=== PATIENT | male | born 1960 | race Caucasian/White ===

== ENCOUNTER 2024-12-22 14:25 | Outpatient (CLI) | payer MEDICARE, SELFPAY ==
--- NOTE | 2024-12-22 15:08 | ECG_ITS ---
Test Date: 2024-12-22 15:24:25 Measurements Intervals [place] Rate: 59 P: 86 MI: 175 QRS: -60 QRSD: 150 T: 32 QT: 434 QTc: 431 Interpretive Statements SINUS BRADYCARDIA RIGHT BUNDLE BRANCH BLOCK LEFT ANTERIOR FASCICULAR BLOCK BASELINE ARTIFACT- I, AVR, AVL, AVF, V2 ABNORMAL ECG No previous ECG available for comparison Electronically Signed On 12-22-2024 15:27:25 CDT by James Aguillon D.O.
[2024-12-22 15:18] LABS: Basophils Percent Auto 0.5 % (0.2-1.2); Eosinophils Absolute Auto 0.3 K/mm3 (0-0.3); Eosinophils Percent Auto 5.1 % (0-4.4); Hematocrit 45.5 % (42.0-52.0); Immature Granulocyte Absolute 0.02 K/mm3 (0.00-0.031); Immature Granulocyte Percent A 0.4 % (0-0.5); Lymphocytes Percent Auto 30.9 % (18.3-44.2); Mean Corpuscular Hemoglobin 28.8 pg (26-34); Mean Corpuscular Volume 87.3 fl (80-100); Mean Platelet Volume 10.9 fl (7.4-10.4); Monocytes Absolute Auto 0.5 K/mm3 (0.1-0.6); Monocytes Percent Auto 8.5 % (2.6-8.5); Neutrophils Percent Auto 54.6 % (45.5-73.1); Platelet Count Result 209 k/mm3 (150-375); Red Blood Count 5.21 M/mm3 (4.6-6.20); Red Cell Distribution Width 13.6 % (11.5-14.5); White Blood Count 5.5 K/mm3 (4.5-10.0)
[2024-12-22 15:28] LABS: Add Urine Microscopic? YES; Appearance Urine Clear (Clear); Bacteria Urine None Seen /hpf; Bilirubin Urine Negative (Negative); Blood Urine Negative (Negative); Color Urine Yellow (Yellow); Glucose Urine UA 3+ mg/dL (Negative); Ketones Urine Negative (Negative); Leukocyte Esterase Ur Negative LEU/UL (Negative); Nitrate Urine Negative (Negative); Non Pathogenic Casts 0-2; Protein Urine 2+ mg/dL (Negative); RBC Urine 0-2 /hpf (0-2); Squamous Epithelial Cell Urine None Seen /hpf (Few); Urobilinogen Urine 0.2 mg/dL (<2.0); WBC Urine 0-5 /hpf (0-3)
[2024-12-22 15:37] LABS: Albumin Level 4.3 g/dL (3.5-5.1); Anion Gap 8 mmol/L (4-12); Blood Urea Nitrogen 20 mg/dL (9-20); Calcium 9.6 mg/dL (8.4-10.2); Carbon Dioxide 26 mmol/L (22-30); Chloride 107 mmol/L (98-107); Estimated Glomerular Filt Rate > 60; Glucose 102 mg/dL (65-110); Potassium 3.9 mmol/L (3.4-5.0); Sodium 141 mmol/L (137-145)
--- OUTSIDE RECORDS SUMMARY | 2024-12-22 15:58 | XMS_ITS | Encounter Summary ---
Author Organization [facility] Address [address] [place] [id number] Care Team Providers Care Engine Repairer Production Name Role Phone Cecilia Jenkins MD Primary Care Provider [phone]- [phone] Reason for Visit * Reason Onset Date Comments Surgical Clearance 12/21/2024 Encounter Details Date Type Department Care Team (Late st Contact Info) Description 12/21/2024 Telephone [place] [facility] [address] [place] [address] Danny Pavon MD [facility]. [facility] [address] [place] [address] Surgical Clearance Social History Tobacco Use Types Packs/Day Years Used Date Smoking Tobacco: Never Smokeless Tobacco: Never Alcohol Use Standard Drinks/Week Comments Yes 1.7 (1 standard drink = 0.6 oz p ure alcohol) once every 2 weeks PHQ-2 Answer Date Recorded Patient Health Questionnaire-2 Score 0 11/26/2024 Sex and Gender Information Value Date Recorded Sex Assigned at Not on file Legal Sex Male 9:56 AM CDT Gender Identity Male 10/09/2021 3:39 PM [employer] PAR[employer] Sexual Orientation Straight 10/09/2021 3: 39 PM [employer] PARALEGAL documented as of this encounter Functional Status * RETIRED Are you deaf or do you have serious difficulty hearing Answer Date of Assessment Author Status No 03/20/2022 9:31 PM CDT Activ e * RETIRED Are you blind or do you have serious difficulty seeing, even when wearing glasses? Answer Date of Assessment Author Status No 03/20/2022 10:39 PM CDT Acti ve * Do you have serious difficulty walking or climbing stairs? Answer Date of Assessment Author Status No 03/20/2022 10:39 PM CDT Delilah Holden R N Active * Do you have difficulty dressing or bathing? Answer Date of Assessment Author Status No 03/20/2022 10:39 PM CDT Delilah Holden R N Active * Because of a physical, mental, or emotional condition, do you have difficulty doing errands alone such as visiting a doctor's office or shopping? Answer Date of Assessment Author Status No 03/20/2022 10:39 PM CDT Delilah Holden R N Active documented as of this encounter Mental Status * Because of a physical, mental, or emotional condition, do you have serious difficulty concentrating, remembering, or making decisions? Answer Entry Date Author Status No 03/20/2022 10:39 PM CDT Delilah Holden R N Active documented in this encounter Progress Notes * Candace Baig - 12/21/2024 4:33 PM CDT Received fax on Luiz Kimble stating patient is needing to undergo LEFT TOTAL KNEE ARTHROPLASTY. Needs cardiac clearance. Please advise if patient is cleared for surgery or if any medication changes/directions are needed. Message to Saleem Wayne documented in this encounter Plan of Treatment Upcoming Encounters Date Type Department Care Team (Late st Contact Info) Description 02/16/2025 11:00 AM CDT Office Visit [facility] [facility], [place] [address] [place] [address] Danny Pavon MD [facility]. [facility] [address] [place] [address] documented as of this encounter Goals Goal Patient Goal Type Associated Problems Recent Progress Patient-Stated? Author Patient will return to prior living situation and remain independent in ADLs upon [facility] General No Adenike Griggs RN documented as of this encounter Visit Diagnoses Not on filedocumented in this encounter Care Teams Engine Repairer Production Relationship Specialty Start Date End Date Cecilia Jenkins MD [address] [facility] [address] [place] [address] PCP - General FAMILY PRACTICE 04/23/22 documented as of this encounter
--- OUTSIDE RECORDS SUMMARY | 2024-12-22 15:59 | XMS_ITS | Clinical Summary ---
Author Organization [facility] Address [address] [place] [address] Care Team Providers Care Electroencephalographic Technologist Name Role Phone Cecilia Jenkins MD Primary Care Provider [phone]- [phone] Allergies No known active allergies Medications aspirin EC (ECOTRIN) 81 MG tablet Take 1 tablet (81 mg total) by mouth daily. Active fish oil (OMEGA-3 FATTY ACID) 1000 MG Cap capsule Take 1 capsule (1,000 mg total) by mouth daily. Active Glucosamine 500 MG Cap Take 1 capsule by mouth daily. Active multi vitamin/mineral s (THERA-M ENHANCED) tablet Take 1 tablet by mouth daily. Active losartan-hydroC HLOROthiazide (HYZAAR) 50-12.5 MG tabletIndicatio ns:Albuminuria Take 1 tablet by mouth daily. 30 tablet 3 3 Active vitamin D3, cholecalciferol , 5000 UNITS capsule Take 1 capsule (5,000 Units total) by mouth daily. Active ketoconazole (NIZORAL) 2 % cream 3 Active ketoconazole (NIZORAL) 2 % shampoo Apply topically once a week. 3 Active ELIQUIS 5 MG tablet Take 1 tablet by mouth twice daily 180 tablet 3 Active FARXIGA 10 MG tabletIndicatio ns:Albuminuria, CKD (chronic kidney disease), symptom management only, stage 1 Take 1 tablet by mouth once daily 90 tablet 3 Active amLODIPine (NORVASC) 2.5 MG tablet Take 1 tablet (2.5 mg total) by mouth daily. 3 Active losartan (COZAAR) 50 MG tabletIndicatio ns:Albuminuria Take 1 tablet by mouth once daily 90 tablet 4 Active B Complex Cap capsule Take 1 capsule by mouth daily. Active metoprolol tartrate (LOPRESSOR) 50 MG tablet Take 1 tablet by mouth twice daily 180 tablet 4 Active finasteride (PROSCAR) 5 MG tablet Take 1 tablet (5 mg total) by mouth daily. 5 Active atorvastatin (LIPITOR) 80 MG tablet Take 1 tablet (80 mg total) by mouth daily. 4 Active Active Problems Problem Noted Date Diagnosed Date Elevated PSA 08/31/2022 Atrial fibrillation, unspecified type (CMS/HCC H HS/HCC) 04/04/2022 Assessment & Plan (12/03/2022 2:53 PM CDT): He has paroxysmal atrial fibrillation and is status post cardioversion 05/2022. He thinks he was back in afib a few weeks after DCCV. EKG done at OSH in 09/2022 documented as fib. EKG today in the office shows atrial fibrillation. Ventricular rate is controlled. Continue BB. Discussed treatment options. I think he would benefit from rhythm control strategy. We discussed referral to EP for catheter ablation versus addition of anti arrhythmics. He would like to see them to discuss. Since he is symptomatic we discussed repeat DCCV. He would like to wait. He is on Eliquis for thromboprophylaxis. He has not missed any doses in the last 30 days. Assessment & Plan (06/11/2022 11:40 AM CDT): He has paroxysmal atrial fibrillation and is status post cardioversion. He is currently in normal sinus rhythm on his EKG today. Continue metoprolol and anticoagulation with apixaban. Assessment & Plan (04/06/2022 10:36 AM CDT): New on admission Secondary to multiple bilateral pulmonary emboli EKG today reveals atrial fibrillation We will schedule DCCV as outpatient Continue Eliquis 5 mg twice daily Continue metoprolol 50 mg twice daily Monitor rates on telemetry and adjust accordingly Would benefit from sleep study but would like to hold off at this time Pulmonary embolism (CMS/HCC HHS/HCC) 03/20/2022 Assessment & Plan (11/29/2022 1:30 PM FLAME PLANER): Continue anticoagulation. He will be on anticoagulation for atrial fibrillation regardless. Assessment & Plan (06/11/2022 11:41 AM CDT): Continue anticoagulation. He will be on anticoagulation for atrial fibrillation regardless. Assessment & Plan (04/06/2022 10:35 AM CDT): Bilateral venous Dopplers also positive for DVT He is generally sedentary. Although, this is not changed in the last couple years. 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 Would encourage hypercoagulability work-up to rule out if they deemed necessary Albuminuria 07/10/2021 CKD (chronic kidney disease) stage 2, GFR 60-89 ml/min 07/10/2021 Primary hypertension 07/10/2021 Assessment & Plan (11/29/2022 1:29 PM FLAME PLANER): His blood pressure is elevated in the office today. He is working on lifestyle modifications to help with weight loss. Continue losartan, hydrochlorothiazide, and metoprolol. Assessment & Plan (06/11/2022 11:40 AM CDT): His blood pressure is elevated in the office today. He is working on lifestyle modifications to help with weight loss. Continue losartan, hydrochlorothiazide, and metoprolol. Assessment & Plan (04/04/2022 9:06 AM CDT): Blood pressure is well controlled with no changes in regimen at this time Encouraged to continue to monitor at home and log and call office with any concerns in future. Resolved Problems Problem Noted Date Diagnosed Date Resolved Date BPH with obstruction/lower u rinary tract symptoms 08/31/2022 12/20/2022 Encounters Date Type Department Care Team Description 12/21/2024 [facility] [address] [address] Danny Pavon MD Surgical Clearance 11/26/2024 11:40 AM FLAME PLANER Office Visit [facility] - [facility], [place] [address] [place] [id number] Camilo Hall MD CKD Follow-up 11/26/2024 Travel from Last 3 Months Family History Medical History Relation Comments Osteoarthritis Brother Cancer Father Cancer Mother Thyroid Disease Mother Parkinson's Disease Paternal Grandfather Cancer Paternal Grandmother Relation Status Comments Brother Father Mother Paternal Grandfather Paternal Grandmother Social History Tobacco Use Types Packs/Day Years Used Date Smoking Tobacco: Never Smokeless Tobacco: Never Tobacco Cessation:Counseling Given: No Alcohol Use Standard Drinks/Week Comments Yes 1.7 (1 standard drink = 0.6 oz p ure alcohol) once every 2 weeks PHQ-2 Answer Date Recorded Patient Health Questionnaire-2 Score 0 11/26/2024 Sex and Gender Information Value Date Recorded Sex Assigned at Not on file Legal Sex Male 9:56 AM CDT Gender Identity Male 10/09/2021 3:39 PM FLAME PLANER Sexual Orientation Straight 10/09/2021 3: 39 PM FLAME PLANER Last Filed Vital Signs Vital Sign Reading Time Taken Comments Blood Pressure 129/74 11/26/2024 11:36 AM FLAME PLANER Pulse 65 11/26/2024 11:36 AM FLAME PLANER Temperature 35.7 C (96.3 F) 11/26/2024 11:36 AM FLAME PLANER Respiratory Rate 24 04/20/2024 12:30 PM CDT Oxygen Saturation 97% 11/26/2024 11:36 AM FLAME PLANER Inhaled Oxygen Concentration - - Weight 134.3 kg (296 lb) 11/26/2024 11:36 AM FLAME PLANER Height 180.3 cm (5' 11 ) 11/26/2024 11:36 AM FLAME PLANER Body Mass Index 41.28 11/26/2024 11:36 AM FLAME PLANER Plan of Treatment Upcoming Encounters Date Type Department Care Team (Late st Contact Info) Description 02/16/2025 11:00 AM CDT Office Visit [facility] [facility], [place] [address] [place] [address] Danny Pavon MD [facility]. [place] [address] [place] [address] Health Maintenance Due Date Last Done Comments Colorectal Cancer Screening Colonoscopy (10 Years) 1958 Hepatitis C 1976 RSV Immunization or 60+ Years (1 - Risk 60-74 years 1-dose series) 2018 Annual Medicare Wellness Visit 2023 COVID-19 Vaccine (4 - 2023-2 5 season) 2024 07/17/2023, 12/21/2020, 11/20/2020 Zoster Vaccines (2 of 2) 10/28/2024 09/02/2024 DTaP, Tdap and Td Vaccines ( 2 - Td or Tdap) 09/01/2034 09/01/2024 Pneumococcal Vaccine: 65+ Years Completed 10/23/2023 PHQ-2 (Physician [place]) Completed 11/26/2024 Meningococcal B Vaccine Aged Out No l onger eligible based on patient's age to complete this topic Meningococcal Vaccine Aged Out No hillary nikole eligible based on patient's age to complete this topic RSV Immunizations Under 20 Months Aged Out No longer eligible b ased on patient's age to complete this topic Goals Goal Patient Goal Type Associated Problems Recent Progress Patient-Stated? Author Patient will return to prior living situation and remain independent in ADLs upon discharge from hospital General No Adenike Griggs, RN Insurance [employer] Advance Directives * Full Code (Latest Code Status on File) Date Activated Date Inactivated Comments 05/06/2023 2:15 PM 05/06/2023 6:04 PM * Full Code Date Activated Date Inactivated Comments 01/28/2023 11:17 AM 01/28/2023 6:09 PM * Full Code Date Activated Date Inactivated Comments 05/08/2022 12:57 PM 05/08/2022 4:22 PM * Full Code Date Activated Date Inactivated Comments 03/20/2022 3:45 PM 03/22/2022 4:28 PM Care Teams Electroencephalographic Technologist Relationship Specialty Start Date End Date Cecilia Jenkins MD [address] [facility] [address] [place] [address] PCP - General FAMILY PRACTICE 04/23/22
--- OUTSIDE RECORDS SUMMARY | 2024-12-22 15:59 | XMS_ITS | Data Portability ---
Author Organization [facility] Katie BULLOCK Address [address] [facility][note 3][place] [address] Care Team Providers Care Project Consultant Name Role Phone JOY HUANG Primary Care Provider Unazeeshan ilminerva Assessment No assessment recorded. Plan of Treatment Reminders Order Date Submit Date Provider Last Modified By Organization Details Last Modified Time Details Appointments None record ed. Lab HbA1c (hemog lobin A1c), blood 2023 [facility], [address] [place] [address], [address], [place], [address], 4 12:14:15 lipid panel, serum 2023 024 [facility], [address] [place] [address], [address], [place], [address], 4 12:14:12 BMP, serum or plasma 2023 024 [facility], [address] [place] [address], [address], [place], [address], 4 12:14:13 albumi n/crea tinine , mass ratio, urine 2023 [facility], [address] [place] [address], [address], [place], [address], 4 12:14:11 Referral orthop benita fregoso n referr al 2023 024 SAÚL Lynn MD, [address] [facility] [address], [place], [address], 5 15:17:59 Procedures None record ed. Surgeries None record ed. Imaging None record ed. Medication Orders losart an 100 mg-hyd rochlo rothia zide 12.5 mg tablet 2024 025 [facility], [address] [place] [address], [address], 5 11:54:43 Farxig a 10 mg tablet 2023 024 [facility], [address] [place] [address], [address], 4 09:52:15 Eliqui s 5 mg tablet 2023 024 [facility], [address] [place] [address], [address], 4 09:52:15 metopr olol tartra te 50 mg tablet 2023 024 [facility], [address] [place] [address], [address], 4 09:52:15 losart an 100 mg-hyd rochlo rothia zide 12.5 mg tablet 2023 024 [facility], [address] [place] [address], [address], 4 09:52:14 amlodi pine 5 mg tablet 2023 024 [facility], [address] [place] [address], [address], 4 09:52:15 Trulic ity 1.5 mg/0.5 mL subcut aneous pen inject or 2022 023 [email or web address] [facility], [address] [facility], [place], [address], 11:18:27 Patient TargetsNo targets recorded. Patient Instructions Encounter Date Encounter Id Patient Instructions Last Modified By Organization Details Last Modified Time 08/27/2023 [id number] I was present and available in the Family Medicine clinic to discuss this patient's care during the appointment. I agree with the resident's assessment and plan as documented. KGR [email or web address] Not available 08/28/2023 09:12:25 10/23/2023 [id number] I was present and available in the Family Medicine clinic to discuss the patient's care during the time of the appointment. I agree with the resident's assessment and plan as documented. Tommy Calzada Not available 10/24/2023 13:13:44 03/09/2024 [id number] I was present and available in the family medicine clinic to discuss the patient's care during the appointment and the case was discussed with me. I agree with the resident's assessment and plan as documented. HL [email or web address] Not available 03/09/2024 11:13:53 09/01/2024 [id number] I was present and available in the Family Medicine clinic to discuss this patient's care for the duration of the appointment. I agree with the resident's assessment and plan as documented with the following addendum: None. Dr. Adelfo Rosas MD, FMOB Attending Physician, [facility]. [email or web address] Not available 09/02/2024 19:10:38 11/27/2024 [id number] A healthy lifestyle: care instructions [email or web address] Not available 11/29/2024 14:39:54 I was present and available in the Family Medicine clinic to discuss the patient's care during the time of the appointment. All labs/imaging/con sults/prescripti ons to be followed by the resident rendering services on day of encounter. I agree with the resident's assessment and plan as documented with the following addendum: [None] Tommy Calzada Not available 11/30/2024 16:25:01 Reason for Referral Orthopedic Surgeon Referral for Bilateral arthritis of knees Referring Physician: Joy Bal, Check Embosser, Encounter Date: 09/01/2024 Results Created Date Observation Date Name Description Value Unit Range Abnormal Flag Note LastModifiedBy Organization Detail LastModifiedTime 08/27/20 23 08/27/2023 BASIC METAB OLIC PANEL glucose 90 mg/dL 70-99 Not Available [facility] (Lab[facility] [place], [address], 08/27/2023 12:37:16 08/27/20 23 08/27/2023 BASIC METAB OLIC PANEL BUN 19 mg/dL 7-18 high Not Available [facility] (Lab) [place], [address], 08/27/2023 12:37:16 08/27/20 23 08/27/2023 BASIC METAB OLIC PANEL creatinine 1.06 mg/dL 0.7-1. 3 Not Available [facility] (Lab) [place], [address], 08/27/2023 12:37:16 08/27/20 23 08/27/2023 BASIC METAB OLIC PANEL sodium 141 mmol/ L 136-14 5 Not Available [facility] (Lab) [place], [address], 08/27/2023 12:37:16 08/27/20 23 08/27/2023 BASIC METAB OLIC PANEL potassium 4.0 mmol/ L 3.5-5. 1 Not Available [facility] (Lab) [place], [address], 08/27/2023 12:37:16 08/27/20 23 08/27/2023 BASIC METAB OLIC PANEL chloride 109 mmol/ L 100-10 8 high Not Available [facility] (Lab) [place], [address], 08/27/2023 12:37:16 08/27/20 23 08/27/2023 BASIC METAB OLIC PANEL total CO2 27.5 mmol/ L 21-32 Not Available [facility] (Lab) [address] [place], [address], 08/27/2023 12:37:16 08/27/20 23 08/27/2023 BASIC METAB OLIC PANEL calcium 9.0 mg/dL 8.5-10 .1 Not Available [facility] (Lab) [place], [address], 08/27/2023 12:37:16 08/27/20 23 08/27/2023 BASIC METAB OLIC PANEL anion gap 4.5 mmol/ L 5-15 low Not Available [facility] (Lab) [address], [place], [address], 08/27/2023 12:37:16 08/27/20 23 08/27/2023 BASIC METAB OLIC PANEL BUN creatinine ratio 17.9 6-26 Not Available [facility] (Lab) [place], [address], 08/27/2023 12:37:16 08/27/20 23 08/27/2023 BASIC METAB OLIC PANEL est GFR 78 mL/mi n/1.7 3_M2 >90 low NOTE: eGFR is not calcu lated for patie nts <18 years of age. This is an estim ated GFR calcu latio n using the new CKD EPI creat inine equat ion witho ut race and so does not requi re a corre ction facto r for race. This estim ated GFR shoul d not be used for calcu latin g drug doses . Not Available [facility] (Lab) [place], [address], 08/27/2023 12:37:16 08/27/20 23 08/27/2023 VITAM IN D, 25-OH TOTAL vitamin D, 25-oh total 35 NG/mL 30-100 INTER PRETA TION DEFIC IENT <20 INSUF FICIE NT 20-29 SUFFI CIENT 30-10 0 Not Available [facility] (Lab) [place], [address], 08/27/2023 12:38:23 08/27/20 23 08/27/2023 MICRO ALB/C REAT RATIO creatinine, urine 93.1 mg/dL 39-259 Not Available [facility] (Lab) [place], [address], 08/27/2023 13:12:27 08/27/20 23 08/27/2023 MICRO ALB/C REAT RATIO microalbumin , urine 55.7 mg/dL <2.0 high Not Available [facility] (Lab) [place], [address], 08/27/2023 13:12:27 08/27/20 23 08/27/2023 MICRO ALB/C REAT RATIO malb/creat ratio 598.3 mg/g <30 high Not Available [facility] (Lab) [place], [address], 08/27/2023 13:12:27 08/27/20 23 08/27/2023 TOTAL PROTE IN, URINE total protein, urine 67.0 mg/dL <10 high Not Available [facility] (Lab) [place], [address], 08/27/2023 13:12:28 04/20/20 24 04/20/2024 BASIC METAB OLIC PANEL glucose 93 mg/dL 70-99 Not Available [facility] (Lab) [address] [place], [address], 04/20/2024 10:22:16 04/20/20 24 04/20/2024 BASIC METAB OLIC PANEL BUN 18 mg/dL 7-18 Not Available [facility] (Lab) [address] [facility], [place], [address], 04/20/2024 10:22:16 04/20/20 24 04/20/2024 BASIC METAB OLIC PANEL creatinine 1.14 mg/dL 0.7-1. 3 Not Available [facility] (Lab) [address] [facility], [place], [address], 04/20/2024 10:22:16 04/20/20 24 04/20/2024 BASIC METAB OLIC PANEL sodium 142 mmol/ L 136-14 5 Not Available [facility] (Lab) [address] [facility], [place], [address], 04/20/2024 10:22:16 04/20/20 24 04/20/2024 BASIC METAB OLIC PANEL potassium 3.9 mmol/ L 3.5-5. 1 Not Available [facility] (Lab) [address] [place], [address], 04/20/2024 10:22:16 04/20/20 24 04/20/2024 BASIC METAB OLIC PANEL chloride 111 mmol/ L 100-10 8 high Not Available [facility] (Lab) [address] [place], [address], 04/20/2024 10:22:16 04/20/20 24 04/20/2024 BASIC METAB OLIC PANEL total CO2 26.7 mmol/ L 21-32 Not Available [facility] (Lab) [place], [address], 04/20/2024 10:22:16 04/20/20 24 04/20/2024 BASIC METAB OLIC PANEL calcium 8.8 mg/dL 8.5-10 .1 Not Available [facility] (Lab) [place], [address], 04/20/2024 10:22:16 04/20/20 24 04/20/2024 BASIC METAB OLIC PANEL anion gap 4.3 mmol/ L 5-15 low Not Available [facility] (Lab) [place], [address], 04/20/2024 10:22:16 04/20/20 24 04/20/2024 BASIC METAB OLIC PANEL BUN creatinine ratio 15.8 6-26 Not Available [facility] (Lab) [place], [address], 04/20/2024 10:22:16 04/20/20 24 04/20/2024 BASIC METAB OLIC PANEL est GFR 71 mL/mi n/1.7 3_M2 >90 low NOTE: eGFR is not calcu lated for patie nts <18 years of age. This is an estim ated GFR calcu latio n using the new CKD EPI creat inine equat ion witho ut race and so does not requi re a corre ction facto r for race. This estim ated GFR shoul d not be used for calcu latin g drug doses . Not Available [facility] (Lab) [place], [address], 04/20/2024 10:22:16 04/20/20 24 04/20/2024 CBC WITH DIFF WBC 5.98 x10'3 /uL 4.5-11 .0 Not Available [facility], [address], 04/20/2024 10:31:14 04/20/20 24 04/20/2024 CBC WITH DIFF RBC 5.36 x10'6 /uL 4.70-6 .10 Not Available [facility] (Lab) [address] [facility], [place], [address], 04/20/2024 10:31:14 04/20/20 24 04/20/2024 CBC WITH DIFF hemoglobin 15.3 g/dL 14.0-1 8.0 Not Available [facility] (Lab) [address] [facility], [place], [address], 04/20/2024 10:31:14 04/20/20 24 04/20/2024 CBC WITH DIFF hematocrit 47.4 % 43.0-5 4.0 Not Available [facility] (Lab) [address] [facility], [place], [address], 04/20/2024 10:31:14 04/20/20 24 04/20/2024 CBC WITH DIFF MCV 88.4 fL 80.0-9 4.0 Not Available [facility] (Lab) [address] [facility], [place], [address], 04/20/2024 10:31:14 04/20/20 24 04/20/2024 CBC WITH DIFF MCH 28.5 pg 27.0-3 1.0 Not Available [facility] (Lab) [address] [place], [address], 04/20/2024 10:31:14 04/20/20 24 04/20/2024 CBC WITH DIFF MCHC 32.3 g/dL 32.0-3 6.0 Not Available [facility] (Lab) [address] [facility], [place], [address], 04/20/2024 10:31:14 04/20/20 24 04/20/2024 CBC WITH DIFF RDW 13.3 % 11.5-1 4.5 Not Available [facility] (Lab) [address], [place], [address], 04/20/2024 10:31:14 04/20/20 24 04/20/2024 CBC WITH DIFF platelet count 235 x10'3 /uL 130-40 0 Not Available [facility] (Lab) [address], [place], [address], 04/20/2024 10:31:14 04/20/20 24 04/20/2024 CBC WITH DIFF MPV 10.0 fL 9.3-12 .2 Not Available [facility] (Lab) [address], [place], [address], 04/20/2024 10:31:14 04/20/20 24 04/20/2024 CBC WITH DIFF diff type AUTOMA BERNY DIFFER ENTIAL Not Available [facility] (Lab) [address], [place], [address], 04/20/2024 10:31:14 04/20/20 24 04/20/2024 CBC WITH DIFF neutrophils 51.1 % Not Available [facility] (Lab) [address], [place], [address], 04/20/2024 10:31:14 04/20/20 24 04/20/2024 CBC WITH DIFF lymphocytes 37.1 % Not Available [facility] (Lab) [place], [address], 04/20/2024 10:31:14 04/20/20 24 04/20/2024 CBC WITH DIFF monocytes 7.0 % Not Available [facility] (Lab) [address] [place], [address], 04/20/2024 10:31:14 04/20/20 24 04/20/2024 CBC WITH DIFF eosinophils 4.0 % Not Available [facility] (Lab) [address] [place], [address], 04/20/2024 10:31:14 04/20/20 24 04/20/2024 CBC WITH DIFF basophils 0.5 % Not Available [facility] (Lab) [address] [place], [address], 04/20/2024 10:31:14 04/20/20 24 04/20/2024 CBC WITH DIFF immature granulocytes 0.3 % Not Available [facility] (Lab) [address] [facility], [place], [address], 04/20/2024 10:31:14 04/20/20 24 04/20/2024 CBC WITH DIFF abs. neutrophils 3.05 x10'3 /uL 1.80-7 .70 Not Available [facility] (Lab) [address] [place], [address], 04/20/2024 10:31:14 04/20/20 24 04/20/2024 CBC WITH DIFF abs. lymphocytes 2.22 x10'3 /uL 1.00-4 .80 Not Available [facility] (Lab) [address] [place], [address], 04/20/2024 10:31:14 04/20/20 24 04/20/2024 CBC WITH DIFF abs. monocytes 0.42 x10'3 /uL 0.30-0 .82 Not Available [facility] (Lab) [address] [place], [address], 04/20/2024 10:31:14 04/20/20 24 04/20/2024 CBC WITH DIFF abs. eosinophils 0.24 x10'3 /uL 0.04-0 .54 Not Available [facility] (Lab) [address] [facility], [place], [address], 04/20/2024 10:31:14 04/20/20 24 04/20/2024 CBC WITH DIFF abs. basophils 0.03 x10'3 /uL 0.01-0 .08 Not Available [facility] (Lab) [address], [place], [address], 04/20/2024 10:31:14 04/20/20 24 04/20/2024 CBC WITH DIFF abs. immature grans 0.02 x10'3 /uL 0.00-0 .49 Not Available [facility] (Lab) [address], [place], [address], 04/20/2024 10:31:14 04/20/20 24 04/20/2024 PROTI ME protime 11.7 sec 10.2-1 2.9 Not Available [facility] (Lab) [address], [place], [address], 04/20/2024 10:35:07 04/20/20 24 04/20/2024 PROTI ME INR 1.0 Recom lida d INR Thera peuti c Goals : 2.0-3 .0 Routi ne Thera py 2.5-3 .5 Mecha nical Prost hetic Valve s (High Risk) Not Available [facility] (Lab) [address], [place], [address], 04/20/2024 10:35:07 09/01/20 24 09/02/2024 ALBUM IN/CR EATIN INE RATIO ,URIN E creatinine, urine 154.9 mg/dL notest ab. Not Available [facility] ([facility]) [address] [facility], [place], [address], 09/02/2024 12:14:10 09/01/20 24 09/02/2024 ALBUM IN/CR EATIN INE RATIO ,URIN E albumin, urine 933.0 ug/mL notest ab. Resul ts confi rmed on dilut ion. Not Available [facility] ([facility]) [address] [facility], [place], [address], 09/02/2024 12:14:10 09/01/20 24 09/02/2024 ALBUM IN/CR EATIN INE RATIO ,URIN E alb/creat ratio 602 mg/g_ creat 0-29 above high normal Michelle l: 0 - 29 Moder ately incre ased: 30 - 300 Sever bryant incre ased: >300 Not Available [facility] ([facility]) [address] [facility], [place], [address], 09/02/2024 12:14:10 09/01/20 24 09/02/2024 LIPID PANEL cholesterol, total 238 mg/dL 100-19 9 above high normal Not Available [facility] ([facility]) [address] [facility], [place], [address], 09/02/2024 12:14:12 09/01/20 24 09/02/2024 LIPID PANEL triglyceride s 188 mg/dL 0-149 above high normal Not Available [facility] ([facility]) [address] [place], [address], 09/02/2024 12:14:12 09/01/20 24 09/02/2024 LIPID PANEL HDL cholesterol 41 mg/dL >39 Not Available [facility]) [address] [facility], [place], [address], 09/02/2024 12:14:12 09/01/20 24 09/02/2024 LIPID PANEL VLDL cholesterol herb 35 mg/dL 5-40 Not Available [facility] ([facility]) [address] [place], [address], 09/02/2024 12:14:12 09/01/20 24 09/02/2024 LIPID PANEL LDL chol calc ([facility]) 162 mg/dL 0-99 above high normal Not Available [facility] ([facility]) [address] [place], [address], 09/02/2024 12:14:12 09/01/20 24 09/02/2024 BASIC METAB OLIC PANEL (8) glucose 88 mg/dL 70-99 Not Available [facility] ([facility]) [address] [place], [address], 09/02/2024 12:14:13 09/01/20 24 09/02/2024 BASIC METAB OLIC PANEL (8) BUN 16 mg/dL 8-27 Not Available [facility] ([facility]) [address] [place], [address], 09/02/2024 12:14:13 09/01/2009/02/2024 BASIC METAB OLIC PANEL (8) creatinine 1.08 mg/dL 0.76-1 .27 Not Available [facility] ([facility]) [address] [place], [address], 09/02/2024 12:14:13 09/01/2009/02/2024 BASIC METAB OLIC PANEL (8) eGFR 76 mL/mi n/1.7 3 >59 Not Available [facility] ([facility]) [address] [place], [address], 09/02/2024 12:14:13 09/01/20 24 09/02/2024 BASIC METAB OLIC PANEL (8) BUN/creatini ne ratio 15 10-24 Not Available [facility] ([facility]) [address] [place], [address], 09/02/2024 12:14:13 09/01/20 24 09/02/2024 BASIC METAB OLIC PANEL (8) sodium 143 mmol/ L 134-14 4 Not Available [facility] ([facility]) [address] [facility], [place], [address], 09/02/2024 12:14:13 09/01/20 24 09/02/2024 BASIC METAB OLIC PANEL (8) potassium 4.5 mmol/ L 3.5-5. 2 Not Available [facility] ([facility]) [address] [place], [address], 09/02/2024 12:14:13 09/01/20 24 09/02/2024 BASIC METAB OLIC PANEL (8) chloride 104 mmol/ L 96-106 Not Available [facility] ([facility]) [address] [place], [address], 09/02/2024 12:14:13 09/01/20 24 09/02/2024 BASIC METAB OLIC PANEL (8) carbon dioxide, total 26 mmol/ L 20-29 Not Available [facility] ([facility]) [address] [place], [address], 09/02/2024 12:14:13 09/01/20 24 09/02/2024 BASIC METAB OLIC PANEL (8) calcium 9.5 mg/dL 8.6-10 .2 Not Available [facility] ([facility]) [address] [place], [address], 09/02/2024 12:14:13 09/01/20 24 09/02/2024 HEMOG LOBIN A1C hemoglobin A1C 5.9 % 4.8-5. 6 above high normal Predi abete s: 5.7 - 6.4 Diabe grace: >6.4 Glyce yariel contr ol for adult s with diabe grace: <7.0 Not Available [facility] ([facility]) [address] [facility] [place], [address], 09/02/2024 12:14:15 04/20/20 24 ECG 12-le ad [facility] [address] [facility] [address] [place] [address] [facility] [place], [place] Test Date: 04-20 Pat Name: NADINE Street Depart ment: 40 Patien t ID: [id number] Room: [facility] Gender : Male Techni jennifer: Tlf : [birth year] Reques berny By: GÉNESIS Enamorado Order Number : [id number] MD: Génesis enamorado Measur ements Interv als Wirt Rate: 77 P: DC: 0 QRS: -62 QRSD: 149 T: -12 QT: 397 QTc: 450 Interp retive Statem ents ATRIAL FIBRIL LATION RIGHT BUNDLE BRANCH BLOCK [120+ ms QRS DURATI ON, UPRIGH T V1, 40+ ms S IN I/aVL/ V4/V5/ V6] LEFT ANTERI OR FASCIC ULAR BLOCK [QRS AXIS <= -45, QR IN I, RS IN II] Compar ed to ECG 2023 10:35: 33 No signif icant change s Electr onical ly signed by Génesis enamorado at 04-20-2 024 13:52: 01 CDT [facility] [address] [facility], [place], [address], 04/20/2024 19:48:10 04/20/20 24 ECG 12-le ad [facility] [place] [address] [facility] [address] [place] [address] [facility] [address] [place], [place] Test Date: 04-20 Pat Name: NADINE Street Depart ment: 40 Patien t ID: [id number] Room: [facility] Gender : Male Techni jennifer: : 1959-0 9-09 Reques berny By: GÉNESIS Enamorado Order Number : [id number] [address] MD: Génesis enamorado Measur ements Interv als Wirt Rate: 61 P: 80 DC: 190 QRS: -51 QRSD: 157 T: -7 QT: 446 QTc: 450 Interp retive Statem ents SINUS RHYTHM WITH OCCASI ONAL SUPRAV ENTRIC ULAR PREMAT URE COMPLE XES RIGHT BUNDLE BRANCH BLOCK [120+ ms QRS DURATI ON, UPRIGH T V1, 40+ ms S IN I/aVL/ V4/V5/ V6] LEFT ANTERI OR FASCIC ULAR BLOCK [QRS AXIS <= -45, QR IN I, RS IN II] Compar ed to ECG 2023 09:26: 14 Atrial fibril lation no longer presen t Electr onical ly signed by Génesis enamorado at 024 13:54: 49 CDT [facility] [address] [facility], [place], [address], 04/20/2024 19:48:10 04/21/20 24 xa cardi overs ion dcc [facility] [place] [id number] [place] [address] HOSPIT AL [facility]EP LAB [phone] x [phone] Cardio versio n Patien t Name: Nadine ConcepcionRicardo Date of : 1959 Medica l Record : #[id number] Accoun t: #[id number] Physic dora: Génesis enamorado MD Date: 2023 Proced ure: #[id number] DIAGNO SIS: Atrial Fibril lation OPERAT MONICA NOTE: Under genera l anesth esia, in the presen ce of Dr. Bhavani enamorado, the patien t underw ent synchr onized cardio versio n at 200 joules , biphas ic, with succes sful cardio versio n to normal sinus rhythm . Patien t tolera berny the proced ure well. Estima berny Blood Loss: None Specim ens Remove d: None Compli cation s: None CONCLU VIC: Succes sful cardio versio n with 200 joules into normal sinus rhythm . MD SHAHNAZ Mckeon/vs Interp reted: Transc ribed: [email or web address] [facility] [address] [facility], [place], [address], 04/23/2024 22:59:50 Result Notes None recorded. Problems Name Problem SNOMED Code Status Onset Date Resolution Date Notes Provider Name and Address Organization Details Recorded Time Essential hypertensi on 34158908 Active 2020 Estela Rae esme, [facility] 14:55:12 Basal cell carcinoma of skin 001925679 Active 2023 on left cheek & right forehead. stage 1. s/p complex repair/ Mohs surgery. surgeon Dermatolog ist Dr. Sarmad Guadarrama. Fu in 3 months (06/2024) Joy Bal MD Attn: [address] [facility], [place], [address], [facility] 4 13:02:33 Actinic keratosis 036625641 Active 2023 flluoroura cil 5% topical cream 40 gram. Joy Bal MD Attn: [address] [facility], [place], [address], [facility] 4 13:06:43 Seborrheic dermatitis 85621358 Active 2023 ketoconazo le shampoo Joy Bal MD Attn: [address] [place], [address], [facility] 4 13:07:06 Problem Notes None recorded. Procedures Surgical History Date Name Laterality Status Provider Name and Address Organization Details Recorded Time 5 repair of shoulder completed Estela Rae [place] - [place] 11/28/2020 14:54:57 Imaging Results Imaging Date Name Status LastModified by Organization Details LastModified Time 04/20/2024 ECG 12-lead completed [address], [place], [address], 04/20/2024 19:48:10 04/20/2024 ECG 12-lead completed [address], [place], [address], 04/20/2024 19:48:10 04/21/2024 xa cardioversion dcc completed [address], [place], [address], 04/23/2024 22:59:50 Procedure Notes None recorded. Medical Equipment None Reported. Allergies No known drug allergies Medications Name Sig Start Date Stop Date Status Note LastModified by Organization Details LastModified Time losartan 50 mg tablet TAKE 1 TABLET BY MOUTH ONCE DAILY 09/01 completed Not Available Not Available Not Available amoxicillin 500 mg capsule TAKE FOUR CAPSULES BY MOUTH ONE HOUR BEFORE APPOINTME NT 11/28 completed Not Available Not Available Not Available atorvastati n 80 mg tablet TAKE 1 TABLET BY MOUTH ONCE DAILY active Not Available Not Available No t Available ketoconazol e 2 % shampoo USE ON SCALP ONCE TO TWICE A WEEK. LEAVE ON FOR 5 MINUTES THEN RINSE. active Not Available Not Available No t Available fluorouraci l 5 % topical cream APPLY TO SCALP AND CHEEKS AND SIDES OF NECK, EXPECT A RASH TO OCCUR WITH USE. active Not Available Not Available No t Available amlodipine 2.5 mg tablet TAKE 1 TABLET BY MOUTH ONCE DAILY 09/01 completed Not Available Not Available Not Available amlodipine 5 mg tablet TAKE 1 TABLET BY MOUTH ONCE DAILY active Not Available Not Available No t Available amoxicillin 500 mg tablet TAKE 4 TABLETS ONE HOUR BEFORE DENTAL APPOINTME NT 03/09 completed Not Available Not Available Not Available pantoprazol e 40 mg tablet,justice yed release TAKE 1 TABLET BY MOUTH ONCE DAILY 03/08 completed Not Available Not Available Not Available losartan 25 mg tablet TAKE 1 TABLET BY MOUTH ONCE DAILY 03/08 completed Not Available Not Available Not Available metoprolol tartrate 50 mg tablet TAKE 2 TABLETS BY MOUTH TWICE DAILY DIRECTED active Not Available Not Available No t Available losartan 50 mg-hydrochl orothiazide 12.5 mg tablet TAKE 1 TABLET BY MOUTH ONCE DAILY 09/01 completed Not Available Not Available Not Available ketoconazol e 2 % topical cream APPLY TO AFFECTED AREAS ON THE FACE DAILY FOR 2 WEEKS AVOIDING EYES. THEN USE 2-3 TIMES PER WEEK 10/23 completed Not Available Not Available Not Available finasteride 5 mg tablet TAKE 1 TABLET BY MOUTH ONCE DAILY active Not Available Not Available No t Available losartan 100 mg-hydrochl orothiazide 12.5 mg tablet TAKE 1 TABLET BY MOUTH ONCE DAILY active Not Available Not Available No t Available hydrochloro thiazide 12.5 mg tablet TAKE 1 TABLET BY MOUTH ONCE DAILY 11/28 completed Not Available Not Available Not Available Eliquis 5 mg tablet TAKE 1 TABLET BY MOUTH TWICE DAILY active Not Available Not Available No t Available Farxiga 10 mg tablet TAKE 1 TABLET BY MOUTH ONCE DAILY DIRECTED active Not Available Not Available No t Available Trulicity 1.5 mg/0.5 mL subcutaneou s pen injector INJECT 1/2 (ONE-HALF ) ML SUBCUTANE OUSLY ONCE A WEEK DIRECTED FOR 28 DAYS 10/23 completed Not Available Not Available Not Available Trulicity 0.75 mg/0.5 mL subcutaneou s pen injector INJECT 1/2 (ONE-HALF ) ML SUBCUTANE OUSLY ONCE A WEEK DIRECTED FOR 28 DAYS 10/23 completed Not Available Not Available Not Available ID NOW COVID-19 Test Kit TEST DIRECTED 08/31 completed Not Available Not Available Not Available COVID-19 test specimen collection DIRECTED 08/31 completed Not Available Not Available Not Available Vitals Date Recorded Body height Body mass index (BMI) Body weight Heart rate Oxygen saturation Oxygen saturation in Arterial blood by Pulse oximetry Body temperature Systolic blood pressure Diastolic blood pressure Provider Name and Address Organization Details Last Updated DateTime 3 180.34 cm 41.3 kg/m2 628307. 04 g 64 /min 97 % 97 % 97.3 [degF] 145 mm[Hg] 84 mm[Hg] Clarita Khan MA [facility] 3 10:53:29 Date Recorded Systolic blood pressure Diastolic blood pressure Provider Name and Address Organization Details Last Updated DateTime 08/27/2023 125 mm[Hg] 85 mm[Hg] Alexander Gaytan MD Attn: Accounting[address] [place], [address], [facility] 08/27/2023 11:14:47 Date Recorded Body height Body mass index (BMI) Body weight Oxygen saturation Oxygen saturation in Arterial blood by Pulse oximetry Heart rate Body temperature Systolic blood pressure Diastolic blood pressure Provider Name and Address Organization Details Last Updated DateTime 4 180.34 cm 40.8 kg/m2 297269. 37 g 98 % 98 % 60 /min 98.5 [degF] 138 mm[Hg] 85 mm[Hg] Carolina Garcia MA [facility] 4 11:04:08 Date Recorded Body height Body mass index (BMI) Body weight Oxygen saturation Oxygen saturation in Arterial blood by Pulse oximetry Heart rate Systolic blood pressure Diastolic blood pressure Provider Name and Address Organization Details Last Updated DateTime 4 180.34 cm 42 kg/m2 782283. 4 g 97 % 97 % 84 /min 144 mm[Hg] 85 mm[Hg] Tanesha Ariza MA [facility] 4 10:46:15 Date Recorded Systolic blood pressure Diastolic blood pressure Provider Name and Address Organization Details Last Updated DateTime 03/09/2024 106 mm[Hg] 77 mm[Hg] Alexander Gaytan MD Attn: Accounting[address] [place], [address], [facility] 03/09/2024 11:03:06 Date Recorded Body height Body mass index (BMI) Body weight Oxygen saturation Oxygen saturation in Arterial blood by Pulse oximetry Heart rate Body temperature Systolic blood pressure Diastolic blood pressure Provider Name and Address Organization Details Last Updated DateTime 4 180.34 cm 42.9 kg/m2 325569. 01 g 95 % 95 % 78 /min 97 [degF] 159 mm[Hg] 89 mm[Hg] Nuvia Aviles MA [facility] 4 09:01:44 Date Recorded Systolic blood pressure Diastolic blood pressure Provider Name and Address Organization Details Last Updated DateTime 09/01/2024 142 mm[Hg] 85 mm[Hg] Joy Bal MD Attn: Accounting[address] [facility], [place], [address], [place] [facility] 09/01/2024 09:24:53 Date Recorded Body height Body mass index (BMI) Body weight Oxygen saturation Oxygen saturation in Arterial blood by Pulse oximetry Heart rate Body temperature Systolic blood pressure Diastolic blood pressure Provider Name and Address Organization Details Last Updated DateTime 5 180.34 cm 40.8 kg/m2 110785. 72 g 98 % 98 % 63 /min 97.8 [degF] 136 mm[Hg] 86 mm[Hg] OCTAVIANO Brantley [facility] 5 09:02:09 Social History Question Answer Notes LastModified by Organizat ion Details LastModified Time Tobacco Smoking Status Never Smoker MINNIE Forte [facility] 11/28/2020 14:39:01 What Is Your Level Of Alcohol Consumption? None [email or web address] Information not available 03/09/2024 What Was The Date Of Your Most Recent Tobacco Screening? 11/27/2024 [email or web address] Information not available 11/27/2024 Do You Use Any Illicit Or Recreational Drugs? No Information not available 11/28/2020 Has Tobacco Cessation Counseling Been Provided? Yes Information not available 07/16/2023 On What Date Was Tobacco Cessation Counseling Provided? 08/27/2023 Information not available 08/27/2023 Do You Or Have You Ever Used Any Other Forms Of Tobacco Or Nicotine? No Information not available 11/28/2020 Sex: Unknown Functional Status None recorded. Mental Status None recorded. Family History Nothing Reported. Medical History No medical history recorded. Immunizations Vaccine Type Date Status Note Provider Nam e and Address Organization Details Recorded Time COVID-19, mRNA, LNP-S, PF, 50 mcg/0.5 mL 3 completed OCTAVIANO Brantley [facility] 07/17/2023 16:10:39 zoster recombinant 4 completed Carolina Garcia MA null, [place] - [facility] 09/02/2024 15:00:21 Influenza, high-dose, quadrivalent, PF 3 completed Mike Cunningham MD Attn: Accounting,[address], [place], [address], [place] [facility] 07/16/2023 11:21:40 Pneumococcal conjugate PCV20, polysaccharide [id number] conjugate, adjuvant, PF 4 completed Tommy Calzada MD Attn: Accounting,[address] [facility], [place], [address], [place] [facility] 10/24/2023 13:13:40 Tdap 4 completed Tanesha Ariza MA null, [place] - [facility] 09/01/2024 10:26:32 Past Encounters Encounter ID Performer Location Encounter Start Date Encounter Closed Date Diagnosis/Indication Diagnosis SNOMED-CT Code Diagnosis ICD10 Code Diagnosis Note [id number] MD Roldan Mak [address] [address] 11/28/2020 14:22:41 11/29/2020 10:28:05 Adult health examination 130792440 Z00.00 - No acute concerns Obesity 705885435 E66.9 Chronic, improving- Pt has lost 100+ lbs over the last 2 years. On vegan diet, regularly exercising , reading weekly about how to improve his diet. Very knowledgab le and aware on how to reduce his weight. Diastasis recti 33476454 M62.08 Chronic, controlled - Asymptomat ic, if botherwsom e RTC Essential hypertension 32453154 I10 Chronic, uncontroll ed- Elevated BP in office, recommende d repeat measuremen t but pt left office prior to having it done.- At home measuremen ts 130-140/80 s- Continue losartan 50 mg-HCTZ 12.5 mg 1 1/2 tab QD- RTC if BP persistent ly elevated, pt documents at home. [id number] MD Roldan ANDREA 47 3 [facility] [address] [place] [address] 05/30/2021 09:50:26 05/31/2021 09:06:34 Essential hypertension 20271846 I10 BP Goal: {{Less than 140/90* Le ss than 150/90}}BP Controlled : {{yes* no} }- Controlled on home logs Healthy Weight: {{4'10= 91-118 lbs 4'11= 94-123 lbs 5'= 97-127 lbs 5'1= 100-131 lbs 5'2= 104-135 5' 3= 107-140 lbs 5'4= 110-144 lbs 5'5= 115-149 lbs 5'6= 118-154 lbs 5'7= 121-158 lbs 5'8= 125-163 lbs 5'9= 128-168 lbs 5'10= 132-173 lbs 5'11= 136-178 lbs* 6'= 140-183 lbs 6'1= 144-188 lbs 6'2= 148-193 lbs 6'3= 152-199 lbs 6'4= 156-204 lbs}}Discu ssed: Low sodium balanced diet, moderate exercise at least 3-4 times per week for an average of 40 minutes, limiting alcohol to 1 drink per day (F) or 2 drinks per day (M), and smoking cessation if currently smoking.- Refill losartan 50/HCTZ 12.5- Due for labs Next Visit: {{1 2 3 4 5 6* 7 8 9 10 11 12} }{{week(s) month(s)* }} Pain of ri ght shoulder joint [id number] M25.511 Chronic, uncontroll ed- Per pt, hx of severe osteoarthr itis- Request records from previous ortho, send for repeat x rays- Refer to orthopedic - Tylenol PRN [id number] Madhuri tucker MD [place] [address] [address] 01/15/2022 11:25:31 01/16/2022 15:54:17 Essential hypertension 28935065 I10 BP Goal: {{Less than 140/90* Le ss than 150/90}}BP Controlled : {{yes no*} }Healthy Weight: {{4'10= 91-118 lbs 4'11= 94-123 lbs 5'= 97-127 lbs 5'1= 100-131 lbs 5'2= 104-135 5' 3= 107-140 lbs 5'4= 110-144 lbs 5'5= 115-149 lbs 5'6= 118-154 lbs 5'7= 121-158 lbs 5'8= 125-163 lbs 5'9= 128-168 lbs 5'10= 132-173 lbs 5'11= 136-178 lbs* 6'= 140-183 lbs 6'1= 144-188 lbs 6'2= 148-193 lbs 6'3= 152-199 lbs 6'4= 156-204 lbs}}Discu ssed: Low sodium balanced diet, moderate exercise at least 3-4 times per week for an average of 40 minutes, limiting alcohol to 1 drink per day (F) or 2 drinks per day (M), and smoking cessation if currently smoking.- Continue 1.5 tablets of losartan 50 mg/HCTZ 12.5 mg QD- Continue losartan 25 mg QD- Will start amlodipine 5 mg QD- Continue home BP monitoring and nephro appointmen t next weekNext Visit: {{1* 2 3 4 5 6 7 8 9 10 11 12} }{{week(s) month(s)* }} Kidney disease 87216479 N08 alb/cr ratio of 2400, follows w/ neprhoBone scan WNLPending DEZ, ds-DNA, total protein, and total CrNephro appointmen t next week [id number] Tommy Calzada MD [place] [address] [address] 04/05/2022 15:16:36 04/06/2022 14:45:25 Essential hypertension 20788138 I10 BP Goal: {{Less than 140/90* Le ss than 150/90}}BP Controlled : {{yes no*} }Healthy Weight: {{4'10= 91-118 lbs 4'11= 94-123 lbs 5'= 97-127 lbs 5'1= 100-131 lbs 5'2= 104-135 5' 3= 107-140 lbs 5'4= 110-144 lbs 5'5= 115-149 lbs 5'6= 118-154 lbs 5'7= 121-158 lbs 5'8= 125-163 lbs 5'9= 128-168 lbs 5'10= 132-173 lbs 5'11= 136-178 lbs* 6'= 140-183 lbs 6'1= 144-188 lbs 6'2= 148-193 lbs 6'3= 152-199 lbs 6'4= 156-204 lbs}}Discu ssed: Low sodium balanced diet, moderate exercise at least 3-4 times per week for an average of 40 minutes, limiting alcohol to 1 drink per day (F) or 2 drinks per day (M), and smoking cessation if currently smoking. Next Visit: {{1* 2 3 4 5 6 7 8 9 10 11 12} }{{week(s) month(s)* }}-Will decrease his losartan- hydrochlor othiazide totally 1 tablet daily blood pressure was on the lower end of today's visit and is within the goal range less than 140/9- Continue losartan 25 mg QD- amlodipine 5 mg QD- Continue home BP monitoring Kidney disease 72422253 N08 alb/cr ratio of 2400, follows w/ jeancarloso he believes his appointmen t is the near future but does not know exactly when- will continue to follow with nephrology recommenda tiyusra as chart review does not have nephrology consult. History of pulmonary embolus 803427397 Z86.711 Was recently hospitaliz ed for multiple pulmonary emboli, and venous thromboemb olism which was concerning for some type of hypercoagu lable state. Still unsure of this is provoked are unprovoked clotting.- is being seen by cardiology and oncology- oncology is initiating a hypercoagu lable workup and will follow- will continue on Eliquis 5 mg BID for at least 6 months but maybe after 12 months pending cardiology and oncology recommenda tions Atrial fibrillation 9489 6008 I48.91 [facility] . Had appt on 04/05 Obesity 038166538 E66.9 patient is following a vegan diet is losing weight on chart review ( down 10 pounds) he is also saying that he is exercising .- counseled patient on continuing as diet and other forms of health promotion- counseled patient on exercise that would be easy on his joints he has chronic osteoarthr itis- patient can consider swimming, biking, monitor or walking Screening for malignant neoplasm of colon 740497271 Z12.11 currently has no symptoms concerning for GI malignancy . no hematochez ia, no weight loss, no fever, no chills, no night sweats. Does not know family history. 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 Already sees ortho, will follow up with them to see about getting right shoulder replaced. Xray 05/2021 showed: severe glenohumer al osteoarthr itis and Early AC joint arthritis- will follow up with ortho he is already establishe d with Essential hypertension 40658301 I10 BP Goal: {{Less than 140/90* Le ss than 150/90}}BP Controlled : {{yes* no} }Healthy Weight: {{4'10= 91-118 lbs 4'11= 94-123 lbs 5'= 97-127 lbs 5'1= 100-131 lbs 5'2= 104-135 5' 3= 107-140 lbs 5'4= 110-144 lbs 5'5= 115-149 lbs 5'6= 118-154 lbs 5'7= 121-158 lbs 5'8= 125-163 lbs 5'9= 128-168 lbs 5'10= 132-173 lbs 5'11= 136-178 lbs* 6'= 140-183 lbs 6'1= 144-188 lbs 6'2= 148-193 lbs 6'3= 152-199 lbs 6'4= 156-204 lbs}}Discu ssed: Low sodium balanced diet, moderate exercise at least 3-4 times per week for an average of 40 minutes, limiting alcohol to 1 drink per day (F) or 2 drinks per day (M), and smoking cessation if currently smoking.Ne xt Visit: {{1 2 3 4 5 6* 7 8 9 10 11 12} }{{week(s) month(s)* }} Paresthesi a of lower extremity 146632769 R20.2 Numbness and tingling of lower extremity limited to feet. Neuropathy vs electrolyt e imbalance. Does not have a1c that i could find on chart review. No trauma to the area. No signs of infection. -will check t0z-OZE, MG-check folate and B12 [id number] [facility] 47 3 [facility] [address] [place] [address] 03/08/2023 11:26:57 03/23/2023 12:53:53 Screening for malignant neoplasm of colon 808033327 Z12.11 currently has no symptoms concerning for GI malignancy . no hematochez ia, no weight loss, no fever, no chills, no night sweats. Does not know family history. on chart review he had a colonoscop y in 2019 that was negative for any findings and was told to follow up in 10 years- next colon cancer screening due and 2028 Obesity 681094154 E66.9 patient is following a vegan diet is losing weight on chart review ( down 10 pounds) he is also saying that he is exercising .- counseled patient on continuing as diet and other forms of health promotion- counseled patient on exercise that would be easy on his joints he has chronic osteoarthr itis- patient can consider swimming, biking, monitor or walking Essential hypertension 83432536 I10 BP Goal: {{Less than 140/90* Le ss than 150/90}}BP Controlled : {{yes no*} }Healthy Weight: {{4'10= 91-118 lbs 4'11= 94-123 lbs 5'= 97-127 lbs 5'1= 100-131 lbs 5'2= 104-135 5' 3= 107-140 lbs 5'4= 110-144 lbs 5'5= 115-149 lbs 5'6= 118-154 lbs 5'7= 121-158 lbs 5'8= 125-163 lbs 5'9= 128-168 lbs 5'10= 132-173 lbs 5'11= 136-178 lbs* 6'= 140-183 lbs 6'1= 144-188 lbs 6'2= 148-193 lbs 6'3= 152-199 lbs 6'4= 156-204 lbs}}Discu ssed: Low sodium balanced diet, moderate exercise at least 3-4 times per week for an average of 40 minutes, limiting alcohol to 1 drink per day (F) or 2 drinks per day (M), and smoking cessation if currently smoking.Ne xt Visit: {{1 2 3 4 5 6* 7 8 9 10 11 12} }{{week(s) month(s)* }}BP was elevated at todays visit. Patient is to see nephrology in two weeks. Already is on losartan 50mg as well as losartan 50mg-HCTZ 12.5mg. Patient says at home his BP usually runs 120/80s Depression screening 171 841737 Z13.31 PHQ2 negative. [id number] Mike Cunningham MD [place] [address] [address] [address] 07/16/2023 10:19:04 07/17/2023 10:06:18 Administration of influenza vaccine 01320324 Z23 Obesity 340168909 E66.9 patient is following a vegan diet is losing weight on chart review ( down 10 pounds at one point but has gained back some weight) he is also saying that he is exercising . HAs tried phentermin e in the past and did not like side effects. Does not want side effects of diarrhea from orlistat given his BM pattern. cannot give topiramate given CKD - counseled patient on continuing as diet and other forms of health promotion- counseled patient on exercise that would be easy on his joints he has chronic osteoarthr itis- patient can consider swimming, biking, monitor or walking Essential hypertension 49826797 I10 BP Goal: {{Less than 140/90* Le ss than 150/90}}BP Controlled : {{yes no*} }Healthy Weight: {{4'10= 91-118 lbs 4'11= 94-123 lbs 5'= 97-127 lbs 5'1= 100-131 lbs 5'2= 104-135 5' 3= 107-140 lbs 5'4= 110-144 lbs 5'5= 115-149 lbs 5'6= 118-154 lbs 5'7= 121-158 lbs 5'8= 125-163 lbs 5'9= 128-168 lbs 5'10= 132-173 lbs 5'11= 136-178 lbs* 6'= 140-183 lbs 6'1= 144-188 lbs 6'2= 148-193 lbs 6'3= 152-199 lbs 6'4= 156-204 lbs}}Discu ssed: Low sodium balanced diet, moderate exercise at least 3-4 times per week for an average of 40 minutes, limiting alcohol to 1 drink per day (F) or 2 drinks per day (M), and smoking cessation if currently smoking.Ne xt Visit: {{1* 2 3 4 5 6 7 8 9 10 11 12} }{{week(s) month(s)* }}-will work on losing weight-eduardo e blood pressures have been 130s-140s systolic-w ill start low with amlodipine 2.5mg given that he was on it in past and Blood pressure was too well controlled -UTD on labs, except for lipid panel, need at next visit Atrial fibrillation 4943 6004 I48.91 Chronic. Sees cards, On BB. plans to go back for another ablation in the next few months Chronic ki dney disease 803641166 N18.9 Chronic, Improving. Sees nephro. Will optimize blood pressure today . [id number] Mike Cunningham MD [place] [address] [address] 08/27/2023 10:47:20 08/28/2023 16:05:27 Obesity 911668276 E66.9 patient is following a vegan diet is losing weight on chart review ( down 13lbs since last office visit) he is also saying that he is exercising . HAs tried phentermin e in the past and did not like side effects. Does not want side effects of diarrhea from orlistat given his BM pattern. cannot give topiramate given CKD - counseled patient on continuing as diet and other forms of health promotion- counseled patient on exercise that would be easy on his joints he has chronic osteoarthr itis- patient can consider swimming, biking, monitor or walking-ti aaronte GLP Essential hypertension 22212285 I10 BP Goal: {{Less than 140/90* Le ss than 150/90}}BP Controlled : {{yes* no} }, on recheckHea lthy Weight: {{4'10= 91-118 lbs 4'11= 94-123 lbs 5'= 97-127 lbs 5'1= 100-131 lbs 5'2= 104-135 5' 3= 107-140 lbs 5'4= 110-144 lbs 5'5= 115-149 lbs 5'6= 118-154 lbs 5'7= 121-158 lbs 5'8= 125-163 lbs 5'9= 128-168 lbs 5'10= 132-173 lbs 5'11= 136-178 lbs* 6'= 140-183 lbs 6'1= 144-188 lbs 6'2= 148-193 lbs 6'3= 152-199 lbs 6'4= 156-204 lbs}}Discu ssed: Low sodium balanced diet, moderate exercise at least 3-4 times per week for an average of 40 minutes, limiting alcohol to 1 drink per day (F) or 2 drinks per day (M), and smoking cessation if currently smoking.Ne xt Visit: {{1* 2 3 4 5 6 7 8 9 10 11 12} }{{week(s) month(s)* }}-will work on losing weight-eduardo e blood pressures have been 120's [id number] Tommy Calzada MD [facility] [address] [address] 10/23/2023 10:49:28 10/25/2023 12:30:08 Active or passive immunization 621876079 Z23 Obesity 280566331 E66.9 patient is following a vegan diet is losing weight. he is also saying that he is exercising . HAs tried phentermin e in the past and did not like side effects. Does not want side effects of diarrhea from orlistat given his BM pattern. cannot give topiramate given CKD - counseled patient on continuing as diet and other forms of health promotion- counseled patient on exercise that would be easy on his joints he has chronic osteoarthr itis- patient can consider swimming, biking, monitor or walking-st opped GLP due to side effects, not interested in different agent [id number] Madhuri tucker MD [place] [address] [address] [facility] [address] [place] [address] 03/09/2024 10:20:08 03/12/2024 13:09:04 Essential hypertension 22827263 I10 BP Goal: {{Less than 140/90* Le ss than 150/90}}BP Controlled : {{yes* no} },due to CKDHealthy Weight: {{4'10= 91-118 lbs 4'11= 94-123 lbs 5'= 97-127 lbs 5'1= 100-131 lbs 5'2= 104-135 5' 3= 107-140 lbs 5'4= 110-144 lbs 5'5= 115-149 lbs 5'6= 118-154 lbs 5'7= 121-158 lbs 5'8= 125-163 lbs 5'9= 128-168 lbs 5'10= 132-173 lbs 5'11= 136-178 lbs* 6'= 140-183 lbs 6'1= 144-188 lbs 6'2= 148-193 lbs 6'3= 152-199 lbs 6'4= 156-204 lbs}}Discu ssed: Low sodium balanced diet, moderate exercise at least 3-4 times per week for an average of 40 minutes, limiting alcohol to 1 drink per day (F) or 2 drinks per day (M), and smoking cessation if currently smoking.Ne xt Visit: {{1* 2 3 4 5 6 7 8 9 10 11 12} }{{week(s) month(s)* }}-will work on losing weight-con tinue ARB-thiazd e, and CCB-due for labs in august Obesity 811956987 E66.9 patient is following a vegan diet but has gained 10lbs since last visit he is also saying that he is exercising . HAs tried phentermin e in the past and did not like side effects. Does not want side effects of diarrhea from orlistat given his BM pattern. cannot give topiramate given CKD - counseled patient on continuing as diet and other forms of health promotion- counseled patient on exercise that would be easy on his joints he has chronic osteoarthr itis- patient can consider swimming, biking, monitor or walking-st opped GLP due to side effects, not interested in different agent Screening for malignant neoplasm of colon 087230420 Z12.11 currently has no symptoms concerning for GI malignancy . no hematochez ia, no weight loss, no fever, no chills, no night sweats. Does not know family history. on chart review he had a colonoscop y in 2018 that was negative for any findings and was told to follow up in 10 years- next colon cancer screening due and 2028 Atrial fibrillation 4943 6004 I48.91 Chronic. Sees cards, On BB. plans to go back for another ablation in the next few months [id number] ADELFO ROSAS MD [facility] [address] [place] [facility] [address] [place] [address] 09/01/2024 08:49:18 09/04/2024 15:21:49 Essential hypertension [id number] I10 Establishe dBP today 159/89, repeat 142/85BP Goal: Less than 140/90usua lly at home is 120-125/79 -80Current ly on amlodipine 2.5 mg, losartan 50 mg & Losartan 50-HCTZ 12.5Discus sed: Low sodium balanced diet, moderate exercise at least 3-4 times per week for an average of 40 minutes, limiting alcohol to 2 drinks per day, and smoking cessation- will repeat BMP, albumin/Cr - next visit will bring his own bp cuff and logs- will increase amlodipine to 5 mg- will order losartan 100- HCTZ 12.5 Obesity 415650646 E66.9 BMI 42.9 today. pt gained 6 Ibs since last visit in of using phentermin josé miguel lipid panel result, last A1C in 2021 was 5.5- will check A1C & Lipid panel Atrial fibrillation 4943 6004 I48.91 s/p direct cardiovers ion by Dr. Pavon on 04/20/2024 hx of cardiovers ion [id number] y on Eliquis and BB (metoprolo l Tartrate 50 mg BID)- has scheduled appt with Dr. Hushion Adult heal th examination [id number] Z00.00 colonoscop y: due dap: will get it todayCovid : 2022Flu: neumo coccal: 2023 Actinic keratosis 007 L57.0 s/p derm visit on 07/06. will be followed up for melanoma in 3 months. Chronic ki dney disease 710522789 N18.9 PMHx of Hypertensi on since , josefina escalante nephrology visit [place] [address] Hall in [facility] rrently on Farxiga and ARBs- next appt is in November- will check kidney function today Benign pro static hyperplasia [id number] N40.1 currently seeing urologist. hx of biopsy 6 years ago Bilateral arthritis of knees [id number] M13.861 pt saw ortho years ago. knee replacemen t was discussed but at that time due to pt's age wasn't recommende d. Pt is interested in getting replacemen t done vs getting injections .- will put in the ortho referral Active or passive immunization [id number] Z23 pt got his Tdap today [id number] Tommy Calzada MD [facility] [address] [facility] [address] [place] [address] 11/27/2024 08:49:45 12/02/2024 10:14:31 Essential hypertension [id number] I10 Establishe d, in goal range. BP in office today 136/86, on his home BP cuff it was 131/84. Normally takes at night BP at night, always below 120/80 . Currently on vegan diet, low-fat - has been for past 6.5 years.BP Goal: Less than 140/90usua lly at home is 120-125/79 -80s/p increasing amlodipine and losartan last visit in rrently on amlodipine 5 mg, Losartan 100-HCTZ 12.5 - no longer taking losartan 50 mg.Discuss ed: Low sodium balanced diet, moderate exercise at least 3-4 times per week for an average of 40 minutes, limiting alcohol to 2 drinks per day (not currently drinking), and smoking cessation- He brought his own bp cuff - observed that it is being used correctly and does not keep a BP log. Chronic ki dney disease 262216262 N18.9 PMHx of Hypertensi on since , albuminuri aAl/cr on 08/2023 was 598Al/cr on 08/2024 was 602last nephrology visit 11/27/[address] aHll - recommends no changes to medication , has been signed off as of 11/26/24Curr ently on Farxiga and ARBs - continue at this timeNo labs indicated at this time, will check at next appt in 6 months Adult heal th examination [id number] Z00.00 colonoscop y: due dap: received 09/01/24 - due ovid: 2022Flu: neumo coccal: 2023 Atrial fibrillation 4943 6004 I48.91 s/p direct cardiovers ion by Dr. Pavon on 04/20/2024 hx of cardiovers ion [id number] y on Eliquis and BB (metoprolo l Tartrate 50 mg BID) Morbid obesity [id number] E66.01 was discussed with pt Health Concerns Section Related Observation LastModified by Organization Detai ls LastModified Time None Recorded Concern Status LastModified by Organization Details LastModified Time None Recorded Advance Directives Directive None Recorded Payers Encounter Date Sequence Insurance Name Policy Number Policy Dowd Covered Member ID Dowd Member ID Guarantor Name 08/27/2023 1 [employer] (MEDICARE REPLACEMENT PPO) [id number] 1 Nadine Kimble [id number] Nadine Kimble 10/23/2023 1 [employer] (MEDICARE REPLACEMENT PPO) [id number] 1 Nadine Kimble [id number] Nadine Kimble 03/09/2024 1 [employer] (MEDICARE REPLACEMENT PPO) [id number] 1 Nadine Kimble [id number] Nadine Kimble 09/01/2024 1 [employer] (MEDICARE REPLACEMENT PPO) [id number] 1 Nadine Kimble [id number] Nadine Kimble 11/27/2024 1 [employer] (MEDICARE REPLACEMENT PPO) [id number] 1 Nadine Kimble [id number] Nadine Kimble Notes Date Note Type Note Provider Name and Address Organization Details Recorded Time 08/27/20 23 text/htm l ObesityReported bypatient.Diagnosis Summary:diagnosis: obesity Context:no inhaled steroids; no oral steroids Associated Symptoms:no depression;chronic illness(CKD and HTN) Co-morbidities:overweight/obe se;obstructive sleep symptoms;metabolic syndrome Lifestyle changes:motivated to continue lifestyle changes; losing weight (13lbs); exercising more Nutrition:eats mostly healthy diet (vegan) Medication Education:understands potential side effects; understands administration; understands role of diet as primary therapy 62 yo w/hx PE, afib CKD, HTN, melanoma here weight loss follow after starting trulicity. Doing well no side effectes but did run out two weeks ago and didnt get to take it. Mike Cunningham MD Attn: Accounting,[address] [facility], [place], [address], [facility] 08/28/2023 09:12:30 10/23/19 24 text/htm l ObesityReported bypatient.Diagnosis Summary:diagnosis: obesity Context:no inhaled steroids; no oral steroids Associated Symptoms:no depression;chronic illness(CKD and HTN) Co-morbidities:overweight/obe se;obstructive sleep symptoms;metabolic syndrome Lifestyle changes:motivated to continue lifestyle changes; exercising more Nutrition:eats mostly healthy diet (vegan) 62 yo w/hx PE, afib CKD, HTN, melanoma here for f/u weight loss follow after starting trulicity. Stopped taking due to diarrhea and hasnt taken since. Still losing weight. exercises. No n/V, abdominal pain or GERD since stopping. No CP or SOB would like PNA shot sna shingle vaccine Tommy Calzada MD Attn: Accounting,[address] [facility], [place], [address], [facility] 10/24/2023 13:13:50 03/09/20 24 text/htm l Hypertension F/UReported bypatient.Associated Symptoms:no dizziness; no lightheadedness; no chest pain; no shortness of breath; no palpitations; no edema Lifestyle:regular exercise; limiting/avoiding salt Medications:taking medications as directed; no side effects from medicationObesityReported bypatient.Diagnosis Summary:diagnosis: obesity Context:no inhaled steroids; no oral steroids Associated Symptoms:no depression;chronic illness(CKD and HTN) Co-morbidities:overweight/obe se;obstructive sleep symptoms;metabolic syndrome Lifestyle changes:motivated to continue lifestyle changes; losing weight (13lbs); exercising more Nutrition:eats mostly healthy diet (vegan) Medication Education:understands potential side effects; understands administration; understands role of diet as primary therapy 62 yo w/hx PE, afib CKD, HTN, melanoma here for check up Madhuri Schumacher MD Attn: Accounting,[address] [facility], [place], [address], [facility] 03/09/2024 11:13:57 09/01/20 24 text/htm l 64 y/o M with hx of a-fib, HTN, obesity presented to meet new pcp. ADELFO ROSAS MD Attn: Accounting,[address] [facility], [place], [address], [facility] 09/02/2024 19:11:07 11/28/19 25 text/htm l 64 y/o M with hx of a-fib, HTN, obesity presented for HTN & CKD f/u visit. He was seen by see Dr. Hall (Nephrology) yesterday - no changes to current medications per nephrology, has been signed off and no longer needs to be seen. Patient has been taking Farxiga and would like to stay on it. BP today of 136/86 today in office, on his home cuff 131/84. Did take his blood pressure medication this morning - currently needs refills for losartan/HCTZ. Has been evaluated for knee replacement - needs to complete weight loss of 8 pounds before can have Sx. PHQ9 score of 1 today. ROS: negative fever, chills, unexplained weight loss, chest pain, palpitations, SOB, cough, leg swelling, diarrhea/constipation Tommy Calzada MD Attn: Accounting,[address] [facility], [place], [address], [facility] 11/30/2024 16:25:05
--- OUTSIDE RECORDS SUMMARY | 2024-12-22 15:59 | XMS_ITS | Encounter Summary ---
Author Organization [facility] Address [address] [place] [address] Care Team Providers Care Tunnel Man Name Role Phone Cecilia Jenkins MD Primary Care Provider [phone] Encounter Details Date Type Department Care Team (Late st Contact Info) Description 05/07/2022 Hospital Orders Only [facility] Certified Respiratory Therapist [address] [facility] [place] [address] Pranay Garrido MD [facility]. 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 No / Unsure 05/08/2022 9:34 AM CDT documented as of this encounter Functional Status [...] R N Active documented in this encounter Plan of Treatment Upcoming Encounters Date Type Department Care Team (Late st Contact Info) Description 02/16/2025 11:00 AM CDT Office Visit [facility], [address] [place] [address] Danny Pavon MD [facility]. [address] [place], [place] [address] documented as of this encounter Goals Goal Patient Goal Type Associated Problems Recent Progress Patient-Stated? Author Patient will return to prior living situation and remain independent in ADLs upon discharge from hospital General No Adenike Griggs RN documented as of this encounter Visit Diagnoses Not on filedocumented in this encounter Care Teams Tunnel Man Relationship Specialty Start Date End Date Cecilia Jenkins MD [address] [place] [address] [address] [place] [address] PCP - General FAMILY PRACTICE 04/23/22 documented as of this encounter
--- OUTSIDE RECORDS SUMMARY | 2024-12-22 15:59 | XMS_ITS | Referral Summary ---
Author Organization [facility] Address [address] [place] [address] Care Team Providers Care Public Health Representative Name Role Phone Alexander Gaytan MD Primary Care Provider Encounters Date Type Department Care Team Description 10/26/2024 10:05 AM CREW PERSON - 10/26/2024 11:59 PM CREW PERSON Hospital Encounter [facility] [id number] [place] [address] S/P joint replacement Discharge Disposition: Discharge to home or self care 10/26/2024 10:00 AM CREW PERSON Office Visit [facility] [id number] [place] [address] [address] [place] [phone] Tommy Cody MD S/P joint replacement (Primary Dx) from Last 3 Months Allergies No known active allergies Medications apixaban (ELIQUIS) 5 mg tablet Take 5 mg by mouth 2 (two) times a day 04/05/2022 Active dapagliflozin (FARXIGA) 10 mg tablet Take 10 mg by mouth every morning 04/23/2022 Active losartan (COZAAR) 25 mg tablet Take 50 mg by mouth every morning 07/10/2021 Active losartan-hydroC HLOROthiazide (HYZAAR) 50-12.5 mg per tablet Take 1 tablet by mouth daily 06/19/2021 Active metoprolol tartrate (LOPRESSOR) 50 mg immediate release tablet Take 50 mg by mouth 2 (two) times a day 03/22/2022 Active cholecalciferol (VITAMIN D-3) 5,000 unit capsule Take 5,000 Units by mouth every morning Active acetaminophen (TYLENOL) 325 mg tabletIndicatio ns:Pain Take 2 tablets (650 mg total) by mouth every 6 (six) hours as needed for pain 11/07/2022 Active celecoxib (CeleBREX) 200 mg capsuleIndicati ons:Pain Take 1 capsule (200 mg total) by mouth 2 (two) times a day 28 capsule 11/07/2022 Active Active Problems Problem Noted Date Diagnosed Date Glenohumeral arthritis, right 09/10/2022 Overview (09/10/2022): Added automatically from request for surgery [id number] Pain in shoulder 03/02/2014 Pain of upper extremity 03/02/2014 Social History Tobacco Use Types Packs/Day Years Used Date Smoking Tobacco: Never Smokeless Tobacco: Never Tobacco Cessation:Counseling Given: Not Answered AUDIT-C Answer Date Recorded Q1: How often do you have a drink containing alc ohol? Monthly or less 11/06/2022 Q2: How many drinks containi ng alcohol do you have on a typical day when you are drinking? 1 or 2 11/06/2022 Q3: How often do you have si x or more drinks on one occasion? Never 11/06/2022 Personal Safety Answer Date Recorded Getting School Help Needed Denies 09/23 Sex and Gender Information Value Date Recorded Sex Assigned at Not on file Legal Sex Male 9:15 PM CREW PERSON Gender Identity Male 09/19/2022 4:07 AM CREW PERSON Sexual Orientation Straight 09/19/2022 4: 07 AM CREW PERSON Last Filed Vital Signs Vital Sign Reading Time Taken Comments Blood Pressure 158/88 11/07/2022 8:44 AM CREW PERSON Pulse 97 11/07/2022 8:44 AM CREW PERSON Temperature 36.7 C (98.1 F) 11/07/2022 8:44 AM CREW PERSON Respiratory Rate 18 11/07/2022 8:44 AM CREW PERSON Oxygen Saturation 95% 11/07/2022 8:44 AM CREW PERSON Inhaled Oxygen Concentration - - Weight 137.4 kg (303 lb) 11/06/2022 6:44 PM CREW PERSON Height 180.3 cm (5' 11 ) 11/06/2022 6:44 PM CREW PERSON Body Mass Index 42.26 11/06/2022 6:44 PM CREW PERSON Plan of Treatment Not on file Medical Devices Implanted Type Area Telemarketing Agent Device Identifier Shelf Expiration Date Model / Serial / Lot [employer] Simplex P Radiopaque Full Dose Cement Bone Sterile 6191-1-010 - Sn/A - [id number] Implanted:Qty: 1 on 11/06/2022 by Tommy Cody MD at [facility] Bone Cement Right: Shoulder [employer] 03/22/2025 6191-1-010 / N/A / [id number] [employer] Thayer 3 Peg Monoblock Shoulder 5 Component Glenoid Sterile [id number] - Sn/A - [id number] Implanted:Qty: 1 on 11/06/2022 by Tommy Cody MD at [facility] Right: Shoulder [employer] [id number] 11/21/2027 [id number] / N/A / [id number] [employer] Humeral [place] Shoulder Sidus [id number] 0 [id number] - Sn/A - [id number] Implanted:Qty: 1 on 11/06/2022 by Tommy Cody MD at [facility] Right: Shoulder [employer] [id number] 02/08/2032 [id number] / N/A / [id number] [employer] Sidus Od52 Mm H19 Mm Stem Free Shoulder Head Humeral Sterile Latex Free [id number] - [id number] Implanted:Qty: 1 on 11/06/2022 by Tommy Cody MD at [facility] Right: Shoulder [employer] [id number] 11/21/2027 [id number] / / [id number] Procedures Procedure Name Priority Date/Time Associated Diagnosis Comments XR SHOULDER RIGHT 2 OR MORE VIEWS Schedule Routine, Read Routine (OP Routine) 10/26/2024 10:11 AM CREW PERSON S/P joint replacement from Last 3 Months Results * XR Shoulder Right 2+ View (10/26/2024 10:11 AM CREW PERSON) Anatomical Region Laterality Modality Upper Extremities, Shoulder Right Comp uted Radiography 10/26/2024 10:5 0 AM CREW PERSON Impressions 10/26/2024 10:50 AM CREW PERSON Unchanged right anatomic total shoulder arthroplasty in near-anatomic position. Electronically signed by: Magan Galindo M.D. Narrative 10/26/2024 10:50 AM CREW PERSON EXAMINATION: XR SHOULDER RIGHT 2 OR MORE VIEWS HISTORY: Right shoulder arthroplasty follow-up COMPARISON: 10/30/2019 FINDINGS: Again seen is a right anatomic total shoulder arthroplasty in unchanged, near anatomic position. No periprosthetic fracture or component migration. Mild right acromioclavicular osteoarthritis. Procedure Note Magan Galindo MD - 10/26/2024 EXAMINATION: XR SHOULDER RIGHT 2 OR MORE VIEWS HISTORY: Right shoulder arthroplasty follow-up COMPARISON: 10/30/2019 FINDINGS: Again seen is a right anatomic total shoulder arthroplasty in unchanged, near anatomic position. No periprosthetic fracture or component migration. Mild right acromioclavicular osteoarthritis. IMPRESSION: Unchanged right anatomic total shoulder arthroplasty in near-anatomic position. Electronically signed by: Magan Galindo M.D. Tommy Cody MD IMG XR PROCEDURES Final Result from Last 3 Months Insurance AETNA MEDICARE [facility] MEDICARE [facility] Advance Directives For more information, please contact: [phone] * Full Code (Latest Code Status on File) Date Activated Date Inactivated Comments 11/06/2022 6:52 PM 11/07/2022 6:18 PM Care Teams Public Health Representative Relationship Specialty Start Date End Date Alexander Gaytan MD PCP - General 05/09/22
--- OUTSIDE RECORDS SUMMARY | 2024-12-22 15:59 | XMS_ITS | Encounter Summary ---
Author Organization [facility] Address [address] [facility] [place] [address] Care Team Providers Care Motocross Racer Name Role Phone Unavailable Primary Care Provider Unavailabl e Encounter Details Date Type Department Care Team (Late st Contact Info) Description 10/02/2023 Lab Requisition [facility] [address] [place] [phone] Sarmad Guadarrama MD [facility] [address] [place] [phone] Neoplasm of uncertain behavior of skin Social History Tobacco Use Types Packs/Day Years Used Date Smoking Tobacco: Never Assessed Sex and Gender Information Value Date Recorded Sex Assigned at Not on file Gender Identity Not on file Sexual Orientation Not on file documented as of this encounter Plan of Treatment Not on file documented as of this encounter Procedures Procedure Name Priority Date/Time Associated Diagnosis Comments DERMATOPATHOLOGY Routine 10/02/2023 3:33 AM HORIZONTAL BORING MILL SET UP OPERATOR Neoplasm of uncertain behavior of skin documented in this encounter Results * DERMATOPATHOLOGY (10/02/2023 3:33 AM HORIZONTAL BORING MILL SET UP OPERATOR) Case Report Dermatopathology Report Case: [id number] Authorizing Provider: Sarmad Guadarrama MD Collected: 10/02/2023 03:33 AM Ordering Location: [facility] Received: 10/03/2023 12:46 PM Pathologist: Tiesha Soler MD Specimen: Skin, right forearm 12:58 PM HORIZONTAL BORING MILL SET UP OPERATOR DERMATOPATHOLOGY LABORATORY Final Diagnosis Specimen A. SKIN, right forearm: BASAL CELL CARCINOMA, INFILTRATIVE PATTERN (C44.612) 12:58 PM HORIZONTAL BORING MILL SET UP OPERATOR DERMATOPATHOLOGY LABORATORY Clinical History Basal Cell Carcinoma 4 12:58 PM [facility] DERMATOPATHOLOGY LABORATORY Gross Description Specimen A: Received is one formalin filled container labeled with the patient's name and designated right forearm. The specimen consists of a shave biopsy measuring 8x6x1 mm. Jar 0. 4 12:58 PM [facility] DERMATOPATHOLOGY LABORATORY Microscopic Description Specimen A. SKIN, right forearm: Within the dermis there are nodular aggregates of basaloid cells associated with fibromyxoid stroma and epithelial-stromal clefts. At the advancing margin of the neoplasm, there are smaller angulated nests that infiltrate the dermis. 12:58 PM [facility] DERMATOPATHOLOGY LABORATORY Disclaimer An external and internal positive and negative controls are appropriate for the histochemical, immunohistochemical and immunofluorescence stain(s) in this case (if any), except where stated explicitly. The performance characteristics of the stain(s) cited in this report were developed and its performance characteristic determined by the Dermatopathology Laboratory at [facility], directed by Dr. Mariam Lopez. These tests need not be, and therefore are not, approved by the [place] Food and Drug Administration. The tests are used for clinical purposes. Billing Codes Specimen Charges Stain Charges 79830 1 4 12:58 PM [facility] DERMATOPATHOLOGY LABORATORY Embedded Images 12:58 PM [facility] DERMATOPATHOLOGY LABORATORY Pathology/Cytolo gy TISSUE SPECIMEN FROM SKIN / Unknown 10/02/2023 3:33 AM HORIZONTAL BORING MILL SET UP OPERATOR 10/03/2023 12:46 PM HORIZONTAL BORING MILL SET UP OPERATOR Sarmad Guadarrama MD LAB - PATHOLOGY/CYTO LOGY ORDERABLES DERMATOPATHOLOGY LABORATORY [facility] - Department of Dermatology [address], [address] [phone] documented in this encounter Visit Diagnoses Diagnosis Neoplasm of uncertain behavior of skin documented in this encounter
--- OUTSIDE RECORDS SUMMARY | 2024-12-22 15:59 | XMS_ITS | Clinical Summary ---
Author Organization [facility] Address [address], [facility] [address] [place] [address] Phone Care Team Providers Care Certified Addiction Counselor Name Role Phone Provider, Unknown Primary Care Provider Unavaila Zach Wilson MD Unavailable [phone] Allergies No known active allergies Medications losartan-hydroc hlorothiazide (HYZAAR) 50-12.5 MG Tablet Take 1.5 Tablets by mouth. 06/19/2021 Active aspirin EC 81 MG Tablet Delayed Response Take 81 mg by mouth daily. Active Multiple Vitamin (MULTI-VITAMIN PO) Take by mouth. Active Cholecalciferol (VITAMIN D-3 PO) Take by mouth. Active B Complex Vitamins (VITAMIN B COMPLEX PO) Take by mouth. Active Glucosamine 500 MG Capsule Take by mouth. Active Psyllium (METAMUCIL PO) Take by mouth. Active Eliquis 5 MG Tablet Take 5 mg by mouth 2 times daily. 07/02/2022 Active Farxiga 10 MG Tablet 07/12/2022 Active ketoconazole (NIZORAL) 2 % Shampoo as needed. 07/25/2022 Active metoprolol tartrate (LOPRESSOR) 50 MG Tablet TAKE 2 TABLETS BY MOUTH TWICE DAILY 05/06/2022 Active amLODIPine (NORVASC) 5 MG Tablet Take 5 mg by mouth daily. Active finasteride (PROSCAR) 5 MG Tablet Take 5 mg by mouth daily. 10/05/2024 Active fluorouracil (EFUDEX) 5 % Cream Apply as needed for Other. 08/01/2024 Active atorvastatin (LIPITOR) 80 MG Tablet Take 80 mg by mouth daily. 09/03/2024 Active Active Problems Problem Noted Date Diagnosed Date Pulmonary embolism 07/26/2022 MGUS (monoclonal gammopathy of unknown significa nce) 01/04/2022 Encounters Date Type Department Care Team Description 11/05/2024 9:30 AM OIL PIPELINE OPERATOR [facility] Visit [facility] [address] [address] Jen Rodrigez, WAREHOUSE DRIVER, TOBACCO WEIGHER MGUS (monoclonal gammopathy of unknown significance) (Primary Dx); Encounter for current long-term use of anticoagulants; History of DVT (deep vein thrombosis); History of pulmonary embolism; Elevated PSA 11/05/2024 Travel from Last 3 Months Immunizations Immunization Administration Dates Next Due Influenza Vaccine, MDCK,quadrivalent, pres free 07/25/2021 Family History Medical History Relation Name Comments Prostate Cancer Father Dementia Mother Relation Name Status Comments Father Mother Social History Tobacco Use Types Packs/Day Years Used Date Smoking Tobacco: Never Smokeless Tobacco: Never Tobacco Cessation:Counseling Given: Not Answered PHQ-2 Answer Date Recorded Total Score - Questions 1-9 0 05/0 01/2022 Sex and Gender Information Value Date Recorded Sex Assigned at Male 08/18/2024 2:51 PM OIL PIPELINE OPERATOR Legal Sex Male 9:06 AM OIL PIPELINE OPERATOR Gender Identity Male 08/18/2024 2:51 PM OIL PIPELINE OPERATOR Sexual Orientation Straight 08/18/2024 2: 51 PM OIL PIPELINE OPERATOR Last Filed Vital Signs Vital Sign Reading Time Taken Comments Blood Pressure 150/96 11/05/2024 9:30 AM OIL PIPELINE OPERATOR Pulse 59 11/05/2024 9:30 AM OIL PIPELINE OPERATOR Temperature 36.7 C (98 F) 11/05/2024 9:30 AM OIL PIPELINE OPERATOR Respiratory Rate 18 11/05/2024 9:30 AM OIL PIPELINE OPERATOR Oxygen Saturation 99% 11/05/2024 9:30 AM OIL PIPELINE OPERATOR Inhaled Oxygen Concentration - - Weight 138.1 kg (304 lb 8 oz) 11/05/2024 9:30 AM OIL PIPELINE OPERATOR Height 180.3 cm (5' 11 ) 11/05/2024 9:30 AM OIL PIPELINE OPERATOR Body Mass Index 42.47 11/05/2024 9:30 AM OIL PIPELINE OPERATOR Plan of Treatment Upcoming Encounters Date Type Department Care Team (Late st Contact Info) Description 11/04/2025 9:30 AM OIL PIPELINE OPERATOR Office [facility] [place] [address] [place] [address] Zach Edward MD [address] [place], [place] [address] Health Maintenance Due Date Last Done Comments Hepatitis C Virus (HCV) Screening 1958 Colonoscopy 2003 Colorectal Cancer Screening 2003 Cologuard 2008 Immunochemical Fecal Occult Blood 2008 Respiratory Syncytial Virus (RSV) Immunization (Adult) (1 - Risk 60-74 years 1-dose series) 2018 SARS-COV-2 Immunization (2023- season) 2024 06/07/2024, 07/17/2023, 07/13/2022, Additional history exists PSA Discussion Completed 07/26/2022 Pneumococcal Immunization (50+ years) Completed 10/23/2023 Pneumococcal Immunization Combined Discontinued 10/23/2023 Influenza Immunization Completed 4, 07/16/2023, 07/13/2022, Additional history exists DTaP/Tdap/Td Immunization Discontinued 09/01/2024 TdaP Immunization Completed 09/01/2024 Zoster Immunization Completed 09/02/2024, Hepatitis B Immunization Aged Out No longer eligible based on patient's age to complete this topic Meningococcal Immunization (ACWY) Aged Out No longer eligible based on patient's age to complete this topic Rotavirus Immunization Aged Out No lo nger eligible based on patient's age to complete this topic Procedures Procedure Name Priority Date/Time Associated Diagnosis Comments PSA DIAGNOSTIC,TOTAL Routine 07/26/2022 8:48 AM CDT MGUS (monoclonal gammopathy of unknown significance) Pulmonary embolism, unspecified chronicity, unspecified pulmonary embolism type, unspecified whether acute cor pulmonale present (HCC) from Last 3 Months or Most Recently Relevant to Health Maintenance Results * (ABNORMAL) PSA DIAGNOSTIC,TOTAL (07/26/2022 8:48 AM CDT) PSA 4.22(H) 0.00 - 4.00 ng/mL CANCER RENTAL COORDINATOR OF [facility] Comment: Johny Paramagnetic Particle Chemiluminescent Immunoassay Method Blood 07/26/2022 8:48 AM CDT Narrative CANCER RENTAL COORDINATOR [facility] - 07/26/2022 2:05 PM CDT Release to patient->Immediate Kris Gerber PAC CHEMISTRY ORDERABLES Final Result CANCER RENTAL COORDINATOR [facility] [employer] [facility] [place] [address], from Last 3 Months or Most Recently Relevant to Health Maintenance Insurance MEDICARE C [employer] Care Teams Certified Addiction Counselor Relationship Specialty Start Date End Date Provider, Unknown UNKNOWN PCP - General 11/27/21 Zach Edward MD [address] [place] [address] Consulting Physician Oncology 11/27/21
--- OUTSIDE RECORDS SUMMARY | 2024-12-22 15:59 | XMS_ITS | Encounter Summary ---
Author Organization [facility] Address [address] [place] [address] Care Team Providers Care Pole Peeler Name Role Phone Unavailable Primary Care Provider Unavailabl e Encounter Details Date Type Department Care Team (Late st Contact Info) Description 04/01/2023 Lab Requisition [facility] Lab [address] [place] [id number] Ashley Pierre PA-C [address] [place] [address] Neoplasm of uncertain behavior of skin [...] Priority Date/Time Associated Diagnosis Comments DERMATOPATHOLOGY Routine 04/01/2023 12:0 0 AM CDT Neoplasm of uncertain behavior of skin [ICD-10-CM] documented in this encounter Results * DERMATOPATHOLOGY (04/01/2023 12:00 AM CDT) Case Report Dermatopathology Report Case: [id number] Authorizing Provider: Ashley Pierre PA-C Collected: 04/01/2023 12:00 AM Ordering Location: [facility] DermPath Lab Received: 04/02/2023 12:31 PM Pathologist: Yasmin Mccord MD Specimen: Skin, right inferior temporal scalp 3 10:15 AM CDT DERMATOPATHOLOGY LABORATORY Final Diagnosis Specimen A. SKIN, right inferior temporal scalp: BENIGN VERRUCOUS KERATOSIS (L82.1) 3 10:15 AM CDT DERMATOPATHOLOGY LABORATORY Clinical History Squamous Cell Carcinoma vs. Verruca Vulgaris 3 10:15 AM CDT DERMATOPATHOLOGY LABORATORY Gross Description Specimen A: Received is one formalin filled container labeled with the patient's name and designated right inferior temporal scalp. The specimen consists of two (2) pieces of a shave biopsy measuring 6x6x2, 3x1x1 mm. Jar 0. 3 10:15 AM CDT DERMATOPATHOLOGY LABORATORY Microscopic Description Specimen A. SKIN, right inferior temporal scalp: Sections show hyperkeratosis, papillomatosis, hypergranulosis, and acanthosis. These histological findings can be seen in a verruca vulgaris or a seborrheic keratosis. 3 10:15 AM CDT DERMATOPATHOLOGY LABORATORY Disclaimer An external and internal positive and negative controls are appropriate for the histochemical, immunohistochemical and immunofluorescence stain(s) in this case (if any), except where stated explicitly. The performance characteristics of the stain(s) cited in this report were developed and its performance characteristic determined by the Dermatopathology Laboratory at [facility], directed by Dr. Mariam Lopez. These tests need not be, and therefore are not, approved by the [place] Food and Drug Administration. The tests are used for clinical purposes. Billing Codes Specimen Charges Stain Charges 53872 1 3 10:15 AM CDT DERMATOPATHOLOGY LABORATORY Embedded Images 3 10:15 AM CDT DERMATOPATHOLOGY LABORATORY Pathology/Cytolog y TISSUE SPECIMEN FROM SKIN / Unknown 04/01/2023 04/02/2023 12:31 PM CDT Ashley Pierre PA-C LAB - PATHOLOGY/CYTO LOGY ORDERABLES DERMATOPATHOLOGY LABORATORY [facility] - Department of Dermatology [address] [place] [address], [facility] [phone] documented in this encounter Visit Diagnoses Diagnosis Neoplasm of uncertain behavior of skin documented in this encounter
--- OUTSIDE RECORDS SUMMARY | 2024-12-22 15:59 | XMS_ITS | Clinical Summary ---
Author Organization [facility] Address [address] [place] [address] Care Team Providers Care Psychiatric Rn Name Role Phone Unavailable Primary Care Provider Unavailabl e Source Comments [facility],non-owned Affiliates and Associated Physician Practices is amultiple site organization consisting of ambulatory clinics and hospital sitesin [place], [place], [place] and [place]. This disclosure is being madepursuant to the Care Everywhere program and may not contain all information available regarding this patient. Last updated 18.[facility] Social History Tobacco Use Types Packs/Day Years Used Date Smoking Tobacco: Never Assessed Sex and Gender Information Value Date Recorded Sex Assigned at Not on file Gender Identity Not on file Sexual Orientation Not on file Plan of Treatment Health Maintenance Due Date Last Done Comments COLOGUARD (AGES 45-75) - COL ON CA SCREENING 1958 COLON MONITORING 1958 COLONOSCOPY - COLON CA SCREENING 1958 CT COLONOGRAPHY - COLON CA SCREENING 1958 Colorectal Cancer Screening 1958 FIT - COLON CA SCREENING 1958 FLEX SIG - COLON CA SCREENING 1958 LIPID TESTING 1958 HEPATITIS C SCREENING 05/27/1976 DTAP/TDAP/TD VACCINES (1 - Tdap) 1977 PNEUMOCOCCAL VACCINE 50+ (1 of 1 - PCV) 2008 ZOSTER VACCINE (1 of 2) 2008 COVID-19 VACCINE ( - 2023-2 5 season) 2024 INFLUENZA VACCINE (#1) 2024 DEPRESSION SCREENING 09/23/2024 Respiratory Syncytial Virus (RSV) Vaccine Pt: or over 60 yrs (1 - 1-dose 75+ series) 2033 HEPATITIS B VACCINE Aged Out No longe r eligible based on patient's age to complete this topic HIB VACCINE Aged Out No longer eligi ble based on patient's age to complete this topic HPV VACCINE Aged Out No longer eligi ble based on patient's age to complete this topic MENINGOCOCCAL (Group B) VACC INE SHARED DECISION-MAKING Aged Out No longer eligibl e based on patient's age to complete this topic MENINGOCOCCAL GROUPS A/C/Y/W VACCINE Aged Out No longer eligible b ased on patient's age to complete this topic
--- OUTSIDE RECORDS SUMMARY | 2024-12-22 15:59 | XMS_ITS | Clinical Summary ---
Author Organization [facility] Address [address] [place] [address] Care Team Providers Care Transplant Immunologist Name Role Phone Alexander Gaytan MD Primary Care Provider Allergies No known active allergies Medications apixaban [...] (09/10/2022): Added automatically from request for surgery Pain in shoulder 03/02/2014 Pain of upper extremity 03/02/2014 Encounters Date Type Department Care Team Description 10/26/2024 10:05 AM SENIOR TAX ANALYST - 10/26/2024 11:59 PM SENIOR TAX ANALYST Hospital Encounter [facility] [address] [place] [address] S/P joint replacement Discharge Disposition: Discharge to home or self care 10/26/2024 10:00 AM SENIOR TAX ANALYST Office Visit [facility] Orthopaedic Surgery [address] [place] [address] Tommy Cody MD S/P joint replacement (Primary Dx) from Last 3 Months Surgical History Surgery Date Site/Laterality Comments ABLATION TOTAL SHOULDER REPLACEMENT 09/23/2014 - 09/22/2015 Medical History Medical History Date Comments Pulmonary emboli (HCC) Atrial fibrillation (HCC) HTN (hypertension) HLD (hyperlipidemia) Obesity CKD (chronic kidney disease) stage 2, GFR 60-89 ml/min Family History Medical History Relation Name Comments Arthritis Brother Family history of arthritis - (Added by TW Conv) Cancer Father Family history of malignant neoplasm - (Added by TW Conv) Hypertension Father Family history of hypertension - (Added by TW Conv) Arthritis Mother Family history of arthritis - (Added by TW Conv) Cancer Mother Family history of malignant neoplasm - (Added by TW Conv) Hypertension Mother Family history of hypertension - (Added by TW Conv) Anesthesia problems Neg Hx Relation Name Status Comments Brother Father Mother Social History Tobacco Use Types [...] on file Legal Sex Male 9:15 PM SENIOR TAX ANALYST Gender Identity Male 09/19/2022 4:07 AM SENIOR TAX ANALYST Sexual Orientation Straight 09/19/2022 4: 07 AM SENIOR TAX ANALYST Obstetrics History Last Filed Vital Signs Vital Sign Reading Time Taken Comments Blood Pressure 158/88 11/07/2022 8:44 AM SENIOR TAX ANALYST Pulse 97 11/07/2022 8:44 AM SENIOR TAX ANALYST Temperature 36.7 C (98.1 F) 11/07/2022 8:44 AM SENIOR TAX ANALYST Respiratory Rate 18 11/07/2022 8:44 AM SENIOR TAX ANALYST Oxygen Saturation 95% 11/07/2022 8:44 AM SENIOR TAX ANALYST Inhaled Oxygen Concentration - - Weight 137.4 kg (303 lb) 11/06/2022 6:44 PM SENIOR TAX ANALYST Height 180.3 cm (5' 11 ) 11/06/2022 6:44 PM SENIOR TAX ANALYST Body Mass Index 42.26 11/06/2022 6:44 PM SENIOR TAX ANALYST Plan of Treatment Health Maintenance Due Date Last Done Comments Colon Cancer Screening-Colonoscopy 1958 Depression Screening 1958 Hepatitis C Screening 1958 Prostate Cancer Screening-PSA 1958 Hepatitis B Screening 1976 Pneumococcal vaccine 65+ (1 of 1 - PCV) 2008 Well Visit 65+ 2023 Fall Risk Assessment 11/07/2023 11/07/2022 Covid-19 Vaccine ( season) 2024 07/25/2021, 12/21/2020, 11/20/2020 Influenza Vaccine (#1) 2024 07/25/2021, 2013 Zoster Vaccine (2 of 2) 10/28/2024 09/02/2024 DTaP/Tdap/Td Vaccine (2 - Td or Tdap) 09/01/203406/2024 Medical Devices Implanted Type Area Fashion Consultant Selling Device Identifier Shelf Expiration Date Model / Serial / Lot [employer] Simplex P Radiopaque Full Dose Cement Bone Sterile 6191-1-010 - Sn/A - [id number] Implanted:Qty: 1 on 11/06/2022 by Tommy Cody MD at [facility] Bone Cement Right: Shoulder [employer] 03/22/2025 6191-1-010 / N/A / [id number] [employer] Davidson 3 Peg Monoblock Shoulder 5 Component Glenoid Sterile [id number] - Sn/A - [id number] Implanted:Qty: 1 on 11/06/2022 by Tommy Cody MD at [facility] Right: Shoulder [employer] [id number] 11/21/2027 [id number] / N/A / [id number] [employer] Humeral [place] Shoulder Sidus [id number] 0 [id number] - Sn/A - [id number] Implanted:Qty: 1 on 11/06/2022 by Tommy Cody MD at [facility] Right: Shoulder [employer] [id number] 02/08/2032 [id number] / N/A / [id number] [employer] Sidus Od52 Mm H19 Mm Stem Free Shoulder Head Humeral Sterile Latex Free [id number] - [id number] Implanted:Qty: 1 on 11/06/2022 by Tommy Cody MD at [facility] Right: Shoulder [employer] [id number] 11/21/2027 [id number] / / [id number] Procedures Procedure Name Priority Date/Time Associated Diagnosis Comments XR SHOULDER RIGHT 2 OR MORE VIEWS Schedule Routine, Read Routine (OP Routine) 10/26/2024 10:11 AM SENIOR TAX ANALYST S/P joint replacement from Last 3 Months Results * XR Shoulder Right 2+ View (10/26/2024 10:11 AM SENIOR TAX ANALYST) Anatomical Region Laterality Modality Upper Extremities, Shoulder Right Comp uted Radiography 10/26/2024 10:5 0 AM SENIOR TAX ANALYST Impressions 10/26/2024 10:50 AM SENIOR TAX ANALYST Unchanged right anatomic total shoulder arthroplasty in near-anatomic position. Electronically signed by: Magan Galindo M.D. Narrative 10/26/2024 10:50 AM SENIOR TAX ANALYST EXAMINATION: XR SHOULDER RIGHT 2 OR MORE [...] from Last 3 Months Insurance [employer] MEDICARE T MEDICARE [facility] Advance Directives For more information, please contact: [phone] * Full Code (Latest Code Status on File) Date Activated Date Inactivated Comments 11/06/2022 6:52 PM 11/07/2022 6:18 PM Care Teams Transplant Immunologist Relationship Specialty Start Date End Date Alexander Gaytan MD PCP - General 05/09/22
--- OUTSIDE RECORDS SUMMARY | 2024-12-22 15:59 | XMS_ITS | Encounter Summary ---
Author Organization [facility] Address [address] [place] [address] Care Team Providers Care Ironworker Machine Operator Name Role Phone Unavailable Primary Care Provider Unavailabl e Encounter Details Date Type Department Care Team (Late st Contact Info) Description 01/01/2024 Lab Requisition [facility] - Derm[facility] Lab [address] [place] [address] Corinna Rutledge MD [address] [place] [address] [place] [phone] Basal cell carcinoma of skin of right upper limb, including shoulder; Neoplasm of uncertain behavior of skin Social [...] Priority Date/Time Associated Diagnosis Comments DERMATOPATHOLOGY Routine 01/01/2024 3:33 AM CDT Basal cell carcinoma of skin of right upper limb, including shoulder Neoplasm of uncertain behavior of skin documented in this encounter Results * DERMATOPATHOLOGY (01/01/2024 3:33 AM CDT) Case Report Dermatopathology Report Case: [id number] Authorizing Provider: Corinna Rutledge MD Collected: 01/01/2024 03:33 AM Ordering Location: [facility] - Received: 01/02/2024 02:27 PM DermPath Lab Pathologist: Tiesha Soler MD Specimens: A) - Skin, right forearm B) - Skin, right forehead C) - Skin, left cheek D) - Skin, left mid-upper back 12:16 PM [facility] DERMATOPATHOLOGY LABORATORY Final Diagnosis Specimen A. SKIN, right forearm: BASAL CELL CARCINOMA, INFILTRATIVE PATTERN (C44.612) NOT PRESENT AT MARGIN DERMAL SCAR (L90.5) (see microscopic description) Specimen B. SKIN, right forehead: BASAL CELL CARCINOMA, INFILTRATIVE PATTERN (C44.319) Specimen C. SKIN, left cheek: BASAL CELL CARCINOMA, NODULAR TYPE (C44.319) Specimen D. SKIN, left mid-upper back: LENTIGINOUS MELANOCYTIC NEVUS, COMPOUND TYPE, IRRITATED AND INFLAMED (D22.5) CHRONIC PERIFOLLICULITIS (L73.8) (see microscopic description) 12:16 PM [facility] DERMATOPATHOLOGY LABORATORY Clinical History A: Basal Cell Carcinoma. Check Margins B: Basal Cell Carcinoma C: Basal Cell Carcinoma D: Atypical Nevus vs Melanoma 12:16 PM [facility] DERMATOPATHOLOGY LABORATORY Gross Description Specimen A: Received is one formalin filled container labeled with the patient's name and designated right forearm. The specimen consists of a non-oriented ellipse of skin measuring 93d67z7 mm. The margin is inked green. The 12 o'clock and 6 o'clock tips are submitted in cassette 1. The remainder of the ellipse is serially sectioned and submitted in cassette 2 - 4. Jar 0. Specimen B: Received is one formalin filled container labeled with the patient's name and designated right forehead. The specimen consists of a shave biopsy measuring 8x7x1 mm. Jar 0. Specimen C: Received is one formalin filled container labeled with the patient's name and designated left cheek. The specimen consists of a shave biopsy measuring 7x5x1 mm. Jar 0. Specimen D: Received is one formalin filled container labeled with the patient's name and designated left mid-upper back. The specimen consists of a shave biopsy measuring 8x5x1 mm. Jar 0. 12:16 PM [facility] DERMATOPATHOLOGY LABORATORY Microscopic Description Specimen A. SKIN, right forearm: Within the dermis there are nodular aggregates of basaloid cells associated with fibromyxoid stroma and epithelial-stromal clefts. At the advancing margin of the neoplasm, there are smaller angulated nests that infiltrate the dermis. This lesion is not present at the margin of the specimen. There is a focus suspicious for perineural invasion on routine sections; however, is not definitive on S100/pancytokeratin dual immunostain. There are fibroblasts and collagen bundles oriented parallel to the skin surface with elongated blood vessels, some of which are oriented perpendicular to the skin surface. Specimen B. SKIN, right forehead: Within the dermis there are nodular aggregates of basaloid cells associated with fibromyxoid stroma and epithelial-stromal clefts. At the advancing margin of the neoplasm, there are smaller angulated nests that infiltrate the dermis. Specimen C. SKIN, left cheek: Within the dermis there are aggregates of basaloid cells with a high nuclear to cytoplasmic ratio and peripheral palisading. Specimen D. SKIN, left mid-upper back: This is a compound nevus. There is melanin pigment in the stratum corneum. There is a lentiginous proliferation of melanocytes between nevus nests of cells along the dermal epidermal junction. There is underlying fibroplasia of the papillary dermis. The intradermal component is bland in appearance and matures with depth. (Compound Vance's Nevus) There is a lymphohistiocytic infiltrate within the dermis. Sections show a perifollicular lymphohistiocytic infiltrate. 12:16 PM CDT DERMATOPATHOLOGY LABORATORY Disclaimer An external and internal positive and negative controls are appropriate for the histochemical, immunohistochemical and immunofluorescence stain(s) in this case (if any), except where stated explicitly. The performance characteristics of the stain(s) cited in this report were developed and its performance characteristic determined by the Dermatopathology Laboratory at [facility], directed by Dr. Mariam Lopez. These tests need not be, and therefore are not, approved by the [place] Food and Drug Administration. The tests are used for clinical purposes. Billing Codes Specimen Charges Stain Charges 49937 01354 89344 83095 1 1 1 1 99178 1 4 12:16 PM CDT DERMATOPATHOLOGY LABORATORY Embedded Images 4 12:16 PM CDT DERMATOPATHOLOGY LABORATORY Pathology/Cytology TISSUE SPECIMEN FROM SKIN / Unknown 01/01/2024 3:33 AM CDT 01/02/2024 2:27 PM CDT Miscellaneous samples (specimen) TISSUE SPECIMEN FROM SKIN / Unknown 01/01/2024 3:33 AM CDT 01/02/2024 2:27 PM CDT Miscellaneous samples (specimen) TISSUE SPECIMEN FROM SKIN / Unknown 01/01/2024 3:33 AM CDT 01/02/2024 2:27 PM CDT Miscellaneous samples (specimen) TISSUE SPECIMEN FROM SKIN / Unknown 01/01/2024 3:33 AM CDT 01/02/2024 2:27 PM CDT Corinna Rutledge MD LAB - PATHOLOGY/CYTO LOGY ORDERABLES DERMATOPATHOLOGY LABORATORY [facility] - Department of Dermatology [facility] [address] [place] [address], [address] [phone] documented in this encounter Visit Diagnoses Diagnosis Basal cell carcinoma of skin of right upper limb, including shoulder Basal cell carcinoma of skin of upper limb, including shoulder Neoplasm of uncertain behavior of skin documented in this encounter
== END 2024-12-22 14:26 | disposition home or self-care (01) ==
LOC: ANHLAB 14:28
PROVIDERS: Visit Provider Nurse Practitioner Family
DX: E63.9 Nutritional deficiency, unspecified (principal); R53.83 Other fatigue; I26.99 Other pulmonary embolism without acute cor pulmonale; M17.11 Unilateral primary osteoarthritis, right knee; I45.10 Unspecified right bundle-branch block; I44.4 Left anterior fascicular block
CPT/HCPCS: 36415; 80048; 81001; 82040; 85025; 93005

== ENCOUNTER 2025-01-07 14:37 | Outpatient (CLI) | payer MEDICARE, SELFPAY ==
--- NOTE | ~2025-01-07 | US_ITS ---
EXAMINATION:US venous doppler LE BI INDICATION:History of DVT TECHNIQUE: Multiple grayscale, color flow and Doppler images of the right and left lower extremity de ep venous systems were obtained and reviewed. COMPARISON:No prior studies for comparison. FINDINGS: The common femoral, superficial femoral and popliteal veins demonstrate normal respiratory variation, augmentation and compressibility. Color flow is also seen within the posterior tibial, pe roneal, greater saphenous and profunda veins. IMPRESSION: 1: No lower extremity deep venous thrombosis. Reviewed, dictated and finalized at location B.
--- OUTSIDE RECORDS SUMMARY | 2025-01-07 14:45 | XMS_ITS | Referral Summary ---
Author Organization [facility] Address [address] [place] [address] Care Team Providers Care Job Foreman Name Role Phone Alexander Gaytan MD Primary Care Provider Encounters Date Type Department Care Team Description 10/26/2024 10:05 AM HOG SAWYER - 10/26/2024 11:59 PM HOG SAWYER Hospital Encounter [facility] [address] [place] [id number] S/P joint replacement Discharge Disposition: Discharge to home or self care 10/26/2024 10:00 AM HOG SAWYER Office Visit [facility] Orthopaedic Surgery [address] [place] [address] 2nd [address] [place] [id number] Tommy Cody MD S/P joint replacement (Primary [...] (09/10/2022): Added automatically from request for surgery [id number] Pain in shoulder 03/02/2014 Pain of upper [...] on file Legal Sex Male 9:15 PM HOG SAWYER Gender Identity Male 09/19/2022 4:07 AM HOG SAWYER Sexual Orientation Straight 09/19/2022 4: 07 AM HOG SAWYER Last Filed Vital Signs Vital Sign Reading Time Taken Comments Blood Pressure 158/88 11/07/2022 8:44 AM HOG SAWYER Pulse 97 11/07/2022 8:44 AM HOG SAWYER Temperature 36.7 C (98.1 F) 11/07/2022 8:44 AM HOG SAWYER Respiratory Rate 18 11/07/2022 8:44 AM HOG SAWYER Oxygen Saturation 95% 11/07/2022 8:44 AM HOG SAWYER Inhaled Oxygen Concentration - - Weight 137.4 kg (303 lb) 11/06/2022 6:44 PM HOG SAWYER Height 180.3 cm (5' 11 ) 11/06/2022 6:44 PM HOG SAWYER Body Mass Index 42.26 11/06/2022 6:44 PM HOG SAWYER Plan of Treatment Not on file Medical Devices Implanted Type Area Fish Roe Technician Device Identifier Shelf Expiration Date Model / Serial / Lot [employer] Simplex P Radiopaque Full Dose Cement Bone Sterile 6191-1-010 - Sn/A - [id number] Implanted:Qty: 1 on 11/06/2022 by Tommy Cody MD at [facility] Bone Cement Right: Shoulder [employer] 03/22/2025 6191-1-010 / N/A / [id number] [employer] Butler 3 Peg Monoblock Shoulder 5 Component Glenoid Sterile [id number] - Sn/A - [id number] Implanted:Qty: 1 on 11/06/2022 by Tommy Cody MD at [facility] Right: Shoulder [employer] [id number] 11/21/2027 [id number] / N/A / [id number] [employer] Humeral [place] Shoulder Sidus [id number] 0 [id number] - Sn/A - [id number] Implanted:Qty: 1 on 11/06/2022 by Tommy Cody MD at [facility] Right: Shoulder [employer] [id number] 02/08/2032 [id number] / N/A / [id number] [employer] Sidus Od52 Mm H19 Mm Stem Free Shoulder Head Humeral Sterile Latex Free [id number] - [id number] Implanted:Qty: 1 on 11/06/2022 by Tommy Cody MD at [facility] Right: Shoulder [employer] [id number] 11/21/2027 [id number] / / [id number] Procedures Procedure Name Priority Date/Time Associated Diagnosis Comments XR SHOULDER RIGHT 2 OR MORE VIEWS Schedule Routine, Read Routine (OP Routine) 10/26/2024 10:11 AM HOG SAWYER S/P joint replacement from Last 3 Months Results * XR Shoulder Right 2+ View (10/26/2024 10:11 AM HOG SAWYER) Anatomical Region Laterality Modality Upper Extremities, Shoulder Right Comp uted Radiography 10/26/2024 10:5 0 AM HOG SAWYER Impressions 10/26/2024 10:50 AM HOG SAWYER Unchanged right anatomic total shoulder arthroplasty in near-anatomic position. Electronically signed by: Magan Galindo M.D. Narrative 10/26/2024 10:50 AM HOG SAWYER EXAMINATION: XR SHOULDER RIGHT 2 OR MORE [...] from Last 3 Months Insurance AET[employer] MEDICARE [facility] MEDICARE [facility] Advance Directives For more information, please contact: [phone] * Full Code (Latest Code Status on File) Date Activated Date Inactivated Comments 11/06/2022 6:52 PM 11/07/2022 6:18 PM Care Teams Job Foreman Relationship Specialty Start Date End Date Alexander Gaytan MD PCP - General 05/09/22
--- OUTSIDE RECORDS SUMMARY | 2025-01-07 14:45 | XMS_ITS | Clinical Summary ---
Author Organization [facility] Address [address] [place] [address] Care Team Providers Care Hair Boiler Name Role Phone Cecilia Jenkins MD Primary Care Provider [phone]- [phone] Allergies No known active allergies Medications aspirin [...] 03/20/2022 Assessment & Plan (11/29/2022 1:30 PM CAMPUS SECURITY OFFICER): Continue anticoagulation. He will be on anticoagulation [...] 07/10/2021 Assessment & Plan (11/29/2022 1:29 PM CAMPUS SECURITY OFFICER): His blood pressure is elevated in the [...] Department Care Team Description 12/21/2024 [facility] [address] [address] Danny Pavon MD Surgical Clearance 11/26/2024 11:40 AM CAMPUS SECURITY OFFICER Office Visit [facility] - [facility] [address] [facility], [address] [place] [phone] Camilo Hall MD CKD Follow-up 11/26/2024 Travel [...] CDT Gender Identity Male 10/09/2021 3:39 PM CAMPUS SECURITY OFFICER Sexual Orientation Straight 10/09/2021 3: 39 PM CAMPUS SECURITY OFFICER Last Filed Vital Signs Vital Sign Reading Time Taken Comments Blood Pressure 129/74 11/26/2024 11:36 AM CAMPUS SECURITY OFFICER Pulse 65 11/26/2024 11:36 AM CAMPUS SECURITY OFFICER Temperature 35.7 C (96.3 F) 11/26/2024 11:36 AM CAMPUS SECURITY OFFICER Respiratory Rate 24 04/20/2024 12:30 PM CDT Oxygen Saturation 97% 11/26/2024 11:36 AM CAMPUS SECURITY OFFICER Inhaled Oxygen Concentration - - Weight 134.3 kg (296 lb) 11/26/2024 11:36 AM CAMPUS SECURITY OFFICER Height 180.3 cm (5' 11 ) 11/26/2024 11:36 AM CAMPUS SECURITY OFFICER Body Mass Index 41.28 11/26/2024 11:36 AM CAMPUS SECURITY OFFICER Plan of Treatment Upcoming Encounters Date Type Department Care Team (Late st Contact Info) Description 02/16/2025 11:00 AM CDT Office Visit [facility], [address] [place] [address] Danny Pavon MD [facility]. [address] [place] [address] Health Maintenance Due Date Last Done Comments [...] Td or Tdap) 09/01/2034 09/01/2024 Pneumococcal Vaccine: 50+ Years Completed 10/23/2023 PHQ-2 (Physician [place]) Completed 11/26/2024 Meningococcal B Vaccine Aged Out [...] 3:45 PM 03/22/2022 4:28 PM Care Teams Hair Boiler Relationship Specialty Start Date End Date Cecilia Jenkins MD [address] [facility] [address] [place] [address] PCP - General FAMILY PRACTICE 04/23/22
--- OUTSIDE RECORDS SUMMARY | 2025-01-07 14:45 | XMS_ITS | Clinical Summary ---
Author Organization [facility] Address [address] [place] [address] Care Team Providers Care Plastic Products Sales Representative Name Role Phone Unavailable Primary Care Provider Unavailabl e Source Comments [facility] [employer],non-owned Affiliates and Associated Physician Practices is amultiple site organization consisting of ambulatory clinics and hospital sitesin [place], [place], [place] and [place]. This disclosure is being madepursuant to the Care Everywhere program and may not contain all information available regarding this patient. Last updated 18.[facility] [employer] Social History Tobacco Use Types Packs/Day Years Used Date Smoking Tobacco: Never Assessed Sex and Gender Information Value Date Recorded Sex Assigned at Not on file Legal Sex Male 4:47 PM CDT Gender Identity Not on file Sexual Orientation [...] VACCINE ( - 2023-2 5 season) 2024 DEPRESSION SCREENING 09/23/2024 INFLUENZA VACCINE (Season Ended) 2025 Respiratory Syncytial Virus (RSV) Vaccine Pt: or [...] on patient's age to complete this topic Insurance AETNA [facility] Address: [id number] [place] [address] AETNA AETNA AETNA AETNA AETNA AETNA AETNA AETNA AETNA AETNA AETNA AETNA
--- OUTSIDE RECORDS SUMMARY | 2025-01-07 14:45 | XMS_ITS | Data Portability ---
Author Organization [facility] Katie BULLOCK Address [address] [facility] [address] Care Team Providers Care Materials Engineering Technician Name Role Phone JOY HUANG Primary Care Provider Unazeeshan ilminerva Assessment No assessment recorded. Plan of Treatment Reminders Order Date Submit Date Provider Last Modified By Organization Details Last Modified Time Details Appointments None record ed. Lab HbA1c (hemog lobin A1c), blood 2023 [facility], [address] [place] [address], [address], [place], [address], 4 12:14:15 lipid panel, serum 2023 024 [facility], [address] [place] [address], [address], [place], [address], 4 12:14:12 BMP, serum or plasma 2023 [facility], [address] [place] [address], [address], [place], [address], 4 12:14:13 albumi n/crea tinine , mass ratio, urine 2023 [facility], [address] [place] [address], [address], [place], [address], 4 12:14:11 Referral orthop benita fregoso n referr al 2023 024 SAÚL Lynn MD, [address] [facility] [address], [place], [address], 5 15:17:59 Procedures None record ed. Surgeries None record ed. Imaging None record ed. Medication Orders losart an 100 mg-hyd rochlo rothia zide 12.5 mg tablet 2024 025 [facility], [address] [place] [address], [address], 5 11:54:43 Farxig a 10 mg tablet 2023 024 [facility], [address] [place] [address], [address], 4 09:52:15 Eliqui s 5 mg tablet 2023 024 [facility], [address] [place] [address], [address], 4 09:52:15 metopr olol tartra te 50 mg tablet 2023 024 [facility], [address] [place] [address], [address], 4 09:52:15 losart an 100 mg-hyd rochlo rothia zide 12.5 mg tablet 2023 024 [facility], [address] [place] [address], [address], 4 09:52:14 amlodi pine 5 mg tablet 2023 024 [facility], [address] [place] [address], [address], 4 09:52:15 Trulic ity 1.5 mg/0.5 mL subcut aneous pen inject or 2022 023 [email or web address] [facility], [address] [facility], [place], [address], 11:18:27 Patient TargetsNo targets recorded. Patient Instructions Encounter Date Encounter Id Patient Instructions Last Modified By Organization Details Last Modified Time 08/27/2023 [id number] I was present and available in the Family Medicine clinic to discuss this patient's care during the appointment. I agree with the resident's assessment and plan as documented. [email or web address] [email or web address] Not available 08/28/2023 09:12:25 10/23/2023 [id number] I was present and available in the Family Medicine clinic to discuss the patient's care during the time of the appointment. I agree with the resident's assessment and plan as documented. Tommy Calzada Not available 10/24/2023 13:13:44 03/09/2024 [id number] I was present and available in the family medicine clinic to discuss the patient's care during the appointment and the case was discussed with me. I agree with the resident's assessment and plan as documented. HL [email or web address] Not available 03/09/2024 11:13:53 09/01/2024 [id number] I was present and available in the Family Medicine clinic to discuss this patient's care for the duration of the appointment. I agree with the resident's assessment and plan as documented with the following addendum: None. Dr. Adelfo Rosas MD, FMOB Attending Physician, [facility]. [email or web address] Not available 09/02/2024 19:10:38 11/27/2024 [id number] A healthy lifestyle: care instructions [email or web address] Not [...] arthritis of knees Referring Physician: Joy Bal, Ax Survey Worker, Encounter Date: 09/01/2024 Results Created Date Observation Date Name Description Value Unit Range Abnormal Flag Note LastModifiedBy Organization Detail LastModifiedTime 08/27/20 23 08/27/2023 BASIC METAB OLIC PANEL glucose 90 mg/dL 70-99 Not Available [facility] (Lab) [place], [address], 08/27/2023 12:37:16 08/27/20 23 08/27/2023 BASIC METAB OLIC PANEL BUN 19 mg/dL 7-18 high Not Available [facility] (Lab) [place], [address], 08/27/2023 12:37:16 08/27/20 23 08/27/2023 BASIC METAB OLIC PANEL creatinine 1.06 mg/dL 0.7-1. 3 Not Available [facility] (Lab) [place], [address], 08/27/2023 12:37:16 08/27/20 23 08/27/2023 BASIC METAB OLIC PANEL sodium 141 mmol/ L 136-14 5 Not Available [facility] (Lab) [place], [address], 08/27/2023 12:37:16 08/27/20 23 08/27/2023 BASIC METAB OLIC PANEL potassium 4.0 mmol/ L 3.5-5. 1 Not Available [facility] (Lab) [place], [address], 08/27/2023 12:37:16 08/27/20 23 08/27/2023 BASIC METAB OLIC PANEL chloride 109 mmol/ L 100-10 8 high Not Available [facility] (Lab) [place], [address], 08/27/2023 12:37:16 08/27/20 23 08/27/2023 BASIC METAB OLIC PANEL total CO2 27.5 mmol/ L 21-32 Not Available [facility] (Lab) [address] [place], [address], 08/27/2023 12:37:16 08/27/20 23 08/27/2023 BASIC METAB OLIC PANEL calcium 9.0 mg/dL 8.5-10 .1 Not Available [facility] (Lab) [place], [address], 08/27/2023 12:37:16 08/27/20 23 08/27/2023 BASIC METAB OLIC PANEL anion gap 4.5 mmol/ L 5-15 low Not Available [facility] (Lab) [address] [place], [address], 08/27/2023 12:37:16 08/27/20 23 08/27/2023 BASIC METAB OLIC PANEL BUN creatinine ratio 17.9 6-26 Not Available [facility] (Lab) [place], [address], 08/27/2023 12:37:16 08/27/20 23 08/27/2023 BASIC METAB [...] latin g drug doses . Not Available [facility] (Lab) [place], [address], 08/27/2023 12:37:16 08/27/20 23 08/27/2023 VITAM IN D, 25-OH TOTAL vitamin D, 25-oh total 35 NG/mL 30-100 INTER PRETA TION DEFIC IENT <20 INSUF FICIE NT 20-29 SUFFI CIENT 30-10 0 Not Available [facility] (Lab) [place], [address], 08/27/2023 12:38:23 08/27/20 23 08/27/2023 MICRO ALB/C REAT RATIO creatinine, urine 93.1 mg/dL 39-259 Not Available [facility] (Lab) [place], [address], 08/27/2023 13:12:27 08/27/20 23 08/27/2023 MICRO ALB/C REAT RATIO microalbumin , urine 55.7 mg/dL <2.0 high Not Available [facility] (Lab) [place], [address], 08/27/2023 13:12:27 08/27/20 23 08/27/2023 MICRO ALB/C REAT RATIO malb/creat ratio 598.3 mg/g <30 high Not Available [facility] (Lab) [place], [address], 08/27/2023 13:12:27 08/27/20 23 08/27/2023 TOTAL PROTE IN, URINE total protein, urine 67.0 mg/dL <10 high Not Available [facility] (Lab) [place], [address], 08/27/2023 13:12:28 04/20/20 24 04/20/2024 BASIC METAB OLIC PANEL glucose 93 mg/dL 70-99 Not Available [facility] (Lab) [address] [place], [address], 04/20/2024 10:22:16 04/20/20 24 04/20/2024 BASIC METAB OLIC PANEL BUN 18 mg/dL 7-18 Not Available [facility] (Lab) [address] [facility], [place], [address], 04/20/2024 10:22:16 04/20/20 24 04/20/2024 BASIC METAB OLIC PANEL creatinine 1.14 mg/dL 0.7-1. 3 Not Available [facility] (Lab) [address] [facility], [place], [address], 04/20/2024 10:22:16 04/20/20 24 04/20/2024 BASIC METAB OLIC PANEL sodium 142 mmol/ L 136-14 5 Not Available [facility] (Lab) [address] [facility], [place], [address], 04/20/2024 10:22:16 04/20/20 24 04/20/2024 BASIC METAB OLIC PANEL potassium 3.9 mmol/ L 3.5-5. 1 Not Available [facility] (Lab) [address] [place], [address], 04/20/2024 10:22:16 04/20/20 24 04/20/2024 BASIC METAB OLIC PANEL chloride 111 mmol/ L 100-10 8 high Not Available [facility] (Lab) [address] [place], [address], 04/20/2024 10:22:16 04/20/20 24 04/20/2024 BASIC METAB OLIC PANEL total CO2 26.7 mmol/ L 21-32 Not Available [facility] (Lab) [place], [address], 04/20/2024 10:22:16 04/20/20 24 04/20/2024 BASIC METAB OLIC PANEL calcium 8.8 mg/dL 8.5-10 .1 Not Available [facility] (Lab) [place], [address], 04/20/2024 10:22:16 04/20/20 24 04/20/2024 BASIC METAB OLIC PANEL anion gap 4.3 mmol/ L 5-15 low Not Available [facility] (Lab) [place], [address], 04/20/2024 10:22:16 04/20/20 24 04/20/2024 BASIC METAB OLIC PANEL BUN creatinine ratio 15.8 6-26 Not Available [facility] (Lab) [place], [address], 04/20/2024 10:22:16 04/20/20 24 04/20/2024 BASIC METAB [...] latin g drug doses . Not Available [facility] (Lab) [place], [address], 04/20/2024 10:22:16 04/20/20 24 04/20/2024 CBC WITH DIFF WBC 5.98 x10'3 /uL 4.5-11 .0 Not Available [facility] [place], [address], 04/20/2024 10:31:14 04/20/20 24 04/20/2024 CBC WITH DIFF RBC 5.36 x10'6 /uL 4.70-6 .10 Not Available [facility] (Lab) [address] [facility], [place], [address], 04/20/2024 10:31:14 04/20/20 24 04/20/2024 CBC WITH DIFF hemoglobin 15.3 g/dL 14.0-1 8.0 Not Available [facility] (Lab) [address] [facility], [place], [address], 04/20/2024 10:31:14 04/20/20 24 04/20/2024 CBC WITH DIFF hematocrit 47.4 % 43.0-5 4.0 Not Available [facility] (Lab) [address] [facility], [place], [address], 04/20/2024 10:31:14 04/20/20 24 04/20/2024 CBC WITH DIFF MCV 88.4 fL 80.0-9 4.0 Not Available [facility] (Lab) [address] [facility], [place], [address], 04/20/2024 10:31:14 04/20/20 24 04/20/2024 CBC WITH DIFF MCH 28.5 pg 27.0-3 1.0 Not Available [facility] (Lab) [address], [place], [address], 04/20/2024 10:31:14 04/20/20 24 04/20/2024 CBC WITH DIFF MCHC 32.3 g/dL 32.0-3 6.0 Not Available [facility] (Lab) [address] [facility], [place], [address], 04/20/2024 10:31:14 04/20/20 24 04/20/2024 CBC WITH DIFF RDW 13.3 % 11.5-1 4.5 Not Available [facility] (Lab) [address], [place], [address], 04/20/2024 10:31:14 04/20/20 24 04/20/2024 CBC WITH DIFF platelet count 235 x10'3 /uL 130-40 0 Not Available [facility] (Lab) [address], [place], [address], 04/20/2024 10:31:14 04/20/20 24 04/20/2024 CBC WITH DIFF MPV 10.0 fL 9.3-12 .2 Not Available [facility] (Lab) [address], [place], [address], 04/20/2024 10:31:14 04/20/20 24 04/20/2024 CBC WITH DIFF diff type AUTOMA BERNY DIFFER ENTIAL Not Available [facility] (Lab) [address], [place], [address], 04/20/2024 10:31:14 04/20/20 24 04/20/2024 CBC WITH DIFF neutrophils 51.1 % Not Available [facility] (Lab) [address], [place], [address], 04/20/2024 10:31:14 04/20/20 24 04/20/2024 CBC WITH DIFF lymphocytes 37.1 % Not Available [facility] (Lab) [place], [address], 04/20/2024 10:31:14 04/20/20 24 04/20/2024 CBC WITH DIFF monocytes 7.0 % Not Available [facility] (Lab) [address] [place], [address], 04/20/2024 10:31:14 04/20/20 24 04/20/2024 CBC WITH DIFF eosinophils 4.0 % Not Available [facility] (Lab) [address] [place], [address], 04/20/2024 10:31:14 04/20/20 24 04/20/2024 CBC WITH DIFF basophils 0.5 % Not Available [facility] (Lab) [address] [place], [address], 04/20/2024 10:31:14 04/20/20 24 04/20/2024 CBC WITH DIFF immature granulocytes 0.3 % Not Available [facility] (Lab) [address] [facility], [place], [address], 04/20/2024 10:31:14 04/20/20 24 04/20/2024 CBC WITH DIFF abs. neutrophils 3.05 x10'3 /uL 1.80-7 .70 Not Available [facility] (Lab) [address] [place], [address], 04/20/2024 10:31:14 04/20/20 24 04/20/2024 CBC WITH DIFF abs. lymphocytes 2.22 x10'3 /uL 1.00-4 .80 Not Available [facility] (Lab) [address] [place], [address], 04/20/2024 10:31:14 04/20/20 24 04/20/2024 CBC WITH DIFF abs. monocytes 0.42 x10'3 /uL 0.30-0 .82 Not Available [facility] (Lab) [address] [place], [address], 04/20/2024 10:31:14 04/20/20 24 04/20/2024 CBC WITH DIFF abs. eosinophils 0.24 x10'3 /uL 0.04-0 .54 Not Available [facility] (Lab) [address] [facility], [place], [address], 04/20/2024 10:31:14 04/20/20 24 04/20/2024 CBC WITH DIFF abs. basophils 0.03 x10'3 /uL 0.01-0 .08 Not Available [facility] (Lab) [address], [place], [address], 04/20/2024 10:31:14 04/20/20 24 04/20/2024 CBC WITH DIFF abs. immature grans 0.02 x10'3 /uL 0.00-0 .49 Not Available [facility] (Lab) [address], [place], [address], 04/20/2024 10:31:14 04/20/20 24 04/20/2024 PROTI ME protime 11.7 sec 10.2-1 2.9 Not Available [facility] (Lab) [address], [place], [address], 04/20/2024 10:35:07 04/20/20 24 04/20/2024 PROTI ME INR 1.0 Recom lida d INR Thera peuti c Goals : 2.0-3 .0 Routi ne Thera py 2.5-3 .5 Mecha nical Prost hetic Valve s (High Risk) Not Available [facility] (Lab) [address], [place], [address], 04/20/2024 10:35:07 09/01/20 24 09/02/2024 ALBUM IN/CR EATIN INE RATIO ,URIN E creatinine, urine 154.9 mg/dL notest ab. Not Available [facility] ([facility]) [address] [facility], [place], [address], 09/02/2024 12:14:10 09/01/20 24 09/02/2024 ALBUM IN/CR EATIN INE RATIO ,URIN E albumin, urine 933.0 ug/mL notest ab. Resul ts confi rmed on dilut ion. Not Available [facility] ([facility]) [address] [facility], [place], [address], 09/02/2024 12:14:10 09/01/20 24 09/02/2024 ALBUM IN/CR EATIN INE RATIO ,URIN E alb/creat ratio 602 mg/g_ creat 0-29 above high normal Michelle l: 0 - 29 Moder ately incre ased: 30 - 300 Sever braynt incre ased: >300 Not Available [facility] ([facility]) [address] [facility], [place], [address], 09/02/2024 12:14:10 09/01/20 24 09/02/2024 LIPID PANEL cholesterol, total 238 mg/dL 100-19 9 above high normal Not Available [facility] ([facility]) [address] [facility], [place], [address], 09/02/2024 12:14:12 09/01/20 24 09/02/2024 LIPID PANEL triglyceride s 188 mg/dL 0-149 above high normal Not Available [facility] ([facility]) [address] [place], [address], 09/02/2024 12:14:12 09/01/20 24 09/02/2024 LIPID PANEL HDL cholesterol 41 mg/dL >39 Not Available [facility]) [address] [facility], [place], [address], 09/02/2024 12:14:12 09/01/20 24 09/02/2024 LIPID PANEL VLDL cholesterol herb 35 mg/dL 5-40 Not Available [facility]) [address] [place], [address], 09/02/2024 12:14:12 09/01/20 24 09/02/2024 LIPID PANEL LDL chol calc ([facility]) 162 mg/dL 0-99 above high normal Not Available [facility] ([facility]) [address] [place], [address], 09/02/2024 12:14:12 09/01/20 24 09/02/2024 BASIC METAB OLIC PANEL (8) glucose 88 mg/dL 70-99 Not Available [facility] ([facility]) [address] [place], [address], 09/02/2024 12:14:13 09/01/20 24 09/02/2024 BASIC METAB OLIC PANEL (8) BUN 16 mg/dL 8-27 Not Available [facility] ([facility]) [address] [place], [address], 09/02/2024 12:14:13 09/01/2009/02/2024 BASIC METAB OLIC PANEL (8) creatinine 1.08 mg/dL 0.76-1 .27 Not Available [facility] ([facility]) [address] [place], [address], 09/02/2024 12:14:13 09/01/2009/02/2024 BASIC METAB OLIC PANEL (8) eGFR 76 mL/mi n/1.7 3 >59 Not Available [facility] ([facility]) [address] [place], [address], 09/02/2024 12:14:13 09/01/20 24 09/02/2024 BASIC METAB OLIC PANEL (8) BUN/creatini ne ratio 15 10-24 Not Available [facility] ([facility]) [address] [place], [address], 09/02/2024 12:14:13 09/01/20 24 09/02/2024 BASIC METAB OLIC PANEL (8) sodium 143 mmol/ L 134-14 4 Not Available [facility] ([facility]) [address] [facility], [place], [address], 09/02/2024 12:14:13 09/01/20 24 09/02/2024 BASIC METAB OLIC PANEL (8) potassium 4.5 mmol/ L 3.5-5. 2 Not Available [facility] ([facility]) [address] [place], [address], 09/02/2024 12:14:13 09/01/20 24 09/02/2024 BASIC METAB OLIC PANEL (8) chloride 104 mmol/ L 96-106 Not Available [facility] ([facility]) [address] [place], [address], 09/02/2024 12:14:13 09/01/20 24 09/02/2024 BASIC METAB OLIC PANEL (8) carbon dioxide, total 26 mmol/ L 20-29 Not Available [facility] ([facility]) [address] [place], [address], 09/02/2024 12:14:13 09/01/20 24 09/02/2024 BASIC METAB OLIC PANEL (8) calcium 9.5 mg/dL 8.6-10 .2 Not Available [facility] ([facility]) [address] [place], [address], 09/02/2024 12:14:13 09/01/20 24 09/02/2024 HEMOG LOBIN A1C hemoglobin A1C 5.9 % 4.8-5. 6 above high normal Predi abete s: 5.7 - 6.4 Diabe grace: >6.4 Glyce yariel contr ol for adult s with diabe grace: <7.0 Not Available [facility] ([facility]) [address] [place], [address], 09/02/2024 12:14:15 04/20/20 24 ECG 12-le ad [facility] [place] [address] [facility] [place] [address] [facility] [address] [place], [place] Test Date: 04-20 Pat Name: NADINE Street Depart ment: 40 Patien t ID: [id number] Room: [facility] Gender : Male Techni jennifer: Tlf : [birth year]01 Reques berny By: GÉNESIS Enamorado Order Number : [id number] MD: Génesis enamorado Measur ements Interv als [place] Rate: 77 P: [place]: 0 QRS: -62 QRSD: 149 T: -12 [...] enamorado at 04-20-2 024 13:52: 01 CDT [facility] [address] [facility], [place], [address], 04/20/2024 19:48:10 04/20/20 24 ECG 12-le ad [facility] [place] [address] [facility] [place] [address] [facility] [address] [place], [place] Test Date: 04-20 Pat Name: NADINE Street Depart ment: 40 Patien t ID: [id number] Room: [facility] Gender : Male Techni jennifer: : 1959-0 9-09 Reques berny By: GÉNESIS Enamorado Order Number : [id number] MD: Génesis enamorado Measur ements Interv als [place] Rate: 61 P: 80 [place]: 190 QRS: -51 QRSD: 157 T: -7 [...] Génesis enamorado at 024 13:54: 49 CDT [facility] [address] [facility], [place], [address], 04/20/2024 19:48:10 04/21/20 24 xa cardi overs ion dcc [facility] [place] [id number] [place] [address] HOSPIT AL [facility]ON/EP LAB [phone] x [phone] Cardio versio n Patien t Name: Nadine ConcepcionRicardo Date of : 1959 Medica l Record : #[id number] Accoun t: [id number] Physic dora: Génesis enamorado MD Date: [...] SHAHNAZ Mckeon/vs Interp reted: Transc ribed: [email or web address] [facility] [address] [facility], [place], [address], 04/23/2024 22:59:50 Result Notes None recorded. Problems Name Problem SNOMED Code Status Onset Date Resolution Date Notes Provider Name and Address Organization Details Recorded Time Essential hypertensi on 80239254 Active 2020 Estela Rae esme, [facility] 14:55:12 Basal cell carcinoma of skin 599633878 Active 2023 on left cheek & right forehead. stage 1. s/p complex repair/ Mohs surgery. surgeon Dermatolog ist Dr. Sarmad Guadarrama. Fu in 3 months (06/2024) Joy Bal MD Attn: [address] [facility], [place], [address], [facility] 4 13:02:33 Actinic keratosis 054451741 Active 2023 flluoroura cil 5% topical cream 40 gram. Joy Bal MD Attn: [address] [facility], [place], [address], [facility] 4 13:06:43 Seborrheic dermatitis 03427694 Active 2023 ketoconazo le shampoo Joy Bal MD Attn: [address] [place], [address], [facility] 4 13:07:06 Problem Notes None recorded. Procedures Surgical History Date Name Laterality Status Provider Name and Address Organization Details Recorded Time 5 repair of shoulder completed Estela Rae [place] - SI 11/28/2020 14:54:57 Imaging Results Imaging Date Name Status LastModified by Organization Details LastModified Time 04/20/2024 ECG 12-lead completed [address], [place], [address], 04/20/2024 19:48:10 04/20/2024 ECG 12-lead completed [address], [place], [address], 04/20/2024 19:48:10 04/21/2024 xa cardioversion dcc completed [address], [place], [address], 04/23/2024 22:59:50 Procedure Notes None recorded. Medical [...] Updated DateTime 3 180.34 cm 41.3 kg/m2 408949. 04 g 64 /min 97 % 97 % 97.3 [degF] 145 mm[Hg] 84 mm[Hg] Clarita Khan MA [facility] 3 10:53:29 Date Recorded Systolic blood pressure Diastolic blood pressure Provider Name and Address Organization Details Last Updated DateTime 08/27/2023 125 mm[Hg] 85 mm[Hg] Alexander Gaytan MD Attn: Accounting,[address] [place], [address], [facility] 08/27/2023 11:14:47 Date Recorded Body height Body mass index (BMI) Body weight Oxygen saturation Oxygen saturation in Arterial blood by Pulse oximetry Heart rate Body temperature Systolic blood pressure Diastolic blood pressure Provider Name and Address Organization Details Last Updated DateTime 4 180.34 cm 40.8 kg/m2 481616. 37 g 98 % 98 % 60 /min 98.5 [degF] 138 mm[Hg] 85 mm[Hg] Carolina Garcia MA [facility] 4 11:04:08 Date Recorded Body height Body mass index (BMI) Body weight Oxygen saturation Oxygen saturation in Arterial blood by Pulse oximetry Heart rate Systolic blood pressure Diastolic blood pressure Provider Name and Address Organization Details Last Updated DateTime 4 180.34 cm 42 kg/m2 786380. 4 g 97 % 97 % 84 /min 144 mm[Hg] 85 mm[Hg] Tanesha Ariza MA [facility] 4 10:46:15 Date Recorded Systolic blood pressure Diastolic blood pressure Provider Name and Address Organization Details Last Updated DateTime 03/09/2024 106 mm[Hg] 77 mm[Hg] Alexander Gaytan MD Attn: Accounting,[address] [place], [address], [facility] 03/09/2024 11:03:06 Date Recorded Body height Body mass index (BMI) Body weight Oxygen saturation Oxygen saturation in Arterial blood by Pulse oximetry Heart rate Body temperature Systolic blood pressure Diastolic blood pressure Provider Name and Address Organization Details Last Updated DateTime 4 180.34 cm 42.9 kg/m2 883093. 01 g 95 % 95 % 78 /min 97 [degF] 159 mm[Hg] 89 mm[Hg] Nuvia Aviles MA [facility] 4 09:01:44 Date Recorded Systolic blood pressure Diastolic blood pressure Provider Name and Address Organization Details Last Updated DateTime 09/01/2024 142 mm[Hg] 85 mm[Hg] Joy Bal MD Attn: Accounting,[address] [facility], [place], [address], [place] 09/01/2024 09:24:53 Date Recorded Body height Body mass index (BMI) Body weight Oxygen saturation Oxygen saturation in Arterial blood by Pulse oximetry Heart rate Body temperature Systolic blood pressure Diastolic blood pressure Provider Name and Address Organization Details Last Updated DateTime 5 180.34 cm 40.8 kg/m2 646810. 72 g 98 % 98 % 63 /min 97.8 [degF] 136 mm[Hg] 86 mm[Hg] OCTAVIANO Brantley [facility] 5 09:02:09 Social History Question Answer Notes LastModified by Organizat ion Details LastModified Time Tobacco Smoking Status Never Smoker MINNIE Forte [facility] 11/28/2020 14:39:01 What Is Your Level Of [...] 50 mcg/0.5 mL 3 completed OCTAVIANO Brantley [facility] 07/17/2023 16:10:39 zoster recombinant 4 completed Carolina Garcia [place], [place] [facility] 09/02/2024 15:00:21 Influenza, high-dose, quadrivalent, PF 3 completed Mike Cunningham MD Attn: Accounting,[address], [place], [address], [place] [facility] 07/16/2023 11:21:40 Pneumococcal conjugate PCV20, polysaccharide [id number] conjugate, adjuvant, PF 4 completed Tommy Calzada MD Attn: Accounting,[address] [facility], [place], [address], [place] [facility] 10/24/2023 13:13:40 Tdap 4 completed Tanesha Ariza [place], [place] [facility] 09/01/2024 10:26:32 Past Encounters Encounter ID Performer Location Encounter Start Date Encounter Closed Date Diagnosis/Indication Diagnosis SNOMED-CT Code Diagnosis ICD10 Code Diagnosis Note [id number] MD Roldan Mak [address] [address] 11/28/2020 14:22:41 11/29/2020 10:28:05 Adult health examination 520096701 Z00.00 - No acute concerns Obesity 374817137 E66.9 Chronic, improving- Pt has lost 100+ lbs over the last 2 years. On vegan diet, regularly exercising , reading weekly about how to improve his diet. Very knowledgab le and aware on how to reduce his weight. Diastasis recti 93798213 M62.08 Chronic, controlled - Asymptomat ic, if botherwsom e RTC Essential hypertension 43168382 I10 Chronic, uncontroll ed- Elevated BP in office, recommende d repeat measuremen t but pt left office prior to having it done.- At home measuremen ts 130-140/80 s- Continue losartan 50 mg-HCTZ 12.5 mg 1 1/2 tab QD- RTC if BP persistent ly elevated, pt documents at home. [id number] MD Roldan ADNREA 47 3 [facility] [address] [place] [address] 05/30/2021 09:50:26 05/31/2021 09:06:34 Essential hypertension 64493549 I10 BP Goal: {{Less than 140/90* Le [...] }} Pain of ri ght shoulder joint 3813900314 3369569 M25.511 Chronic, uncontroll ed- Per pt, hx of severe osteoarthr itis- Request records from previous ortho, send for repeat x rays- Refer to orthopedic - Tylenol PRN [id number] Madhuri tucker MD [place] [address] [address] 01/15/2022 11:25:31 01/16/2022 15:54:17 Essential hypertension 99701300 I10 BP Goal: {{Less than 140/90* Le [...] 11 12} }{{week(s) month(s)* }} Kidney disease 72529022 N08 alb/cr ratio of 2400, follows w/ neprhoBone scan WNLPending DEZ, ds-DNA, total protein, and total CrNephro appointmen t next week [id number] Tommy Calzada MD [place] [address] [address] 04/05/2022 15:16:36 04/06/2022 14:45:25 Essential hypertension 03524310 I10 BP Goal: {{Less than 140/90* Le [...] QD- Continue home BP monitoring Kidney disease 12142609 N08 alb/cr ratio of 2400, follows w/ jeancarloso he believes his appointmen t is the near future but does not know exactly when- will continue to follow with nephrology recommenda tiyusra as chart review does not have nephrology consult. History of pulmonary embolus 101328666 Z86.711 Was recently hospitaliz ed for multiple [...] cardiology and oncology recommenda tions Atrial fibrillation 4411 6005 I48.91 [facility] Had [facility]t on 04/05 Obesity 113016938 E66.9 patient is following a vegan diet [...] walking Screening for malignant neoplasm of colon 628634145 Z12.11 currently has no symptoms concerning for GI malignancy . no hematochez ia, no weight loss, no fever, no chills, no night sweats. Does not know family history. 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 Already sees ortho, will follow up with them to see about getting right shoulder replaced. Xray 05/2021 showed: severe glenohumer al osteoarthr itis and Early AC joint arthritis- will follow up with ortho he is already establishe d with Essential hypertension 19117555 I10 BP Goal: {{Less than 140/90* Le [...] month(s)* }} Paresthesi a of lower extremity 239108386 R20.2 Numbness and tingling of lower extremity limited to feet. Neuropathy vs electrolyt e imbalance. Does not have a1c that i could find on chart review. No trauma to the area. No signs of infection. -will check y7i-LNF, MG-check folate and B12 [id number] [facility] 47 3 [facility] [address] [place] [address] 03/08/2023 11:26:57 03/23/2023 12:53:53 Screening for malignant neoplasm of colon 857359211 Z12.11 currently has no symptoms concerning for GI malignancy . no hematochez ia, no weight loss, no fever, no chills, no night sweats. Does not know family history. on chart review he had a colonoscop y in 2019 that was negative for any findings and was told to follow up in 10 years- next colon cancer screening due and 2028 Obesity 140170105 E66.9 patient is following a vegan diet [...] swimming, biking, monitor or walking Essential hypertension 61615115 I10 BP Goal: {{Less than 140/90* Le [...] BP usually runs 120/80s Depression screening 171 654520 Z13.31 PHQ2 negative. [id number] Mike Cunningham MD [place] [address] [address] [address] 07/16/2023 10:19:04 07/17/2023 10:06:18 Administration of influenza vaccine 61657961 Z23 Obesity 795225336 E66.9 patient is following a vegan diet [...] swimming, biking, monitor or walking Essential hypertension 06844730 I10 BP Goal: {{Less than 140/90* Le [...] next few months Chronic ki dney disease 918520394 N18.9 Chronic, Improving. Sees nephro. Will optimize blood pressure today . [id number] Mike Cunningham MD [place] [address] [address] [address] 08/27/2023 10:47:20 08/28/2023 16:05:27 Obesity 428208277 E66.9 patient is following a vegan diet [...] monitor or walking-ti aaronte GLP Essential hypertension 09581512 I10 BP Goal: {{Less than 140/90* Le [...] weight-eduardo e blood pressures have been 120's [id number] Tommy Calzada MD [facility] [address] [address] 10/23/2023 10:49:28 10/25/2023 12:30:08 Active or passive immunization 121964050 Z23 Obesity 231481111 E66.9 patient is following a vegan diet [...] side effects, not interested in different agent [id number] Madhuri tucker MD [place] [address] 3 [facility] [address] [place] [address] 03/09/2024 10:20:08 03/12/2024 13:09:04 Essential hypertension 61380097 I10 BP Goal: {{Less than 140/90* Le [...] and CCB-due for labs in august Obesity 979402600 E66.9 patient is following a vegan diet [...] agent Screening for malignant neoplasm of colon 397695892 Z12.11 currently has no symptoms concerning for [...] another ablation in the next few months [id number] ADELFO ROSAS MD [facility] 47 3 [facility] [address] [place] [address] 09/01/2024 08:49:18 09/04/2024 15:21:49 Essential hypertension 41050903 I10 Establishe dBP today 159/89, repeat 142/85BP [...] will order losartan 100- HCTZ 12.5 Obesity 418119960 E66.9 BMI 42.9 today. pt gained 6 Ibs since last visit in of using phentermin josé miguel lipid panel result, last A1C in 2021 was 5.5- will check A1C & Lipid panel Atrial fibrillation 4943 6004 I48.91 s/p direct cardiovers ion by Dr. Pavon on 04/20/2024 hx of cardiovers ion [id number] y on Eliquis and BB (metoprolo l Tartrate 50 mg BID)- has scheduled appt with Dr. Hushion Adult heal th examination 393083310 Z00.00 colonoscop y: due dap: will get it todayCovid : 2022Flu: neumo coccal: 2023 Actinic keratosis 007 L57.0 s/p derm visit on 07/06. will be followed up for melanoma in 3 months. Chronic ki dney disease 975842775 N18.9 PMHx of Hypertensi on since , josefina escalante nephrology visit [place] [address] Hall in [facility] rrently on Farxiga and ARBs- next appt is in November- will check kidney function today Benign pro static hyperplasia 186897482 N40.1 currently seeing urologist. hx of biopsy 6 years ago Bilateral arthritis of knees 7402257678 722361 M13.861 pt saw ortho years ago. knee replacemen t was discussed but at that time due to pt's age wasn't recommende d. Pt is interested in getting replacemen t done vs getting injections .- will put in the ortho referral Active or passive immunization 943050418 Z23 pt got his Tdap today [id number] Tommy Calzada MD [facility] 47 3 [facility] [address] [place] [address] 11/27/2024 08:49:45 12/02/2024 10:14:31 Essential hypertension 30446448 I10 Establishe d, in goal range. BP [...] a BP log. Chronic ki dney disease 610304273 N18.9 PMHx of Hypertensi on since , albuminuri aAl/cr on 08/2023 was 598Al/cr on 08/2024 was 602last nephrology visit 11/27/[address] Hall - recommends no changes to medication , has been signed off as of 11/26/24Curr ently on Farxiga and ARBs - continue at this timeNo labs indicated at this time, will check at next appt in 6 months Adult heal th examination 779633689 Z00.00 colonoscop y: due dap: received 09/01/24 - due ovid: 2022Flu: neumo coccal: 2023 Atrial fibrillation 4943 6004 I48.91 s/p direct cardiovers ion by Dr. Pavon on 04/20/2024 hx of cardiovers ion a6Uptwisqw y on Eliquis and BB (metoprolo l Tartrate 50 mg BID) Morbid obesity 392918298 E66.01 was discussed with pt Health Concerns Section Related Observation LastModified by Organization Detai ls LastModified Time None Recorded Concern Status LastModified by Organization Details LastModified Time None Recorded Advance Directives Directive None Recorded Payers Encounter Date Sequence Insurance Name Policy Number Policy Dowd Covered Member ID Dowd Member ID Guarantor Name 08/27/2023 1 [employer] (MEDICARE REPLACEMENT PPO) [id number] 1 Nadine Kimble [id number] Nadine Kimble 10/23/2023 1 [employer] (MEDICARE REPLACEMENT PPO) [id number] 1 Nadine Kimble [id number] Nadine Kimble 03/09/2024 1 [employer] (MEDICARE REPLACEMENT PPO) [id number] 1 Nadine Kimble [id number] Nadine Kimble 09/01/2024 1 [employer] (MEDICARE REPLACEMENT PPO) [id number] 1 Nadine Kimble [id number] Nadine Kimble 11/27/2024 1 [employer] (MEDICARE REPLACEMENT PPO) [id number] 1 Nadine Kimble [id number] Nadine Kimble Notes Date Note Type Note [...] it. Mike Cunningham MD Attn: Accounting,[address] [facility], [place], [address], [facility] 08/28/2023 09:12:30 10/23/19 24 text/htm l ObesityReported [...] vaccine Tommy Calzada MD Attn: Accounting,[address] [facility], [place], [address], [facility] 10/24/2023 13:13:50 03/09/20 24 text/htm l Hypertension [...] up Madhuri Schumacher MD Attn: Accounting,[address] [facility], [place], [address], [facility] 03/09/2024 11:13:57 09/01/20 24 text/htm l 64 y/o M with hx of a-fib, HTN, obesity presented to meet new pcp. ADELFO ROSAS MD Attn: Accounting,[address] [facility], [place], [address], [facility] 09/02/2024 19:11:07 11/28/19 25 [...] diarrhea/constipation Tommy Calzada MD Attn: Accounting,[address] [facility], [place], [address], [facility] 11/30/2024 16:25:05
--- OUTSIDE RECORDS SUMMARY | 2025-01-07 14:45 | XMS_ITS | Encounter Summary ---
Author Organization [facility] Address [address] [place] [address] Care Team Providers Care Certified Optician Name Role Phone Unavailable Primary Care Provider Unavailabl e Encounter Details Date Type Department Care Team (Late st Contact Info) Description 10/02/2023 Lab Requisition [facility] - DermPath Lab [address] [place] [address] Sarmad Guadarrama MD [facility] DERMATOLOGY [address] [place] [address] Neoplasm of uncertain behavior of skin [...] Diagnosis Comments DERMATOPATHOLOGY Routine 10/02/2023 3:33 AM ADVERTISING EDITOR Neoplasm of uncertain behavior of skin documented in this encounter Results * DERMATOPATHOLOGY (10/02/2023 3:33 AM ADVERTISING EDITOR) Case Report Dermatopathology Report Case: [id number] Authorizing Provider: Sarmad Guadarrama MD Collected: 10/02/2023 03:33 AM Ordering Location: [facility] DermPath Lab Received: 10/03/2023 12:46 PM Pathologist: Tiesha Soler MD Specimen: Skin, right forearm 12:58 PM ADVERTISING EDITOR DERMATOPATHOLOGY LABORATORY Final Diagnosis Specimen A. SKIN, right forearm: BASAL CELL CARCINOMA, INFILTRATIVE PATTERN (C44.612) 12:58 PM [facility] DERMATOPATHOLOGY LABORATORY Clinical History Basal Cell Carcinoma 12:58 PM [facility] DERMATOPATHOLOGY LABORATORY Gross Description Specimen A: Received is one formalin filled container labeled with the patient's name and designated right forearm. The specimen consists of a shave biopsy measuring 8x6x1 mm. Jar 0. 12:58 PM [facility] DERMATOPATHOLOGY LABORATORY Microscopic Description Specimen A. SKIN, right forearm: Within the dermis there are nodular aggregates of basaloid cells associated with fibromyxoid stroma and epithelial-stromal clefts. At the advancing margin of the neoplasm, there are smaller angulated nests that infiltrate the dermis. 12:58 PM [facility] DERMATOPATHOLOGY LABORATORY Disclaimer An external and internal positive and negative controls are appropriate for the histochemical, immunohistochemical and immunofluorescence stain(s) in this case (if any), except where stated explicitly. The performance characteristics of the stain(s) cited in this report were developed and its performance characteristic determined by the Dermatopathology Laboratory at [facility], directed by Dr. Mariam Lopez. These tests need not be, and therefore are not, approved by the [place] Food and Drug Administration. The tests are used for clinical purposes. Billing Codes Specimen Charges Stain Charges 74993 1 12:58 PM [facility] DERMATOPATHOLOGY LABORATORY Embedded Images 12:58 PM [facility] DERMATOPATHOLOGY LABORATORY Pathology/Cytolo gy TISSUE SPECIMEN FROM SKIN / Unknown 10/02/2023 3:33 AM ADVERTISING EDITOR 10/03/2023 12:46 PM ADVERTISING EDITOR us Sarmad Guadarrama MD LAB - PATHOLOGY/CYTOLOGY WESLY SCHWARTZ Final Result DERMATOPATHOLOGY LABORATORY [facility] - Department of Dermatology [address], [address] [phone] documented in this encounter Visit Diagnoses Diagnosis Neoplasm of uncertain behavior of skin documented in this encounter
--- OUTSIDE RECORDS SUMMARY | 2025-01-07 14:45 | XMS_ITS | Encounter Summary ---
Author Organization [facility] Address [address] [place] [address] Care Team Providers Care Runner Man Name Role Phone Cecilia Jenkins MD Primary Care Provider [phone] Encounter Details Date Type Department Care Team (Late st Contact Info) Description 05/07/2022 Hospital Orders Only [facility] Director Investment Banking [address] [place] [address] Pranay Garrido MD [address] [facility]. [address] [place], [place] [phone] Social History Tobacco Use Types Packs/Day Years Used Date Smoking Tobacco: Never Smokeless Tobacco: Never Alcohol Use Standard Drinks/Week Comments Yes 1.7 (1 standard drink = 0.6 oz p ure alcohol) once every 2 weeks Sex and Gender Information Value Date Recorded Sex Assigned at Not on file Legal Sex Male 9:56 AM CDT Gender Identity Male 10/09/2021 3:39 PM PIANO ACCOMPANIST Sexual Orientation Straight 10/09/2021 3: 39 PM PIANO ACCOMPANIST COVID-19 Exposure Response Date Recorded In the [...] CDT Delilah Holden R N Active * Calculated C-SSRS Risk Score (Lifetime/Recent) Answer Date of Assessment Author Status No Risk Indicated 05/08/2022 10:56 AM LIBORIOT eBa Clinton RN Active * [place] Suicide Severity Rating Scale (Screener/Recent Self-Report) Question Answer Date of Assessment Author Status 1. Wish to be (Past 1 Month) No 05/08/2022 10:56 AM LIBORIOT Bea Clinton RN Activ e 2. Non-Specific Active Suicidal Thoughts (Past 1 Month) No 05/08/2022 10:56 AM CDT Bea Clinton RN Activ e 6. Suicidal Behavior (Lifetime) No 05/08/2022 10:56 AM LIBORIOT Bea Clinton RN Activ e documented as of this encounter Mental Status [...] 02/16/2025 11:00 AM CDT Office Visit Rachelle Evans-O'Fallo n [facility], [facility] [address] [place] [address] Danny Pavon MD [facility]. [facility] [address] [place] [address] documented as of this encounter Goals Goal Patient Goal Type Associated Problems Recent Progress Patient-Stated? Author Patient will return to prior living situation and remain independent in ADLs upon discharge from hospital [facility] Adenike Saleem RN documented as of this encounter Visit Diagnoses Not on filedocumented in this encounter Care Teams Runner Man Relationship Specialty Start Date End Date Cecilia Jenkins MD [address] [facility] [address] [place] [address] PCP - General FAMILY PRACTICE 04/23/22 documented as of this encounter
--- OUTSIDE RECORDS SUMMARY | 2025-01-07 14:45 | XMS_ITS | Encounter Summary ---
Author Organization [facility] Address [address] [facility] [place] [address] Care Team Providers Care Swing Driver Name Role Phone Unavailable Primary Care Provider Unavailabl e Encounter Details Date Type Department Care Team (Late st Contact Info) Description 01/01/2024 Lab Requisition [facility] - DermPath Lab [address] [place] [address] Corinna Rutledge MD [address] [place] [address] [place] [address] Basal cell carcinoma of skin of right [...] AM CDT) Case Report Dermatopathology Report Case: [id number] Authorizing Provider: Corinna Rutledge MD Collected: 01/01/2024 03:33 AM Ordering Location: [facility] - Received: 01/02/2024 02:27 PM DermPath Lab Pathologist: Tiesha Soler MD Specimens: A) - Skin, right forearm B) - Skin, right forehead C) - Skin, left cheek D) - Skin, left mid-upper back 12:16 PM T DERMATOPATHOLOGY LABORATORY Final Diagnosis Specimen A. SKIN, [...] PERIFOLLICULITIS (L73.8) (see microscopic description) 12:16 PM [facility] DERMATOPATHOLOGY LABORATORY Clinical History A: Basal Cell Carcinoma. Check Margins B: Basal Cell Carcinoma C: Basal Cell Carcinoma D: Atypical Nevus vs Melanoma 12:16 PM [facility] DERMATOPATHOLOGY LABORATORY Gross Description Specimen A: Received is one formalin filled container labeled with the patient's name and designated right forearm. The specimen consists of a non-oriented ellipse of skin measuring 41k06y9 mm. The margin is inked green. The [...] measuring 8x5x1 mm. Jar 0. 12:16 PM [facility] DERMATOPATHOLOGY LABORATORY Microscopic Description Specimen [...] dermis. Sections show a perifollicular lymphohistiocytic infiltrate. 4 12:16 PM CDT DERMATOPATHOLOGY LABORATORY Disclaimer An external and internal positive and negative controls are appropriate for the histochemical, immunohistochemical and immunofluorescence stain(s) in this case (if any), except where stated explicitly. The performance characteristics of the stain(s) cited in this report were developed and its performance characteristic determined by the Dermatopathology Laboratory at [facility], directed by Dr. Mariam Lopez. These tests need not be, and therefore are not, approved by the [place] Food and Drug Administration. The tests are used for clinical purposes. Billing Codes Specimen Charges Stain Charges 23316 22661 16229 58069 1 1 1 1 24049 1 4 12:16 PM CDT DERMATOPATHOLOGY LABORATORY [...] 3:33 AM CDT 01/02/2024 2:27 PM CDT us Corinna Rutledge MD LAB - PATHOLOGY/CYTOLOGY ORDERAB LES Final Result DERMATOPATHOLOGY LABORATORY [facility] - Department of Dermatology [facility] Medicine [address] [place] [address] [phone] documented in this encounter Visit Diagnoses Diagnosis Basal cell carcinoma of skin of right upper limb, including shoulder Basal cell carcinoma of skin of upper limb, including shoulder Neoplasm of uncertain behavior of skin documented in this encounter
--- OUTSIDE RECORDS SUMMARY | 2025-01-07 14:45 | XMS_ITS | Clinical Summary ---
Author Organization [facility] Address [address] [place] [address] Care Team Providers Care Inspector Toys Name Role Phone Alexander Gaytan MD Primary [...] Department Care Team Description 10/26/2024 10:05 AM TROUBLE LINEMAN - 10/26/2024 11:59 PM TROUBLE LINEMAN Hospital Encounter [facility] [address] [place] [address] S/P joint replacement Discharge Disposition: Discharge to home or self care 10/26/2024 10:00 AM TROUBLE LINEMAN Office Visit [facility] Orthopaedic Surgery [address] [facility] 2nd Floor [address] [place] [address] Tommy Cody MD S/P joint replacement (Primary [...] on file Legal Sex Male 9:15 PM TROUBLE LINEMAN Gender Identity Male 09/19/2022 4:07 AM TROUBLE LINEMAN Sexual Orientation Straight 09/19/2022 4: 07 AM TROUBLE LINEMAN Obstetrics History Last Filed Vital Signs Vital Sign Reading Time Taken Comments Blood Pressure 158/88 11/07/2022 8:44 AM TROUBLE LINEMAN Pulse 97 11/07/2022 8:44 AM TROUBLE LINEMAN Temperature 36.7 C (98.1 F) 11/07/2022 8:44 AM TROUBLE LINEMAN Respiratory Rate 18 11/07/2022 8:44 AM TROUBLE LINEMAN Oxygen Saturation 95% 11/07/2022 8:44 AM TROUBLE LINEMAN Inhaled Oxygen Concentration - - Weight 137.4 kg (303 lb) 11/06/2022 6:44 PM TROUBLE LINEMAN Height 180.3 cm (5' 11 ) 11/06/2022 6:44 PM TROUBLE LINEMAN Body Mass Index 42.26 11/06/2022 6:44 PM TROUBLE LINEMAN Plan of Treatment Health Maintenance Due Date [...] Tdap) 09/01/203406/2024 Medical Devices Implanted Type Area Aircraft Tool Maker Device Identifier Shelf Expiration Date Model / Serial / Lot [employer] Simplex P Radiopaque Full Dose Cement Bone Sterile 6191-1-010 - Sn/A - [id number] Implanted:Qty: 1 on 11/06/2022 by Tommy Cody MD at [facility] Bone Cement Right: Shoulder [employer] 03/22/2025 6191-1-010 / N/A / [id number] [employer] [place] 3 Peg Monoblock Shoulder 5 Component Glenoid Sterile [id number] - Sn/A - [id number] Implanted:Qty: 1 on 11/06/2022 by Tommy Cody MD at [facility] Right: Shoulder [employer] [id number] 11/21/2027 [id number] / N/A / [id number] [employer] Humeral Mathias Shoulder Sidus [id number] - Sn/A - [id number] Implanted:Qty: 1 on 11/06/2022 by Tommy Cody MD at [facility] Right: Shoulder [employer] [id number] 02/08/2032 [id number] / N/A / [id number] [employer] Sidus Od52 Mm H19 Mm Stem Free Shoulder Head Humeral Sterile Latex Free [id number] - [id number] Implanted:Qty: 1 on 11/06/2022 by Tommy Cody MD at [facility] Right: Shoulder [employer] [id number] 11/21/2027 [id number] / / [id number] Procedures Procedure Name Priority Date/Time Associated Diagnosis Comments XR SHOULDER RIGHT 2 OR MORE VIEWS Schedule Routine, Read Routine (OP Routine) 10/26/2024 10:11 AM TROUBLE LINEMAN S/P joint replacement from Last 3 Months Results * XR Shoulder Right 2+ View (10/26/2024 10:11 AM TROUBLE LINEMAN) Anatomical Region Laterality Modality Upper Extremities, Shoulder Right Comp uted Radiography 10/26/2024 10:5 0 AM TROUBLE LINEMAN Impressions 10/26/2024 10:50 AM TROUBLE LINEMAN Unchanged right anatomic total shoulder arthroplasty in near-anatomic position. Electronically signed by: Magan Galindo M.D. Narrative 10/26/2024 10:50 AM TROUBLE LINEMAN EXAMINATION: XR SHOULDER RIGHT 2 OR MORE [...] 3 Months Insurance AETNA MEDICARE T MEDICARE [facility] Advance Directives For more information, please contact: [phone] * Full Code (Latest Code Status on File) Date Activated Date Inactivated Comments 11/06/2022 6:52 PM 11/07/2022 6:18 PM Care Teams Inspector Toys Relationship Specialty Start Date End Date Alexander Gaytan MD PCP - General 05/09/22
--- OUTSIDE RECORDS SUMMARY | 2025-01-07 14:45 | XMS_ITS | Encounter Summary ---
Author Organization [facility] Address [address] [place] [place] [address] Care Team Providers Care Cord Cutter Name Role Phone Unavailable Primary Care Provider Unavailabl e Encounter Details Date Type Department Care Team (Late st Contact Info) Description 04/01/2023 Lab Requisition [facility] Derm[facility] Lab [address] [place] [id number] Ashley Pierre PA-C [address] [place] [address] Neoplasm of uncertain behavior of [...] AM CDT) Case Report Dermatopathology Report Case: [id number] Authorizing Provider: Ashley Pierre PA-C Collected: 04/01/2023 12:00 AM Ordering Location: [facility] D[facility] Lab Received: 04/02/2023 12:31 PM Pathologist: Yasmin Mccord MD Specimen: Skin, right inferior temporal scalp 10:15 AM CDT DERMATOPATHOLOGY LABORATORY Final Diagnosis Specimen A. SKIN, right inferior temporal scalp: BENIGN VERRUCOUS KERATOSIS (L82.1) 3 10:15 AM CDT DERMATOPATHOLOGY LABORATORY Clinical History Squamous Cell Carcinoma vs. Verruca Vulgaris 10:15 AM CDT DERMATOPATHOLOGY LABORATORY Gross Description Specimen A: Received is one formalin filled container labeled with the patient's name and designated right inferior temporal scalp. The specimen consists of two (2) pieces of a shave biopsy measuring 6x6x2, 3x1x1 mm. Jar 0. 10:15 AM CDT DERMATOPATHOLOGY LABORATORY Microscopic Description Specimen A. SKIN, right inferior temporal scalp: Sections show hyperkeratosis, papillomatosis, hypergranulosis, and acanthosis. These histological findings can be seen in a verruca vulgaris or a seborrheic keratosis. 10:15 AM CDT DERMATOPATHOLOGY LABORATORY Disclaimer An external and internal positive and negative controls are appropriate for the histochemical, immunohistochemical and immunofluorescence stain(s) in this case (if any), except where stated explicitly. The performance characteristics of the stain(s) cited in this report were developed and its performance characteristic determined by the Dermatopathology Laboratory at [facility], directed by Dr. Mariam Lopez. These tests need not be, and therefore are not, approved by the [place] Food and Drug Administration. The tests are used for clinical purposes. Billing Codes Specimen Charges Stain Charges 74855 1 3 10:15 AM CDT DERMATOPATHOLOGY LABORATORY Embedded Images 3 10:15 AM CDT DERMATOPATHOLOGY LABORATORY Pathology/Cytolog y TISSUE SPECIMEN FROM SKIN / Unknown 04/01/2023 04/02/2023 12:31 PM CDT Ashley Pierre PA-C LAB - PATHOLOGY/CYTOLOGY WESLY SCHWARTZ Final Result DERMATOPATHOLOGY LABORATORY [facility] - Department of Dermatology [address], [address] [phone] documented in this encounter Visit Diagnoses Diagnosis Neoplasm of uncertain behavior of skin documented in this encounter
--- OUTSIDE RECORDS SUMMARY | 2025-01-07 14:46 | XMS_ITS | Clinical Summary ---
Author Organization [facility] Address [address], [facility] [address] [place] [address] Phone Care Team Providers Care Splicing Technician Name Role Phone Provider, Unknown Primary Care Provider Unavaila Zach Wilson MD Unavailable Allergies No known active allergies Medications losartan-hydroc [...] Department Care Team Description 11/05/2024 9:30 AM CONCRETE BLOCK MAKER Office Visit [facility] [address] [address] Jen Rodrigez, EXECUTIVE COMMUNITY PLANNING, BUSINESS SUPPORT ADMINISTRATOR MGUS (monoclonal gammopathy of unknown significance) (Primary [...] Sex Assigned at Male 08/18/2024 2:51 PM CONCRETE BLOCK MAKER Legal Sex Male 9:06 AM CONCRETE BLOCK MAKER Gender Identity Male 08/18/2024 2:51 PM CONCRETE BLOCK MAKER Sexual Orientation Straight 08/18/2024 2: 51 PM CONCRETE BLOCK MAKER Last Filed Vital Signs Vital Sign Reading Time Taken Comments Blood Pressure 150/96 11/05/2024 9:30 AM CONCRETE BLOCK MAKER Pulse 59 11/05/2024 9:30 AM CONCRETE BLOCK MAKER Temperature 36.7 C (98 F) 11/05/2024 9:30 AM CONCRETE BLOCK MAKER Respiratory Rate 18 11/05/2024 9:30 AM CONCRETE BLOCK MAKER Oxygen Saturation 99% 11/05/2024 9:30 AM CONCRETE BLOCK MAKER Inhaled Oxygen Concentration - - Weight 138.1 kg (304 lb 8 oz) 11/05/2024 9:30 AM CONCRETE BLOCK MAKER Height 180.3 cm (5' 11 ) 11/05/2024 9:30 AM CONCRETE BLOCK MAKER Body Mass Index 42.47 11/05/2024 9:30 AM CONCRETE BLOCK MAKER Plan of Treatment Upcoming Encounters Date Type Department Care Team (Late st Contact Info) Description 11/04/2025 9:30 AM CONCRETE BLOCK MAKER Office Visit [facility] [address] [place] [address] Zach Edward MD [address] [place], [place] [address] Health Maintenance Due Date Last Done Comments [...] PSA 4.22(H) 0.00 - 4.00 ng/mL CANCER CIRCUIT BOARD ASSEMBLER [facility] Comment: Johny Paramagnetic Particle Chemiluminescent Immunoassay Method Blood 07/26/2022 8:48 AM CDT Narrative [facility] - 07/26/2022 2:05 PM CDT Release to patient->Immediate Kris Gerber PAC CHEMISTRY ORDERABLES Final Result [facility] [employer] [place] [address], from Last 3 Months or Most Recently Relevant to Health Maintenance Insurance MEDICARE C AETNA Care Teams Splicing Technician Relationship Specialty Start Date End Date Provider, Unknown UNKNOWN PCP - General 11/27/21 Zach Edward MD [address] [place] [address] Consulting Physician Oncology 11/27/21
== END 2025-01-07 14:38 | disposition home or self-care (01) ==
PROVIDERS: PCP Family Medicine; Visit Provider Nurse Practitioner Family
DX: I26.99 Other pulmonary embolism without acute cor pulmonale (principal)
CPT/HCPCS: 93970

== ENCOUNTER 2025-03-01 08:01 | Outpatient (CLI) | payer MEDICARE, SELFPAY ==
--- OUTSIDE RECORDS SUMMARY | 2025-03-01 08:07 | XMS_ITS | Clinical Summary ---
Author Organization [facility] Address [address] [place] [address] Care Team Providers Care Latent Print Examiner Name Role Phone Alexander Gaytan MD Primary [...] shoulder 03/02/2014 Pain of upper extremity 03/02/2014 Surgical History Surgery Date Site/Laterality Comments ABLATION [...] on file Legal Sex Male 9:15 PM CLOTH GRADER Gender Identity Male 09/19/2022 4:07 AM CLOTH GRADER Sexual Orientation Straight 09/19/2022 4: 07 AM CLOTH GRADER Obstetrics History Last Filed Vital Signs Vital Sign Reading Time Taken Comments Blood Pressure 158/88 11/07/2022 8:44 AM CLOTH GRADER Pulse 97 11/07/2022 8:44 AM CLOTH GRADER Temperature 36.7 C (98.1 F) 11/07/2022 8:44 AM CLOTH GRADER Respiratory Rate 18 11/07/2022 8:44 AM CLOTH GRADER Oxygen Saturation 95% 11/07/2022 8:44 AM CLOTH GRADER Inhaled Oxygen Concentration - - Weight 137.4 kg (303 lb) 11/06/2022 6:44 PM CLOTH GRADER Height 180.3 cm (5' 11) 11/06/2022 6:44 PM CLOTH GRADER Body Mass Index 42.26 11/06/2022 6:44 PM CLOTH GRADER Plan of Treatment Health Maintenance Due Date Last Done Comments Colon Cancer Screening-Colonoscopy 1960 Depression Screening 1958 Hepatitis C Screening 1958 Prostate Cancer Screening-PSA 1958 Hepatitis B Screening 1976 Pneumococcal vaccine 65+ (1 of 1 - PCV) 2008 Well Visit 65+ 2023 Fall Risk Assessment 11/07/2023 11/07/2022 Covid-19 Vaccine ( season) 2024 07/25/2021, 12/21/2020, 11/20/2020 Zoster Vaccine (2 of 2) 10/28/2024 09/02/2024 Influenza Vaccine (Season Ended) 2025 07/25/20, 09/15/2014 DTaP/Tdap/Td Vaccine (2 - Td or Tdap) 09/01/203406/2024 Medical Devices Implanted Type Area Filler In Device Identifier Shelf Expiration Date Model / Serial / Lot [employer] Simplex P Radiopaque Full Dose Cement Bone Sterile 6191-1-010 - Sn/A - [id number] Implanted:Qty: 1 on 11/06/2022 by Tommy Cody MD at [facility] Bone Cement Right: Shoulder [employer] 03/22/2025 6191-1-010 / N/A / [id number] [employer] [place] 3 Peg Monoblock Shoulder 5 Component Glenoid Sterile [id number] - Sn/A - [id number] Implanted:Qty: 1 on 11/06/2022 by Tommy Cody MD at [facility] Right: Shoulder [employer] [id number] 11/21/2027 [id number] / N/A / [id number] [employer] Humeral [place] Shoulder Sidus [id number] - Sn/A - [id number] Implanted:Qty: 1 on 11/06/2022 by Tommy Cody MD at [facility] Right: Shoulder [employer] [id number] 02/08/2032 [id number] / N/A / [id number] [employer] Sidus Od52 Mm H19 Mm Stem Free Shoulder Head Humeral Sterile Latex Free [id number] - [id number] Implanted:Qty: 1 on 11/06/2022 by Tommy Cody MD at [facility] Right: Shoulder [employer] [id number] 11/21/2027 [id number] / / [id number] Insurance T MEDICARE [facility] Advance Directives For more information, please contact: [phone] * Full Code (Latest Code Status on File) Date Activated Date Inactivated Comments 11/06/2022 6:52 PM 11/07/2022 6:18 PM Care Teams Latent Print Examiner Relationship Specialty Start Date End Date Alexander Gaytan MD PCP - General 05/09/22
--- OUTSIDE RECORDS SUMMARY | 2025-03-01 08:07 | XMS_ITS | Referral Summary ---
Author Organization [facility] Address [address] [place] [address] Care Team Providers Care Music Director Name Role Phone Alexander Gaytan MD Primary [...] on file Legal Sex Male 9:15 PM ROLLWAY MAN Gender Identity Male 09/19/2022 4:07 AM ROLLWAY MAN Sexual Orientation Straight 09/19/2022 4: 07 AM ROLLWAY MAN Last Filed Vital Signs Vital Sign Reading Time Taken Comments Blood Pressure 158/88 11/07/2022 8:44 AM ROLLWAY MAN Pulse 97 11/07/2022 8:44 AM ROLLWAY MAN Temperature 36.7 C (98.1 F) 11/07/2022 8:44 AM ROLLWAY MAN Respiratory Rate 18 11/07/2022 8:44 AM ROLLWAY MAN Oxygen Saturation 95% 11/07/2022 8:44 AM ROLLWAY MAN Inhaled Oxygen Concentration - - Weight 137.4 kg (303 lb) 11/06/2022 6:44 PM ROLLWAY MAN Height 180.3 cm (5' 11) 11/06/2022 6:44 PM ROLLWAY MAN Body Mass Index 42.26 11/06/2022 6:44 PM ROLLWAY MAN Plan of Treatment Not on file Medical Devices Implanted Type Area Denture Processor Device Identifier Shelf Expiration Date Model / Serial / Lot [employer] [employer] Simplex P Radiopaque Full Dose Cement Bone Sterile 6191-1-010 - Sn/A - [id number] Implanted:Qty: 1 on 11/06/2022 by Tommy Cody MD at [facility] Bone Cement Right: Shoulder [employer] 03/22/2025 6191-1-010 / N/A / [id number] [employer] [place] 3 Peg Monoblock Shoulder 5 Component Glenoid Sterile [id number] - Sn/A - [id number] Implanted:Qty: 1 on 11/06/2022 by Tommy Cody MD at [facility] Right: Shoulder [employer] [id number] 11/21/2027 [id number] / N/A / [id number] [employer] Humeral [place] Shoulder Sidus [id number] - Sn/A - [id number] Implanted:Qty: 1 on 11/06/2022 by Tommy Cody MD at [facility] Right: Shoulder [employer] [id number] 02/08/2032 [id number] / N/A / [id number] [employer] Sidus Od52 Mm H19 Mm Stem Free Shoulder Head Humeral Sterile Latex Free [id number] - [id number] Implanted:Qty: 1 on 11/06/2022 by Tommy Cody MD at [facility] Right: Shoulder [employer] [id number] 11/21/2027 [id number] / / [id number] Insurance T MEDICARE T MEDICARE [facility] Advance Directives For more information, please contact: [phone] * Full Code (Latest Code Status on File) Date Activated Date Inactivated Comments 11/06/2022 6:52 PM 11/07/2022 6:18 PM Care Teams Music Director Relationship Specialty Start Date End Date Alexander Gaytan MD PCP - General 05/09/22
--- OUTSIDE RECORDS SUMMARY | 2025-03-01 08:07 | XMS_ITS | Encounter Summary ---
Author Organization [facility] Address [address] [facility] [place] [address] Care Team Providers Care Music Worker Name Role Phone Unavailable Primary Care Provider Unavailabl e Encounter Details Date Type Department Care Team (Late st Contact Info) Description 10/02/2023 Lab Requisition [facility] D[facility] Lab [address] [place] [phone] Sarmad Guadarrama MD [facility] DERMATOLOGY [address] [place] [phone] Neoplasm of uncertain behavior of skin [...] Diagnosis Comments DERMATOPATHOLOGY Routine 10/02/2023 3:33 AM LEATHER REPAIRER Neoplasm of uncertain behavior of skin documented in this encounter Results * DERMATOPATHOLOGY (10/02/2023 3:33 AM LEATHER REPAIRER) Case Report Dermatopathology Report Case: [id number] Authorizing Provider: Sarmad Guadarrama MD Collected: 10/02/2023 03:33 AM Ordering Location: [facility] Derm[facility] Lab Received: 10/03/2023 12:46 PM Pathologist: Tiesha Soler MD Specimen: Skin, right forearm 12:58 PM LEATHER REPAIRER DERMATOPATHOLOGY LABORATORY Final Diagnosis Specimen A. SKIN, right forearm: BASAL CELL CARCINOMA, INFILTRATIVE PATTERN (C44.612) 12:58 PM [facility] DERMATOPATHOLOGY LABORATORY at [address] LEATHER REPAIRER Clinical History Basal Cell Carcinoma 12:58 PM [facility] DERMATOPATHOLOGY LABORATORY Gross Description Specimen A: Received is one formalin filled container labeled with the patient's name and designated right forearm. The specimen consists of a shave biopsy measuring 8x6x1 mm. Jar 0. 12:58 PM [facility] DERMATOPATHOLOGY LABORATORY Microscopic Description Specimen A. SKIN, right forearm: Within the dermis there are nodular aggregates of basaloid cells associated with fibromyxoid stroma and epithelial-stromal clefts. At the advancing margin of the neoplasm, there are smaller angulated nests that infiltrate the dermis. 12:58 PM [facility] DERMATOPATHOLOGY LABORATORY Disclaimer An external and internal positive and negative controls are appropriate for the histochemical, immunohistochemical and immunofluorescence stain(s) in this case (if any), except where stated explicitly. The performance characteristics of the stain(s) cited in this report were developed and its performance characteristic determined by the Dermatopathology Laboratory at [facility], directed by Dr. Mariam Lopez. These tests need not be, and therefore are not, approved by the [place] Food and Drug Administration. The tests are used for clinical purposes. Billing Codes Specimen Charges Stain Charges 93385 1 12:58 PM [facility] DERMATOPATHOLOGY LABORATORY Embedded Images 12:58 PM [facility] DERMATOPATHOLOGY LABORATORY Pathology/Cytolo gy TISSUE SPECIMEN FROM SKIN / Unknown 10/02/2023 3:33 AM LEATHER REPAIRER 10/03/2023 12:46 PM LEATHER REPAIRER us Sarmad Guadarrama MD LAB - PATHOLOGY/CYTOLOGY W[facility] SCHWARTZ Final Result DERMATOPATHOLOGY LABORATORY [facility] - Department of Dermatology [address], [address] [phone] documented in this encounter Visit Diagnoses Diagnosis Neoplasm of uncertain behavior of skin documented in this encounter
--- OUTSIDE RECORDS SUMMARY | 2025-03-01 08:07 | XMS_ITS | Clinical Summary ---
Author Organization [facility] Address [address] [place] [address] Care Team Providers Care Cleaning And Washing Equipment Operator Name Role Phone Unavailable Primary Care Provider Unavailabl e Source Comments [facility],non-owned Affiliates and Associated Physician Practices is amultiple site organization consisting of ambulatory clinics and hospital sitesin [place], [place], [place]. This disclosure is being madepursuant to the Care Everywhere program and may not contain all information available regarding this patient. Last updated 18.[facility] Social History Tobacco Use Types Packs/Day Years [...] to complete this topic Insurance AETNA AET AETNA AETNA AETNA AETNA AETNA AETNA AETNA AETNA AETNA AETNA AETNA AETNA
--- OUTSIDE RECORDS SUMMARY | 2025-03-01 08:07 | XMS_ITS | Encounter Summary ---
Author Organization [facility] Address [address] [place] [address] Care Team Providers Care Associate Professor Of Art Name Role Phone Unavailable Primary Care Provider Unavailabl e Encounter Details Date Type Department Care Team (Late st Contact Info) Description 04/01/2023 Lab Requisition [facility] - DermPath Lab [address] [place] [id number] Ashley Pierre PA-C [address] [place] [address] Neoplasm of uncertain behavior of [...] AM CDT) Case Report Dermatopathology Report Case: [id number] Authorizing Provider: Ashley Pierre PA-C Collected: 04/01/2023 12:00 AM Ordering Location: [facility] Derm[facility] Lab Received: 04/02/2023 12:31 PM Pathologist: Yasmin Mccord MD Specimen: Skin, right inferior temporal scalp 10:15 AM CDT DERMATOPATHOLOGY LABORATORY Final Diagnosis Specimen A. SKIN, right inferior temporal scalp: BENIGN VERRUCOUS KERATOSIS (L82.1) 3 10:15 AM CDT DERMATOPATHOLOGY LABORATORY at 1015 CDT Clinical History Squamous Cell Carcinoma vs. Verruca [...] characteristic determined by the Dermatopathology Laboratory at [facility], directed by Dr. Mariam Lopez. These tests need not be, and therefore are not, approved by the [place] Food and Drug Administration. The tests are used for clinical purposes. Billing Codes Specimen Charges Stain Charges 60604 1 3 10:15 AM CDT DERMATOPATHOLOGY LABORATORY Embedded Images 3 10:15 AM CDT DERMATOPATHOLOGY LABORATORY Pathology/Cytolog y TISSUE SPECIMEN FROM SKIN / Unknown 04/01/2023 04/02/2023 12:31 PM CDT Ashley Pierre PA-C LAB - PATHOLOGY/CYTOLOGY [facility]ART[facility] Final Result DERMATOPATHOLOGY LABORATORY [facility] - Department of Dermatology [address], [address] [phone] documented in this encounter Visit Diagnoses Diagnosis Neoplasm of uncertain behavior of skin documented in this encounter
--- OUTSIDE RECORDS SUMMARY | 2025-03-01 08:07 | XMS_ITS | Encounter Summary ---
Author Organization [facility] Address [address] [place] [address] Care Team Providers Care Staff Radiographer Name Role Phone Unavailable Primary Care Provider Unavailabl e Encounter Details Date Type Department Care Team (Late st Contact Info) Description 01/01/2024 Lab Requisition [facility] - DermPath Lab [address] [place] [phone] Corinna Rutledge MD [address] [place] [address] [place] [phone] Basal cell carcinoma of skin of right [...] AM CDT) Case Report Dermatopathology Report Case: [id number] Authorizing Provider: Corinna Rutledge MD Collected: 01/01/2024 03:33 AM Ordering Location: [facility] - Received: 01/02/2024 02:27 PM DermPath Lab Pathologist: Tiesha Soler MD Specimens: A) - Skin, right forearm B) - Skin, right forehead C) - Skin, left cheek D) - Skin, left mid-upper back 12:16 PM CDT DERMATOPATHOLOGY LABORATORY Final Diagnosis Specimen A. [...] PERIFOLLICULITIS (L73.8) (see microscopic description) 12:16 PM T DERMATOPATHOLOGY LABORATORY at 1216 CDT Clinical History A: Basal Cell Carcinoma. Check Margins B: Basal Cell Carcinoma C: Basal Cell Carcinoma D: Atypical Nevus vs Melanoma 12:16 PM CDT DERMATOPATHOLOGY LABORATORY Gross Description Specimen A: Received is one formalin filled container labeled with the patient's name and designated right forearm. The specimen consists of a non-oriented ellipse of skin measuring [id number] mm. The margin is inked green. The [...] measuring 8x5x1 mm. Jar 0. 12:16 PM CDT DERMATOPATHOLOGY LABORATORY Microscopic Description Specimen A. [...] characteristic determined by the Dermatopathology Laboratory at [facility], directed by Dr. Mariam Lopez. These tests need not be, and therefore are not, approved by the [place] Food and Drug Administration. The tests are used for clinical purposes. Billing Codes Specimen Charges Stain Charges 89389 23963 08785 61797 1 1 1 1 99119 1 4 12:16 PM CDT DERMATOPATHOLOGY LABORATORY [...] PATHOLOGY/CYTOLOGY ORDERAB LES Final Result DERMATOPATHOLOGY LABORATORY [facility] - Department of Dermatology [facility] [address] [place] [address] [phone] documented in this encounter Visit Diagnoses Diagnosis Basal cell carcinoma of skin of right upper limb, including shoulder Basal cell carcinoma of skin of upper limb, including shoulder Neoplasm of uncertain behavior of skin documented in this encounter
--- OUTSIDE RECORDS SUMMARY | 2025-03-01 08:07 | XMS_ITS | Data Portability ---
Author Organization DUSTIN Katie BULLOCK Address [address] [place] [address] Care Team Providers Care Book Cutter Name Role Phone JOY HUANG Primary Care Provider Unazeeshan ilminerva Assessment No assessment recorded. Plan of Treatment Reminders Order Date Submit Date Provider Last Modified By Organization Details Last Modified Time Details Appointments None record ed. Lab HbA1c (hemog lobin A1c), blood 2023 [facility], [address] [place] [address], [address], [place], [address], 4 12:14:15 lipid panel, serum 2023 024 [facility], [address] [place] [address], [address], [place], [address], 4 12:14:12 BMP, serum or plasma 2023 024 [facility], [address] [place] [address], [address], [place], [address], 4 12:14:13 albumi n/crea tinine , mass ratio, urine 2023 [facility], [address] [place] [address], [address], [place], [address], 4 12:14:11 Referral orthop benita fregoso n referr al 2023 024 SAÚL Lynn MD, [address] [facility] [address], [place], [address], 5 15:17:59 Procedures None record ed. Surgeries None record ed. Imaging None record ed. Medication Orders losart an 100 mg-hyd rochlo rothia zide 12.5 mg tablet 2024 025 [facility], [address] [place] [address], [address], 5 11:54:43 Farxig a 10 mg tablet 2023 024 [facility], [address] [place] [address], [address], 4 09:52:15 Eliqui s 5 mg tablet 2023 024 [facility], [address] [place] [address], [address], 4 09:52:15 metopr olol tartra te 50 mg tablet 2023 024 [facility], [address] [place] [address], [address], 4 09:52:15 losart an 100 mg-hyd rochlo rothia zide 12.5 mg tablet 2023 024 [facility], [address] [place] [address], [address], 4 09:52:14 amlodi pine 5 mg tablet 2023 024 [facility], [address] [place] [address], [address], 4 09:52:15 Trulic ity 1.5 mg/0.5 mL subcut aneous pen inject or 2022 023 [email or web address] [facility]88, [address] [facility], [place], [address], 11:18:27 Patient TargetsNo targets recorded. Patient Instructions Encounter Date Encounter Id Patient Instructions Last Modified By Organization Details Last Modified Time 08/27/2023 [id number] I was present and available in the Family Medicine clinic to discuss this patient's care during the appointment. I agree with the resident's assessment and plan as documented. KGR [email or web address] Not available 08/28/2023 09:12:25 10/23/2023 [id number] I was present and available in the Family Medicine clinic to discuss the patient's care during the time of the appointment. I agree with the resident's assessment and plan as documented. Tommy Calzada Not available 10/24/2023 13:13:44 03/09/2024 [id number] I was present and available in the family medicine clinic to discuss the patient's care during the appointment and the case was discussed with me. I agree with the resident's assessment and plan as documented. HL [email or web address] Not available 03/09/2024 11:13:53 09/01/2024 [id number] I was present and available in the Family Medicine clinic to discuss this patient's care for the duration of the appointment. I agree with the resident's assessment and plan as documented with the following addendum: None. Dr. Adelfo Rosas MD, FMOB Attending Physician, [facility]. [email or web address] Not available 09/02/2024 19:10:38 11/27/2024 [id number] A healthy lifestyle: care instructions [email or web address] Not [...] arthritis of knees Referring Physician: Joy Bal, Basket Braider, Encounter Date: 09/01/2024 Results Created Date Observation Date Name Description Value Unit Range Abnormal Flag Note LastModifiedBy Organization Detail LastModifiedTime 08/27/20 23 08/27/2023 BASIC METAB OLIC PANEL glucose 90 mg/dL 70-99 Not Available [facility] (Lab) [place], [address], 08/27/2023 12:37:16 08/27/20 23 08/27/2023 BASIC METAB OLIC PANEL BUN 19 mg/dL 7-18 high Not Available [facility] (Lab) [place], [address], 08/27/2023 12:37:16 08/27/20 23 08/27/2023 BASIC METAB OLIC PANEL creatinine 1.06 mg/dL 0.7-1. 3 Not Available [facility] (Lab) [place], [address], 08/27/2023 12:37:16 08/27/20 23 08/27/2023 BASIC METAB OLIC PANEL sodium 141 mmol/ L 136-14 5 Not Available [facility] (Lab) [place], [address], 08/27/2023 12:37:16 08/27/20 23 08/27/2023 BASIC METAB OLIC PANEL potassium 4.0 mmol/ L 3.5-5. 1 Not Available [facility] (Lab) [place], [address], 08/27/2023 12:37:16 08/27/20 23 08/27/2023 BASIC METAB OLIC PANEL chloride 109 mmol/ L 100-10 8 high Not Available [facility] (Lab) [place], [address], 08/27/2023 12:37:16 08/27/20 23 08/27/2023 BASIC METAB OLIC PANEL total CO2 27.5 mmol/ L 21-32 Not Available [facility] (Lab) [place], [address], 08/27/2023 12:37:16 08/27/20 23 08/27/2023 BASIC METAB OLIC PANEL calcium 9.0 mg/dL 8.5-10 .1 Not Available [facility] (Lab) [place], [address], 08/27/2023 12:37:16 08/27/20 23 08/27/2023 BASIC METAB OLIC PANEL anion gap 4.5 mmol/ L 5-15 low Not Available [facility] (Lab) [address], [place], [address], 08/27/2023 12:37:16 08/27/20 23 08/27/2023 BASIC METAB OLIC PANEL BUN creatinine ratio 17.9 6-26 Not Available [facility] (Lab) [place], [address], 08/27/2023 12:37:16 08/27/20 23 08/27/2023 BASIC METAB [...] latin g drug doses . Not Available [facility] (Lab) [place], [address], 08/27/2023 12:37:16 08/27/20 23 08/27/2023 VITAM IN D, 25-OH TOTAL vitamin D, 25-oh total 35 NG/mL 30-100 INTER PRETA TION DEFIC IENT <20 INSUF FICIE NT 20-29 SUFFI CIENT 30-10 0 Not Available [facility] (Lab) [place], [address], 08/27/2023 12:38:23 08/27/20 23 08/27/2023 MICRO ALB/C REAT RATIO creatinine, urine 93.1 mg/dL 39-259 Not Available [facility] (Lab) [place], [address], 08/27/2023 13:12:27 08/27/20 23 08/27/2023 MICRO ALB/C REAT RATIO microalbumin , urine 55.7 mg/dL <2.0 high Not Available [facility] (Lab) [place], [address], 08/27/2023 13:12:27 08/27/20 23 08/27/2023 MICRO ALB/C REAT RATIO malb/creat ratio 598.3 mg/g <30 high Not Available [facility] (Lab) [place], [address], 08/27/2023 13:12:27 08/27/20 23 08/27/2023 TOTAL PROTE IN, URINE total protein, urine 67.0 mg/dL <10 high Not Available [facility] (Lab) [place], [address], 08/27/2023 13:12:28 04/20/20 24 04/20/2024 BASIC METAB OLIC PANEL glucose 93 mg/dL 70-99 Not Available [facility] (Lab) [address] [place], [address], 04/20/2024 10:22:16 04/20/20 24 04/20/2024 BASIC METAB OLIC PANEL BUN 18 mg/dL 7-18 Not Available [facility] (Lab) [address] [facility], [place], [address], 04/20/2024 10:22:16 04/20/20 24 04/20/2024 BASIC METAB OLIC PANEL creatinine 1.14 mg/dL 0.7-1. 3 Not Available [facility] (Lab) [address] [facility], [place], [address], 04/20/2024 10:22:16 04/20/20 24 04/20/2024 BASIC METAB OLIC PANEL sodium 142 mmol/ L 136-14 5 Not Available [facility] (Lab) [address] [facility], [place], [address], 04/20/2024 10:22:16 04/20/20 24 04/20/2024 BASIC METAB OLIC PANEL potassium 3.9 mmol/ L 3.5-5. 1 Not Available [facility] (Lab) [place], [address], 04/20/2024 10:22:16 04/20/20 24 04/20/2024 BASIC METAB OLIC PANEL chloride 111 mmol/ L 100-10 8 high Not Available [facility] (Lab) [place], [address], 04/20/2024 10:22:16 04/20/20 24 04/20/2024 BASIC METAB OLIC PANEL total CO2 26.7 mmol/ L 21-32 Not Available [facility] (Lab) [place], [address], 04/20/2024 10:22:16 04/20/20 24 04/20/2024 BASIC METAB OLIC PANEL calcium 8.8 mg/dL 8.5-10 .1 Not Available [facility] (Lab) [place], [address], 04/20/2024 10:22:16 04/20/20 24 04/20/2024 BASIC METAB OLIC PANEL anion gap 4.3 mmol/ L 5-15 low Not Available [facility] (Lab) [place], [address], 04/20/2024 10:22:16 04/20/20 24 04/20/2024 BASIC METAB OLIC PANEL BUN creatinine ratio 15.8 6-26 Not Available [facility] (Lab) [place], [address], 04/20/2024 10:22:16 04/20/20 24 04/20/2024 BASIC METAB [...] latin g drug doses . Not Available [facility] (Lab) [place], [address], 04/20/2024 10:22:16 04/20/20 24 04/20/2024 CBC WITH DIFF WBC 5.98 x10'3 /uL 4.5-11 .0 Not Available [facility] [place], [address], 04/20/2024 10:31:14 04/20/20 24 04/20/2024 CBC WITH DIFF RBC 5.36 x10'6 /uL 4.70-6 .10 Not Available [facility] (Lab) [address] [facility], [place], [address], 04/20/2024 10:31:14 04/20/20 24 04/20/2024 CBC WITH DIFF hemoglobin 15.3 g/dL 14.0-1 8.0 Not Available [facility] (Lab) [address] [facility], [place], [address], 04/20/2024 10:31:14 04/20/20 24 04/20/2024 CBC WITH DIFF hematocrit 47.4 % 43.0-5 4.0 Not Available [facility] (Lab) [address] [facility], [place], [address], 04/20/2024 10:31:14 04/20/20 24 04/20/2024 CBC WITH DIFF MCV 88.4 fL 80.0-9 4.0 Not Available [facility] (Lab) [address] [facility], [place], [address], 04/20/2024 10:31:14 04/20/20 24 04/20/2024 CBC WITH DIFF MCH 28.5 pg 27.0-3 1.0 Not Available [facility] (Lab) [address], [place], [address], 04/20/2024 10:31:14 04/20/20 24 04/20/2024 CBC WITH DIFF MCHC 32.3 g/dL 32.0-3 6.0 Not Available [facility] (Lab) [address] [facility], [place], [address], 04/20/2024 10:31:14 04/20/20 24 04/20/2024 CBC WITH DIFF RDW 13.3 % 11.5-1 4.5 Not Available [facility] (Lab) [address], [place], [address], 04/20/2024 10:31:14 04/20/20 24 04/20/2024 CBC WITH DIFF platelet count 235 x10'3 /uL 130-40 0 Not Available [facility] (Lab) [address], [place], [address], 04/20/2024 10:31:14 04/20/20 24 04/20/2024 CBC WITH DIFF MPV 10.0 fL 9.3-12 .2 Not Available [facility] (Lab) [address], [place], [address], 04/20/2024 10:31:14 04/20/20 24 04/20/2024 CBC WITH DIFF diff type AUTOMA BERNY DIFFER ENTIAL Not Available [facility] (Lab) [address], [place], [address], 04/20/2024 10:31:14 04/20/20 24 04/20/2024 CBC WITH DIFF neutrophils 51.1 % Not Available [facility] (Lab) [address], [place], [address], 04/20/2024 10:31:14 04/20/20 24 04/20/2024 CBC WITH DIFF lymphocytes 37.1 % Not Available [facility] (Lab) [place], [address], 04/20/2024 10:31:14 04/20/20 24 04/20/2024 CBC WITH DIFF monocytes 7.0 % Not Available [facility] (Lab) [place], [address], 04/20/2024 10:31:14 04/20/20 24 04/20/2024 CBC WITH DIFF eosinophils 4.0 % Not Available [facility] (Lab) [place], [address], 04/20/2024 10:31:14 04/20/20 24 04/20/2024 CBC WITH DIFF basophils 0.5 % Not Available [facility] (Lab) [place], [address], 04/20/2024 10:31:14 04/20/20 24 04/20/2024 CBC WITH DIFF immature granulocytes 0.3 % Not Available [facility] (Lab) [address] [facility], [place], [address], 04/20/2024 10:31:14 04/20/20 24 04/20/2024 CBC WITH DIFF abs. neutrophils 3.05 x10'3 /uL 1.80-7 .70 Not Available [facility] (Lab) [place], [address], 04/20/2024 10:31:14 04/20/20 24 04/20/2024 CBC WITH DIFF abs. lymphocytes 2.22 x10'3 /uL 1.00-4 .80 Not Available [facility] (Lab) [place], [address], 04/20/2024 10:31:14 04/20/20 24 04/20/2024 CBC WITH DIFF abs. monocytes 0.42 x10'3 /uL 0.30-0 .82 Not Available [facility] (Lab) [place], [address], 04/20/2024 10:31:14 04/20/20 24 04/20/2024 CBC WITH DIFF abs. eosinophils 0.24 x10'3 /uL 0.04-0 .54 Not Available [facility] (Lab) [address] [facility], [place], [address], 04/20/2024 10:31:14 04/20/20 24 04/20/2024 CBC WITH DIFF abs. basophils 0.03 x10'3 /uL 0.01-0 .08 Not Available [facility] (Lab) [address], [place], [address], 04/20/2024 10:31:14 04/20/20 24 04/20/2024 CBC WITH DIFF abs. immature grans 0.02 x10'3 /uL 0.00-0 .49 Not Available [facility] (Lab) [address], [place], [address], 04/20/2024 10:31:14 04/20/20 24 04/20/2024 PROTI ME protime 11.7 sec 10.2-1 2.9 Not Available [facility] (Lab) [address], [place], [address], 04/20/2024 10:35:07 04/20/20 24 04/20/2024 PROTI ME INR 1.0 Recom lida d INR Thera peuti c Goals : 2.0-3 .0 Routi ne Thera py 2.5-3 .5 Mecha nical Prost hetic Valve s (High Risk) Not Available [facility] (Lab) [address], [place], [address], 04/20/2024 10:35:07 09/01/20 24 09/02/2024 ALBUM IN/CR EATIN INE RATIO ,URIN E creatinine, urine 154.9 mg/dL notest ab. Not Available [facility] ([facility]) [address] [facility], [place], [address], 09/02/2024 12:14:10 09/01/20 24 09/02/2024 ALBUM IN/CR EATIN INE RATIO ,URIN E albumin, urine 933.0 ug/mL notest ab. Resul ts confi rmed on dilut ion. Not Available [facility] ([facility]) [address] [facility], [place], [address], 09/02/2024 12:14:10 09/01/20 24 09/02/2024 ALBUM IN/CR EATIN INE RATIO ,URIN E alb/creat ratio 602 mg/g_ creat 0-29 above high normal Michelle l: 0 - 29 Moder ately incre ased: 30 - 300 Sever bryant incre ased: >300 Not Available [facility] ([facility]) [address] [facility], [place], [address], 09/02/2024 12:14:10 09/01/20 24 09/02/2024 LIPID PANEL cholesterol, total 238 mg/dL 100-19 9 above high normal Not Available [facility] ([facility]) [address] [facility], [place], [address], 09/02/2024 12:14:12 09/01/20 24 09/02/2024 LIPID PANEL triglyceride s 188 mg/dL 0-149 above high normal Not Available [facility] ([facility]) [address] [place], [address], 09/02/2024 12:14:12 09/01/20 24 09/02/2024 LIPID PANEL HDL cholesterol 41 mg/dL >39 Not Available [facility]) [address] [facility], [place], [address], 09/02/2024 12:14:12 09/01/20 24 09/02/2024 LIPID PANEL VLDL cholesterol herb 35 mg/dL 5-40 Not Available [facility] ([facility]) [address] [place], [address], 09/02/2024 12:14:12 09/01/20 24 09/02/2024 LIPID PANEL LDL chol calc ([facility]) 162 mg/dL 0-99 above high normal Not Available [facility] ([facility]) [address] [place], [address], 09/02/2024 12:14:12 09/01/20 24 09/02/2024 BASIC METAB OLIC PANEL (8) glucose 88 mg/dL 70-99 Not Available [facility] ([facility]) [address] [place], [address], 09/02/2024 12:14:13 09/01/20 24 09/02/2024 BASIC METAB OLIC PANEL (8) BUN 16 mg/dL 8-27 Not Available [facility] ([facility]) [address] [place], [address], 09/02/2024 12:14:13 09/01/2009/02/2024 BASIC METAB OLIC PANEL (8) creatinine 1.08 mg/dL 0.76-1 .27 Not Available [facility] ([facility]) [address] [place], [address], 09/02/2024 12:14:13 09/01/2009/02/2024 BASIC METAB OLIC PANEL (8) eGFR 76 mL/mi n/1.7 3 >59 Not Available [facility] ([facility]) [address] [place], [address], 09/02/2024 12:14:13 09/01/20 24 09/02/2024 BASIC METAB OLIC PANEL (8) BUN/creatini ne ratio 15 10-24 Not Available [facility] ([facility]) [address] [place], [address], 09/02/2024 12:14:13 09/01/20 24 09/02/2024 BASIC METAB OLIC PANEL (8) sodium 143 mmol/ L 134-14 4 Not Available [facility] ([facility]) [address] [facility], [place], [address], 09/02/2024 12:14:13 09/01/20 24 09/02/2024 BASIC METAB OLIC PANEL (8) potassium 4.5 mmol/ L 3.5-5. 2 Not Available [facility] ([facility]) [address] [place], [address], 09/02/2024 12:14:13 09/01/20 24 09/02/2024 BASIC METAB OLIC PANEL (8) chloride 104 mmol/ L 96-106 Not Available [facility] ([facility]) [address] [place], [address], 09/02/2024 12:14:13 09/01/20 24 09/02/2024 BASIC METAB OLIC PANEL (8) carbon dioxide, total 26 mmol/ L 20-29 Not Available [facility] ([facility]) [address] [place], [address], 09/02/2024 12:14:13 09/01/20 24 09/02/2024 BASIC METAB OLIC PANEL (8) calcium 9.5 mg/dL 8.6-10 .2 Not Available [facility] ([facility]) [address] [place], [address], 09/02/2024 12:14:13 09/01/20 24 09/02/2024 HEMOG LOBIN A1C hemoglobin A1C 5.9 % 4.8-5. 6 above high normal Predi abete s: 5.7 - 6.4 Diabe grace: >6.4 Glyce yariel contr ol for adult s with diabe grace: <7.0 Not Available [facility] ([facility]) [address] [facility] [place], [address], 09/02/2024 12:14:15 04/20/20 24 ECG 12-le ad [facility] [address] [facility] [place] [address] [facility] [address] [place], [place] Test Date: 04-20 Pat Name: NADINE Street Depart ment: 40 Patien t ID: [id number] Room: [facility] Gender : Male Techni jennifer: Tlf : [birth year] Reques berny By: GÉNESIS Enamorado Order Number : [id number] [address] MD: Génesis enamorado Measur ements Interv als [place] Rate: 77 P: [place]: 0 QRS: -62 QRSD: 149 T: -12 [...] 13:52: 01 CDT [facility] [address] [facility], [place], [address], 04/20/2024 19:48:10 04/20/20 24 ECG 12-le ad [facility] [place] [address] [facility] [place] [address] [facility] [address] [place], [place] Test Date: 04-20 Pat Name: NADINE Street Depart ment: 40 Patien t ID: [id number] Room: [facility] Gender : Male Techni jennifer: : 1959-0 9-09 Reques berny By: GÉNESIS Enamorado Order Number : [id number] [address] MD: Génesis enamorado Measur ements Interv als [place] Rate: 61 P: 80 WI: 190 QRS: -51 QRSD: 157 T: -7 [...] Génesis enamorado at 024 13:54: 49 CDT [facility] [address] [facility], [place], [address], 04/20/2024 19:48:10 04/21/20 24 xa cardi overs ion dcc [facility] [place] [address] [place] [address] HOSPIT AL [facility]/EP LAB [phone] x [phone] Cardio versio n Patien t Name: Nadine ConcepcionRicardo Date of : 1959 Medica l Record : #[id number] Accoun t: [id number] Physic dora: Génesis enamorado MD Date: [...] into normal sinus rhythm . MD SHAHNAZ Mckeon/sandhya Interp reted: Transc ribed: [facility] [address], [place], [address], 04/23/2024 22:59:50 01/08/20 25 01/07/2025 US, doppl er, venou s No observ ation record ed. [facility] [address], [place], [address], 01/13/2025 02:46:09 Result Notes None recorded. Problems Name Problem SNOMED Code Status Onset Date Resolution Date Notes Provider Name and Address Organization Details Recorded Time Essential hypertensi on 35196750 Active 2020 [facility], [facility] 1 14:55:12 Basal cell carcinoma of skin 900309453 Active 2023 on left cheek & right forehead. stage 1. s/p complex repair/ Mohs surgery. surgeon Dermatolog ist Dr. Sarmad Guadarrama. Fu in 3 months (06/2024) Joy Bal MD Attn: [address] [place], [address], [facility] 4 13:02:33 Actinic keratosis Active 2023 flluoroura cil 5% topical cream 40 gram. Joy Bal MD Attn: [address] [place], [address], [facility] 4 13:06:43 Seborrheic dermatitis 49385426 Active 2023 ketoconazo le shampoo Joy Bal MD Attn: [address] [facility], [place], [address], [facility] 4 13:07:06 Problem Notes None recorded. Procedures Surgical History Date Name Laterality Status Provider Name and Address Organization Details Recorded Time 5 repair of shoulder completed Estela Rae [facility] 11/28/2020 14:54:57 Imaging Results None recorded. Procedure Notes None recorded. Medical Equipment None [...] Updated DateTime 4 180.34 cm 40.8 kg/m2 347596. 37 g 98 % 98 % 60 /min 98.5 [degF] 138 mm[Hg] 85 mm[Hg] Carolina Garcia [place] [facility] 4 11:04:08 Date Recorded Body height Body mass index (BMI) Body weight Oxygen saturation Oxygen saturation in Arterial blood by Pulse oximetry Heart rate Body temperature Systolic blood pressure Diastolic blood pressure Provider Name and Address Organization Details Last Updated DateTime 5 180.34 cm 40.8 kg/m2 604861. 72 g 98 % 98 % 63 /min 97.8 [degF] 136 mm[Hg] 86 mm[Hg] Carolina Garcia [place] [facility] 5 09:02:09 Date Recorded Systolic blood pressure Diastolic blood pressure Provider Name and Address Organization Details Last Updated DateTime 03/09/2024 106 mm[Hg] 77 mm[Hg] Alexander Gaytan MD Attn: Accounting[address] [place], [address], [facility] 03/09/2024 11:03:06 Date Recorded Body height Body mass index (BMI) Body weight Oxygen saturation Oxygen saturation in Arterial blood by Pulse oximetry Heart rate Systolic blood pressure Diastolic blood pressure Provider Name and Address Organization Details Last Updated DateTime 4 180.34 cm 42 kg/m2 538522. 4 g 97 % 97 % 84 /min 144 mm[Hg] 85 mm[Hg] Tanesha Ariza MA [facility] 4 10:46:15 Date Recorded Systolic blood pressure Diastolic blood pressure Provider Name and Address Organization Details Last Updated DateTime 08/27/2023 125 mm[Hg] 85 mm[Hg] Alexander Gaytan MD Attn: [address]ing[address] [place], [address], [facility] 08/27/2023 11:14:47 Date Recorded Body height Body mass index (BMI) Body weight Heart rate Oxygen saturation Oxygen saturation in Arterial blood by Pulse oximetry Body temperature Systolic blood pressure Diastolic blood pressure Provider Name and Address Organization Details Last Updated DateTime 3 180.34 cm 41.3 kg/m2 623200. 04 g 64 /min 97 % 97 % 97.3 [degF] 145 mm[Hg] 84 mm[Hg] Clarita Khan MA [facility] 3 10:53:29 Date Recorded Systolic blood pressure Diastolic blood pressure Provider Name and Address Organization Details Last Updated DateTime 09/01/2024 142 mm[Hg] 85 mm[Hg] Joy Bal MD Attn: Accounting[address] [place], [address], [facility] 09/01/2024 09:24:53 Date Recorded Body height Body mass index (BMI) Body weight Oxygen saturation Oxygen saturation in Arterial blood by Pulse oximetry Heart rate Body temperature Systolic blood pressure Diastolic blood pressure Provider Name and Address Organization Details Last Updated DateTime 4 180.34 cm 42.9 kg/m2 546246. 01 g 95 % 95 % 78 /min 97 [degF] 159 mm[Hg] 89 mm[Hg] Nuvia Aviles [place] [facility] 4 09:01:44 Social History Question Answer Notes LastModified by Organizat ion Details LastModified Time Tobacco Smoking Status Never Smoker Carlos Adam CMA null, [place] - [facility] 11/28/2020 14:39:01 What Was The Date Of Your Most Recent Tobacco Screening? 11/27/2024 [email or web address] Information not available 11/27/2024 Has Tobacco Cessation Counseling Been Provided? Yes Information not available 07/16/2023 On What Date Was Tobacco Cessation Counseling Provided? 08/27/2023 Information not available 08/27/2023 Sex: Unknown Functional Status Question Answer Note LastModified by Organizat ion Details LastModified Time Do you use any illicit or recreational drugs? No Information not available 11/28/2020 Do you or have you ever used any other forms of tobacco or nicotine? No Information not available 11/28/2020 What is your level of alcohol consumption? None [email or web address] Information not available 03/09/2024 Mental Status None recorded. Family History Nothing Reported. Medical History No medical history recorded. Immunizations Vaccine Type Date Status Note Provider Nam e and Address Organization Details Recorded Time COVID-19, mRNA, LNP-S, PF, 50 mcg/0.5 mL 3 completed Carolina Garcia [place], [place] [facility] 07/17/2023 16:10:39 zoster recombinant 4 completed Carolina Garcia [place] [facility] 09/02/2024 15:00:21 Influenza, high-dose, quadrivalent, PF 3 completed Mike Cunningham MD Attn: Accounting,[address] [place], [address], [place] [facility] 07/16/2023 11:21:40 Pneumococcal conjugate PCV20, polysaccharide QAM135 conjugate, adjuvant, PF 4 completed Tommy Calzada MD Attn: Accounting,[address] [facility] [place], [address], [place] - [facility] 10/24/2023 13:13:40 Tdap 4 completed OCTAVIANO Garcia, [place] - [facility] 09/01/2024 10:26:32 Past Encounters Encounter ID Performer Location Encounter Start Date Encounter Closed Date Diagnosis/Indication Diagnosis SNOMED-CT Code Diagnosis ICD10 Code Diagnosis Note [id number] Cecilia Jenkins MD [place] [address] [address] 11/28/2020 14:22:41 11/29/2020 10:28:05 Adult health examination 382311639 Z00.00 - No acute concerns Obesity 994877884 E66.9 Chronic, improving- Pt has lost 100+ lbs over the last 2 years. On vegan diet, regularly exercising , reading weekly about how to improve his diet. Very knowledgab le and aware on how to reduce his weight. Diastasis recti 04372636 M62.08 Chronic, controlled - Asymptomat ic, if botherwsom e RTC Essential hypertension 65285249 I10 Chronic, uncontroll ed- Elevated BP in office, recommende d repeat measuremen t but pt left office prior to having it done.- At home measuremen ts 130-140/80 s- Continue losartan 50 mg-HCTZ 12.5 mg 1 1/2 tab QD- RTC if BP persistent ly elevated, pt documents at home. [id number] Carolina Moore MD [place] [address] [address] 05/30/2021 09:50:26 05/31/2021 09:06:34 Essential hypertension 46413985 I10 BP Goal: Less than 140/90BP Controlled : yes- Controlled on home logs Healthy Weight: 5'11= 136-178 lbsDiscuss ed: Low sodium balanced diet, moderate exercise at least 3-4 times per week for an average of 40 minutes, limiting alcohol to 1 drink per day (F) or 2 drinks per day (M), and smoking cessation if currently smoking.- Refill losartan 50/HCTZ 12.5- Due for labs Next Visit: 6month(s) Pain of ri ght shoulder joint [id number] 3519262 M25.511 Chronic, uncontroll ed- Per pt, hx of severe osteoarthr itis- Request records from previous ortho, send for repeat x rays- Refer to orthopedic - Michelle HAYES [id number] [facility] [address] [facility] [address] [place] [address] 01/15/2022 11:25:31 01/16/2022 15:54:17 Essential hypertension 01529439 I10 BP Goal: Less than 140/90BP Controlled : noHealthy Weight: 5'11= 136-178 lbsDiscuss ed: Low sodium balanced diet, moderate exercise [...] and nephro appointmen t next weekNext Visit: 1month(s) Kidney disease 48395343 N08 alb/cr ratio of 2400, follows w/ neprhoBone scan WNLPending DEZ, ds-DNA, total protein, and total CrNephro appointmen t next week [id number] Tommy [facility]ada [facility] [address] [facility] [address] [place] [address] 04/05/2022 15:16:36 04/06/2022 14:45:25 Essential hypertension 88886827 I10 BP Goal: Less than 140/90BP Controlled : noHealthy Weight: 5'11= 136-178 lbsDiscuss ed: Low sodium balanced diet, moderate exercise at least 3-4 times per week for an average of 40 minutes, limiting alcohol to 1 drink per day (F) or 2 drinks per day (M), and smoking cessation if currently smoking. Next Visit: 1month(s)- Will decrease his losartan- hydrochlor othiazide totally 1 tablet daily blood pressure was on the lower end of today's visit and is within the goal range less than 140/9- Continue losartan 25 mg QD- amlodipine 5 mg QD- Continue home BP monitoring Kidney disease 83694333 N08 alb/cr ratio of 2400, follows w/ alex he believes his appointmen t is the near future but does not know exactly when- will continue to follow with nephrology recommenda tions as chart review does not have nephrology consult. History of pulmonary embolus 127999855 Z86.711 Was recently hospitaliz ed for multiple [...] cardiology and oncology recommenda tions Atrial fibrillation 4943 6004 I48.91 [facility] on [facility]05 Obesity 880475313 E66.9 patient is following a vegan diet [...] walking Screening for malignant neoplasm of colon 057070245 Z12.11 currently has no symptoms concerning for GI malignancy . no hematochez ia, no weight loss, no fever, no chills, no night sweats. Does not know family history. on chart review he had a colonoscop y in 2019 that was negative for any findings and was told to follow up in 10 years- next colon cancer screening and 2028 [id number] Mike Cunningham MD 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 Already sees ortho, will follow up with them to see about getting right shoulder replaced. Xray 05/2021 showed: severe glenohumer al osteoarthr itis and Early AC joint arthritis- will follow up with ortho he is already establishe d with Essential hypertension 28806381 I10 BP Goal: Less than 140/90BP Controlled : yesHealthy Weight: 5'11= 136-178 lbsDiscuss ed: Low sodium balanced diet, moderate exercise at least 3-4 times per week for an average of 40 minutes, limiting alcohol to 1 drink per day (F) or 2 drinks per day (M), and smoking cessation if currently smoking.Ne xt Visit: 6month(s) Paresthesi a of lower extremity 538186357 R20.2 Numbness and tingling of lower extremity limited to feet. Neuropathy vs electrolyt e imbalance. Does not have a1c that i could find on chart review. No trauma to the area. No signs of infection. -will check f5k-JEJ, MG-check folate and B12 [id number] Madhuri tucker MD [facility] [address] [address] 03/08/2023 11:26:57 03/23/2023 12:53:53 Screening for malignant neoplasm of colon 326776208 Z12.11 currently has no symptoms concerning for GI malignancy . no hematochez ia, no weight loss, no fever, no chills, no night sweats. Does not know family history. on chart review he had a colonoscop y in 2019 that was negative for any findings and was told to follow up in 10 years- next colon cancer screening due and 2028 Obesity 150376970 E66.9 patient is following a vegan diet [...] swimming, biking, monitor or walking Essential hypertension 63126433 I10 BP Goal: Less than 140/90BP Controlled : noHealthy Weight: 5'11= 136-178 lbsDiscuss ed: Low sodium balanced diet, moderate exercise at least 3-4 times per week for an average of 40 minutes, limiting alcohol to 1 drink per day (F) or 2 drinks per day (M), and smoking cessation if currently smoking.Ne xt Visit: 6month(s)B P was elevated at todays visit. Patient is to see nephrology in two weeks. Already is on losartan 50mg as well as losartan 50mg-HCTZ 12.5mg. Patient says at home his BP usually runs 120/80s Depression screening 171 884634 Z13.31 PHQ2 negative. [id number] MD Roldan Dowling [address] [address] 07/16/2023 10:19:04 07/17/2023 10:06:18 Administration of influenza vaccine 55465146 Z23 Obesity 409045348 E66.9 patient is following a vegan diet [...] swimming, biking, monitor or walking Essential hypertension 12108622 I10 BP Goal: Less than 140/90BP Controlled : noHealthy Weight: 5'11= 136-178 lbsDiscuss ed: Low sodium balanced diet, moderate exercise at least 3-4 times per week for an average of 40 minutes, limiting alcohol to 1 drink per day (F) or 2 drinks per day (M), and smoking cessation if currently smoking.Ne xt Visit: 1month(s)- will work on losing weight-eduardo e blood pressures [...] next few months Chronic ki dney disease 323921284 N18.9 Chronic, Improving. Sees nephro. Will optimize blood pressure today . [id number] MD Roldan Dowling [address] [place] [address] 08/27/2023 10:47:20 08/28/2023 16:05:27 Obesity 001164831 E66.9 patient is following a vegan diet [...] can consider swimming, biking, monitor or walking-ti trate GLP Essential hypertension 17930519 I10 BP Goal: Less than 140/90BP Controlled : yes, on recheckHea lthy Weight: 5'11= 136-178 lbsDiscuss ed: Low sodium balanced diet, moderate exercise at least 3-4 times per week for an average of 40 minutes, limiting alcohol to 1 drink per day (F) or 2 drinks per day (M), and smoking cessation if currently smoking.Ne xt Visit: 1month(s)- will work on losing weight-eduardo e blood pressures have been 120's [id number] MD [facility] [address] [address] 10/23/2023 10:49:28 10/25/2023 12:30:08 Active or passive immunization 207306733 Z23 Obesity 939019852 E66.9 patient is following a vegan diet [...] side effects, not interested in different agent [id number] MD Roldan Schaffer [address] [address] 03/09/2024 10:20:08 03/12/2024 13:09:04 Essential hypertension 56437528 I10 BP Goal: Less than 140/90BP Controlled : yes,due to CKDHealthy Weight: 5'11= 136-178 lbsDiscuss ed: Low sodium balanced diet, moderate exercise at least 3-4 times per week for an average of 40 minutes, limiting alcohol to 1 drink per day (F) or 2 drinks per day (M), and smoking cessation if currently smoking.Ne xt Visit: 1month(s)- will work on losing weight-con tinue ARB-thiazd e, and CCB-due for labs in august Obesity 048845096 E66.9 patient is following a vegan diet [...] consider swimming, biking, monitor or walking-st opped [facility] due to side effects, not interested in different agent Screening for malignant neoplasm of colon 353525877 Z12.11 currently has no symptoms concerning for [...] another ablation in the next few months [id number] ADELFO ROSAS MD [facility] [address] [address] 09/01/2024 08:49:18 09/04/2024 15:21:49 Essential hypertension 77413083 I10 Establishe dBP today 159/89, repeat 142/85BP [...] will order losartan 100- HCTZ 12.5 Obesity 379055511 E66.9 BMI 42.9 today. pt gained 6 Ibs since last visit in of using phentermin josé miguel lipid panel result, last A1C in 2021 was 5.5- will check A1C & Lipid panel Atrial fibrillation 4943 6004 I48.91 s/p direct cardiovers ion by Dr. Pavon on 04/20/2024 hx of cardiovers ion c6Rroapmdy y on Eliquis and BB (metoprolo l Tartrate 50 mg BID)- has scheduled appt with Dr. Pavon Adult heal th examination 223103442 Z00.00 colonoscop y: due 2028Tdap: will get it todayCovid : 2022Flu: 4Pneumo coccal: 2023 Actinic keratosis 389309 007 L57.0 s/p derm visit on 07/06. will be followed up for melanoma in 3 months. Chronic ki dney disease 807515021 N18.9 PMHx of Hypertensi on since , albuminuri alast nephrology [place] [address] Hall in hospitalCu rrently on Farxiga and ARBs- next appt is in November- will check kidney function today Benign pro static hyperplasia 011019362 N40.1 currently seeing urologist. hx of biopsy 6 years ago Bilateral arthritis of knees 8901600612 839735 M13.861 pt saw ortho years ago. knee replacemen t was discussed but at that time due to pt's age wasn't recommende d. Pt is interested in getting replacemen t done vs getting injections .- will put in the ortho referral Active or passive immunization 468374433 Z23 pt got his Tdap today [id number] Tommy Calzada MD [facility] [address] [facility] [address] [place] [address] 11/27/2024 08:49:45 12/02/2024 10:14:31 Essential hypertension 45162573 I10 Establishe d, in goal range. BP in office today 136/86, on his home BP cuff it was 131/84. Normally takes at night BP at night, always below 120/80. Currently on vegan diet, low-fat - has [...] a BP log. Chronic ki dney disease 314046366 N18.9 PMHx of Hypertensi on since , [...] in 6 months Adult heal th examination 046263279 Z00.00 colonoscop y: due 2028Tdap: received 09/01/24 - due ovid: 2022Flu: neumo coccal: 2023 Atrial fibrillation 4943 6004 I48.91 s/p direct cardiovers ion by Dr. Pavon on 04/20/2024 hx of cardiovers ion i4Otshnmds y on Eliquis and BB (metoprolo l Tartrate 50 mg BID) Morbid obesity 393121945 E66.01 was discussed with pt Health Concerns Section Related Observation LastModified by Organization Detai ls LastModified Time None Recorded Concern Status LastModified by Organization Details LastModified Time None Recorded Advance Directives Directive None Recorded Payers Encounter Date Sequence Insurance Name Policy Number Policy Dowd Covered Member ID Dowd Member ID Guarantor Name 08/27/2023 1 [employer] (MEDICARE REPLACEMENT/ ADVANTAGE - PPO) [id number] Nadine Cramer Shyanne [id number] Nadine Graysung 10/23/2023 1 [employer] (MEDICARE REPLACEMENT/ ADVANTAGE - PPO) [id number] Nadine Cramer Shyanne [id number] Nadine Graysung 03/09/2024 1 [employer] (MEDICARE REPLACEMENT/ ADVANTAGE - PPO) [id number] Nadine Cramer Shyanne [id number] Nadine Graysung 09/01/2024 1 [employer] (MEDICARE REPLACEMENT/ ADVANTAGE - PPO) [id number] Nadine Cramer Shyanne [id number] Nadine Shyanne 11/27/2024 1 [employer] (MEDICARE REPLACEMENT/ ADVANTAGE - PPO) [id number] Nadine Cramer Shyanne [id number] Nadine Shyanne Notes Date Note Type Note Provider Name [...] it. Mike Cunningham MD Attn: Accounting,[address] [place], [address], [place] [facility] 08/28/2023 09:12:30 10/23/19 24 text/htm l ObesityReported [...] vaccine Tommy Calzada MD Attn: Accounting,[address] [facility], [place], [address], [facility] 10/24/2023 13:13:50 03/09/20 24 text/htm l Hypertension [...] up Madhuri Schumacher MD Attn: Accounting,[address] [facility], [place], [address], [facility] SI 03/09/2024 11:13:57 09/01/20 24 text/htm l 64 y/o M with hx of a-fib, HTN, obesity presented to meet new pcp. ADELFO ROSAS MD Attn: Accounting,[address] [facility], [place], [address], [facility] SI 09/02/2024 19:11:07 11/28/19 25 text/htm l 64 [...] diarrhea/constipation Tommy Calzada MD Attn: Accounting,[address] [place], [address], [facility] - [facility] 11/30/2024 16:25:05
--- OUTSIDE RECORDS SUMMARY | 2025-03-01 08:08 | XMS_ITS | Clinical Summary ---
Author Organization [facility] Address [address], [facility] [address] [place] [address] Phone Care Team Providers Care Command And Control Officer Name Role Phone Provider, Unknown Primary Care [...] Encounters Date Type Department Care Team Description 01/19/2025 Telephone [facility] [address] [address] Zach Edward MD canopy call/ clearance letter from Last 3 Months Immunizations Immunization Administration [...] Sex Assigned at Male 08/18/2024 2:51 PM REPORTING CONSULTANT Legal Sex Male 9:06 AM REPORTING CONSULTANT Gender Identity Male 08/18/2024 2:51 PM REPORTING CONSULTANT Sexual Orientation Straight 08/18/2024 2: 51 PM REPORTING CONSULTANT Last Filed Vital Signs Vital Sign Reading Time Taken Comments Blood Pressure 150/96 11/05/2024 9:30 AM REPORTING CONSULTANT Pulse 59 11/05/2024 9:30 AM REPORTING CONSULTANT Temperature 36.7 C (98 F) 11/05/2024 9:30 AM REPORTING CONSULTANT Respiratory Rate 18 11/05/2024 9:30 AM REPORTING CONSULTANT Oxygen Saturation 99% 11/05/2024 9:30 AM REPORTING CONSULTANT Inhaled Oxygen Concentration - - Weight 138.1 kg (304 lb 8 oz) 11/05/2024 9:30 AM REPORTING CONSULTANT Height 180.3 cm (5' 11) 11/05/2024 9:30 AM REPORTING CONSULTANT Body Mass Index 42.47 11/05/2024 9:30 AM REPORTING CONSULTANT Plan of Treatment Upcoming Encounters Date Type Department Care Team (Late st Contact Info) Description 11/04/2025 9:30 AM REPORTING CONSULTANT Office Visit [facility] [address] [address] Zach Edward MD [facility] [address] [place] [address] Health Maintenance Due Date Last Done Comments Hepatitis C Virus (HCV) Screening 1960 Colonoscopy 2003 Colorectal Cancer Screening 2003 Cologuard 2008 Immunochemical Fecal Occult Blood 2008 Respiratory Syncytial Virus (RSV) Immunization (Adult) (1 - Risk 60-74 years 1-dose series) 2018 SARS-COV-2 Immunization ( season) 2024 06/07/2024, 07/17/2023, 07/13/2022, Additional history exists PSA Discussion Completed 07/26/2022 Pneumococcal Immunization (50+ years) Completed 10/23/2023 Pneumococcal Immunization Combined Discontinued 10/23/2023 Influenza Immunization Completed 4, 07/16/2023, 07/13/2022, Additional history exists DTaP/Tdap/Td Immunization Discontinued 09/01/2024 TdaP Immunization Completed 09/01/2024 Zoster Immunization Completed 09/02/2024, Hepatitis B Immunization Aged Out No longer eligible based on patient's age to complete this topic Human Papillomavirus (HPV) Immunization Aged Out No longer eligible based [...] PSA 4.22(H) 0.00 - 4.00 ng/mL [facility] Comment: Johny Paramagnetic Particle Chemiluminescent Immunoassay Method Blood 07/26/2022 8:48 AM CDT Narrative [facility] - 07/26/2022 2:05 PM CDT Release to patient->Immediate us Kris Gerber PAC CHEMISTRY ORDERABLES Final Result [facility] [place] [address], from Last 3 Months or Most Recently Relevant to Health Maintenance Insurance MEDICARE C [employer] Care Teams Command And Control Officer Relationship Specialty Start Date End Date Provider, Unknown UNKNOWN PCP - General 11/27/21 Zach Edward MD [address] [place] [phone] Consulting Physician Oncology 11/27/21
[2025-03-01 09:07] LABS: Basophils Percent Auto 0.5 % (0.2-1.2); Eosinophils Absolute Auto 0.3 K/mm3 (0-0.3); Eosinophils Percent Auto 5.5 % (0-4.4); Hematocrit 46.5 % (42.0-52.0); Hemoglobin 14.8 g/dL (14.0-18.0); Immature Granulocyte Absolute 0.02 K/mm3 (0.00-0.031); Immature Granulocyte Percent A 0.4 % (0-0.5); Lymphocytes Absolute Auto 1.69 K/mm3 (0.9-3.2); Lymphocytes Percent Auto 29.9 % (18.3-44.2); Mean Corpuscular HGB Conc 31.8 g/dl (32-36); Mean Corpuscular Hemoglobin 28.4 pg (26-34); Mean Corpuscular Volume 89.1 fl (80-100); Monocytes Absolute Auto 0.5 K/mm3 (0.1-0.6); Neutrophils Absolute Auto 3.2 K/mm3 (1.3-6.7); Neutrophils Percent Auto 55.7 % (45.5-73.1); Platelet Count Result 208 k/mm3 (150-375); Red Blood Count 5.22 M/mm3 (4.6-6.20); Red Cell Distribution Width 13.4 % (11.5-14.5); White Blood Count 5.7 K/mm3 (4.5-10.0)
[2025-03-01 09:13] LABS: Add Urine Microscopic? YES; Appearance Urine Clear (Clear); Bacteria Urine None Seen /hpf; Bilirubin Urine Negative (Negative); Blood Urine Negative (Negative); Color Urine Yellow (Yellow); Glucose Urine UA 3+ mg/dL (Negative); Ketones Urine Negative (Negative); Leukocyte Esterase Ur Negative LEU/UL (Negative); Nitrate Urine Negative (Negative); Non Pathogenic Casts 0-2; Protein Urine 2+ mg/dL (Negative); RBC Urine 0-2 /hpf (0-2); Specific Grav Ur 1.027 (1.001-1.035); Squamous Epithelial Cell Urine None Seen /hpf (Few); WBC Urine 0-5 /hpf (0-3); pH Urine 6.5 (5.0-9.0)
[2025-03-01 09:21] LABS: Hemoglobin A1C 5.4 % (<5.7)
[2025-03-01 09:22] LABS: INR 1.1; Prothrombin Time 14.3 Seconds (11.1-14.7)
[2025-03-01 09:23] LABS: Partial Thromboplastin Time 31.1 Seconds (22.3-36.8)
[2025-03-01 09:37] LABS: Albumin Level 4.2 g/dL (3.5-5.1); Anion Gap 6 mmol/L (4-12); Blood Urea Nitrogen 16 mg/dL (9-20); Calcium 9.6 mg/dL (8.4-10.2); Carbon Dioxide 30 mmol/L (22-30); Chloride 105 mmol/L (98-107); Estimated Glomerular Filt Rate > 60; Glucose 89 mg/dL (65-110); Potassium 3.9 mmol/L (3.4-5.0); Sodium 141 mmol/L (137-145)
[2025-03-01 09:38] LABS: Urine Cotinine NEGATIVE
[2025-03-01 10:15] LABS: MRSA (PCR) NOT DETECTED (NOT DETECTE)
== END 2025-03-01 08:02 | disposition home or self-care (01) ==
PROVIDERS: PCP Family Medicine; Visit Provider Orthopaedic Surgery
DX: Z01.818 Encounter for other preprocedural examination (principal); M17.12 Unilateral primary osteoarthritis, left knee
CPT/HCPCS: 80048; 80307; 81001; 82040; 83036; 85025; 85610; 85730; 86850; 86900; 86901; 87641

== ENCOUNTER 2025-03-03 01:05 | Day surgery (SDC) | payer MEDICARE, SELFPAY ==
[2025-02-24 08:06] VITALS: BMI 41.4
[2025-02-24 08:33] VITALS: BP 151/78; PULSE 64; RESP 16; TEMP 36.6; O2SAT 97
--- NOTE | 2025-02-24 08:51 | PC.NURSE ---
Report to the Outpatient Waiting Room, entrance under the green pavilion located off [facility], at time ___8:30AM____ on date ___03/03/25____. Planned Procedure Time: ___10:30AM .? Time changes happen often and if your time is changed the preop area will call you the afternoon before. - You and your visitor will be asked to self-screen and do not enter if you have any COVID symptoms. Please call surgeon if you need to reschedule. - A mask is optional within the hospital at this time. Patients may have clear liquids (water, carbonated beverages, clear teas, apple juice) until 3 hours prior to surgery (7:30AM) with a maximum of 20 ounces. - No food from midnight until time of surgery and no smoking, or chewing tobacco (or any form of nicotine). No chewing gum, candy or mints. Take only the following medications with a SIP of water on the morning of surgery: __AMLODIPINE & METOPROLOL DO NOT STOP ANY OF YOUR OTHER PRESCRIPTION MEDICATIONS PRIOR TO SURGERY EXCEPT THE FOLLOWING Hold all vitamins and supplements for 3 days per anesthesiologist-LAST DOSE 02/27/25. Medications to discontinue per physician ___HOLD ELIQUIS & ASPIRIN PER DR ROD Date to take last dose Please no make-up, nail armenian, hairspray, perfume, deodorant, or body powder the day of surgery.? No jewelry (including any body piercings) or valuables the day of surgery, leave them at home.? Please take a shower or bath the night before, or the morning of, surgery with an antibacterial soap.? Wear comfortable, loose fitting clothing.? Children are encouraged to wear pajamas. - Jewelry must be removed prior to entering the operating room.? Rings and piercings that are not removed may be cut off. - The hospital will not accept responsibility for valuables.? - Please leave all valuables, including medications, at home the day of surgery. If you are going home after surgery, a licensed armored truck driver must drive you home.? - NO public transportation without another adult if you receive anesthesia. - We recommend that an adult stay with you for 24 hours following discharge. - We also recommend that you do not drive, make important decision, drink alcoholic beverages, or take any drugs that were not prescribed by your health care provider for at least 24 hours after your discharge time. Follow any additional instructions given to you from your surgeon. HIBICLENS SHOWER PER DR ROD. Telephone instructions given to ___PATIENT and asked if any additional questions and then verbalized understanding. Patient advised to call surgeon office or pre surgery nurse liaison [phone] if any additional questions.
[2025-03-01 07:55] VITALS: BMI 40.0
--- NOTE | 2025-03-01 08:06 | PC.NURSE ---
PATIENT RETURNED FOR WEIGHT CHECK. WEIGHT DOWN TO 127.4KG. NEW BMI= 40.0.(DOWN FROM BMI OF 41.4 AT PAT INTERVIEW). PT WILL HAVE LABS DRAWN TODAY AND PLAN SURGERY FOR 03/03/25.
[2025-03-03] VITALS (14 sets, daily range): BP systolic 124–149; BP diastolic 60–89; PULSE 51–87; RESP 10–20; TEMP 36.1–36.8; O2SAT 94–100
--- NOTE | ~2025-03-03 | XR_ITS ---
EXAMINATION: [id number] DATE: 03/03/2025 13:49 CDT INDICATION: Left knee arthroplasty TECHNIQUE: 2 views left knee FINDINGS: There is a left total knee arthroplasty in expected position. Subcutaneous gas with fluid and air in the joint and overlying skin fariba are consistent with recent surgery. No evidence of pe riprosthetic fracture. IMPRESSION: 1. Recent left total knee arthroplasty. Reviewed, dictated and finalized at location B.
--- OUTSIDE RECORDS SUMMARY | 2025-03-03 01:09 | XMS_ITS | Encounter Summary ---
Author Organization [facility] Address [address] [facility] [place] [address] Care Team Providers Care Civil Engineering Assistant Name Role Phone Unavailable Primary Care Provider Unavailabl e Encounter Details Date Type Department Care Team (Late st Contact Info) Description 04/01/2023 Lab Requisition [facility] DermPath Lab [address] [place] [address] Ashley Pierre PA-C [address] [place] [address] Neoplasm of uncertain behavior of [...] AM CDT) Case Report Dermatopathology Report Case: [id number] Authorizing Provider: Ashley Pierre PA-C Collected: 04/01/2023 12:00 AM Ordering Location: [facility] Derm[facility] Lab Received: 04/02/2023 12:31 PM [...] characteristic determined by the Dermatopathology Laboratory at [facility], directed by Dr. Mariam Lopez. These tests need not be, and therefore are not, approved by the [place] Food and Drug Administration. The tests are used for clinical purposes. Billing Codes Specimen Charges Stain Charges 30899 1 3 10:15 AM CDT DERMATOPATHOLOGY LABORATORY Embedded Images 3 10:15 AM CDT DERMATOPATHOLOGY LABORATORY Pathology/Cytolog y TISSUE SPECIMEN FROM SKIN / Unknown 04/01/2023 04/02/2023 12:31 PM CDT Ashley Pierre PA-C LAB - PATHOLOGY/CYTOLOGY WESLY SCHWARTZ Final Result DERMATOPATHOLOGY LABORATORY [facility] - Department of Dermatology [address], [address] [phone] documented in this encounter Visit Diagnoses Diagnosis Neoplasm of uncertain behavior of skin documented in this encounter
--- OUTSIDE RECORDS SUMMARY | 2025-03-03 01:09 | XMS_ITS | Data Portability ---
Author Organization [facility] SRINIVASKatie Tobin Address [address] [place] [address] Care Team Providers Care Supervisor Bonding Name Role Phone JOY HUANG Primary Care Provider Unazeeshan ilminerva Assessment No assessment recorded. Plan of Treatment Reminders Order Date Submit Date Provider Last Modified By Organization Details Last Modified Time Details Appointments None record ed. Lab HbA1c (hemog lobin A1c), blood 2023 [facility], [address] [place] [address], [address], [place], [address], 4 12:14:15 lipid panel, serum 2023 024 [facility], [address] [place] [address], [address], [place], [address], 4 12:14:12 BMP, serum or plasma 2023 024 [facility], [address] [place] [address], [address], [place], [address], 4 12:14:13 albumi n/crea tinine , mass ratio, urine 2023 [facility], [address] [place] [address], [address], [place], [address], 4 12:14:11 Referral orthop benita fregoso n referr al 2023 024 SAÚL Lynn MD, [address] [facility] [address], [place], [address], 5 15:17:59 Procedures None record ed. Surgeries None record ed. Imaging None record ed. Medication Orders losart an 100 mg-hyd rochlo rothia zide 12.5 mg tablet 2024 025 [facility], [address] [place] [address], [address], 5 11:54:43 Farxig a 10 mg tablet 2023 024 [facility], [address] [place] [address], [address], 4 09:52:15 Eliqui s 5 mg tablet 2023 024 [facility] [address], [address] [place] [address], [address], 4 09:52:15 metopr olol tartra te 50 mg tablet 2023 024 [facility] [address], [address] [place] [address], [address], 4 09:52:15 losart an 100 mg-hyd rochlo rothia zide 12.5 mg tablet 2023 024 [facility], [address] [place] [address], [address], 4 09:52:14 amlodi pine 5 mg tablet 2023 024 [facility] [address], [address] [place] [address], [address], 4 09:52:15 Trulic ity 1.5 mg/0.5 mL subcut aneous pen inject or 2022 023 [facility], [address] [facility], [place], [address], 11:18:27 Patient TargetsNo targets recorded. Patient Instructions Encounter Date Encounter Id Patient Instructions Last Modified By Organization Details Last Modified Time 08/27/2023 [id number] I was present and available in the Family Medicine clinic to discuss this patient's care during the appointment. I agree with the resident's assessment and plan as documented. KGR [email or web address] Not available 08/28/2023 09:12:25 10/23/2023 [id number] I was present and available in the Family Medicine clinic to discuss the patient's care during the time of the appointment. I agree with the resident's assessment and plan as documented. Tommy Calzada Not available 10/24/2023 13:13:44 03/09/2024 [id number] I was present and available in the family medicine clinic to discuss the patient's care during the appointment and the case was discussed with me. I agree with the resident's assessment and plan as documented. HL [email or web address] Not available 03/09/2024 11:13:53 09/01/2024 [id number] I was present and available in the Family Medicine clinic to discuss this patient's care for the duration of the appointment. I agree with the resident's assessment and plan as documented with the following addendum: None. Dr. Adelfo Rosas MD, FMOB Attending Physician, [facility]. [email or web address] Not available 09/02/2024 19:10:38 11/27/2024 [id number] A healthy lifestyle: care instructions [email or web address] Not [...] arthritis of knees Referring Physician: Joy Bal, Stack Supervisor, Encounter Date: 09/01/2024 Results Created Date Observation Date Name Description Value Unit Range Abnormal Flag Note LastModifiedBy Organization Detail LastModifiedTime 08/27/20 23 08/27/2023 BASIC METAB OLIC PANEL glucose 90 mg/dL 70-99 Not Available [facility] (Lab) [address] [place], [address], 08/27/2023 12:37:16 08/27/20 23 08/27/2023 BASIC METAB OLIC PANEL BUN 19 mg/dL 7-18 high Not Available [facility] (Lab) [place], [address], 08/27/2023 12:37:16 08/27/20 23 08/27/2023 BASIC METAB OLIC PANEL creatinine 1.06 mg/dL 0.7-1. 3 Not Available [facility] (Lab) [place], [address], 08/27/2023 12:37:16 08/27/20 23 08/27/2023 BASIC METAB OLIC PANEL sodium 141 mmol/ L 136-14 5 Not Available [facility] (Lab) [address] [place], [address], 08/27/2023 12:37:16 08/27/20 23 08/27/2023 BASIC METAB OLIC PANEL potassium 4.0 mmol/ L 3.5-5. 1 Not Available [facility] (Lab) [place], [address], 08/27/2023 12:37:16 08/27/20 23 08/27/2023 BASIC METAB OLIC PANEL chloride 109 mmol/ L 100-10 8 high Not Available [facility] (Lab) [address] [place], [address], 08/27/2023 12:37:16 08/27/20 23 08/27/2023 BASIC METAB OLIC PANEL total CO2 27.5 mmol/ L 21-32 Not Available [facility] (Lab) [address] [place], [address], 08/27/2023 12:37:16 08/27/20 23 08/27/2023 BASIC METAB OLIC PANEL calcium 9.0 mg/dL 8.5-10 .1 Not Available [facility] (Lab) [place], [address], 08/27/2023 12:37:16 08/27/20 23 08/27/2023 BASIC METAB OLIC PANEL anion gap 4.5 mmol/ L 5-15 low Not Available [facility] (Lab) [address] [place], [address], 08/27/2023 12:37:16 08/27/20 23 08/27/2023 BASIC METAB OLIC PANEL BUN creatinine ratio 17.9 6-26 Not Available [facility] (Lab) [place], [address], 08/27/2023 12:37:16 08/27/20 23 08/27/2023 BASIC METAB [...] latin g drug doses . Not Available [facility] (Lab) [place], [address], 08/27/2023 12:37:16 08/27/20 23 08/27/2023 VITAM IN D, 25-OH TOTAL vitamin D, 25-oh total 35 NG/mL 30-100 INTER PRETA TION DEFIC IENT <20 INSUF FICIE NT 20-29 SUFFI CIENT 30-10 0 Not Available [facility] (Lab) [place], [address], 08/27/2023 12:38:23 08/27/20 23 08/27/2023 MICRO ALB/C REAT RATIO creatinine, urine 93.1 mg/dL 39-259 Not Available [facility] (Lab) [place], [address], 08/27/2023 13:12:27 08/27/20 23 08/27/2023 MICRO ALB/C REAT RATIO microalbumin , urine 55.7 mg/dL <2.0 high Not Available [facility] (Lab) [place], [address], 08/27/2023 13:12:27 08/27/20 23 08/27/2023 MICRO ALB/C REAT RATIO malb/creat ratio 598.3 mg/g <30 high Not Available [facility] (Lab) [place], [address], 08/27/2023 13:12:27 08/27/20 23 08/27/2023 TOTAL PROTE IN, URINE total protein, urine 67.0 mg/dL <10 high Not Available [facility] (Lab) [place], [address], 08/27/2023 13:12:28 04/20/20 24 04/20/2024 BASIC METAB OLIC PANEL glucose 93 mg/dL 70-99 Not Available [facility] (Lab) [address] [place], [address], 04/20/2024 10:22:16 04/20/20 24 04/20/2024 BASIC METAB OLIC PANEL BUN 18 mg/dL 7-18 Not Available [facility] (Lab) [address] [facility], [place], [address], 04/20/2024 10:22:16 04/20/20 24 04/20/2024 BASIC METAB OLIC PANEL creatinine 1.14 mg/dL 0.7-1. 3 Not Available [facility] (Lab) [address] [facility], [place], [address], 04/20/2024 10:22:16 04/20/20 24 04/20/2024 BASIC METAB OLIC PANEL sodium 142 mmol/ L 136-14 5 Not Available [facility] (Lab) [address] [facility], [place], [address], 04/20/2024 10:22:16 04/20/20 24 04/20/2024 BASIC METAB OLIC PANEL potassium 3.9 mmol/ L 3.5-5. 1 Not Available [facility] (Lab) [address] [place], [address], 04/20/2024 10:22:16 04/20/20 24 04/20/2024 BASIC METAB OLIC PANEL chloride 111 mmol/ L 100-10 8 high Not Available [facility] (Lab) [address] [place], [address], 04/20/2024 10:22:16 04/20/20 24 04/20/2024 BASIC METAB OLIC PANEL total CO2 26.7 mmol/ L 21-32 Not Available [facility] (Lab) [place], [address], 04/20/2024 10:22:16 04/20/20 24 04/20/2024 BASIC METAB OLIC PANEL calcium 8.8 mg/dL 8.5-10 .1 Not Available [facility] (Lab) [place], [address], 04/20/2024 10:22:16 04/20/20 24 04/20/2024 BASIC METAB OLIC PANEL anion gap 4.3 mmol/ L 5-15 low Not Available [facility] (Lab) [address] [place], [address], 04/20/2024 10:22:16 04/20/20 24 04/20/2024 BASIC METAB OLIC PANEL BUN creatinine ratio 15.8 6-26 Not Available [facility] (Lab) [address] [place], [address], 04/20/2024 10:22:16 04/20/20 24 04/20/2024 BASIC METAB [...] latin g drug doses . Not Available [facility] (Lab) [place], [address], 04/20/2024 10:22:16 04/20/20 24 04/20/2024 CBC WITH DIFF WBC 5.98 x10'3 /uL 4.5-11 .0 Not Available [facility] [place], [address], 04/20/2024 10:31:14 04/20/20 24 04/20/2024 CBC WITH DIFF RBC 5.36 x10'6 /uL 4.70-6 .10 Not Available [facility] (Lab) [address] [facility], [place], [address], 04/20/2024 10:31:14 04/20/20 24 04/20/2024 CBC WITH DIFF hemoglobin 15.3 g/dL 14.0-1 8.0 Not Available [facility] (Lab) [address] [facility], [place], [address], 04/20/2024 10:31:14 04/20/20 24 04/20/2024 CBC WITH DIFF hematocrit 47.4 % 43.0-5 4.0 Not Available [facility] (Lab) [address] [facility], [place], [address], 04/20/2024 10:31:14 04/20/20 24 04/20/2024 CBC WITH DIFF MCV 88.4 fL 80.0-9 4.0 Not Available [facility] (Lab) [address] [facility], [place], [address], 04/20/2024 10:31:14 04/20/20 24 04/20/2024 CBC WITH DIFF MCH 28.5 pg 27.0-3 1.0 Not Available [facility] (Lab) [address] [place], [address], 04/20/2024 10:31:14 04/20/20 24 04/20/2024 CBC WITH DIFF MCHC 32.3 g/dL 32.0-3 6.0 Not Available [facility] (Lab) [address] [facility], [place], [address], 04/20/2024 10:31:14 04/20/20 24 04/20/2024 CBC WITH DIFF RDW 13.3 % 11.5-1 4.5 Not Available [facility] (Lab) [address] [place], [address], 04/20/2024 10:31:14 04/20/20 24 04/20/2024 CBC WITH DIFF platelet count 235 x10'3 /uL 130-40 0 Not Available [facility] (Lab) [address] [place], [address], 04/20/2024 10:31:14 04/20/20 24 04/20/2024 CBC WITH DIFF MPV 10.0 fL 9.3-12 .2 Not Available [facility] (Lab) [address], [place], [address], 04/20/2024 10:31:14 04/20/20 24 04/20/2024 CBC WITH DIFF diff type AUTOMA BERNY DIFFER ENTIAL Not Available [facility] (Lab) [address], [place], [address], 04/20/2024 10:31:14 04/20/20 24 04/20/2024 CBC WITH DIFF neutrophils 51.1 % Not Available [facility] (Lab) [address], [place], [address], 04/20/2024 10:31:14 04/20/20 24 04/20/2024 CBC WITH DIFF lymphocytes 37.1 % Not Available [facility] (Lab) [place], [address], 04/20/2024 10:31:14 04/20/20 24 04/20/2024 CBC WITH DIFF monocytes 7.0 % Not Available [facility] (Lab) [address] [place], [address], 04/20/2024 10:31:14 04/20/20 24 04/20/2024 CBC WITH DIFF eosinophils 4.0 % Not Available [facility] (Lab) [address] [place], [address], 04/20/2024 10:31:14 04/20/20 24 04/20/2024 CBC WITH DIFF basophils 0.5 % Not Available [facility] (Lab) [address] [place], [address], 04/20/2024 10:31:14 04/20/20 24 04/20/2024 CBC WITH DIFF immature granulocytes 0.3 % Not Available [facility] (Lab) [address] [facility], [place], [address], 04/20/2024 10:31:14 04/20/20 24 04/20/2024 CBC WITH DIFF abs. neutrophils 3.05 x10'3 /uL 1.80-7 .70 Not Available [facility] (Lab) [address] [place], [address], 04/20/2024 10:31:14 04/20/20 24 04/20/2024 CBC WITH DIFF abs. lymphocytes 2.22 x10'3 /uL 1.00-4 .80 Not Available [facility] (Lab) [address] [place], [address], 04/20/2024 10:31:14 04/20/20 24 04/20/2024 CBC WITH DIFF abs. monocytes 0.42 x10'3 /uL 0.30-0 .82 Not Available [facility] (Lab) [address] [place], [address], 04/20/2024 10:31:14 04/20/20 24 04/20/2024 CBC WITH DIFF abs. eosinophils 0.24 x10'3 /uL 0.04-0 .54 Not Available [facility] (Lab) [address] [facility], [place], [address], 04/20/2024 10:31:14 04/20/20 24 04/20/2024 CBC WITH DIFF abs. basophils 0.03 x10'3 /uL 0.01-0 .08 Not Available [facility] (Lab) [address], [place], [address], 04/20/2024 10:31:14 04/20/20 24 04/20/2024 CBC WITH DIFF abs. immature grans 0.02 x10'3 /uL 0.00-0 .49 Not Available [facility] (Lab) [address], [place], [address], 04/20/2024 10:31:14 04/20/20 24 04/20/2024 PROTI ME protime 11.7 sec 10.2-1 2.9 Not Available [facility] (Lab) [address], [place], [address], 04/20/2024 10:35:07 04/20/20 24 04/20/2024 PROTI ME INR 1.0 Recom lida d INR Thera peuti c Goals : 2.0-3 .0 Routi ne Thera py 2.5-3 .5 Mecha nical Prost hetic Valve s (High Risk) Not Available [facility] (Lab) [address] [place], [address], 04/20/2024 10:35:07 09/01/20 24 09/02/2024 ALBUM IN/CR EATIN INE RATIO ,URIN E creatinine, urine 154.9 mg/dL notest ab. Not Available [facility] ([facility]) [address] [facility], [place], [address], 09/02/2024 12:14:10 09/01/20 24 09/02/2024 ALBUM IN/CR EATIN INE RATIO ,URIN E albumin, urine 933.0 ug/mL notest ab. Resul ts confi rmed on dilut ion. Not Available [facility] ([facility]) [address] [facility], [place], [address], 09/02/2024 12:14:10 09/01/20 24 09/02/2024 ALBUM IN/CR EATIN INE RATIO ,URIN E alb/creat ratio 602 mg/g_ creat 0-29 above high normal Michelle l: 0 - 29 Moder ately incre ased: 30 - 300 Sever bryant incre ased: >300 Not Available [facility] ([facility]) [address] [facility], [place], [address], 09/02/2024 12:14:10 09/01/20 24 09/02/2024 LIPID PANEL cholesterol, total 238 mg/dL 100-19 9 above high normal Not Available [facility] ([facility]) [address] [facility], [place], [address], 09/02/2024 12:14:12 09/01/20 24 09/02/2024 LIPID PANEL triglyceride s 188 mg/dL 0-149 above high normal Not Available [facility] ([facility]) [address] [place], [address], 09/02/2024 12:14:12 09/01/20 24 09/02/2024 LIPID PANEL HDL cholesterol 41 mg/dL >39 Not Available [facility]) [address] [facility], [place], [address], 09/02/2024 12:14:12 09/01/20 24 09/02/2024 LIPID PANEL VLDL cholesterol herb 35 mg/dL 5-40 Not Available [facility]) [address] [place], [address], 09/02/2024 12:14:12 09/01/20 24 09/02/2024 LIPID PANEL LDL chol calc ([facility]) 162 mg/dL 0-99 above high normal Not Available [facility] ([facility]) [address] [place], [address], 09/02/2024 12:14:12 09/01/20 24 09/02/2024 BASIC METAB OLIC PANEL (8) glucose 88 mg/dL 70-99 Not Available [facility] ([facility]) [address] [place], [address], 09/02/2024 12:14:13 09/01/20 24 09/02/2024 BASIC METAB OLIC PANEL (8) BUN 16 mg/dL 8-27 Not Available [facility] ([facility]) [address] [place], [address], 09/02/2024 12:14:13 09/01/2009/02/2024 BASIC METAB OLIC PANEL (8) creatinine 1.08 mg/dL 0.76-1 .27 Not Available [facility] ([facility]) [address] [place], [address], 09/02/2024 12:14:13 09/01/2009/02/2024 BASIC METAB OLIC PANEL (8) eGFR 76 mL/mi n/1.7 3 >59 Not Available [facility] ([facility]) [address] [place], [address], 09/02/2024 12:14:13 09/01/20 24 09/02/2024 BASIC METAB OLIC PANEL (8) BUN/creatini ne ratio 15 10-24 Not Available [facility] ([facility]) [address] [place], [address], 09/02/2024 12:14:13 09/01/20 24 09/02/2024 BASIC METAB OLIC PANEL (8) sodium 143 mmol/ L 134-14 4 Not Available [facility] ([facility]) [address] [facility], [place], [address], 09/02/2024 12:14:13 09/01/20 24 09/02/2024 BASIC METAB OLIC PANEL (8) potassium 4.5 mmol/ L 3.5-5. 2 Not Available [facility] ([facility]) [address] [place], [address], 09/02/2024 12:14:13 09/01/20 24 09/02/2024 BASIC METAB OLIC PANEL (8) chloride 104 mmol/ L 96-106 Not Available [facility] ([facility]) [address] [place], [address], 09/02/2024 12:14:13 09/01/20 24 09/02/2024 BASIC METAB OLIC PANEL (8) carbon dioxide, total 26 mmol/ L 20-29 Not Available [facility] ([facility]) [address] [place], [address], 09/02/2024 12:14:13 09/01/20 24 09/02/2024 BASIC METAB OLIC PANEL (8) calcium 9.5 mg/dL 8.6-10 .2 Not Available [facility] ([facility]) [address] [place], [address], 09/02/2024 12:14:13 09/01/20 24 09/02/2024 HEMOG LOBIN A1C hemoglobin A1C 5.9 % 4.8-5. 6 above high normal Predi abete s: 5.7 - 6.4 Diabe grace: >6.4 Glyce yariel contr ol for adult s with diabe grace: <7.0 Not Available [facility] ([facility]) [address] [place], [address], 09/02/2024 12:14:15 04/20/20 24 ECG 12-le ad [facility] [address] [facility] [place] [address] [facility] [address] [place], [place] Test Date: 04-20 Pat Name: NADINE Street Depart ment: 40 Patien t ID: [id number] Room: [facility] Gender : Male Techni ejnnifer: Tlf : [birth year] Reques berny By: GÉNESIS Enamorado Order Number : [id number] MD: Génesis enamorado Measur ements Interv als [place] Rate: 77 P: ND: 0 QRS: -62 QRSD: 149 T: -12 [...] 01 CDT [facility] [address] [facility], [place], [address], 04/20/2024 19:48:10 04/20/20 24 ECG 12-le ad [facility] [place] [address] [facility] [place] [address] [facility] [address] [place], [place] Test Date: 04-20 Pat Name: NADINE Street Depart ment: 40 Patien t ID: [id number] Room: [facility] Gender : Male Techni jennifer: : 1959-0 9-09 Reques berny By: GÉNESIS Enamorado Order Number : [id number] MD: Génesis enamorado Measur ements Interv als [place] Rate: 61 P: 80 ND: 190 QRS: -51 QRSD: 157 T: -7 [...] Génesis enamorado at 024 13:54: 49 CDT [facility] [address] [facility], [place], [address], 04/20/2024 19:48:10 04/21/20 24 xa cardi overs ion dcc [facility] [place], [place] [address] [place] [address] [facility]EP LAB 238-56 x [phone] Cardio versio n Patien t Name: Nadine ConcepcionRicardo Date of : 1959 Medica l Record : #[id number] Accoun t: [id number] Physic dora: Génesis enamorado MD Date: [...] MD SHAHNAZ Mckeon/sandhya Interp reted: Transc ribed: [facility] [address] [facility] [address], [place], [address], 04/23/2024 22:59:50 01/08/20 25 01/07/2025 US, doppl er, venou s No observ ation record ed. [facility] [address], [place], [address], 01/13/2025 02:46:09 Result Notes None recorded. Problems Name Problem SNOMED Code Status Onset Date Resolution Date Notes Provider Name and Address Organization Details Recorded Time Essential hypertensi on 15965755 Active 2020 Qasimmartin Butch [facility], [facility] 1 14:55:12 Basal cell carcinoma of skin 630720078 Active 2023 on left cheek & right forehead. stage 1. s/p complex repair/ Mohs surgery. surgeon Dermatolog ist Dr. Sarmad Guadarrama. Fu in 3 months (06/2024) Joy Bal MD Attn: [address] [place], [address], [facility] 4 13:02:33 Actinic keratosis Active 2023 flluoroura cil 5% topical cream 40 gram. Joy Bal MD Attn: [address] [place], [address], [facility] 4 13:06:43 Seborrheic dermatitis 98235334 Active 2023 ketoconazo le shampoo Joy Bal MD Attn: [address] [facility], [place], [address], [facility] 4 13:07:06 Problem Notes None recorded. Procedures Surgical History Date Name Laterality Status Provider Name and Address Organization Details Recorded Time 5 repair of shoulder completed Estela Rae [facility] 11/28/2020 14:54:57 Imaging Results None recorded. Procedure [...] Updated DateTime 4 180.34 cm 40.8 kg/m2 868776. 37 g 98 % 98 % 60 /min 98.5 [degF] 138 mm[Hg] 85 mm[Hg] Carolina Garcia [place] [facility] 4 11:04:08 Date Recorded Body height Body mass index (BMI) Body weight Oxygen saturation Oxygen saturation in Arterial blood by Pulse oximetry Heart rate Body temperature Systolic blood pressure Diastolic blood pressure Provider Name and Address Organization Details Last Updated DateTime 5 180.34 cm 40.8 kg/m2 809771. 72 g 98 % 98 % 63 /min 97.8 [degF] 136 mm[Hg] 86 mm[Hg] Carolina Garcia [place] [facility] 5 09:02:09 Date Recorded Systolic blood pressure Diastolic blood pressure Provider Name and Address Organization Details Last Updated DateTime 03/09/2024 106 mm[Hg] 77 mm[Hg] Alexander Gaytan MD Attn: Accounting,[address] [place], [address], [facility] 03/09/2024 11:03:06 Date Recorded Body height Body mass index (BMI) Body weight Oxygen saturation Oxygen saturation in Arterial blood by Pulse oximetry Heart rate Systolic blood pressure Diastolic blood pressure Provider Name and Address Organization Details Last Updated DateTime 4 180.34 cm 42 kg/m2 925469. 4 g 97 % 97 % 84 /min 144 mm[Hg] 85 mm[Hg] Tanesha Ariza MA [facility] 4 10:46:15 Date Recorded Systolic blood pressure Diastolic blood pressure Provider Name and Address Organization Details Last Updated DateTime 08/27/2023 125 mm[Hg] 85 mm[Hg] Alexander Gaytan MD Attn: Accounting[address] [place], [address], [facility] 08/27/2023 11:14:47 Date Recorded Body height Body mass index (BMI) Body weight Heart rate Oxygen saturation Oxygen saturation in Arterial blood by Pulse oximetry Body temperature Systolic blood pressure Diastolic blood pressure Provider Name and Address Organization Details Last Updated DateTime 3 180.34 cm 41.3 kg/m2 865553. 04 g 64 /min 97 % 97 % 97.3 [degF] 145 mm[Hg] 84 mm[Hg] Clarita Khan MA [facility] 3 10:53:29 Date Recorded Systolic blood pressure Diastolic blood pressure Provider Name and Address Organization Details Last Updated DateTime 09/01/2024 142 mm[Hg] 85 mm[Hg] Joy Bal MD Attn: Accounting[address] [place], [address], [facility] 09/01/2024 09:24:53 Date Recorded Body height Body mass index (BMI) Body weight Oxygen saturation Oxygen saturation in Arterial blood by Pulse oximetry Heart rate Body temperature Systolic blood pressure Diastolic blood pressure Provider Name and Address Organization Details Last Updated DateTime 4 180.34 cm 42.9 kg/m2 876058. 01 g 95 % 95 % 78 [...] completed Mike Cunningham MD Attn: Accounting,[address] [place], [address], [place] [facility] 07/16/2023 11:21:40 Pneumococcal conjugate PCV20, polysaccharide KDE751 conjugate, adjuvant, PF 4 completed Tommy Calzada MD Attn: Accounting,[address] [facility] [place], [address], [place] - [facility] 10/24/2023 13:13:40 Tdap 4 completed OCTAVIANO Garcia, [place] - [facility] 09/01/2024 10:26:32 Past Encounters Encounter ID Performer Location Encounter Start Date Encounter Closed Date Diagnosis/Indication Diagnosis SNOMED-CT Code Diagnosis ICD10 Code Diagnosis Note [id number] Cecilia Jenkins MD [place] [address] [address] 11/28/2020 14:22:41 11/29/2020 10:28:05 Adult health examination 513726477 Z00.00 - No acute concerns Obesity 080046914 E66.9 Chronic, improving- Pt has lost 100+ lbs over the last 2 years. On vegan diet, regularly exercising , reading weekly about how to improve his diet. Very knowledgab le and aware on how to reduce his weight. Diastasis recti 60821719 M62.08 Chronic, controlled - Asymptomat ic, if botherwsom e RTC Essential hypertension 57690114 I10 Chronic, uncontroll ed- Elevated BP in office, recommende d repeat measuremen t but pt left office prior to having it done.- At home measuremen ts 130-140/80 s- Continue losartan 50 mg-HCTZ 12.5 mg 1 1/2 tab QD- RTC if BP persistent ly elevated, pt documents at home. [id number] Carolina Moore MD [place] [address] [address] 05/30/2021 09:50:26 05/31/2021 09:06:34 Essential hypertension 57874214 I10 BP Goal: Less than 140/90BP Controlled [...] 6month(s) Pain of ri ght shoulder joint 9490146569 7500028 M25.511 Chronic, uncontroll ed- Per pt, hx of severe osteoarthr itis- Request records from previous ortho, send for repeat x rays- Refer to orthopedic - Michelle HAYES [id number] MD OF [facility] [address] [facility] [address] [place] [address] 01/15/2022 11:25:31 01/16/2022 15:54:17 Essential hypertension 31453335 I10 BP Goal: Less than 140/90BP Controlled [...] t next weekNext Visit: 1month(s) Kidney disease 16955867 N08 alb/cr ratio of 2400, follows w/ neprhoBone scan WNLPending DEZ, ds-DNA, total protein, and total CrNephro appointmen t next week [id number] [facility] [address] [facility] [address] [place] [address] 04/05/2022 15:16:36 04/06/2022 14:45:25 Essential hypertension 39546372 I10 BP Goal: Less than 140/90BP Controlled [...] QD- Continue home BP monitoring Kidney disease 23424315 N08 alb/cr ratio of 2400, follows w/ alex he believes his appointmen t is the near future but does not know exactly when- will continue to follow with nephrology recommenda tions as chart review does not have nephrology consult. History of pulmonary embolus 697599601 Z86.711 Was recently hospitaliz ed for multiple [...] tions Atrial fibrillation 4943 6004 I48.91 [facility] . Had appt on 04/05 Obesity 973118318 E66.9 patient is following a vegan diet [...] walking Screening for malignant neoplasm of colon 126951158 Z12.11 currently has no symptoms concerning for GI malignancy . no hematochez ia, no weight loss, no fever, no chills, no night sweats. Does not know family history. 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 Already sees ortho, will follow up with them to see about getting right shoulder replaced. Xray 05/2021 showed: severe glenohumer al osteoarthr itis and Early AC joint arthritis- will follow up with ortho he is already establishe d with Essential hypertension 01364926 I10 BP Goal: Less than 140/90BP Controlled : yesHealthy Weight: 5'11= 136-178 lbsDiscuss ed: Low sodium balanced diet, moderate exercise at least 3-4 times per week for an average of 40 minutes, limiting alcohol to 1 drink per day (F) or 2 drinks per day (M), and smoking cessation if currently smoking.Ne xt Visit: 6month(s) Paresthesi a of lower extremity 364161427 R20.2 Numbness and tingling of lower extremity limited to feet. Neuropathy vs electrolyt e imbalance. Does not have a1c that i could find on chart review. No trauma to the area. No signs of infection. -will check i1u-XAU, MG-check folate and B12 [id number] Madhuri tucker MD [facility] [address] [address] 03/08/2023 11:26:57 03/23/2023 12:53:53 Screening for malignant neoplasm of colon 612122557 Z12.11 currently has no symptoms concerning for GI malignancy . no hematochez ia, no weight loss, no fever, no chills, no night sweats. Does not know family history. on chart review he had a colonoscop y in 2019 that was negative for any findings and was told to follow up in 10 years- next colon cancer screening due and 2028 Obesity 085761013 E66.9 patient is following a vegan diet [...] swimming, biking, monitor or walking Essential hypertension 29972313 I10 BP Goal: Less than 140/90BP Controlled [...] BP usually runs 120/80s Depression screening 171 332130 Z13.31 PHQ2 negative. [id number] MD Roldan Dowling [address] [address] 07/16/2023 10:19:04 07/17/2023 10:06:18 Administration of influenza vaccine 91343998 Z23 Obesity 539647540 E66.9 patient is following a vegan diet [...] swimming, biking, monitor or walking Essential hypertension 39659591 I10 BP Goal: Less than 140/90BP Controlled [...] next few months Chronic ki dney disease 342709387 N18.9 Chronic, Improving. Sees nephro. Will optimize blood pressure today . [id number] MD Roldan Dowling [address] [place] [address] 08/27/2023 10:47:20 08/28/2023 16:05:27 Obesity 650716753 E66.9 patient is following a vegan diet [...] monitor or walking-ti trate GLP Essential hypertension 95886315 I10 BP Goal: Less than 140/90BP Controlled [...] weight-eduardo e blood pressures have been 120's [id number] MD OF [facility] [address] [address] 10/23/2023 10:49:28 10/25/2023 12:30:08 Active or passive immunization 482290469 Z23 Obesity 219145441 E66.9 patient is following a vegan diet [...] side effects, not interested in different agent [id number] MD Roldan Schaffer [address] [address] 03/09/2024 10:20:08 03/12/2024 13:09:04 Essential hypertension 98395478 I10 BP Goal: Less than 140/90BP Controlled [...] and CCB-due for labs in august Obesity 547172127 E66.9 patient is following a vegan diet [...] consider swimming, biking, monitor or walking-st opped [facility] due to side effects, not interested in different agent Screening for malignant neoplasm of colon 048115223 Z12.11 currently has no symptoms concerning for [...] another ablation in the next few months [id number] ADELFO ROSAS MD [facility] [address] [address] 09/01/2024 08:49:18 09/04/2024 15:21:49 Essential hypertension 61287900 I10 Establishe dBP today 159/89, repeat 142/85BP [...] will order losartan 100- HCTZ 12.5 Obesity 027005439 E66.9 BMI 42.9 today. pt gained 6 Ibs since last visit in of using phentermin josé miguel lipid panel result, last A1C in 2021 was 5.5- will check A1C & Lipid panel Atrial fibrillation 4943 6004 I48.91 s/p direct cardiovers ion by Dr. Pavon on 04/20/2024 hx of cardiovers ion g0Snzhlluh y on Eliquis and BB (metoprolo l Tartrate 50 mg BID)- has scheduled appt with Dr. Pavon Adult heal th examination 587930056 Z00.00 colonoscop y: due 2028Tdap: will get it todayCovid : 2022Flu: 4Pneumo coccal: 2023 Actinic keratosis 164928 007 L57.0 s/p derm visit on 07/06. will be followed up for melanoma in 3 months. Chronic ki dney disease 949624301 N18.9 PMHx of Hypertensi on since , albuminuri alast nephrology [place] [address] Hall in hospitalCu rrently on Farxiga and ARBs- next appt is in November- will check kidney function today Benign pro static hyperplasia 819511818 N40.1 currently seeing urologist. hx of biopsy 6 years ago Bilateral arthritis of knees 9690261085 096929 M13.861 pt saw ortho years ago. knee replacemen t was discussed but at that time due to pt's age wasn't recommende d. Pt is interested in getting replacemen t done vs getting injections .- will put in the ortho referral Active or passive immunization 262812882 Z23 pt got his Tdap today [id number] Tommy Calzada MD [facility] 47 [address] [facility] [address] [place] [address] 11/27/2024 08:49:45 12/02/2024 10:14:31 Essential hypertension 34938640 I10 Establishe d, in goal range. BP [...] a BP log. Chronic ki dney disease 590250355 N18.9 PMHx of Hypertensi on since , [...] in 6 months Adult heal th examination 001120325 Z00.00 colonoscop y: due 2028Tdap: received 09/01/24 - due ovid: 2022Flu: neumo coccal: 2023 Atrial fibrillation 4943 6004 I48.91 s/p direct cardiovers ion by Dr. Pavon on 04/20/2024 hx of cardiovers ion z9Ozaznupg y on Eliquis and BB (metoprolo l Tartrate 50 mg BID) Morbid obesity 589770555 E66.01 was discussed with pt Health Concerns Section Related Observation LastModified by Organization Detai ls LastModified Time None Recorded Concern Status LastModified by Organization Details LastModified Time None Recorded Advance Directives Directive None Recorded Payers Encounter Date Sequence Insurance Name Policy Number Policy Dowd Covered Member ID Dowd Member ID Guarantor Name 08/27/2023 1 [employer] (MEDICARE REPLACEMENT/ ADVANTAGE - PPO) [id number] Nadine Cramer Shyanne [id number] Nadine Graysung 10/23/2023 1 [employer] (MEDICARE REPLACEMENT/ ADVANTAGE - PPO) [id number] Nadine Cramer Shyanne [id number] Nadine Graysung 03/09/2024 1 [employer] (MEDICARE REPLACEMENT/ ADVANTAGE - PPO) [id number] Nadine Cramer Shyanne [id number] Nadine Graysung 09/01/2024 1 [employer] (MEDICARE REPLACEMENT/ ADVANTAGE - PPO) [id number] Nadine Cramer Shyanne [id number] Nadine Shyanne 11/27/2024 1 [employer] (MEDICARE REPLACEMENT/ ADVANTAGE - PPO) [id number] Nadine Cramer Shyanne [id number] Nadine Shyanne Notes Date Note Type Note [...] it. Mike Cunningham MD Attn: Accounting,[address] [place], [address], [place] [facility] 08/28/2023 09:12:30 10/23/19 24 [...] vaccine Tommy Calzada MD Attn: Accounting,[address] [facility], [place], [address], [facility] 10/24/2023 13:13:50 03/09/20 24 text/htm l Hypertension [...] up Madhuri Schumacher MD Attn: Accounting,[address] [facility], [place], [address], [facility] SI 03/09/2024 11:13:57 09/01/20 24 text/htm l 64 y/o M with hx of a-fib, HTN, obesity presented to meet new pcp. ADELFO ROSAS MD Attn: Accounting,[address] [facility], [place], [address], [facility] SI 09/02/2024 19:11:07 11/28/19 25 text/htm [...] diarrhea/constipation Tommy Calzada MD Attn: Accounting,[address] [place], [address], [facility] - SI 11/30/2024 16:25:05
--- OUTSIDE RECORDS SUMMARY | 2025-03-03 01:09 | XMS_ITS | Clinical Summary ---
Author Organization [facility] Address [address], [facility] [address] [place] [address] Phone Care Team Providers Care Sheet Rock Installation Helper Name Role Phone Provider, Unknown Primary Care Provider Unavaila Zach Wilson MD Unavailable [phone] Allergies No known active allergies Medications losartan-hydroc [...] Description 01/19/2025 Telephone [facility] [address] [address] Zach Edward MD canopy call/ [...] Sex Assigned at Male 08/18/2024 2:51 PM SHIFT SUPERVISOR MELTING Legal Sex Male 9:06 AM SHIFT SUPERVISOR MELTING Gender Identity Male 08/18/2024 2:51 PM SHIFT SUPERVISOR MELTING Sexual Orientation Straight 08/18/2024 2: 51 PM SHIFT SUPERVISOR MELTING Last Filed Vital Signs Vital Sign Reading Time Taken Comments Blood Pressure 150/96 11/05/2024 9:30 AM SHIFT SUPERVISOR MELTING Pulse 59 11/05/2024 9:30 AM SHIFT SUPERVISOR MELTING Temperature 36.7 C (98 F) 11/05/2024 9:30 AM SHIFT SUPERVISOR MELTING Respiratory Rate 18 11/05/2024 9:30 AM SHIFT SUPERVISOR MELTING Oxygen Saturation 99% 11/05/2024 9:30 AM SHIFT SUPERVISOR MELTING Inhaled Oxygen Concentration - - Weight 138.1 kg (304 lb 8 oz) 11/05/2024 9:30 AM SHIFT SUPERVISOR MELTING Height 180.3 cm (5' 11) 11/05/2024 9:30 AM SHIFT SUPERVISOR MELTING Body Mass Index 42.47 11/05/2024 9:30 AM SHIFT SUPERVISOR MELTING Plan of Treatment Upcoming Encounters Date Type Department Care Team (Late st Contact Info) Description 11/04/2025 9:30 AM SHIFT SUPERVISOR MELTING Office Visit [facility] [address] [address] Zach Edward MD [facility] [address] [place] [address] Health Maintenance Due Date Last Done Comments [...] PSA 4.22(H) 0.00 - 4.00 ng/mL [facility] Comment: Johny Paramagnetic Particle Chemiluminescent Immunoassay Method Blood 07/26/2022 8:48 AM CDT Narrative [facility] - 07/26/2022 2:05 PM CDT Release to patient->Immediate us Kris Gerber PAC CHEMISTRY ORDERABLES Final Result [facility] [place] [address], from Last 3 Months or Most Recently Relevant to Health Maintenance Insurance MEDICARE C [employer] Care Teams Sheet Rock Installation Helper Relationship Specialty Start Date End Date Provider, Unknown UNKNOWN PCP - General 11/27/21 Zach Edward MD [address] [place] [address] Consulting Physician Oncology 11/27/21
--- OUTSIDE RECORDS SUMMARY | 2025-03-03 01:09 | XMS_ITS | Encounter Summary ---
Author Organization [facility] Address [address] [facility] [place] [address] Care Team Providers Care Film Booker Name Role Phone Unavailable Primary Care Provider Unavailabl e Encounter Details Date Type Department Care Team (Late st Contact Info) Description 10/02/2023 Lab Requisition [facility] DermPath Lab [address] [place] [id number] Sarmad Guadarrama MD [facility] DERMATOLOGY [address] [place] [address] Neoplasm of uncertain behavior of skin [...] Diagnosis Comments DERMATOPATHOLOGY Routine 10/02/2023 3:33 AM ANIMAL CONTROL LICENSING WORKER Neoplasm of uncertain behavior of skin documented in this encounter Results * DERMATOPATHOLOGY (10/02/2023 3:33 AM ANIMAL CONTROL LICENSING WORKER) Case Report Dermatopathology Report Case: [id number] Authorizing Provider: Sarmad Guadarrama MD Collected: 10/02/2023 03:33 AM Ordering Location: [facility] DermPath Lab Received: 10/03/2023 12:46 PM Pathologist: Tiesha Soler MD Specimen: Skin, right forearm 12:58 PM ANIMAL CONTROL LICENSING WORKER DERMATOPATHOLOGY LABORATORY Final Diagnosis Specimen A. SKIN, right forearm: BASAL CELL CARCINOMA, INFILTRATIVE PATTERN (C44.612) 12:58 PM [facility] DERMATOPATHOLOGY LABORATORY at [address] ANIMAL CONTROL LICENSING WORKER Clinical History Basal Cell Carcinoma 12:58 PM [facility] DERMATOPATHOLOGY LABORATORY Gross Description Specimen A: Received is one formalin filled container labeled with the patient's name and designated right forearm. The specimen consists of a shave biopsy measuring 8x6x1 mm. Jar 0. 12:58 PM [facility] DERMATOPATHOLOGY LABORATORY Microscopic Description Specimen A. SKIN, right forearm: Within the dermis there are nodular aggregates of basaloid cells associated with fibromyxoid stroma and epithelial-stromal clefts. At the advancing margin of the neoplasm, there are smaller angulated nests that infiltrate the dermis. 12:58 PM [facility] DERMATOPATHOLOGY LABORATORY Disclaimer An external and internal positive and negative controls are appropriate for the histochemical, immunohistochemical and immunofluorescence stain(s) in this case (if any), except where stated explicitly. The performance characteristics of the stain(s) cited in this report were developed and its performance characteristic determined by the Dermatopathology Laboratory at [facility], directed by Dr. Mariam Lopez. These tests need not be, and therefore are not, approved by the [place] Food and Drug Administration. The tests are used for clinical purposes. Billing Codes Specimen Charges Stain Charges 70541 1 12:58 PM [facility] DERMATOPATHOLOGY LABORATORY Embedded Images 12:58 PM [facility] DERMATOPATHOLOGY LABORATORY Pathology/Cytolo gy TISSUE SPECIMEN FROM SKIN / Unknown 10/02/2023 3:33 AM ANIMAL CONTROL LICENSING WORKER 10/03/2023 12:46 PM ANIMAL CONTROL LICENSING WORKER us Sarmad Guadarrama MD LAB - PATHOLOGY/CYTOLOGY [facility] SCH[facility]ART[facility] Final Result DERMATOPATHOLOGY LABORATORY [facility] - Department of Dermatology [address] [phone] documented in this encounter Visit Diagnoses Diagnosis Neoplasm of uncertain behavior of skin documented in this encounter
--- OUTSIDE RECORDS SUMMARY | 2025-03-03 01:09 | XMS_ITS | Clinical Summary ---
Author Organization [facility] Address [address] [place] [address] Care Team Providers Care Wrapper Counter Name Role Phone Alexander Gaytan MD Primary [...] on file Legal Sex Male 9:15 PM GUN BARREL FINISHER Gender Identity Male 09/19/2022 4:07 AM GUN BARREL FINISHER Sexual Orientation Straight 09/19/2022 4: 07 AM GUN BARREL FINISHER Obstetrics History Last Filed Vital Signs Vital Sign Reading Time Taken Comments Blood Pressure 158/88 11/07/2022 8:44 AM GUN BARREL FINISHER Pulse 97 11/07/2022 8:44 AM GUN BARREL FINISHER Temperature 36.7 C (98.1 F) 11/07/2022 8:44 AM GUN BARREL FINISHER Respiratory Rate 18 11/07/2022 8:44 AM GUN BARREL FINISHER Oxygen Saturation 95% 11/07/2022 8:44 AM GUN BARREL FINISHER Inhaled Oxygen Concentration - - Weight 137.4 kg (303 lb) 11/06/2022 6:44 PM GUN BARREL FINISHER Height 180.3 cm (5' 11) 11/06/2022 6:44 PM GUN BARREL FINISHER Body Mass Index 42.26 11/06/2022 6:44 PM GUN BARREL FINISHER Plan of Treatment Health Maintenance Due Date [...] Tdap) 09/01/203406/2024 Medical Devices Implanted Type Area Ip Attorney Device Identifier Shelf Expiration Date Model / Serial / Lot [employer] Simplex P Radiopaque Full Dose Cement Bone Sterile 6191-1-010 - Sn/A - [id number] Implanted:Qty: 1 on 11/06/2022 by Tommy Cody MD at [facility] Bone Cement Right: Shoulder [employer] 03/22/2025 6191-1-010 / N/A / [id number] [employer] [place] 3 Peg Monoblock Shoulder 5 Component Glenoid Sterile [id number] - Sn/A - [id number] Implanted:Qty: 1 on 11/06/2022 by Tommy Cody MD at [facility] Right: Shoulder [employer] [id number] 11/21/2027 [id number] / N/A / [id number] [employer] Humeral [place] Shoulder Sidus [id number] - Sn/A - [id number] Implanted:Qty: 1 on 11/06/2022 by Tommy Cody MD at [facility] Right: Shoulder [employer] [id number] 02/08/2032 [id number] / N/A / [id number] [employer] Sidus Od52 Mm H19 Mm Stem Free Shoulder Head Humeral Sterile Latex Free [id number] - [id number] Implanted:Qty: 1 on 11/06/2022 by Tommy Cody MD at [facility] Right: Shoulder [employer] [id number] 11/21/2027 [id number] / / [id number] Insurance T [facility]IC[facility] Advance Directives For more information, please contact: [phone] * Full Code (Latest Code Status on File) Date Activated Date Inactivated Comments 11/06/2022 6:52 PM 11/07/2022 6:18 PM Care Teams Wrapper Counter Relationship Specialty Start Date End Date Alexander Gaytan MD PCP - General 05/09/22
--- OUTSIDE RECORDS SUMMARY | 2025-03-03 01:09 | XMS_ITS | Referral Summary ---
Author Organization [facility] Address [address] [place] [address] Care Team Providers Care Freight Loading Supervisor Name Role Phone Alexander Gaytan MD Primary [...] on file Legal Sex Male 9:15 PM FLOW SPECIALIST Gender Identity Male 09/19/2022 4:07 AM FLOW SPECIALIST Sexual Orientation Straight 09/19/2022 4: 07 AM FLOW SPECIALIST Last Filed Vital Signs Vital Sign Reading Time Taken Comments Blood Pressure 158/88 11/07/2022 8:44 AM FLOW SPECIALIST Pulse 97 11/07/2022 8:44 AM FLOW SPECIALIST Temperature 36.7 C (98.1 F) 11/07/2022 8:44 AM FLOW SPECIALIST Respiratory Rate 18 11/07/2022 8:44 AM FLOW SPECIALIST Oxygen Saturation 95% 11/07/2022 8:44 AM FLOW SPECIALIST Inhaled Oxygen Concentration - - Weight 137.4 kg (303 lb) 11/06/2022 6:44 PM FLOW SPECIALIST Height 180.3 cm (5' 11) 11/06/2022 6:44 PM FLOW SPECIALIST Body Mass Index 42.26 11/06/2022 6:44 PM FLOW SPECIALIST Plan of Treatment Not on file Medical Devices Implanted Type Area Corrugated Box Machine Operator Device Identifier Shelf Expiration Date Model / Serial / Lot [employer] Simplex P Radiopaque Full Dose Cement Bone Sterile 6191-1-010 - Sn/A - [id number] Implanted:Qty: 1 on 11/06/2022 by Tommy Cody MD at [facility] Bone Cement Right: Shoulder [employer] 03/22/2025 6191-1-010 / N/A / [id number] [employer] [place] 3 Peg Monoblock Shoulder 5 Component Glenoid Sterile [id number] - Sn/A - [id number] Implanted:Qty: 1 on 11/06/2022 by Tommy Cody MD at [facility] Right: Shoulder [employer] [id number] 11/21/2027 [id number] / N/A / [id number] [employer] Humeral [place] Shoulder Sidus [id number] - Sn/A - [id number] Implanted:Qty: 1 on 11/06/2022 by Tommy Cody MD at [facility] Right: Shoulder [employer] [id number] 02/08/2032 [id number] / N/A / [id number] [employer] Sidus Od52 Mm H19 Mm Stem Free Shoulder Head Humeral Sterile Latex Free [id number] - [id number] Implanted:Qty: 1 on 11/06/2022 by Tommy Cody MD at [facility] Right: Shoulder [employer] [id number] 11/21/2027 [id number] / / [id number] Insurance T MEDICARE T MEDICARE [facility] Advance Directives For more information, please contact: [phone] * Full Code (Latest Code Status on File) Date Activated Date Inactivated Comments 11/06/2022 6:52 PM 11/07/2022 6:18 PM Care Teams Freight Loading Supervisor Relationship Specialty Start Date End Date Alexander Gaytan MD PCP - General 05/09/22
--- OUTSIDE RECORDS SUMMARY | 2025-03-03 01:09 | XMS_ITS | Encounter Summary ---
Author Organization [facility] Address [address] [place] [address] Care Team Providers Care Wheel Lacer And Truer Name Role Phone Unavailable Primary Care Provider Unavailabl e Encounter Details Date Type Department Care Team (Late st Contact Info) Description 01/01/2024 Lab Requisition [facility] - DermPath Lab [address] [place] [id number] Corinna Rutledge MD [address] [place] [address] [place] [phone] Basal cell carcinoma of skin of right [...] AM CDT) Case Report Dermatopathology Report Case: [id number] Authorizing Provider: Corinna Rutledge MD Collected: 01/01/2024 03:33 AM Ordering Location: [facility] - Received: 01/02/2024 02:27 PM [...] of a non-oriented ellipse of skin measuring [id number] mm. The margin is inked green. The [...] by the Dermatopathology Laboratory at [facility], directed by Dr. Mariam Lopez. These tests need not be, and therefore are not, approved by the [place] Food and Drug Administration. The tests are used for clinical purposes. Billing Codes Specimen Charges Stain Charges 96983 [id number] 1 1 1 1 32613 1 4 12:16 PM CDT DERMATOPATHOLOGY LABORATORY [...] PATHOLOGY/CYTOLOGY ORDERAB LES Final Result DERMATOPATHOLOGY LABORATORY [facility] - Department of Dermatology [facility] Medicine [address] [place] [address] [phone] documented in this encounter Visit Diagnoses Diagnosis Basal cell carcinoma of skin of right upper limb, including shoulder Basal cell carcinoma of skin of upper limb, including shoulder Neoplasm of uncertain behavior of skin documented in this encounter
--- OUTSIDE RECORDS SUMMARY | 2025-03-03 01:09 | XMS_ITS | Clinical Summary ---
Author Organization [facility] Address [address] [address] Care Team Providers Care Lead Python Developer Name Role Phone Unavailable Primary Care Provider Unavailabl e Source Comments [facility] [employer],non-owned Affiliates and Associated Physician Practices is amultiple site organization consisting of ambulatory clinics and hospital sitesin [place], [place], [place] and [place]. This disclosure is being madepursuant to the Care Everywhere program and may not contain all information available regarding this patient. Last updated 18.[facility] [employer] Social History Tobacco Use Types Packs/Day Years [...]
--- NOTE | 2025-03-03 07:12 | WPDHPUPDATE1 ---
History and Physical Update Update Date/Time: 03/03/25 07:12 History and Physical has been reviewed, including an updated exam of the patient. There are NO changes in the patient's condition. Risks, benefits, and alternatives have been discussed and questions answered. Patient agrees to proceed with procedure.
[2025-03-03] MEDS: ACETAMINOPHEN 500 MG TABLET 1000 MG PO (09:20)
[2025-03-03] MEDS: LACTATED RINGERS 1,000 ML 30 ML IV CONT ×2 (09:20→13:20)
[2025-03-03] MEDS: TRANEXAMIC ACID 1,000MG/ISO100 1,000 MG/100 ML BAG 200 MG IVPB (09:20)
--- NOTE | 2025-03-03 10:10 | P.PNAN_ITS ---
Anes - Initial Pre Proc Eval Procedure: Operation Date: 03/03/25 10:30 Proposed Procedures p Left Total Knee Arthroplasty - Samm Lynn MD Date/Time: 03/03/25 10:10 Surgeon: Samm Lynn MD Pre Op Diagnosis: OA left knee Patient Data Age: 64 Gender: M Height: 1.78 m Weight: 126.4 kg Last Vital Signs Temp 36.4 C 03/03/25 09:20 Pulse 62 03/03/25 09:20 Resp 14 03/03/25 09:20 BP 132/72 03/03/25 09:20 Pulse Ox 100 03/03/25 09:20 O2 Del Method Room Air 03/03/25 09:20 Allergies Allergy/AdvReac Type Severity Reaction Status Date / Time No Known Allergies Allergy Verified 03/03/25 10:09 Home Medications ?Medication ?Instructions ?Recorded ?Confirmed ?Type cholecalciferol (vitamin D3) 100 4,000 unit PO DAILY 09/08/19 02/25/25 History mcg (4,000 unit) capsule (Vitamin D3) multivitamin with minerals-folic 0.4 mg PO DAILY 09/08/19 02/25/25 History acid 0.4 mg tablet (Adult One Daily Multivitamin) amlodipine 5 mg tablet 5 mg PO DAILY 10/08/24 02/25/25 History apixaban 5 mg tablet (Eliquis) 5 mg PO BID 10/08/24 02/25/25 History atorvastatin 80 mg tablet 80 mg PO DAILY 10/08/24 02/25/25 History dapagliflozin propanediol 10 mg 10 mg PO DAILY 10/08/24 02/25/25 History tablet (Farxiga) finasteride 5 mg tablet 5 mg PO DAILY 10/08/24 02/25/25 History fluorouracil 5 % topical solution 1 applic topical BID PRN rash 10/08/24 02/25/25 History ketoconazole 2 % shampoo 1 applic topical 2XW 10/08/24 02/25/25 History metoprolol tartrate 50 mg tablet 50 mg PO Q12H 10/08/24 02/25/25 History acetaminophen 500 mg capsule 1,000 mg PO Q6H PRN pain 02/24/25 02/25/25 History aspirin 81 mg tablet,delayed 81 mg PO DAILY 02/24/25 02/25/25 History release (Adult Low Dose Aspirin) losartan 100 1 tablet PO QAM 02/24/25 02/25/25 History mg-hydrochlorothiazide 12.5 mg tablet vitamin B complex 1 cap PO DAILY 02/24/25 02/25/25 History chlorhexidine gluconate 4 % 1 applic topical ONCE #237 mL 02/26/25 Rx topical liquid (Hibiclens) Patient hx anesthesia problems: none Family hx anesthesia problems: none Results Review: All pre-operative results and documents have been reviewed as part of the pre- operative evaluation. PMFSH Past Medical History Medical History Poor eating habits Other fatigue BMI greater than 40 Pulmonary embolism Right knee DJD Left knee DJD Morbid obesity Hypertension Surgical History Surgical History History of shoulder replacement Family History Family History Unknown Arthritis Cancer Hypertension Hyperlipemia, mixed Social History Social History Social History: caffeine use Smoking status: Never smoker Alcohol intake: current Drinks per week: 1 Substance use: never Living arrangements: with family Additional living arrangements comments: Occupation/Education: retired Gender identity (if verbalized by the patient): Male Spiritual care concerns: No Anes - Eval Final PreProcedure Day of Procedure 03/03/25 10:10 Patient weight: morbidly obese Heart: regular rate and rhythm Lungs: clear to auscultation Airway: Mallampati scale class II Neurological: alert and oriented Last oral intake: >/= 8 hours ASA classification: III Emergent: no Anesthetic plan: proceed Anesthesia type and monitoring: general LMA and standard monitoring Results Review: All pre-operative results and documents have been reviewed as part of the pre- operative evaluation. Informed Consent: The patient's anesthetic plan and its attendant risks and benefits were discussed with the patient/family/POA. Questions were solicited and answers provided to the satisfaction of the patient/family/POA.
[2025-03-03] MEDS: ceFAZolin 3 GM/D5W 100 ML 100 ML IVPB (10:38)
[2025-03-03] MEDS: SODIUM CHLORIDE 0.9% IV 37.7 ML, MORPHINE SULFATE INJ (*CRX) 2 MG, ROPivacaine HCL 1% 2... INFILTRATE (11:14)
[2025-03-03] MEDS: TRANEXAMIC ACID 1,000 MG/10 ML AMPUL 1000 MG IV PUSH (12:30)
--- NOTE | 2025-03-03 13:18 | W.PM.PROC2 ---
Procedure Note - Detailed Date of Procedure 03/03/25 Pre-op Diagnosis OA left knee Post-op Diagnosis Same Procedure Performed L TKA Surgeon Samm Lynn MD Anesthesia General Description of Procedure THE LEFT KNEE WAS PREPPED AND DRAPED IN THE STERILE FASHION. THERE WAS A 20 DEGREE FLEXION CONTRACTURE. A MIDLINE SKIN INCISION WAS MADE. A MEDIAL PARAPATELLAR ARTHROTOMY WAS MADE. THE PATELLA WAS EVERTED. THERE WAS TRICOMPARTMENT DJD. AN INTRAMEDULLARY ROBIN WAS PLACED IN THE FEMUR. A DISTAL FEMORAL CUT WAS MADE IN 5 DEGREES OF VALGUS REMOVING APPROXIMATELY 10 MM OF BONE FROM THE DISTAL FEMUR. THE FEMUR WAS SIZED TO 6. A 6 FEMORAL CUTTING BLOCK WAS PLACED IN 3 DEGREES OF EXTERNAL ROTATION AND IN ALIGNMENT WITH FRANK'S LINE AND THE TRANSEPICONDYLAR AXIS. ANTERIOR POSTERIOR AND CHAMFER CUTS WERE MADE. THE CUTS WERE EXCELLENT. NEXT AN INTRAMEDULLARY CUTTING GUIDE WAS PLACED IN THE TIBIA. A TRANS TIBIAL CUT WAS MADE ALONG THE LONG AXIS OF THE TIBIA. APPROXIMATELY 8 MM OF BONE WAS REMOVED FROM THE HIGH SIDE OF THE TIBIA. THE TIBIA WAS THEN PLANED TO A SMOOTH SURFACE. POSTERIOR FEMORAL OSTEOPHYTES WERE REMOVED FROM THE FEMORAL CONDYLES. A 6 TIBIAL TRIAL WAS PLACED IN ALIGNMENT WITH THE 1/3 MEDIAL ASPECT OF THE TIBIAL TUBERCLE. THEN A 6 FEMORAL TRIAL COMPONENT WAS PLACED. BOTH HAD EXCELLENT FITS. EVENTUALLY A 9 MM CS POLYETHYLENE TRIAL COMPONENT WAS PLACED. THE KNEE WAS TAKEN THROUGH A RANGE OF MOTION. THE KNEE CAME OUT TO FULL EXTENSION. THERE WAS NO ABNORMAL TILT TO THE PATELLA. THERE WAS GOOD A/P AND VARUS/VALGUS STABILITY. THERE WAS NO EXCESSIVE ROLL BACK WITH FLEXION. THE TRIAL COMPONENTS WERE REMOVED. THEN A VIVIANA 6 FEMORAL COMPONENT AND 6 TIBIAL COMPONENT WITH A 9 CS POLYETHYLENE COMPONENT WERE PRESS FIT INTO PLACE. THE KNEE WAS TAKEN THROUGH A ROM AGAIN AND FOUND TO BE STABLE WITH NO PATELLA TILT NO EXCESSIVE ROLL BACK WITH FLEXION AND GOOD STABILITY WITH COMPLETE AND FULL EXTENSION. THE KNEE WAS IRRIGATED WITH STERILE BETADINE AND WATER FOR ABOUT 3 MINUTES. THE BLEEDERS WERE CAUTERIZED. THE ARTHROTOMY WAS REPAIRED WITH NUMBER 1 VICRYL AND 2 STRATAFIX. THE SUB CUTANEOUS LAYER WITH 2-0 VICRYL AND THE SKIN WITH FABRIZIO. THE WOUND WAS WASHED AND A STERILE DRESSING WAS APPLIED. PATIENT WAS EXTUBATED. Estimated Blood Loss 300 Pathology None sent Complications No immediate complications Condition Stable Disposition PACU
[2025-03-03] MEDS: fentaNYL CITRATE INJ (*CRX) 100 MCG/2 ML VIAL 25 MCG IV PUSH ×5 (13:25→13:45)
[2025-03-03] MEDS: SODIUM CHLORIDE 0.9% IV 1,000 ML 125 ML IV CONT (16:36)
[2025-03-03] MEDS: KETOROLAC 15 MG/ML VIAL (*BKC) IV PUSH ×2 (16:36→19:04)
[2025-03-03] MEDS: SENNA/DOCUSATE SODIUM TABLET 2 TAB PO (16:37)
[2025-03-03] MEDS: APIXABAN 5 MG TABLET PO (16:37)
[2025-03-03] MEDS: ceFAZolin 2 GM/D5W 50 ML 2 GM/50 ML BAG IVPB ×2 (16:38→21:27)
[2025-03-03] MEDS: FAMOTIDINE 20 MG TABLET PO (21:27)
[2025-03-03] MEDS: METOPROLOL TARTRATE 50 MG TAB PO (21:27)
[2025-03-04 00:19] VITALS: BP 123/78; PULSE 76; RESP 20; TEMP 36.8; O2SAT 97
[2025-03-04] MEDS: KETOROLAC 15 MG/ML VIAL (*BKC) IV PUSH ×3 (00:20→11:41)
[2025-03-04 04:19] VITALS: BP 130/79; PULSE 61; RESP 16; TEMP 36.8; O2SAT 96
[2025-03-04] MEDS: ceFAZolin 2 GM/D5W 50 ML 2 GM/50 ML BAG IVPB (05:51)
[2025-03-04 06:01] LABS: Basophils Percent Auto 0.3 % (0.2-1.2); Eosinophils Absolute Auto 0.4 K/mm3 (0-0.3); Hematocrit 39.6 % (42.0-52.0); Hemoglobin 12.6 g/dL (14.0-18.0); Immature Granulocyte Absolute 0.04 K/mm3 (0.00-0.031); Immature Granulocyte Percent A 0.4 % (0-0.5); Lymphocytes Absolute Auto 1.11 K/mm3 (0.9-3.2); Lymphocytes Percent Auto 12.3 % (18.3-44.2); Mean Corpuscular HGB Conc 31.8 g/dl (32-36); Mean Corpuscular Hemoglobin 28.7 pg (26-34); Mean Corpuscular Volume 90.2 fl (80-100); Mean Platelet Volume 9.8 fl (7.4-10.4); Monocytes Absolute Auto 0.8 K/mm3 (0.1-0.6); Monocytes Percent Auto 9.1 % (2.6-8.5); Neutrophils Absolute Auto 6.7 K/mm3 (1.3-6.7); Neutrophils Percent Auto 73.9 % (45.5-73.1); Platelet Count Result 172 k/mm3 (150-375); Red Blood Count 4.39 M/mm3 (4.6-6.20)
[2025-03-04 06:11] LABS: Anion Gap 6 mmol/L (4-12); Blood Urea Nitrogen 21 mg/dL (9-20); Calcium 8.3 mg/dL (8.4-10.2); Carbon Dioxide 25 mmol/L (22-30); Chloride 107 mmol/L (98-107); Estimated CRCL calculation 81 ml/min; Estimated Glomerular Filt Rate > 60; Glucose 116 mg/dL (65-110); Potassium 3.8 mmol/L (3.4-5.0); Sodium 138 mmol/L (137-145)
[2025-03-04 08:19] VITALS: BP 133/91; PULSE 73; RESP 18; TEMP 37.5; O2SAT 97
[2025-03-04 08:32] VITALS: PULSE 69
[2025-03-04] MEDS: EMPAGLIFLOZIN 10 MG TABLET BY MOUTH (08:32)
[2025-03-04] MEDS: polyethylene glycoL 3350 17 GM POWD.PACK PO (08:32)
[2025-03-04] MEDS: SENNA/DOCUSATE SODIUM TABLET 2 TAB PO (08:32)
[2025-03-04] MEDS: FAMOTIDINE 20 MG TABLET PO (08:32)
[2025-03-04] MEDS: FINASTERIDE 5 MG TABLET PO (08:32)
[2025-03-04] MEDS: ASPIRIN 81 MG ENTERIC TABLET PO (08:32)
[2025-03-04] MEDS: ATORVASTATIN 40 MG TABLET 80 MG PO (08:32)
[2025-03-04] MEDS: METOPROLOL TARTRATE 50 MG TAB PO (08:32)
[2025-03-04] MEDS: APIXABAN 5 MG TABLET PO (08:32)
[2025-03-04] MEDS: CHOLECALCIFEROL (VITAMIN D3) 25 MCG (1,000 UNITS) TABLET 100 MCG PO (08:32)
[2025-03-04] MEDS: amLODIPine BESYLATE 5 MG TABLET PO (08:34)
[2025-03-04] MEDS: LOSARTAN POTASSIUM 100 MG TABLET PO (08:34)
[2025-03-04] MEDS: hydroCHLOROthiazide 12.5 MG CAPSULE PO (08:43)
--- NOTE | 2025-03-04 09:10 | PM.PNORT ---
Progress Note: A&P Assessment and Plan (1) S/P total knee arthroplasty: Qualifiers: Laterality: left Qualified Code(s): Z96.652 - Presence of left artificial knee joint Code(s): Z96.659 - Presence of unspecified artificial knee joint Status: Acute Assessment and Plan: POD #1 : Left TKA Continue PT/OT. WBAT. Walker. HIGH FALL RISK. Continue pain control. Ice Knee. Protect skin. DVT prophylaxis with resumed Eliquis/Aspirin. SCDs. Incentive Spirometry Use reviewed. Monitor Dressing. Change prior to discharge. Bowel Regimen. Dispo: Home with Home Health pending progress with PT/OT Plan Reviewed history, exam, radiographs and current labs with attending MD and covering surgeon, Dr. Lynn, who agrees with current plan as indicated above. No further recommendations from Dr. Lynn at this time. Time Spent With Patient Time with patient: less than 15 minutes Subjective Subjective Date/Time Seen: 03/04/25 09:10 Post Op day: 1 Principal diagnosis: Left Knee DJD Interval history: POD #1: Left TKA Patient doing well. Slow progress with PT/OT. Pain well controlled. No new concerns overall. Review of Systems Review of Systems: All systems reviewed & are unremarkable except as noted in HPI and below Constitutional: Constitutional: Denies fever(s) and Denies headache(s) ENT: Denies headache(s) Cardiovascular: Cardiovascular: Denies chest pain, Denies diaphoresis, Denies palpitations and Denies dyspnea Respiratory: Respiratory: Denies dyspnea Gastrointestinal: Gastrointestinal: Denies abdominal pain, Denies constipation, Denies nausea and Denies vomiting Genitourinary: Genitourinary: Denies dysuria and Reports nocturia Musculoskeletal: Musculoskeletal: Reports arthralgias (Left Knee ), Reports joint swelling (Left Knee ) and Reports limited range of motion (ROM limited due to recent surgical intervention LEFT Knee ) Neurologic: Denies headache(s) Endocrine: Endocrine: Denies palpitations Exam Const: General: comfortable and no acute distress Resp: Effort & Inspection: normal respiratory effort Cardio: Rate: regular rate Rhythm: regular rhythm GI: GI Palp: Yes Soft to palpation, No Tenderness to palpation present (GI) and No Guarding due to palpation present (GI) Skin: General skin exam: wounds noted (see extremity assessment ) Wounds: wounds noted (see extremity assessment ) Neuro: Cognition (Neuro): normal cognition Other: NV intact aside from block. Moves toes. Sensation intact to light touch. +ankle dorsiflexion/plantarflexion. Extrem: Left lower extremity: normal to inspection, normal capillary refill, knee Details: tenderness (diffuse ) Location: of the patella, swelling (moderate consistent to recent surgery ), abnormal ROM (limited due to recent surgery ) Details: pain with active ROM and pain with passive ROM and ecchymosis (as expected with recent surgery. NO hematoma. ), lower leg (Negative Julian's Sign ), ankle (+ankle dorsiflexion/plantarflexion ) Details: normal to inspection, no edema and normal ROM; no tenderness and no swelling and foot Details: normal capillary refill, toes with normal ROM, vascular exam Details: dorsalis pedis pulse present and motor-sensory exam light-touch normal; no tenderness Other: Incision left TKA dressing c/d/i. No hematoma. No signs of infection. No wound dehiscence. Psych: Mental Status: mental status grossly normal Objective Data Vital Signs Vital Signs: Vital Signs - 24 hr 03/03/25 09:20 03/03/25 13:20 03/03/25 13:30 Temperature 36.4 C 36.7 C Pulse Rate 62 67 55 L Respiratory Rate 14 15 13 Blood Pressure 132/72 126/73 124/70 Pulse Oximetry 100 94 100 Oxygen Delivery Room Air Simple Face Mask Simple Face Mask Oxygen Flow Rate 8 8 03/03/25 13:45 03/03/25 14:00 03/03/25 14:15 Temperature Pulse Rate 51 L 55 L 56 L Respiratory Rate 11 L 16 10 L Blood Pressure 131/76 144/78 H 142/80 H Pulse Oximetry 97 100 97 Oxygen Delivery Simple Face Mask Room Air Room Air Oxygen Flow Rate 8 03/03/25 14:24 03/03/25 15:20 03/03/25 15:35 Temperature 36.3 C L 36.1 C L Pulse Rate 57 L 53 L 71 Respiratory Rate 15 14 14 Blood Pressure 136/79 124/60 139/77 Pulse Oximetry 96 95 95 Oxygen Delivery Room Air Oxygen Flow Rate 03/03/25 16:05 03/03/25 17:05 03/03/25 20:00 Temperature 36.1 C L 36.1 C L Pulse Rate 59 L 69 76 Respiratory Rate 14 14 20 Blood Pressure 149/79 H 127/80 Pulse Oximetry 97 98 97 Oxygen Delivery Room Air Oxygen Flow Rate 03/03/25 20:19 03/03/25 21:27 03/04/25 00:19 Temperature 36.8 C 36.8 C Pulse Rate 87 87 76 Respiratory Rate 20 20 Blood Pressure 130/89 123/78 Pulse Oximetry 98 97 Oxygen Delivery Oxygen Flow Rate 03/04/25 04:19 03/04/25 08:00 03/04/25 08:00 Temperature 36.8 C Pulse Rate 61 Respiratory Rate 16 Blood Pressure 130/79 Pulse Oximetry 96 Oxygen Delivery Room Air Room Air Oxygen Flow Rate 03/04/25 08:32 Temperature Pulse Rate 69 Respiratory Rate Blood Pressure Pulse Oximetry Oxygen Delivery Oxygen Flow Rate Intake/Output Intake/Output: Intake & Output 03/01/25 03/02/25 03/03/25 03/04/25 23:59 23:59 23:59 23:59 Intake Total 640 1600 Balance 640 1600 Meds/Results Medications: Active Medications Generic Name Dose Route Start Last Admin Trade Name Freq PRN Reason Stop Dose Admin Acetaminophen 500 mg 03/03/25 14:34 Acetaminophen 500 Mg Tablet PO Q6H PRN Pain Rated 1-3 Hydrocodone Bitart/Acetaminophen 1 tab 03/03/25 14:34 Hydrocodone/Acetaminophen (*Crx) 10-325 Mg Tablet PO Q4H PRN Pain Rated 7-10 Amlodipine Besylate 5 mg 03/04/25 09:00 03/04/25 08:34 Amlodipine Besylate 5 Mg Tablet PO 5 mg DAILY ELLIE Administration Apixaban 5 mg 03/03/25 17:00 03/04/25 08:32 Apixaban 5 Mg Tablet PO 5 mg BID ELLIE Administration Aspirin 81 mg 03/04/25 09:00 03/04/25 08:32 Aspirin 81 Mg Enteric Tablet PO 81 mg DAILY ELLIE Administration Atorvastatin Calcium 80 mg 03/04/25 09:00 03/04/25 08:32 Atorvastatin 40 Mg Tablet PO 80 mg DAILY ELLIE Administration Diazepam 5 mg 03/03/25 14:34 Diazepam (*Crx) 5 Mg Tablet PO Q8H PRN Spasms Diphenhydramine HCl 25 mg 03/03/25 14:34 Diphenhydramine Hcl Inj 50 Mg/Ml Vial IV PUSH Q6H PRN Itching Empagliflozin 10 mg 03/04/25 09:00 03/04/25 08:32 Empagliflozin 10 Mg Tablet BY MOUTH 10 mg DAILY ELLIE Administration Famotidine 20 mg 03/03/25 21:00 03/04/25 08:32 Famotidine 20 Mg Tablet PO 20 mg Q12HR ELLIE Administration Finasteride 5 mg 03/04/25 09:00 03/04/25 08:32 Finasteride 5 Mg Tablet PO 5 mg DAILY ELLIE Administration Hydrochlorothiazide 12.5 mg 03/04/25 09:00 03/04/25 08:43 Hydrochlorothiazide 12.5 Mg Capsule PO 12.5 mg DAILY ELLIE Administration Hydromorphone HCl 1 mg 03/03/25 14:34 Hydromorphone Hcl Inj (*Crx) 2 Mg/Ml Vial IV PUSH Q2H PRN Breakthrough Pain Rated 7-10 or NPO Hydromorphone HCl 0.5 mg 03/03/25 14:52 Hydromorphone Hcl Inj (*Crx) 2 Mg/Ml Vial IV PUSH Q2H PRN Breakthrough Pain Rated 4-6 or NPO Ibuprofen 800 mg in 200 mls @ 400 mls/hr 03/03/25 14:34 Caldolor 800 Mg/200 Ml IVPB Q6H PRN Breakthrough Pain Rated 1-3 or NPO Ketorolac Tromethamine 15 mg 03/03/25 14:34 03/04/25 05:51 Ketorolac 15 Mg/Ml Vial (*Bkc) IV PUSH 03/04/25 12:01 15 mg Q6HR ELLIE Administration Losartan Potassium 100 mg 03/04/25 09:00 03/04/25 08:34 Losartan Potassium 100 Mg Tablet PO 100 mg DAILY ELLIE Administration Metoprolol Tartrate 50 mg 03/03/25 21:00 03/04/25 08:32 Metoprolol Tartrate 50 Mg Tab PO 50 mg Q12HR ELLIE Administration Naloxone HCl 0.1 mg 03/03/25 14:34 Naloxone Hcl 0.4 Mg/Ml Vial IV PUSH Q2M PRN Opiate Reversal Ondansetron HCl 4 mg 03/03/25 14:34 Ondansetron Inj 4 Mg/2 Ml Vial IV PUSH Q4H PRN Nausea And Vomiting Oxycodone/Acetaminophen 1 tablet 03/03/25 14:34 Oxycodone/Acetaminophen (*Crx) 5-325 Mg Tablet PO Q4H PRN Pain Rated 4-6 Polyethylene Glycol 17 gm 03/04/25 09:00 03/04/25 08:32 Polyethylene Glycol 3350 17 Gm Powd.Pack PO 17 gm QAM ELLIE Administration Senna/Docusate Sodium 2 tab 03/03/25 17:00 03/04/25 08:32 Senna/Docusate Sodium Tablet PO 2 tab BID ELLIE Administration Vitamin D 100 mcg 03/04/25 09:00 03/04/25 08:32 Cholecalciferol (Vitamin D3) 25 Mcg (1,000 Units) Tablet PO 100 mcg DAILY ELLIE Administration Radiology Results: ITS Impressions Knee X-Ray 03/03/25 13:49 IMPRESSION: 1. Recent left total knee arthroplasty. Labs Labs: Laboratory Results - last 24 hr 03/04/25 05:30 WBC 9.0 RBC 4.39 L Hgb 12.6 L Hct 39.6 L MCV 90.2 MCH 28.7 MCHC 31.8 L RDW 14.0 Plt Count 172 MPV 9.8 Immature Gran % (Auto) 0.4 Neut % (Auto) 73.9 H Lymph % (Auto) 12.3 L [place] % (Auto) 9.1 H Eos % (Auto) 4.0 Baso % (Auto) 0.3 Lymph # (Auto) 1.11 [place] # (Auto) 0.8 H Eos # (Auto) 0.4 H Baso # (Auto) 0.0 Abs Immat Gran (auto) 0.04 H Absolute Neuts (auto) 6.7 Absolute Nucleated RBC 0.000 Nucleated RBC % 0.0 Sodium 138 Potassium 3.8 Chloride 107 Carbon Dioxide 25 Anion Gap 6 BUN 21 H Creatinine 1.06 Estim Creat Clear Calc 81 Estimated GFR > 60 Glucose 116 H Calcium 8.3 L Quality VTE Prophylaxis VTE prophylaxis: pharmacologic ordered
[2025-03-04 12:19] VITALS: BP 137/79; PULSE 66; RESP 18; TEMP 37.2; O2SAT 99
--- NOTE | 2025-03-04 13:39 | P.PNAN_ITS ---
Anes - Prog Note Post-Op Date/Time: 03/04/25 13:39 Cardiovascular status: normal Respiratory status: normal Airway patency: baseline Mental status: baseline Post-Op hydration status: normal Vital Signs: Last Vital Signs Temp 99.0 F 03/04/25 12:19 Pulse 66 03/04/25 12:19 Resp 18 03/04/25 12:19 BP 137/79 03/04/25 12:19 Pulse Ox 99 03/04/25 12:19 O2 Del Method Room Air 03/04/25 13:07 O2 Flow Rate 8 03/03/25 13:45 Pain Score (VAS): 0/10 I/O: Intake & Output 03/03/25 03/04/25 03/04/25 23:59 07:59 15:59 Intake Total 340 1600 480 Balance 340 1600 480 Laboratory Tests 03/04/25 05:30 03/04/25 05:30 03/04/25 05:30 WBC 9.0 RBC 4.39 L Hgb 12.6 L Hct 39.6 L MCV 90.2 MCH 28.7 MCHC 31.8 L RDW 14.0 Plt Count 172 MPV 9.8 Immature Gran % (Auto) 0.4 Neut % (Auto) 73.9 H Lymph % (Auto) 12.3 L [place] % (Auto) 9.1 H Eos % (Auto) 4.0 Baso % (Auto) 0.3 Lymph # (Auto) 1.11 [place] # (Auto) 0.8 H Eos # (Auto) 0.4 H Baso # (Auto) 0.0 Abs Immat Gran (auto) 0.04 H Absolute Neuts (auto) 6.7 Absolute Nucleated RBC 0.000 Nucleated RBC % 0.0 Sodium 138 Potassium 3.8 Chloride 107 Carbon Dioxide 25 Anion Gap 6 BUN 21 H Creatinine 1.06 Estim Creat Clear Calc 81 Estimated GFR > 60 Glucose 116 H Calcium 8.3 L Post-procedural complaints: none Patient Feedback: Patient satisfied with anesthetic care.
--- NOTE | 2025-03-04 14:43 | P.DS_ITS ---
DS: Admitting Diagnosis Discharge Date 03/04/2025 Admitting Diagnosis Left Knee DJD DS: Discharge Diagnosis Discharge Diagnosis (1) S/P total knee arthroplasty: Qualifiers: Laterality: left Qualified Code(s): Z96.652 - Presence of left artificial knee joint Code(s): Z96.659 - Presence of unspecified artificial knee joint Status: Acute Assessment and Plan: POD #1 : Left TKA Continue PT/OT. WBAT. Walker. HIGH FALL RISK. Continue pain control. Ice Knee. Protect skin. DVT prophylaxis with resumed Eliquis/Aspirin. SCDs. Incentive Spirometry Use reviewed. Monitor Dressing. Change prior to discharge. Bowel Regimen. Dispo: Home with Home Health pending progress with PT/OT Plan Reviewed history, exam, radiographs and current labs with attending MD and covering surgeon, Dr. Lynn, who agrees with current plan as indicated above. No further recommendations from Dr. Lynn at this time. DS: Summary Hospital Course Reason for hospitalization: Left TKA Hospital Course: 64 year old male admitted s/p Left TKA for postoperative medical management, pain control and mobilization with PT/OT. Patient progressed well with PT/OT. Pain and vitals remained stable throughout. The patient has been cleared to be discharged home with home health at this time. All discharge care instructions reviewed at depth. New medications reviewed. Follow up planned for 3 weeks in the outpatient orthopedic clinic with Dr. Lynn. Dr. Lynn in agreement with safe discharge at this time. Status at Discharge Functional status at discharge: uses cane/walker Overall status at discharge: patient is progressing back to baseline Time Spent with Patient Time attestation: Total time spent providing and/or coordinating discharge services: Time spent: Less than 30 minutes Exam Const: General: comfortable and no acute distress Resp: Effort & Inspection: normal respiratory effort Cardio: Rate: regular rate Rhythm: regular rhythm Skin: General skin exam: wounds noted (see extremity assessment ) Wounds: wounds noted (see extremity assessment ) Neuro: Cognition (Neuro): normal cognition Other: NV intact aside from block. Moves toes. Sensation intact to light touch. +ankle dorsiflexion/plantarflexion. Extrem: Left lower extremity: normal to inspection, normal capillary refill, knee Details: tenderness (diffuse ) Location: of the patella, swelling (moderate consistent to recent surgery ), abnormal ROM (limited due to recent surgery ) Details: pain with active ROM and pain with passive ROM and ecchymosis (as expected with recent surgery. NO hematoma. ), lower leg (Negative Julian's Sign ), ankle (+ankle dorsiflexion/plantarflexion ) Details: normal to inspection, no edema and normal ROM; no tenderness and no swelling and foot Details: normal capillary refill, toes with normal ROM, vascular exam Details: dorsalis pedis pulse present and motor-sensory exam light-touch normal; no tenderness Other: Incision left TKA dressing c/d/i. No hematoma. No signs of infection. No wound dehiscence. Psych: Mental Status: mental status grossly normal DS: Data Data Completed and Pending Labs on day of discharge: Labs from last 24 hours 03/04/25 05:30 WBC 9.0 RBC 4.39 L Hgb 12.6 L Hct 39.6 L MCV 90.2 MCH 28.7 MCHC 31.8 L RDW 14.0 Plt Count 172 MPV 9.8 Immature Gran % (Auto) 0.4 Neut % (Auto) 73.9 H Lymph % (Auto) 12.3 L Young % (Auto) 9.1 H Eos % (Auto) 4.0 Baso % (Auto) 0.3 Lymph # (Auto) 1.11 Young # (Auto) 0.8 H Eos # (Auto) 0.4 H Baso # (Auto) 0.0 Abs Immat Gran (auto) 0.04 H Absolute Neuts (auto) 6.7 Absolute Nucleated RBC 0.000 Nucleated RBC % 0.0 Sodium 138 Potassium 3.8 Chloride 107 Carbon Dioxide 25 Anion Gap 6 BUN 21 H Creatinine 1.06 Estim Creat Clear Calc 81 Estimated GFR > 60 Glucose 116 H Calcium 8.3 L Discharge Plan Discharge Patient Disposition: Home with Home Health Service Discharge Instructions: Post Op Total Knee Replacement Instructions Dr. Samm Lynn [phone] * Your dressing will be changed prior to your discharge. You will be sent home with one additional dressing to be changed on post op day 7 by the home health RN. Your fariba will be removed on the 14th day after surgery and steri- strips will be placed. Please practice good hand hygiene and do not touch your incision in order to prevent infection. * You may shower with your dressing but do not submerge in a bath tub. * Do not drive or operate machinery until you are released by Dr. Lynn. * Do not walk without a walker for any reason until you are released by Dr. Lynn. * Continue to use your ice machine. Please use a towel or pillow case to protect your skin before applying your ice machine. * Do NOT place a pillow under your knee. You may use a pillow from the calf down if needed. This will prevent a flexion contracture postoperatively. * CPM: You may begin use of your CPM machine at home if you have been given one pre-operatively. DO NOT USE WHILE YOU ARE SLEEPING. * ROMTech: If you were given a ROMTech Portable Connect System preoperatively, you are to begin use on the day you arrive home postoperatively. Our goal is for you to use the machine 5 times per day. The sessions are very short in the beginning and will progress as you progress. We are able to monitor your progress from afar as well as your pain and other reported symptoms. If you have difficulties with the machine, please call . NOTE: Please attempt to use the machine even when in pain as this will welding machine operator helper gas your therapy with very gentle motion. * Your first post op appointment was sent to you via mail preoperatively. If you have any questions or are unable to make your appointment, please contact our office for scheduling questions. * Your medications have been sent to your pharmacy. You have been sent home with pain medication. Please mushroom picker an over the counter stool softener to prevent constipation due to narcotic use. Please keep this in mind during your postoperative recovery. If you are not experiencing regular bowel movements, please contact our office for further instruction. * Please contact our office with any questions/concerns regarding your knee at [phone]. Care Coordination: Patient to have [facility] for PT/OT eval and treat, and detention. Their phone number is [phone] if you have any questions. They will contact you to schedule their first visit. Patient Instructions: Antibiotic Form, Apixaban (By mouth) Patient Language: Malawian Stand Alone Forms: General Discharge Information Follow-up/Referrals: Samm Lynn MD [Physician] - Keep Reg. Scheduled Appt. Discharge Medications: New oxycodone-acetaminophen 5-325 mg Tablet 1 tablet PO Q4H PRN (Reason: pain) Qty: 30 0RF Continued atorvastatin 80 mg tablet 80 mg PO DAILY finasteride 5 mg tablet 5 mg PO DAILY dapagliflozin propanediol [Farxiga] 10 mg tablet 10 mg PO DAILY Patient Comments: QAM metoprolol tartrate 50 mg tablet 50 mg PO Q12H Eliquis 5 mg tablet 5 mg PO BID amlodipine 5 mg tablet 5 mg PO DAILY Patient Comments: QAAM ketoconazole 2 % shampoo 1 applic topical 2XW fluorouracil 5 % solution 1 applic topical BID PRN (Reason: rash) multivit with min-folic acid [Adult One Daily Multivitamin] 0.4 mg Tablet 0.4 mg PO DAILY Vitamin D3 4,000 unit Capsule 4,000 unit PO DAILY aspirin [Adult Low Dose Aspirin] 81 mg tablet,delayed release (DR/EC) 81 mg PO DAILY losartan-hydrochlorothiazide 100-12.5 mg tablet 1 tablet PO QAM vitamin B complex Capsule 1 cap PO DAILY acetaminophen 500 mg capsule 1,000 mg PO Q6H PRN (Reason: pain) Quality VTE Prophylaxis VTE prophylaxis: pharmacologic ordered
== END 2025-03-04 15:20 | disposition home health service (06) ==
LOC: ANHSURGERY 08:25 → ANH3MEDSUR 14:35
PROVIDERS: PCP Family Medicine; Visit Provider Orthopaedic Surgery
PROC: (CPT 27447; principal; 2025-03-03 10:30)
DX: M17.12 Unilateral primary osteoarthritis, left knee (principal); M25.762 Osteophyte, left knee; I10 Essential (primary) hypertension; E66.01 Morbid (severe) obesity due to excess calories; Z68.39 Body mass index [BMI] 39.0-39.9, adult; Z79.01 Long term (current) use of anticoagulants; Z79.82 Long term (current) use of aspirin; Z79.84 Long term (current) use of oral hypoglycemic drugs; Z98.890 Other specified postprocedural states; Z86.711 Personal history of pulmonary embolism; Z80.9 Family history of malignant neoplasm, unspecified
CPT/HCPCS: 27447; 36415; 73560; 80048; 85025; 97110; 97116; 97161; 97165; 97530; A9270; C1776; J0171; J0690; J1885; J2003; J2250; J2270; J2405; J2704; J2795; J3010; J7030; J7120

== ENCOUNTER 2025-03-12 11:32 | Outpatient (CLI) | payer MEDICARE, SELFPAY ==
--- NOTE | ~2025-03-12 | US_ITS ---
LEFT LOWER EXTREMITY VENOUS ULTRASOUND Ordering provider: SANTIAGO Willoughby History: . M79.092 - Pain in left lower leg . Comparison: None. FINDINGS: --COMMON FEMORAL: Patent and free of thrombus. Normal compressibility, phasic flow and augmentation. --PROXIMAL SUPERFICIAL FEMORAL: Patent and free of thrombus. Normal compressibility, phasic flow and augmentation. --DISTAL SUPERFICIAL FEMORAL: Patent and free of thrombus. Normal compressibility, phasic flow and au gmentation. --POPLITEAL: Patent and free of thrombus. Normal compressibility, phasic flow and augmentation. --POSTERIOR TIBIAL: Patent and free of thrombus. Normal compressibility, phasic flow and augmentation . IMPRESSION: Negative left lower extremity venous US. No deep vein thrombosis. Reviewed, dictated and finalized at location A.
== END 2025-03-12 11:33 | disposition home or self-care (01) ==
PROVIDERS: PCP Family Medicine; Visit Provider Nurse Practitioner Family
DX: M79.662 Pain in left lower leg (principal)
CPT/HCPCS: 93971

== ENCOUNTER 2025-04-15 07:52 | Outpatient (CLI) | payer MEDICARE, SELFPAY ==
--- OUTSIDE RECORDS SUMMARY | 2025-04-15 07:59 | XMS_ITS | Referral Summary ---
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 SAMPLE CARRIER Gender Identity Male 09/19/2022 4:07 AM LABORATORY SAMPLE CARRIER Sexual Orientation Straight 09/19/2022 4: 07 AM LABORATORY SAMPLE CARRIER Last Filed Vital Signs Vital Sign Reading Time Taken Comments Blood Pressure 158/88 11/07/2022 8:44 AM LABORATORY SAMPLE CARRIER Pulse 97 11/07/2022 8:44 AM LABORATORY SAMPLE CARRIER Temperature 36.7 C (98.1 F) 11/07/2022 8:44 AM LABORATORY SAMPLE CARRIER Respiratory Rate 18 11/07/2022 8:44 AM LABORATORY SAMPLE CARRIER Oxygen Saturation 95% 11/07/2022 8:44 AM LABORATORY SAMPLE CARRIER Inhaled Oxygen Concentration - - Weight 137.4 kg (303 lb) 11/06/2022 6:44 PM LABORATORY SAMPLE CARRIER Height 180.3 cm (5' 11) 11/06/2022 6:44 PM LABORATORY SAMPLE CARRIER Body Mass Index 42.26 11/06/2022 6:44 PM LABORATORY SAMPLE CARRIER Plan of Treatment Not on file Medical Devices Implanted Type Area Engine Tester Device Identifier Shelf Expiration Date Model / Serial / Lot [employer] Simplex P Radiopaque Full Dose Cement Bone Sterile 6191-1-010 - Sn/A - [id number] Implanted:Qty: 1 on 11/06/2022 by Tommy Cody MD at [facility] Bone Cement Right: Shoulder [employer] 03/22/2025 6191-1-010 / N/A / [id number] [employer] [place] 3 Peg Monoblock Shoulder 5 Component Glenoid Sterile [id number] - Sn/A - [id number] Implanted:Qty: 1 on 11/06/2022 by Tommy Cody MD at [facility] Right: Shoulder [employer] [id number] 11/21/2027 [id number] / N/A / [id number] [employer] Humeral [place] Shoulder Sidus [id number] - Sn/A - [id number] Implanted:Qty: 1 on 11/06/2022 by Tommy Cody MD at [facility] Right: Shoulder [employer] [id number] 02/08/2032 [id number] / N/A / [id number] [employer] Sidus Od52 Mm H19 Mm Stem Free Shoulder Head Humeral Sterile Latex Free [id number] - [id number] Implanted:Qty: 1 on 11/06/2022 by Tommy Cody MD at [facility] Right: Shoulder [employer] [id number] 11/21/2027 [id number] / / [id number] Insurance T MEDICARE T MEDICARE [facility] Advance Directives For more information, please contact: [phone] * Full Code (Latest Code Status on File) Date Activated Date Inactivated Comments 11/06/2022 6:52 PM 11/07/2022 6:18 PM Care Teams Manager Helpdesk Relationship Specialty Start Date End Date Alexander Gaytan MD PCP - General 05/09/22
--- OUTSIDE RECORDS SUMMARY | 2025-04-15 07:59 | XMS_ITS | Clinical Summary ---
Author Organization [facility] Address [address] [place] [address] Care Team Providers Care Net Developer Contract Name Role Phone Unavailable Primary Care Provider Unavailabl e Source Comments [facility] [employer],non-owned Affiliates and Associated Physician Practices is amultiple site organization consisting of ambulatory clinics and hospital sitesin [place], [place], [place] and [place]. This disclosure is being madepursuant to the Care Everywhere program and may not contain all information available regarding this patient. Last updated 18.[facility] [employer] Social History Tobacco Use Types Packs/Day Years [...] season) 2024 DEPRESSION SCREENING 09/23/2024 INFLUENZA VACCINE (#1) 2025 Respiratory Syncytial Virus (RSV) Vaccine Pt: [...]
--- OUTSIDE RECORDS SUMMARY | 2025-04-15 07:59 | XMS_ITS | Encounter Summary ---
Author Organization [facility] Address [address] [place] [address] Care Team Providers Care Hot Tar Roofer Helper Name Role Phone Cecilia Jenkins MD Primary Care Provider [phone] Encounter Details Date Type Department Care Team (Late st Contact Info) Description 05/07/[address] [facility] It Application Administrator [address] [place] [address] Pranay Garrido MD [address] [facility]. [address] [place], [place] [id number] Social History Tobacco Use Types Packs/Day Years Used Date Smoking Tobacco: Never Smokeless Tobacco: Never Alcohol Use Standard Drinks/Week Comments Yes 1.7 (1 standard drink = 0.6 oz p ure alcohol) once every 2 weeks Sex and Gender Information Value Date Recorded Sex Assigned at Not on file Legal Sex Male 9:56 AM CDT Gender Identity Male 10/09/2021 3:39 PM GAUGE INSPECTOR Sexual Orientation Straight 10/09/2021 3: 39 PM GAUGE INSPECTOR COVID-19 Exposure Response Date Recorded In the [...] No Risk Indicated 05/08/2022 10:56 AM LIBORIOT Bea Clinton RN Active * Critz Suicide Severity Rating Scale (Screener/Recent Self-Report) Question Answer Date of Assessment Author Status 1. Wish to be (Past 1 Month) No 05/08/2022 10:56 AM LIBORIOT Bea Clinton RN Activ e 2. Non-Specific Active Suicidal Thoughts (Past 1 Month) No 05/08/2022 10:56 AM LIBORIOT Bea Clinton RN Activ e 6. Suicidal [...] Care Team (Late st Contact Info) Description 02/22/2026 10:15 AM CDT Office Visit [facility] [address] [place] [address] Danny Pavon MD [facility]. [facility] [address] [place] [address] documented as of this encounter Goals Goal Patient Goal Type Associated Problems Recent Progress Patient-Stated? Author Patient will return to prior living situation and remain independent in ADLs upon discharge from hospital [facility] Adenike Saleem RN documented as of this encounter Visit Diagnoses Not on filedocumented in this encounter Care Teams Hot Tar Roofer Helper Relationship Specialty Start Date End Date Cecilia Jenkins MD [address] [facility] [address] [place] [address] PCP - General FAMILY PRACTICE 04/23/22 documented as of this encounter
--- OUTSIDE RECORDS SUMMARY | 2025-04-15 07:59 | XMS_ITS | Encounter Summary ---
Author Organization [facility] Address [address] [facility] [place] [address] Care Team Providers Care Forensic Scientist Name Role Phone Unavailable Primary Care Provider Unavailabl e Encounter Details Date Type Department Care Team (Late st Contact Info) Description 01/01/2024 Lab Requisition [facility] - DermPath Lab [address] [place] [id number] Corinna Rutledge MD [address] [place] [address] [place] [id number] Basal cell carcinoma of skin of right [...] AM CDT) Case Report Dermatopathology Report Case: [id number] Authorizing Provider: Corinna Rutledge MD Collected: 01/01/2024 03:33 AM Ordering Location: [facility] - Received: 01/02/2024 02:27 PM [...] of a non-oriented ellipse of skin measuring 06i06y4 mm. The margin is inked green. The [...] characteristic determined by the Dermatopathology Laboratory at [facility], directed by Dr. Mariam Lopez. These tests need not be, and therefore are not, approved by the [place] Food and Drug Administration. The tests are used for clinical purposes. Billing Codes Specimen Charges Stain Charges 86071 [id number] 95322 1 1 1 1 35209 1 4 12:16 PM CDT DERMATOPATHOLOGY LABORATORY [...] PATHOLOGY/CYTOLOGY ORDERAB LES Final Result DERMATOPATHOLOGY LABORATORY [facility] - Department of Dermatology [facility] Medicine [address] [place] [address] [phone] documented in this encounter Visit Diagnoses Diagnosis Basal cell carcinoma of skin of right upper limb, including shoulder Basal cell carcinoma of skin of upper limb, including shoulder Neoplasm of uncertain behavior of skin documented in this encounter
--- OUTSIDE RECORDS SUMMARY | 2025-04-15 07:59 | XMS_ITS | Clinical Summary ---
Author Organization [facility] Address [address] [place] [address] Care Team Providers Care Brand Representative Name Role Phone Alexander Gaytan MD [...] on file Legal Sex Male 9:15 PM LAND CLASSIFIER Gender Identity Male 09/19/2022 4:07 AM LAND CLASSIFIER Sexual Orientation Straight 09/19/2022 4: 07 AM LAND CLASSIFIER Obstetrics History Last Filed Vital Signs Vital Sign Reading Time Taken Comments Blood Pressure 158/88 11/07/2022 8:44 AM LAND CLASSIFIER Pulse 97 11/07/2022 8:44 AM LAND CLASSIFIER Temperature 36.7 C (98.1 F) 11/07/2022 8:44 AM LAND CLASSIFIER Respiratory Rate 18 11/07/2022 8:44 AM LAND CLASSIFIER Oxygen Saturation 95% 11/07/2022 8:44 AM LAND CLASSIFIER Inhaled Oxygen Concentration - - Weight 137.4 kg (303 lb) 11/06/2022 6:44 PM LAND CLASSIFIER Height 180.3 cm (5' 11) 11/06/2022 6:44 PM LAND CLASSIFIER Body Mass Index 42.26 11/06/2022 6:44 PM LAND CLASSIFIER Plan of Treatment Health Maintenance Due Date [...] (2 of 2) 10/28/2024 09/02/2024 Influenza Vaccine (#1) 2025 07/25/2021, 2013 DTaP/Tdap/Td Vaccine (2 - Td or Tdap) 09/01/203406/2024 Medical Devices Implanted Type Area Activities Volunteer Device Identifier Shelf Expiration Date Model / Serial / Lot [employer] Simplex P Radiopaque Full Dose Cement Bone Sterile 6191-1-010 - Sn/A - [id number] Implanted:Qty: 1 on 11/06/2022 by Tommy Cody MD at [facility] Bone Cement Right: Shoulder [employer] 03/22/2025 6191-1-010 / N/A / [id number] [employer] [place] 3 Peg Monoblock Shoulder 5 Component Glenoid Sterile [id number] - Sn/A - [id number] Implanted:Qty: 1 on 11/06/2022 by Tommy Cody MD at [facility] Right: Shoulder [employer] [id number] 11/21/2027 [id number] / N/A / [id number] [employer] Humeral [place] Shoulder Sidus [id number] - Sn/A - [id number] Implanted:Qty: 1 on 11/06/2022 by Tommy Cody MD at [facility] Right: Shoulder [employer] [id number] 02/08/2032 [id number] / N/A / [id number] [employer] Sidus Od52 Mm H19 Mm Stem Free Shoulder Head Humeral Sterile Latex Free [id number] - [id number] Implanted:Qty: 1 on 11/06/2022 by Tommy Cody MD at [facility] Right: Shoulder [employer] [id number] 11/21/2027 [id number] / / [id number] Insurance T [facility] Advance Directives For more information, please contact: [phone] * Full Code (Latest Code Status on File) Date Activated Date Inactivated Comments 11/06/2022 6:52 PM 11/07/2022 6:18 PM Care Teams Brand Representative Relationship Specialty Start Date End Date Alexander Gaytan MD PCP - General 05/09/22
--- OUTSIDE RECORDS SUMMARY | 2025-04-15 07:59 | XMS_ITS | Clinical Summary ---
Author Organization [facility] Address [address], [facility] [address] [place] [address] Phone Care Team Providers Care Marketing Analytics Analyst Name Role Phone Provider, Unknown Primary Care Provider Unavaila Zach Wilson MD Unavailable [phone] Allergies No known active allergies Medications losartan-hydroc [...] Description 01/19/2025 Telephone [facility] [address] [address] Zach Edward MD canopy call/ [...] Sex Assigned at Male 08/18/2024 2:51 PM FOLDED TOWEL MACHINE OPERATOR Legal Sex Male 9:06 AM FOLDED TOWEL MACHINE OPERATOR Gender Identity Male 08/18/2024 2:51 PM FOLDED TOWEL MACHINE OPERATOR Sexual Orientation Straight 08/18/2024 2: 51 PM FOLDED TOWEL MACHINE OPERATOR Last Filed Vital Signs Vital Sign Reading Time Taken Comments Blood Pressure 150/96 11/05/2024 9:30 AM FOLDED TOWEL MACHINE OPERATOR Pulse 59 11/05/2024 9:30 AM FOLDED TOWEL MACHINE OPERATOR Temperature 36.7 C (98 F) 11/05/2024 9:30 AM FOLDED TOWEL MACHINE OPERATOR Respiratory Rate 18 11/05/2024 9:30 AM FOLDED TOWEL MACHINE OPERATOR Oxygen Saturation 99% 11/05/2024 9:30 AM FOLDED TOWEL MACHINE OPERATOR Inhaled Oxygen Concentration - - Weight 138.1 kg (304 lb 8 oz) 11/05/2024 9:30 AM FOLDED TOWEL MACHINE OPERATOR Height 180.3 cm (5' 11) 11/05/2024 9:30 AM FOLDED TOWEL MACHINE OPERATOR Body Mass Index 42.47 11/05/2024 9:30 AM FOLDED TOWEL MACHINE OPERATOR Plan of Treatment Upcoming Encounters Date Type Department Care Team (Late st Contact Info) Description 11/04/2025 9:30 AM FOLDED TOWEL MACHINE OPERATOR Office Visit [facility] [address] [address] Zach Edward MD [facility] [address] GARCIA [address] [place] [address] Health Maintenance Due Date Last Done Comments Hepatitis C Virus (HCV) Screening 1958 Cologuard 2003 Colonoscopy 2003 Colorectal Cancer Screening 2003 Immunochemical Fecal Occult Blood 2003 Respiratory Syncytial Virus (RSV) Immunization (Adult) (1 - Risk 60-74 years 1-dose series) 2018 SARS-COV-2 Immunization (7 - Pfizer risk season) 2024 06/07/2024, 07/17/2023, 07/13/2022, Additional history exists Influenza Immunization (#1) 05/24/202505/24, 07/16/2023, 07/13/2022, Additional history exists PSA Discussion Completed 07/26/2022 Pneumococcal Immunization (50+ years) Completed 10/23/2023 Pneumococcal Immunization Combined Discontinued 10/23/2023 DTaP/Tdap/Td Immunization Discontinued 09/01/2024 TdaP Immunization Completed [...] PSA 4.22(H) 0.00 - 4.00 ng/mL [facility] Comment: Johny Paramagnetic Particle Chemiluminescent Immunoassay Method Blood 07/26/2022 8:48 AM CDT Narrative [facility] - 07/26/2022 2:05 PM CDT Release to patient->Immediate Kris Gerber PAC CHEMISTRY ORDERABLES Final Result [facility] [address] [place] [address], from Last 3 Months or Most Recently Relevant to Health Maintenance Insurance MEDICARE C [employer] Care Teams Marketing Analytics Analyst Relationship Specialty Start Date End Date Provider, Unknown UNKNOWN PCP - General 11/27/21 Zach Edward MD [address] [place] [address] Consulting Physician Oncology 11/27/21
--- OUTSIDE RECORDS SUMMARY | 2025-04-15 07:59 | XMS_ITS | Clinical Summary ---
Author Organization [facility] Address [address] [place] [address] Care Team Providers Care Radio Time Buyer Name Role Phone Cecilia Jenkins MD Primary Care Provider [phone] Allergies No known active allergies Medications aspirin EC (ECOTRIN) 81 MG tablet Take 1 tablet (81 mg total) by mouth daily. Active Glucosamine 500 MG Cap Take 1 capsule by mouth daily. Active multi vitamin/mineral s (THERA-M ENHANCED) tablet Take 1 tablet by mouth daily. Active vitamin D3, cholecalciferol , 5000 UNITS [...] mouth once daily 90 tablet 3 Active B Complex Cap capsule Take 1 capsule by mouth daily. Active metoprolol tartrate (LOPRESSOR) 50 MG tablet Take 1 tablet by mouth twice daily 180 tablet 4 Active finasteride (PROSCAR) 5 MG tablet Take 1 tablet (5 mg total) by mouth daily. 5 Active atorvastatin (LIPITOR) 80 MG tablet Take 1 tablet (80 mg total) by mouth daily. 4 Active losartan-hydroC HLOROthiazide (HYZAAR) 100-12.5 MG tablet Take 1 tablet by mouth daily. Active Active Problems Problem Noted Date Diagnosed [...] 03/20/2022 Assessment & Plan (11/29/2022 1:30 PM CONSTRUCTION DIRECTOR): Continue anticoagulation. He will be on anticoagulation [...] 07/10/2021 Assessment & Plan (11/29/2022 1:29 PM CONSTRUCTION DIRECTOR): His blood pressure is elevated in the [...] Encounters Date Type Department Care Team Description 02/16/2025 11:00 AM CDT Office Visit [facility] [address] Danny Hussein MD Pollmann, Sydney M, APRN Atrial Fibrillation (Follow up) 02/16/2025 Travel from Last 3 Months Family History [...] CDT Gender Identity Male 10/09/2021 3:39 PM CONSTRUCTION DIRECTOR Sexual Orientation Straight 10/09/2021 3: 39 PM CONSTRUCTION DIRECTOR Last Filed Vital Signs Vital Sign Reading Time Taken Comments Blood Pressure 110/66 02/16/2025 10:57 AM CDT Pulse 64 02/16/2025 10:57 AM CDT Temperature 35.7 C (96.3 F) 11/26/2024 11:36 AM CONSTRUCTION DIRECTOR Respiratory Rate 24 04/20/2024 12:30 PM CDT Oxygen Saturation 98% 02/16/2025 10:57 AM CDT Inhaled Oxygen Concentration - - Weight 131.1 kg (289 lb) 02/16/2025 10:57 AM CDT Height 180.3 cm (5' 11) 02/16/2025 10:57 AM CDT Body Mass Index 40.31 02/16/2025 10:57 AM CDT Plan of Treatment Upcoming Encounters Date Type Department Care Team (Late st Contact Info) Description 02/22/2026 10:15 AM CDT Office Visit [facility] [address] [place], [place] [id number] Danny Hussein MD [facility]. [facility] [address] [place], [place] [id number] Health Maintenance Due Date Last Done Comments [...] Vaccine: 50+ Years Completed 10/23/2023 PHQ-2 (Physician [place]) Completed 11/26/2024 Meningococcal B Vaccine Aged Out [...] remain independent in ADLs upon discharge from [facility] Adenike Saleem RN Procedures Procedure Name Priority Date/Time Associated Diagnosis Comments ELECTROCARDIOGRAM (NON [facility]MARK ACQUIRED) Routine 02/16/2025 11:07 AM CDT Atrial fibrillation, unspecified type ([facility]) from Last 3 Months Results * ELECTROCARDIOGRAM (02/16/2025 11:07 AM CDT) 02/16/2025 11:0 7 AM CDT Narrative [facility] - 02/17/2025 4:58 PM CDT [facility] Test Date: 2025-02-16 Pat Name: NADINE TANNER Department: 112 Room: Gender: Male Tamper Operator: : 1960 Requested By: DANNY HUSSEIN Order Number: [id number] Reading MD: Lloyd Morel Measurements Intervals [place] Rate: 63 P: 85 TN: 184 QRS: -66 QRSD: 144 T: 24 QT: 403 QTc: 413 Interpretive Statements SINUS RHYTHM WITH OCCASIONAL SUPRAVENTRICULAR PREMATURE COMPLEXES RIGHT BUNDLE BRANCH BLOCK LEFT ANTERIOR FASCICULAR BLOCK Since prior tracing, PACs now present Procedure Note Lloyd Morel MD - 02/17/2025 [facility] Test Date: 2025-02-16 Pat Name: NADINE DUARTEANDREY Department: 112 Room: Gender: Male Tamper Operator: : 1960 Requested By: DANNY HUSSEIN Order Number: [id number] Reading MD: Lloyd Morel Measurements Intervals [place] Rate: 63 P: 85 TN: 184 QRS: -66 QRSD: 144 T: 24 QT: 403 QTc: 413 Interpretive Statements SINUS RHYTHM WITH OCCASIONAL SUPRAVENTRICULAR PREMATURE COMPLEXES RIGHT BUNDLE BRANCH BLOCK LEFT ANTERIOR FASCICULAR BLOCK Since prior tracing, PACs now present us Danny Hussein MD PROCEDURES-ORDERABLE [place] R[place] Final Result [facility] from Last 3 Months Insurance [employer] Advance Directives * Full Code [...] 3:45 PM 03/22/2022 4:28 PM Care Teams Radio Time Buyer Relationship Specialty Start Date End Date Cecilia Jenkins MD [address] [facility] [address] [place] [address] [phone] (Work) PCP - General FAMILY PRACTICE 04/23/22
--- OUTSIDE RECORDS SUMMARY | 2025-04-15 07:59 | XMS_ITS | Encounter Summary ---
Author Organization [facility] Address [address] [place] [address] Care Team Providers Care Cant Hooker Name Role Phone Unavailable Primary Care Provider Unavailabl e Encounter Details Date Type Department Care Team (Late st Contact Info) Description 04/01/2023 Lab Requisition [facility] DermPath Lab [address] [place] [id number] Ashley Pierre PA-C [address] [place] [address] Neoplasm of uncertain behavior of [...] AM CDT) Case Report Dermatopathology Report Case: [id number] Authorizing Provider: Ashley Pierre PA-C Collected: 04/01/2023 12:00 AM Ordering Location: [facility] Received: 04/02/2023 [...] characteristic determined by the Dermatopathology Laboratory at [facility], directed by Dr. Mariam Lopez. These tests need not be, and therefore are not, approved by the [place] Food and Drug Administration. The tests are used for clinical purposes. Billing Codes Specimen Charges Stain Charges 47420 1 3 10:15 AM CDT DERMATOPATHOLOGY LABORATORY Embedded Images 3 10:15 AM CDT DERMATOPATHOLOGY LABORATORY Pathology/Cytolog y TISSUE SPECIMEN FROM SKIN / Unknown 04/01/2023 04/02/2023 12:31 PM CDT Ashley Pierre PA-C LAB - PATHOLOGY/CYTOLOGY [facility] SCHWARTZ Final Result DERMATOPATHOLOGY LABORATORY [facility] - Department of Dermatology [address], [address] [phone] documented in this encounter Visit Diagnoses Diagnosis Neoplasm of uncertain behavior of skin documented in this encounter
--- OUTSIDE RECORDS SUMMARY | 2025-04-15 07:59 | XMS_ITS | Data Portability ---
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 Plan of Treatment Reminders Order Date Submit Date Provider Last Modified By Organization Details Last Modified Time Details Appointments ANY 15 2024 11:15A M Joy Bal MD Not available Not available Not available Lab HbA1c (hemog lobin A1c), blood 2023 024 [facility], [address], [place], [address], 09/02/2024 12:14:15 lipid panel, serum 2023 024 [facility], [address], [place], [address], 09/02/2024 12:14:12 BMP, serum or plasma 2023 024 [facility], [address], [place], [address], 09/02/2024 12:14:13 albumi n/crea tinine , mass ratio, urine 2023 024 [facility], [address], [place], [address], 09/02/2024 12:14:11 Referral orthop edic cinthiao n referr al 2023 024 SAÚL Lynn MD, [address] [facility] [address], [place], [address], 10/16/2024 15:17:59 Procedures None record ed. Surgeries None record ed. Imaging None record ed. Medication Orders losart an 100 mg-hyd rochlo rothia zide 12.5 mg tablet 2024 025 [facility], [address] [place], [address], 11/27/2024 11:54:43 Farxig a 10 mg tablet 2023 024 [facility], [address] [place], [address], 09/01/2024 09:52:15 Eliqui s 5 mg tablet 2023 024 [facility], [address] [place], [address], 09/01/2024 09:52:15 metopr olol tartra te 50 mg tablet 2023 024 [facility], [address] [place], [address], 09/01/2024 09:52:15 losart an 100 mg-hyd rochlo rothia zide 12.5 mg tablet 2023 024 [facility], [address] [place], [address], 09/01/2024 09:52:14 amlodi pine 5 mg tablet 2023 025 [facility] [address], [address] [place], [address], 03/11/2025 14:12:58 Trulic ity 1.5 mg/0.5 mL subcut aneous pen inject or 2022 023 [email or web address] [facility], [address] [place], [address], 10/23/2023 11:18:27 Patient TargetsNo targets recorded. Patient Instructions Encounter Date Encounter Id Patient Instructions Last Modified By Organization Details Last Modified Time 08/27/2023 [id number] I was present and available in the Family Medicine clinic to discuss this patient's care during the appointment. I agree with the resident's assessment and plan as documented. KGR [email or web address] Not available 08/28/2023 09:12:25 10/23/2023 [id number] I was present and available in the Family Medicine clinic to discuss the patient's care during the time of the appointment. I agree with the resident's assessment and plan as documented. Tommy Calzada Not available 10/24/2023 13:13:44 03/09/2024 [id number] I was present and available in the family medicine clinic to discuss the patient's care during the appointment and the case was discussed with me. I agree with the resident's assessment and plan as documented. HL [email or web address] Not available 03/09/2024 11:13:53 09/01/2024 [id number] I was present and available in the Family Medicine clinic to discuss this patient's care for the duration of the appointment. I agree with the resident's assessment and plan as documented with the following addendum: None. Dr. Adelfo Rosas MD, OB Attending Physician, [facility]. [email or web address] Not available 09/02/2024 19:10:38 11/27/2024 [id number] A healthy lifestyle: care instructions [email or web address] Not [...] arthritis of knees Referring Physician: Joy Bal, Livestock Rancher, Encounter Date: 09/01/2024 Results Created Date Observation Date Name Description Value Unit Range Abnormal Flag Note LastModifiedBy Organization Detail LastModifiedTime 08/27/2008/27/2023 BASIC METAB OLIC PANEL glucose 90 mg/dL 70-99 Not Available [facility] (Lab) [place], [address], 08/27/2023 12:37:16 08/27/2008/27/2023 BASIC METAB OLIC PANEL BUN 19 mg/dL 7-18 high Not Available [facility] (Lab) [place], [address], 08/27/2023 12:37:16 08/27/20 23 08/27/2023 BASIC METAB OLIC PANEL creatinine 1.06 mg/dL 0.7-1. 3 Not Available [facility] (Lab) [place], [address], 08/27/2023 12:37:16 08/27/20 23 08/27/2023 BASIC METAB OLIC PANEL sodium 141 mmol/ L 136-14 5 Not Available [facility] (Lab) [place], [address], 08/27/2023 12:37:16 08/27/20 23 08/27/2023 BASIC METAB OLIC PANEL potassium 4.0 mmol/ L 3.5-5. 1 Not Available [facility] (Lab) [place], [address], 08/27/2023 12:37:16 08/27/20 23 08/27/2023 BASIC METAB OLIC PANEL chloride 109 mmol/ L 100-10 8 high Not Available [facility] (Lab) [place], [address], 08/27/2023 12:37:16 08/27/20 23 08/27/2023 BASIC METAB OLIC PANEL total CO2 27.5 mmol/ L 21-32 Not Available [facility] (Lab) [place], [address], 08/27/2023 12:37:16 08/27/20 23 08/27/2023 BASIC METAB OLIC PANEL calcium 9.0 mg/dL 8.5-10 .1 Not Available [facility] (Lab) [place], [address], 08/27/2023 12:37:16 08/27/20 23 08/27/2023 BASIC METAB OLIC PANEL anion gap 4.5 mmol/ L 5-15 low Not Available [facility] (Lab) [place], [address], 08/27/2023 12:37:16 08/27/20 23 08/27/2023 BASIC METAB OLIC PANEL BUN creatinine ratio 17.9 6-26 Not Available [facility] (Lab) [place], [address], 08/27/2023 12:37:16 08/27/20 23 08/27/2023 BASIC METAB [...] latin g drug doses . Not Available [facility] (Lab) [address] [facility], [place], [address], 08/27/2023 12:37:16 08/27/20 23 08/27/2023 VITAM IN D, 25-OH TOTAL vitamin D, 25-oh total 35 NG/mL 30-100 INTER PRETA TION DEFIC IENT <20 INSUF FICIE NT 20-29 SUFFI CIENT 30-10 0 Not Available [facility] (Lab) [address] [facility], [place], [address], 08/27/2023 12:38:23 08/27/20 23 08/27/2023 MICRO ALB/C REAT RATIO creatinine, urine 93.1 mg/dL 39-259 Not Available [facility] (Lab) [address], [place], [address], 08/27/2023 13:12:27 08/27/20 23 08/27/2023 MICRO ALB/C REAT RATIO microalbumin , urine 55.7 mg/dL <2.0 high Not Available [facility] (Lab) [address] [facility], [place], [address], 08/27/2023 13:12:27 08/27/20 23 08/27/2023 MICRO ALB/C REAT RATIO malb/creat ratio 598.3 mg/g <30 high Not Available [facility] (Lab) [address] [facility], [place], [address], 08/27/2023 13:12:27 08/27/20 23 08/27/2023 TOTAL PROTE IN, URINE total protein, urine 67.0 mg/dL <10 high Not Available [facility] (Lab) [address], [place], [address], 08/27/2023 13:12:28 07/29/20 24 04/20/2024 BASIC METAB OLIC PANEL glucose 93 mg/dL 70-99 Not Available [facility] (Lab) [address] [place], [address], 04/20/2024 10:22:16 04/20/20 24 04/20/2024 BASIC METAB OLIC PANEL BUN 18 mg/dL 7-18 Not Available [facility] (Lab) [address] [facility], [place], [address], 04/20/2024 10:22:16 04/20/20 24 04/20/2024 BASIC METAB OLIC PANEL creatinine 1.14 mg/dL 0.7-1. 3 Not Available [facility] (Lab) [place], [address], 04/20/2024 10:22:16 04/20/20 24 04/20/2024 BASIC METAB OLIC PANEL sodium 142 mmol/ L 136-14 5 Not Available [facility] (Lab) [place], [address], 04/20/2024 10:22:16 04/20/20 24 04/20/2024 BASIC METAB OLIC PANEL potassium 3.9 mmol/ L 3.5-5. 1 Not Available [facility] (Lab) [address] [facility], [place], [address], 04/20/2024 10:22:16 04/20/20 24 04/20/2024 BASIC METAB OLIC PANEL chloride 111 mmol/ L 100-10 8 high Not Available [facility] (Lab) [place], [address], 04/20/2024 10:22:16 04/20/20 24 04/20/2024 BASIC METAB OLIC PANEL total CO2 26.7 mmol/ L 21-32 Not Available [facility] (Lab) [place], [address], 04/20/2024 10:22:16 04/20/20 24 04/20/2024 BASIC METAB OLIC PANEL calcium 8.8 mg/dL 8.5-10 .1 Not Available [facility] (Lab) [place], [address], 04/20/2024 10:22:16 04/20/20 24 04/20/2024 BASIC METAB OLIC PANEL anion gap 4.3 mmol/ L 5-15 low Not Available [facility] (Lab) [place], [address], 04/20/2024 10:22:16 04/20/20 24 04/20/2024 BASIC METAB OLIC PANEL BUN creatinine ratio 15.8 6-26 Not Available [facility] (Lab) [place], [address], 04/20/2024 10:22:16 04/20/20 24 04/20/2024 BASIC METAB [...] latin g drug doses . Not Available [facility] (Lab) [address], [place], [address], 04/20/2024 10:22:16 04/20/20 24 04/20/2024 CBC WITH DIFF WBC 5.98 x10'3 /uL 4.5-11 .0 Not Available [facility] (Lab) [address] [facility], [place], [address], 04/20/2024 10:31:14 04/20/20 24 04/20/2024 CBC WITH DIFF RBC 5.36 x10'6 /uL 4.70-6 .10 Not Available [facility] (Lab) [address] [facility], [place], [address], 04/20/2024 10:31:14 04/20/20 24 04/20/2024 CBC WITH DIFF hemoglobin 15.3 g/dL 14.0-1 8.0 Not Available [facility] (Lab) [address] [facility], [place], [address], 04/20/2024 10:31:14 04/20/20 24 04/20/2024 CBC WITH DIFF hematocrit 47.4 % 43.0-5 4.0 Not Available [facility] (Lab) [address] [facility], [place], [address], 04/20/2024 10:31:14 04/20/20 24 04/20/2024 CBC WITH DIFF MCV 88.4 fL 80.0-9 4.0 Not Available [facility] (Lab) [address] [facility], [place], [address], 04/20/2024 10:31:14 04/20/20 24 04/20/2024 CBC WITH DIFF MCH 28.5 pg 27.0-3 1.0 Not Available [facility] (Lab) [address] [facility], [place], [address], 04/20/2024 10:31:14 04/20/20 24 04/20/2024 CBC WITH DIFF MCHC 32.3 g/dL 32.0-3 6.0 Not Available [facility] (Lab) [address], [place], [address], 04/20/2024 10:31:14 04/20/20 24 04/20/2024 CBC WITH DIFF RDW 13.3 % 11.5-1 4.5 Not Available [facility] (Lab) [address], [place], [address], 04/20/2024 10:31:14 04/20/20 24 04/20/2024 CBC WITH DIFF platelet count 235 x10'3 /uL 130-40 0 Not Available [facility] (Lab) [address], [place], [address], 04/20/2024 10:31:14 04/20/20 24 04/20/2024 CBC WITH DIFF MPV 10.0 fL 9.3-12 .2 Not Available [facility] (Lab) [address], [place], [address], 04/20/2024 10:31:14 04/20/20 24 04/20/2024 CBC WITH DIFF diff type AUTOMA BERNY DIFFER ENTIAL Not Available [facility] (Lab) [address], [place], [address], 04/20/2024 10:31:14 04/20/20 24 04/20/2024 CBC WITH DIFF neutrophils 51.1 % Not Available [facility] (Lab) [address], [place], [address], 04/20/2024 10:31:14 04/20/20 24 04/20/2024 CBC WITH DIFF lymphocytes 37.1 % Not Available [facility] (Lab) [address], [place], [address], 04/20/2024 10:31:14 04/20/20 24 04/20/2024 CBC WITH DIFF monocytes 7.0 % Not Available [facility] (Lab) [place], [address], 04/20/2024 10:31:14 04/20/20 24 04/20/2024 CBC WITH DIFF eosinophils 4.0 % Not Available [facility] (Lab) [address] [facility], [place], [address], 04/20/2024 10:31:14 04/20/20 24 04/20/2024 CBC WITH DIFF basophils 0.5 % Not Available [facility] (Lab) [address] [facility], [place], [address], 04/20/2024 10:31:14 04/20/20 24 04/20/2024 CBC WITH DIFF immature granulocytes 0.3 % Not Available [facility] (Lab) [address] [facility], [place], [address], 04/20/2024 10:31:14 04/20/20 24 04/20/2024 CBC WITH DIFF abs. neutrophils 3.05 x10'3 /uL 1.80-7 .70 Not Available [facility] (Lab) [address] [facility], [place], [address], 04/20/2024 10:31:14 04/20/20 24 04/20/2024 CBC WITH DIFF abs. lymphocytes 2.22 x10'3 /uL 1.00-4 .80 Not Available [facility] (Lab) [address] [facility], [place], [address], 04/20/2024 10:31:14 04/20/20 24 04/20/2024 CBC WITH DIFF abs. monocytes 0.42 x10'3 /uL 0.30-0 .82 Not Available [facility] (Lab) [place], [address], 04/20/2024 10:31:14 04/20/20 24 04/20/2024 CBC WITH DIFF abs. eosinophils 0.24 x10'3 /uL 0.04-0 .54 Not Available [facility] (Lab) [place], [address], 04/20/2024 10:31:14 04/20/20 24 04/20/2024 CBC WITH DIFF abs. basophils 0.03 x10'3 /uL 0.01-0 .08 Not Available [facility] (Lab) [address], [place], [address], 04/20/2024 10:31:14 04/20/20 24 04/20/2024 CBC WITH DIFF abs. immature grans 0.02 x10'3 /uL 0.00-0 .49 Not Available [facility] (Lab) [place], [address], 04/20/2024 10:31:14 04/20/20 24 04/20/2024 PROTI ME protime 11.7 sec 10.2-1 2.9 Not Available [facility] (Lab) [place], [address], 04/20/2024 10:35:07 04/20/20 24 04/20/2024 PROTI ME INR 1.0 Recom lida d INR Thera peuti c Goals : 2.0-3 .0 Routi ne Thera py 2.5-3 .5 Mecha nical Prost hetic Valve s (High Risk) Not Available [facility] (Lab) [place], [address], 04/20/2024 10:35:07 09/01/20 24 09/02/2024 ALBUM IN/CR EATIN INE RATIO ,URIN E creatinine, urine 154.9 mg/dL notest ab. Not Available [facility] ([facility]) [address] [facility], [place], [address], 09/02/2024 12:14:10 09/01/20 24 09/02/2024 ALBUM IN/CR EATIN INE RATIO ,URIN E albumin, urine 933.0 ug/mL notest ab. Resul ts confi rmed on dilut ion. Not Available [facility] ([facility]) [address] [place], [address], 09/02/2024 12:14:10 09/01/20 24 09/02/2024 ALBUM IN/CR EATIN INE RATIO ,URIN E alb/creat ratio 602 mg/g_ creat 0-29 above high normal Michelle l: 0 - 29 Moder ately incre ased: 30 - 300 Sever bryant incre ased: >300 Not Available [facility] ([facility]) [address] [place], [address], 09/02/2024 12:14:10 09/01/20 24 09/02/2024 LIPID PANEL cholesterol, total 238 mg/dL 100-19 9 above high normal Not Available [facility] ([facility]) [address] [place], [address], 09/02/2024 12:14:12 09/01/20 24 09/02/2024 LIPID PANEL triglyceride s 188 mg/dL 0-149 above high normal Not Available [facility] ([facility]) [address] [place], [address], 09/02/2024 12:14:12 09/01/20 24 09/02/2024 LIPID PANEL HDL cholesterol 41 mg/dL >39 Not Available [facility]) [address] [place], [address], 09/02/2024 12:14:12 09/01/20 24 09/02/2024 LIPID PANEL VLDL cholesterol herb 35 mg/dL 5-40 Not Available [facility] ([facility]) [address] [place], [address], 09/02/2024 12:14:12 09/01/20 24 09/02/2024 LIPID PANEL LDL chol calc ([facility]) 162 mg/dL 0-99 above high normal Not Available [facility] ([facility]) [address] [place], [address], 09/02/2024 12:14:12 09/01/20 24 09/02/2024 BASIC METAB OLIC PANEL (8) glucose 88 mg/dL 70-99 Not Available [facility] ([facility]) [address] [place], [address], 09/02/2024 12:14:13 09/01/20 24 09/02/2024 BASIC METAB OLIC PANEL (8) BUN 16 mg/dL 8-27 Not Available [facility] ([facility]) [address] [place], [address], 09/02/2024 12:14:13 09/01/20 24 09/02/2024 BASIC METAB OLIC PANEL (8) creatinine 1.08 mg/dL 0.76-1 .27 Not Available [facility] ([facility]) [address] [place], [address], 09/02/2024 12:14:13 09/01/20 24 09/02/2024 BASIC METAB OLIC PANEL (8) eGFR 76 mL/mi n/1.7 3 >59 Not Available [facility] ([facility]) [address] [place], [address], 09/02/2024 12:14:13 09/01/20 24 09/02/2024 BASIC METAB OLIC PANEL (8) BUN/creatini ne ratio 15 10-24 Not Available [facility] ([facility]) [address] [facility], [place], [address], 09/02/2024 12:14:13 09/01/20 24 09/02/2024 BASIC METAB OLIC PANEL (8) sodium 143 mmol/ L 134-14 4 Not Available [facility] ([facility]) [address] [facility], [place], [address], 09/02/2024 12:14:13 09/01/20 24 09/02/2024 BASIC METAB OLIC PANEL (8) potassium 4.5 mmol/ L 3.5-5. 2 Not Available [facility] ([facility]) [address] [facility], [place], [address], 09/02/2024 12:14:13 09/01/2009/02/2024 BASIC METAB OLIC PANEL (8) chloride 104 mmol/ L 96-106 Not Available [facility] ([facility]) [address] [facility], [place], [address], 09/02/2024 12:14:13 09/01/2009/02/2024 BASIC METAB OLIC PANEL (8) carbon dioxide, total 26 mmol/ L 20-29 Not Available [facility] ([facility]) [address] [place], [address], 09/02/2024 12:14:13 09/01/20 24 09/02/2024 BASIC METAB OLIC PANEL (8) calcium 9.5 mg/dL 8.6-10 .2 Not Available [facility] ([facility]) [address] [place], [address], 09/02/2024 12:14:13 09/01/20 24 09/02/2024 HEMOG LOBIN A1C hemoglobin A1C 5.9 % 4.8-5. 6 above high normal Predi abete s: 5.7 - 6.4 Diabe grace: >6.4 Glyce yariel contr ol for adult s with diabe grace: <7.0 Not Available [facility] ([facility]) [address] [facility], [place], [address], 09/02/2024 12:14:15 04/20/20 24 ECG 12-le ad [facility] [address] [place] [address] [facility] [place] [address] [facility] [address] [place], [place] Test Date: 04-20 Pat Name: NADINE Street Depart ment: 40 Patien t ID: [id number] Room: [facility] Gender : Male Techni jennifer: [facility] : [birth year] Reques berny By: GÉNESIS Enamorado Order Number : [id number] MD: Génesis enamorado Measur ements Interv als [place] Rate: 77 P: MT: 0 QRS: -62 QRSD: 149 T: -12 [...] ly signed by Génesis enamorado at 024 13:52: 01 CDT [facility] [address], [place], [address], 04/20/2024 19:48:10 04/20/20 24 ECG 12-le ad [facility] [place] [address] [facility] [place] [address] [facility] [address] [place], [place] Test Date: 04-20 Pat Name: NADINE Street Depart ment: 40 Patien t ID: [id number] Room: [facility] Gender : Male Techni jennifer: : [birth year] Reques berny By: GÉNESIS Enamorado Order Number : [id number] MD: Génesis enamorado Measur ements Interv als [place] Rate: 61 P: 80 MT: 190 QRS: -51 QRSD: 157 T: -7 [...] t Electr onical ly signed by Génesis enamroado at 024 13:54: 49 CDT [facility] [address] [facility], [place], [address], 04/20/2024 19:48:10 04/21/20 24 xa cardi overs ion dcc [facility] [place] [address] [facility] CARDIA C [facility]/EP LAB 901-60 x [phone] Cardio versio n Patien t Name: Nadine Concepcion Date of : 1959 Medica l Record : #[id number] Accoun t: #[id number] Physic dora: Génesis enamorado MD Date: [...] into normal sinus rhythm . MD SHAHNAZ Mckeon/sanhdya Interp reted: Transc ribed: [facility] [address], [place], [address], 04/23/2024 22:59:50 01/08/20 25 01/07/2025 US, doppl er, venou s No observ ation record ed. [address] [address], [place], [address], 01/13/2025 02:46:09 03/03/20 25 03/03/2025 XR, knee No observ ation record ed. [address], [place], [address], 03/04/2025 13:49:07 03/12/20 25 03/12/2025 US, doppl er, venou s No observ ation record ed. [address], [place], [address], 03/17/2025 18:35:11 03/25/20 25 03/25/2025 XR, knee, 3 view No observ ation record ed. [address], [place], [address], 03/29/2025 18:39:46 Result Notes None recorded. Problems Name Problem SNOMED Code Status Onset Date Resolution Date Notes Provider Name and Address Organization Details Recorded Time Essential hypertensi on 82900700 Active 2020 Estela victoria ID - SI 14:55:12 Basal cell carcinoma of skin 676227435 Active 2023 on left cheek & right forehead. stage 1. s/p complex repair/ Mohs surgery. surgeon Dermatolog ist Dr. Sarmad Guadarrama. Fu in 3 months (06/2024) Joy Bal MD Attn: [address], [place], [address], [facility] 4 13:02:33 Actinic keratosis 552699382 Active 2023 flluoroura cil 5% topical cream 40 gram. Joy Bal MD Attn: [address] [facility], [place], [address], [facility] 4 13:06:43 Seborrheic dermatitis 67860673 Active 2023 ketoconazo le shampoo Joy Bal MD Attn: [address] [facility], [place], [address], [facility] 4 13:07:06 Problem Notes Documentation Provider Name and Address Organization Details Recorded Time Progress Note : Patient Name: NADINE KIMBLE Date of : 1960 Med Rec #: [id number] Date of Service: 09/02/2023 Disch Date: Nephrology Office Note Nadine Kimble is an 63-year-old male. Chief Complaint: Chronic Kidney Disease HPI: HPI Mr. 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 he also has been on Trulicity 2 months ago and had around 20 lbs weight loss so far. he denied cough, fever, CP, SOB, dizziness, headache, abdominal pain, nausea, vomiting, diarrhea, hematuria. -no hx of kidney stones -Hypertension: average home BP readings around 115.75 in pm. today BP was 145/78 -NSAIDs; he used to take ibuprofen around 5-6 pills a day for 10 years; off since 2013 -volume; no edema. Medical History: Past Medical History: Diagnosis Date Chronic kidney disease, unspecified Hypertension Patient Active Problem List Diagnosis Albuminuria CKD (chronic kidney disease), symptom management only, stage 1 Primary hypertension Pulmonary embolism (CMS/HCC) Atrial fibrillation, unspecified type (HHS/HCC) (CMS/HCC) Elevated PSA Allergies: No Known Allergies Social History: Social History Tobacco Use Smoking status: Never Smokeless tobacco: Never Substance Use Topics Alcohol use: Yes Alcohol/week: 1.7 standard drinks of alcohol Types: 1 Shots of liquor per week Comment: once every 2 weeks Surgical History: Past Surgical History: Procedure Laterality Date TOTAL SHOULDER REPLACEMENT 2014 TOTAL SHOULDER REPLACEMENT Left Family History: Family History Problem Relation Name Age of Onset Cancer Mother Thyroid Disease Mother Cancer Father Osteoarthritis Brother Cancer Paternal Grandmother Parkinson's Disease Paternal Grandfather Current Medications: Current Outpatient Medications Medication Sig Dispense Refill amLODIPine (NORVASC) 2.5 MG tablet Take 1 tablet (2.5 mg total) by mouth daily. aspirin EC (ECOTRIN) 81 MG tablet Take 1 tablet (81 mg total) by mouth daily. ELIQUIS 5 MG tablet Take 1 tablet by mouth twice daily 180 tablet 0 FARXIGA 10 MG tablet Take 1 tablet by mouth once daily 90 tablet 0 fish oil (OMEGA-3 FATTY ACID) 1000 MG Cap capsule Take 1 capsule (1,000 mg total) by mouth daily. Glucosamine 500 MG Cap Take 1 capsule by mouth daily. ketoconazole (NIZORAL) 2 % cream APPLY TO AFFECTED AREAS ON THE FACE DAILY FOR 2 WEEKS AVOIDING EYES. THEN USE 2-3 TIMES PER WEEK ketoconazole (NIZORAL) 2 % shampoo Apply topically once a week. losartan (COZAAR) 50 MG tablet Take 1 tablet by mouth once daily 90 tablet 0 losartan-hydroCHLOROthiazi de (HYZAAR) 50-12.5 MG tablet Take 1 tablet by mouth daily. 30 tablet 3 metoprolol tartrate (LOPRESSOR) 50 MG tablet Take 1 tablet (50 mg total) by mouth 2 (two) times daily. 60 tablet 5 multi vitamin/minerals (THERA-M ENHANCED) tablet Take 1 tablet by mouth daily. TRULICITY 1.5 MG/0.5ML injection INJECT 1/2 (ONE-HALF) ML SUBCUTANEOUSLY ONCE A WEEK DIRECTED FOR 28 DAYS vitamin D3, cholecalciferol, 5000 UNITS capsule Take 1 capsule (5,000 Units total) by mouth daily. acetaminophen (TYLENOL) 500 MG tablet Take 1 tablet (500 mg total) by mouth every 4 (four) hours as needed. No current facility-administered medications for this visit. Review of Systems: ROS -General: Negative for fever, chills, malaise, or fatigue. -Eyes: Negative for eye pain, eye redness, eye discharge or itchiness. -Cardiovascular: Negative for chest pain, lower Ext. edema or lightheadedness. -Respiratory: Negative for shortness of breath,, cough, or hemoptysis. -Gastrointestinal: Negative for abdominal pain, Nausea, vomiting, diarrhea, constipation, hematemesis, or hematochezia. -Genitourinary: Negative for dysuria, frequency, urgency, nocturia, polyuria, or hematuria. -Musculoskeletal: Negative for joint pain, muscle aches, back pain, joint swelling or stiffness. -Neurological: Negative for headache, confusion, dizziness, numbness, weakness -Hematologic: Negative for jaundice, easy bleeding Vitals: Filed Vitals: 09/02/23 1101 BP: (!) 145/87 Pulse: 71 Temp: 97.7 degreeF (36.5 degreeC) SpO2: 97% Weight: 133.8 kg (295 lb) Height: 1.803 m (5' 11) Physical Exam: Physical Exam -GENERAL: No acute distress, breathing comfortably on room air. -EYES: Extraocular movements intact -LUNG: Clear to auscultation bilaterally, No wheezes, No crackles -CVS: Regular rate rhythm, S1 and S2 normal -ABDOMEN: Soft, nondistended, Nontender -Musculoskeletal / EXT: trace legs edema. -NEURO: Alert, awake, oriented x3, No gross neuro deficit LABs SODIUM S/P/B Date Value Ref Range Status 08/27/2023 141 136 - 145 MMOL/L Final POTASSIUM S/P/B Date Value Ref Range Status 08/27/2023 4.0 3.5 - 5.1 MMOL/L Final CHLORIDE S/P/B Date Value Ref Range Status 08/27/2023 109 (H) 100 - 108 MMOL/L Final CO2 Date Value Ref Range Status 08/27/2023 27.5 21 - 32 MMOL/L Final ANION GAP Date Value Ref Range Status 08/27/2023 4.5 (L) 5 - 15 MMOL/L Final BUN Date Value Ref Range Status 08/27/2023 19 (H) 7 - 18 MG/DL Final CREATININE S/P/B Date Value Ref Range Status 08/27/2023 1.06 0.7 - 1.3 MG/DL Final BUN CREATININE RATIO Date Value Ref Range Status 08/27/2023 17.9 6 - 26 Final EGFR NON-AFR. AMER. Date Value Ref Range Status 11/20/2021 78 (L) >90 ML/MIN/1.73 M2 Final EGFR AFR. AMER. Date Value Ref Range Status 11/20/2021 >90 >90 ML/MIN/1.73 M2 Final Comment: NOTE: eGFR is not calculated for patients <18 years of age. This is an estimated GFR (CKD EPI) and should not be used for calculating drug doses. GLUCOSE Date Value Ref Range Status 08/27/2023 90 70 - 99 MG/DL Final CALCIUM S/P/B Date Value Ref Range Status 08/27/2023 9.0 8.5 - 10.1 MG/DL Final Invalid input(s): MG No results for input(s): WBC, RBC, HGB, HCT, MCV, MCH, MCHC, PLT, RDW, PERNEU, PERLYM in the last 168 hours. Assessment/Plan: 1. CKD (chronic kidney disease) stage 2, GFR 60-89 ml/min 2. Albuminuria BASIC METABOLIC PANEL ALBUMIN URINE RANDOM CREATININE URINE RANDOM 3. Primary hypertension 1)Chronic kidney disease / albuminuria on the base of HTN, A.fib, NSAIDs nephropathy, can't exclude FSGS from overweight -Labs 08/27/23 with Cr of 1.06-1.3-1.2-1-1 from 1 (06/13) K 4-4.4- 4.2-4.2-3.8-4.3 Hg 12.7 06/13 with Cr of 1 K 4.3 -bitD 35 (09/14) -UA 11/14: protein 300,no RBC or WBC urine albumin/Creatinine 0.59g (09/14)-1.04g (02/12)-0.97g (08/14)-2.44g (11/14)-1.4g (06/13) UPC 1.15g (08/14)-2.91g (12/12) on losartan, and farxiga. 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 -monitoring weight / BP readings and bring logs for next visit if possible. 2)HTN, A.fib on losartan / HCTZ, metoprolol. F/U in 1 year. labs for next visit cc to PCP: Dr. Estela Rae Thank you for allowing me to participate in the care of this patient. RYANNE DUARTE MD 09/02/2023 PCP: ALISON JENKINS MD Signed by: RYANNE DUARTE 09/02/2023 11:33 AM Alexander Gaytan MD Attn: Accounting,[address] [place], [address], [facility] 09/03/2023 10:11:05 Training Lead Consult Note : Patient Name: NADINE KIMBLE Date of : 1960 Med Rec #: [id number] Date of Service: 11/26/2024 Disch Date: Nephrology Office Note Nadine Kimble is an 64-year-old male. Chief Complaint: CKD Follow-up HPI: HPI Mr. 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 no new x. no cough, fever, CP, SOB, abdominal pain, nausea, vomiting, diarrhea, dizziness or headache. No hematuria -no hx of kidney stones -Hypertension: average home BP readings around 110s/70s in pm. today BP was 129/74 -NSAIDs; he used to take ibuprofen around 5-6 pills a day for 10 years; off since 2013 -volume; no edema. Medical History: Past Medical History: Diagnosis Date Chronic kidney disease, unspecified Hypertension Patient Active Problem List Diagnosis Albuminuria CKD (chronic kidney disease) stage 2, GFR 60-89 ml/min Primary hypertension Pulmonary embolism ([facility]/HCC HHS/HCC) Atrial fibrillation, unspecified type (CMS/HCC HHS/HCC) Elevated PSA Allergies: No Known Allergies Social History: Social History Tobacco Use Smoking status: Never Smokeless tobacco: Never Substance Use Topics Alcohol use: Yes Alcohol/week: 1.7 standard drinks of alcohol Types: 1 Shots of liquor per week Comment: once every 2 weeks Surgical History: Past Surgical History: Procedure Laterality Date TOTAL SHOULDER REPLACEMENT 2014 TOTAL SHOULDER REPLACEMENT Left Family History: Family History Problem Relation Name Age of Onset Cancer Mother Thyroid Disease Mother Cancer Father Osteoarthritis Brother Cancer Paternal Grandmother Parkinson's Disease Paternal Grandfather Current Medications: Current Outpatient Medications Medication Sig Dispense Refill amLODIPine (NORVASC) 2.5 MG tablet Take 1 tablet (2.5 mg total) by mouth daily. (Patient taking differently: Take 1 tablet (2.5 mg total) by mouth daily. Now taking mg daily) aspirin EC (ECOTRIN) 81 MG tablet Take 1 tablet (81 mg total) by mouth daily. atorvastatin (LIPITOR) 80 MG tablet Take 1 tablet (80 mg total) by mouth daily. B Complex Cap capsule Take 1 capsule by mouth daily. ELIQUIS 5 MG tablet Take 1 tablet by mouth twice daily 180 tablet 0 FARXIGA 10 MG tablet Take 1 tablet by mouth once daily 90 tablet 0 finasteride (PROSCAR) 5 MG tablet Take 1 tablet (5 mg total) by mouth daily. Glucosamine 500 MG Cap Take 1 capsule by mouth daily. ketoconazole (NIZORAL) 2 % cream ketoconazole (NIZORAL) 2 % shampoo Apply topically once a week. losartan (COZAAR) 50 MG tablet Take 1 tablet by mouth once daily 90 tablet 0 losartan-hydroCHLOROthiazi de (HYZAAR) 50-12.5 MG tablet Take 1 tablet by mouth daily. 30 tablet 3 metoprolol tartrate (LOPRESSOR) 50 MG tablet Take 1 tablet by mouth twice daily 180 tablet 0 multi vitamin/minerals (THERA-M ENHANCED) tablet Take 1 tablet by mouth daily. vitamin D3, cholecalciferol, 5000 UNITS capsule Take 1 capsule (5,000 Units total) by mouth daily. fish oil (OMEGA-3 FATTY ACID) 1000 MG Cap capsule Take 1 capsule (1,000 mg total) by mouth daily. No current facility-administered medications for this visit. Review of Systems: ROS -General: Negative for fever, chills, malaise, or fatigue. -Eyes: Negative for eye pain, eye redness, eye discharge or itchiness. -Cardiovascular: Negative for chest pain, or lightheadedness. -Respiratory: Negative for shortness of breath, cough, or hemoptysis. -Gastrointestinal: Negative for abdominal pain, Nausea, vomiting, diarrhea, constipation, hematemesis, or hematochezia. -Genitourinary: Negative for dysuria, frequency, nocturia, polyuria, or hematuria. -Neurological: Negative for headache, confusion, dizziness Vitals: Filed Vitals: 11/26/24 1136 BP: 129/74 Pulse: 65 Temp: 96.3 degreeF (35.7 degreeC) SpO2: 97% Weight: 134.3 kg (296 lb) Height: 1.803 m (5' 11) Physical Exam: Physical Exam -GENERAL: No acute distress, breathing comfortably on room air. -EYES: Extraocular movements intact -LUNG: Clear to auscultation bilaterally, No wheezes, No crackles -CVS: Regular rate rhythm, S1 and S2 normal, No murmurs, -Musculoskeletal / EXT: trace legs edema -NEURO: Alert, awake, oriented x3, No gross neuro deficit LABs SODIUM S/P/B Date Value Ref Range Status 04/20/2024 142 136 - 145 MMOL/L Final POTASSIUM S/P/B Date Value Ref Range Status 04/20/2024 3.9 3.5 - 5.1 MMOL/L Final CHLORIDE S/P/B Date Value Ref Range Status 04/20/2024 111 (H) 100 - 108 MMOL/L Final CO2 Date Value Ref Range Status 04/20/2024 26.7 21 - 32 MMOL/L Final ANION GAP Date Value Ref Range Status 04/20/2024 4.3 (L) 5 - 15 MMOL/L Final BUN Date Value Ref Range Status 04/20/2024 18 7 - 18 MG/DL Final CREATININE S/P/B Date Value Ref Range Status 04/20/2024 1.14 0.7 - 1.3 MG/DL Final BUN CREATININE RATIO Date Value Ref Range Status 04/20/2024 15.8 6 - 26 Final EGFR NON-AFR. AMER. Date Value Ref Range Status 11/20/2021 78 (L) >90 ML/MIN/1.73 M2 Final EGFR AFR. AMER. Date Value Ref Range Status 11/20/2021 >90 >90 ML/MIN/1.73 M2 Final Comment: NOTE: eGFR is not calculated for patients <18 years of age. This is an estimated GFR (CKD EPI) and should not be used for calculating drug doses. GLUCOSE Date Value Ref Range Status 04/20/2024 93 70 - 99 MG/DL Final CALCIUM S/P/B Date Value Ref Range Status 04/20/2024 8.8 8.5 - 10.1 MG/DL Final Assessment/Plan: 1. CKD (chronic kidney disease) stage 2, GFR 60-89 ml/min 2. Albuminuria 3. Primary hypertension 4. Atrial fibrillation, unspecified type ([facility]) 1)Chronic kidney disease / albuminuria on the base of HTN, A.fib, NSAIDs nephropathy, can't exclude FSGS from overweight -Labs 09/15 with Cr of 10.8-1.14-1.06-1.3-1.2-1-1 from 1 (06/13) K 4.5-3.9-4-4.4- 4.2-4.2-3.8-4.3 Hg 15.3-12.7 -VitD 35 (09/14) -UA 11/14: protein 300,no RBC or WBC urine albumin/Creatinine 0.6g (09/15)-0.59g (09/14)-1.04g (02/12)-0.97g (08/14)-2.44g (11/14)-1.4g (06/13) UPC 1.15g (08/14)-2.91g (12/12) on max dose losartan, and farxiga. 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 Signing off. Please call or refer back if needed cc to PCP: Dr. Jenkins Thank you for allowing me to participate in the care of this patient. RYANNE DUARTE MD 11/26/2024 PCP: ALISON JENKINS MD Signed by: RYANNE DUARTE 11/26/2024 0:05 PM Tommy Calzada MD Attn: Accounting,[address] [place], [address], [facility] 11/27/2024 12:35:44 Procedures Surgical History Date Name Laterality Status Provider Name and Address Organization Details Recorded Time 5 repair of shoulder completed Estela Jaquezi ID - [facility] 11/28/2020 14:54:57 Imaging Results None recorded. Procedure [...] TAKE 1 TABLET BY MOUTH ONCE DAILY 03/11 completed Not Available Not Available Not Available amoxicillin 500 mg tablet TAKE 4 [...] Available Not Available Eliquis 5 mg tablet Take 1 tablet by mouth twice daily 2024 active Not Available Not Available Not Avai lable Farxiga 10 mg tablet TAKE 1 TABLET [...] Pulse oximetry Heart rate Body temperature Systolic And Diastolic Provider Name and Address Organization Details Last Updated DateTime 180.34 cm 40.8 kg/m2 576760. 37 g 98 % 98 % 60 /min 98.5 [degF] 138/85 mm[Hg] Carolina Garcia MA [facility] 4 11:04:08 Date Recorded Body height Body mass index (BMI) Body weight Oxygen saturation Oxygen saturation in Arterial blood by Pulse oximetry Heart rate Body temperature Systolic And Diastolic Provider Name and Address Organization Details Last Updated DateTime 5 180.34 cm 40.8 kg/m2 123868. 72 g 98 % 98 % 63 /min 97.8 [degF] 136/86 mm[Hg] Carolina Garcia MA [facility] 5 09:02:09 Date Recorded Systolic And Diastolic Provider Name and Address Organization Details Last Updated DateTime 03/09/2024 106/77 mm[Hg] Haley Sidhu Attn: Accounting,[address] [place], [address], [facility] 03/09/2024 11:03:06 Date Recorded Body height Body mass index (BMI) Body weight Oxygen saturation Oxygen saturation in Arterial blood by Pulse oximetry Heart rate Systolic And Diastolic Provider Name and Address Organization Details Last Updated DateTime 4 180.34 cm 42 kg/m2 580020. 4 g 97 % 97 % 84 /min 144/85 mm[Hg] Tanesha Ariza MA [facility] 4 10:46:15 Date Recorded Systolic And Diastolic Provider Name and Address Organization Details Last Updated DateTime 08/27/2023 125/85 mm[Hg] Haley Sidhu Attn: Accounting,[address] [place], [address], [facility] 08/27/2023 11:14:47 Date Recorded Body height Body mass index (BMI) Body weight Heart rate Oxygen saturation Oxygen saturation in Arterial blood by Pulse oximetry Body temperature Systolic And Diastolic Provider Name and Address Organization Details Last Updated DateTime 3 180.34 cm 41.3 kg/m2 616213. 04 g 64 /min 97 % 97 % 97.3 [degF] 145/84 mm[Hg] Clarita Khan MA [facility] 3 10:53:29 Date Recorded Systolic And Diastolic Provider Name and Address Organization Details Last Updated DateTime 09/01/2024 142/85 mm[Hg] Joy Bal MD Attn: Accounting,[address] [facility], [place], [address], [place] [facility] 09/01/2024 09:24:53 Date Recorded Body height Body mass index (BMI) Body weight Oxygen saturation Oxygen saturation in Arterial blood by Pulse oximetry Heart rate Body temperature Systolic And Diastolic Provider Name and Address Organization Details Last Updated DateTime 4 180.34 cm 42.9 kg/m2 186748. 01 g 95 % 95 % 78 /min 97 [degF] 159/89 mm[Hg] Nuvia Aviles [place] [facility] 4 09:01:44 Social History Question Answer Notes LastModified by Organizat ion Details LastModified Time Tobacco Smoking Status Never Smoker Carlos AdamMINNIE null, [place] - [facility] 11/28/2020 14:39:01 What [...] completed Mike Cunningham MD Attn: Accounting,[address], [place], [address], [place] [facility] 07/16/2023 11:21:40 Pneumococcal conjugate PCV20, polysaccharide NGB397 conjugate, adjuvant, PF 4 completed Tommy Calzada MD Attn: Accounting,[address], [place], [address], [place] [facility] 10/24/2023 13:13:40 Tdap 4 completed Tanesha Ariza MA null, [place] [facility] 09/01/2024 10:26:32 Past Encounters Encounter ID Performer Location Encounter Start Date Encounter Closed Date Diagnosis/Indication Diagnosis SNOMED-CT Code Diagnosis ICD10 Code Diagnosis Note [id number] Alison Jenkins MD [place] [address] [address] 11/28/2020 14:22:41 11/29/2020 10:28:05 Adult health examination 140162865 Z00.00 - No acute concerns Obesity 500749553 E66.9 Chronic, improving- Pt has lost 100+ lbs over the last 2 years. On vegan diet, regularly exercising , reading weekly about how to improve his diet. Very knowledgab le and aware on how to reduce his weight. Diastasis recti 56838757 M62.08 Chronic, controlled - Asymptomat ic, if botherwsom e RTC Essential hypertension 56227215 I10 Chronic, uncontroll ed- Elevated BP in office, recommende d repeat measuremen t but pt left office prior to having it done.- At home measuremen ts 130-140/80 s- Continue losartan 50 mg-HCTZ 12.5 mg 1 1/2 tab QD- RTC if BP persistent ly elevated, pt documents at home. [id number] Carolina Moore MD [place] [address] [address] 05/30/2021 09:50:26 05/31/2021 09:06:34 Essential hypertension 19043896 I10 BP Goal: Less than 140/90BP Controlled [...] 6month(s) Pain of ri ght shoulder joint 6045376213 3269090 M25.511 Chronic, uncontroll ed- Per pt, hx of severe osteoarthr itis- Request records from previous ortho, send for repeat x rays- Refer to orthopedic - Tylenol PRN [id number] [facility] [address] [address] 01/15/2022 11:25:31 01/16/2022 15:54:17 Essential hypertension 80278705 I10 BP Goal: Less than 140/90BP Controlled [...] t next weekNext Visit: 1month(s) Kidney disease 56503222 N08 alb/cr ratio of 2400, follows w/ neprhoBone scan WNLPending DEZ, ds-DNA, total protein, and total CrNephro appointmen t next week [id number] MD Roldan Evangelista [address] [address] 04/05/2022 15:16:36 04/06/2022 14:45:25 Essential hypertension 70698340 I10 BP Goal: Less than 140/90BP Controlled [...] QD- Continue home BP monitoring Kidney disease 03992597 N08 alb/cr ratio of 2400, follows w/ alex he believes his appointmen t is the near future but does not know exactly when- will continue to follow with nephrology recommenda tions as chart review does not have nephrology consult. History of pulmonary embolus 438616863 Z86.711 Was recently hospitaliz ed for multiple [...] tions Atrial fibrillation 4943 6004 I48.91 [facility] Had appt on 04/05 Obesity 563785204 E66.9 patient is following a vegan diet [...] walking Screening for malignant neoplasm of colon 645884006 Z12.11 currently has no symptoms concerning for GI malignancy . no hematochez ia, no weight loss, no fever, no chills, no night sweats. Does not know family history. 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 Already sees ortho, will follow up with them to see about getting right shoulder replaced. Xray 05/2021 showed: severe glenohumer al osteoarthr itis and Early AC joint arthritis- will follow up with ortho he is already establishe d with Essential hypertension 76864024 I10 BP Goal: Less than 140/90BP Controlled : yesHealthy Weight: 5'11= 136-178 lbsDiscuss ed: Low sodium balanced diet, moderate exercise at least 3-4 times per week for an average of 40 minutes, limiting alcohol to 1 drink per day (F) or 2 drinks per day (M), and smoking cessation if currently smoking.Ne xt Visit: 6month(s) Paresthesi a of lower extremity 410947659 R20.2 Numbness and tingling of lower extremity limited to feet. Neuropathy vs electrolyt e imbalance. Does not have a1c that i could find on chart review. No trauma to the area. No signs of infection. -will check [id number], MG-check folate and B12 [id number] Madhuri tucker MD [place] [address] [address] 03/08/2023 11:26:57 03/23/2023 12:53:53 Screening for malignant neoplasm of colon 257792030 Z12.11 currently has no symptoms concerning for GI malignancy . no hematochez ia, no weight loss, no fever, no chills, no night sweats. Does not know family history. on chart review he had a colonoscop y in 2019 that was negative for any findings and was told to follow up in 10 years- next colon cancer screening due and 2028 Obesity 347478457 E66.9 patient is following a vegan diet [...] swimming, biking, monitor or walking Essential hypertension 79726269 I10 BP Goal: Less than 140/90BP Controlled [...] BP usually runs 120/80s Depression screening 171 318899 Z13.31 PHQ2 negative. [id number] Mike Cunningham MD [place] [address] [address] 07/16/2023 10:19:04 07/17/2023 10:06:18 Administration of influenza vaccine 63298505 Z23 Obesity 595629488 E66.9 patient is following a vegan diet [...] swimming, biking, monitor or walking Essential hypertension 86082070 I10 BP Goal: Less than 140/90BP Controlled [...] next few months Chronic ki dney disease 539610417 N18.9 Chronic, Improving. Sees nephro. Will optimize blood pressure today . [id number] Mike Cunningham MD [facility] [address] [facility] [address] [place] [address] 08/27/2023 10:47:20 08/28/2023 16:05:27 Obesity 922838786 E66.9 patient is following a vegan diet [...] monitor or walking-ti trate GLP Essential hypertension 97481310 I10 BP Goal: Less than 140/90BP Controlled [...] weight-eduardo e blood pressures have been 120's [id number] MD Roldan Evangelista [address] [facility] [address] [place] [address] 10/23/2023 10:49:28 10/25/2023 12:30:08 Active or passive immunization 129876096 Z23 Obesity 537431630 E66.9 patient is following a vegan diet [...] side effects, not interested in different agent [id number] Alison Jenkins MD [facility] [address] [facility] [address] [place] [address] 03/09/2024 10:20:08 03/12/2024 13:09:04 Essential hypertension 22348533 I10 BP Goal: Less than 140/90BP Controlled [...] and CCB-due for labs in august Obesity 063098826 E66.9 patient is following a vegan diet [...] agent Screening for malignant neoplasm of colon 225871138 Z12.11 currently has no symptoms concerning for GI malignancy . no hematochez ia, no weight loss, no fever, no chills, no night sweats. Does not know family history. on chart review he had a colonoscop y in 2018 that was negative for any findings and was told to follow up in 10 years- next colon cancer screening due and 2028 Atrial fibrillation 4942 6004 I48.91 Chronic. Sees cards, On BB. plans to go back for another ablation in the next few months [id number] ADELFO ROSAS MD [facility] [address] [facility] [address] [place] [address] 09/01/2024 08:49:18 09/04/2024 15:21:49 Essential hypertension 10485524 I10 Establishe dBP today 159/89, repeat 142/85BP [...] will order losartan 100- HCTZ 12.5 Obesity 174036941 E66.9 BMI 42.9 today. pt gained 6 Ibs since last visit in of using phentermin josé miguel lipid panel result, last A1C in 2021 was 5.5- will check A1C & Lipid panel Atrial fibrillation 4943 6004 I48.91 s/p direct cardiovers ion by Dr. Pavon on 04/20/2024 hx of cardiovers ion [id number] y on Eliquis and BB (metoprolo l Tartrate 50 mg BID)- has scheduled appt with Dr. Pavon Adult [facility] th examination 114550405 Z00.00 colonoscop y: due 2028Tdap: will get it todayCovid : 2022Flu: neumo coccal: 2023 Actinic keratosis 031733 007 L57.0 s/p derm visit on 07/06. will be followed up for melanoma in 3 months. Chronic ki dney disease 132109063 N18.9 PMHx of Hypertensi on since , albuminuri alast nephrology [place] [address] Duarte [facility] hospitalCu rrently on Farxiga and ARBs- next appt is in November- will check kidney function today Benign pro static hyperplasia [id number] N40.1 currently seeing urologist. hx of biopsy 6 years ago Bilateral arthritis of knees [id number] M13.861 pt saw ortho years ago. knee replacemen t was discussed but at that time due to pt's age wasn't recommende d. Pt is interested in getting replacemen t done vs getting injections .- will put in the ortho referral Active or passive immunization [id number] Z23 pt got his Tdap today [id number] Tommy Calzada MD [facility] [address] [facility] [address] [place] [address] 11/27/2024 08:49:45 12/02/2024 10:14:31 Essential hypertension [id number] I10 Establishe d, in goal range. BP in office today 136/86, on his home BP cuff it was 131/84. Normally takes at night BP at night, always below 120/80. Currently on vegan diet, low-fat - has been for past 6.5 years.BP Goal: Less than 140/90usua lly at home is 120-125/79 -80s/p increasing amlodipine and losartan last visit in AugustCu rrently on amlodipine 5 mg, Losartan 100-HCTZ [...] a BP log. Chronic ki dney disease [id number] N18.9 PMHx of Hypertensi on since , albuminuri aAl/cr on 08/2023 was 598Al/cr on 08/2024 was 602last nephrology visit 11/27/[address] Duarte - recommends no changes to medication , has been signed off as of 11/26/24Curr ently on Farxiga and ARBs - continue at this timeNo labs indicated at this time, will check at next appt in 6 months Adult heal th examination [id number] Z00.00 colonoscop y: due 2028Tdap: received 09/01/24 - due ovid: 2022Flu: neumo coccal: 2023 Atrial fibrillation [id number] I48.91 s/p direct cardiovers ion by Dr. Pavon on 04/20/2024 hx of cardiovers ion x5Xmypaeim y on Eliquis and BB (metoprolo l Tartrate 50 mg BID) Morbid obesity [id number] E66.01 was discussed with pt Health Concerns Section Related Observation LastModified by Organization Detai ls LastModified Time None Recorded Concern Status LastModified by Organization Details LastModified Time None Recorded Advance Directives Directive None Recorded Payers Insurance Date Sequence Insurance Name Policy Number Policy Dowd Covered Member ID Dowd Member ID Guarantor Name 04/11/2022 1 [employer] ([facility]) [id number] Nadine Kimble [id number] Nadine Kimble 03/08/2023 SLIDING FEE SCHEDULE - DISCOUNT Nadine Kimble 03/08/2023 2 *SELF PAY* Marie Kimble 07/15/2023 1 [employer] (POS II) [id number] Nadine Kimble [id number] Nadine Kimble 07/15/2023 1 [place] Nadine Kmible [id number] Nadine Kimble 07/15/2023 1 [employer] BET[place] - DOS ON OR AFTER 2020 (MEDICAID REPLACEMENT - HMO) Nadine Kimble [id number] Nadine Kimble 12/02/2024 1 [employer] (MEDICARE REPLACEMENT/ ADVANTAGE - PPO) [id number] Nadine Kimble [id number] Nadine Kimble Notes Date Note Type Note Provider Name and Address Organization Details Recorded Time 3 text/html ObesityReported by PatientHPIFor associated symptoms, patient reportschronic illness (ckd and htn)but reportsno depression. For co-morbidities, patient reportsoverweight/obese,o bstructive sleep symptoms, andmetabolic syndrome. For diagnosis summary, patient reportsdiagnosis: obesity. For context, patient reportsno inhaled steroidsandno oral steroids. For lifestyle changes, patient reportsmotivated to continue lifestyle changes,losing weight (13lbs), andexercising more. For nutrition, patient reportseats mostly healthy diet (vegan). For medication education, patient reportsunderstands potential side effects,understands administration, andunderstands role of diet as primary therapy. 62 yo w/hx PE, afib CKD, HTN, melanoma here weight loss follow after starting trulicity. Doing well no side effectes but did run out two weeks ago and didnt get to take it. Mike Cunningham MD Attn: Accounting,[address] [facility], [place], [address], [facility] 08/28/2023 09:12:30 4 text/html ObesityReported by PatientHPIFor associated symptoms, patient reportschronic illness (ckd and htn)but reportsno depression. For co-morbidities, patient reportsoverweight/obese,o bstructive sleep symptoms, andmetabolic syndrome. For diagnosis summary, patient reportsdiagnosis: obesity. For context, patient reportsno inhaled steroidsandno oral steroids. For lifestyle changes, patient reportsmotivated to continue lifestyle changesandexercising more. For nutrition, patient reportseats mostly healthy diet (vegan). 62 yo w/hx PE, afib CKD, HTN, melanoma here for f/u weight loss follow after starting trulicity. Stopped taking due to diarrhea and hasnt taken since. Still losing weight. exercises. No n/V, abdominal pain or GERD since stopping. No CP or SOB would like PNA shot sna shingle vaccine Tommy Calzada MD Attn: Accounting,[address] [facility], [place], [address], [facility] 10/24/2023 13:13:50 4 text/html Hypertension F/UReported by PatientHPIFor associated symptoms, patient reportsno dizziness,no lightheadedness,no chest pain,no shortness of breath,no palpitations, andno edema. For lifestyle, patient reportsregular exerciseandlimiting/avoid ing salt. For medications, patient reportstaking medications as directedandno side effects from medication. ObesityReported by PatientHPIFor associated symptoms, patient reportschronic illness (ckd and htn)but reportsno depression. For co-morbidities, patient reportsoverweight/obese,o bstructive sleep symptoms, andmetabolic syndrome. For diagnosis summary, patient reportsdiagnosis: obesity. For context, patient reportsno inhaled steroidsandno oral steroids. For lifestyle changes, patient reportsmotivated to continue lifestyle changes,losing weight (13lbs), andexercising more. For nutrition, patient reportseats mostly healthy diet (vegan). For medication education, patient reportsunderstands potential side effects,understands administration, andunderstands role of diet as primary therapy. 62 yo w/hx PE, afib CKD, HTN, melanoma here for check up Madhuri Schumacher MD Attn: Accounting,[address], [place], [address], [facility] 03/09/2024 11:13:57 4 text/html 64 y/o M with hx of a-fib, HTN, obesity presented to meet new pcp. ADELFO ROSAS MD Attn: Accounting,[address], [place], [address], [facility] 09/02/2024 19:11:07 5 text/html ROS as noted in the HPI 64 y/o M with hx of a-fib, HTN, obesity presented for HTN & CKD f/u visit. He was seen by see Dr. Duarte (Nephrology) yesterday - no changes to current [...] leg swelling, diarrhea/constipation Tommy Calzada MD Attn: Accounting,[address], [place], [address], [place] [facility] 11/30/2024 16:25:05
--- OUTSIDE RECORDS SUMMARY | 2025-04-15 07:59 | XMS_ITS | Encounter Summary ---
Author Organization [facility] Address [address] [facility] [place] [address] Care Team Providers Care Escrow Officer Name Role Phone Unavailable Primary Care Provider Unavailabl e Encounter Details Date Type Department Care Team (Late st Contact Info) Description 10/02/2023 Lab Requisition [facility] - DermPath Lab [address] [place] [phone] Sarmad Guadarrama MD [facility] DERMATOLOGY [address] [place] [phone] Neoplasm of uncertain behavior of skin [...] Diagnosis Comments DERMATOPATHOLOGY Routine 10/02/2023 3:33 AM SAFETY LEADER Neoplasm of uncertain behavior of skin documented in this encounter Results * DERMATOPATHOLOGY (10/02/2023 3:33 AM SAFETY LEADER) Case Report Dermatopathology Report Case: [id number] Authorizing Provider: Sarmad Guadarrama MD Collected: 10/02/2023 03:33 AM Ordering Location: [facility] DermPath Lab Received: 10/03/2023 12:46 PM Pathologist: Tiesha Soler MD Specimen: Skin, right forearm 12:58 PM SAFETY LEADER DERMATOPATHOLOGY LABORATORY Final Diagnosis Specimen A. SKIN, right forearm: BASAL CELL CARCINOMA, INFILTRATIVE PATTERN (C44.612) 12:58 PM [facility] DERMATOPATHOLOGY LABORATORY at [address] SAFETY LEADER Clinical History Basal Cell Carcinoma 12:58 PM [facility] DERMATOPATHOLOGY LABORATORY Gross Description Specimen A: Received is one formalin filled container labeled with the patient's name and designated right forearm. The specimen consists of a shave biopsy measuring 8x6x1 mm. Jar 0. 12:58 PM [facility] DERMATOPATHOLOGY LABORATORY Microscopic Description Specimen A. SKIN, right forearm: Within the dermis there are nodular aggregates of basaloid cells associated with fibromyxoid stroma and epithelial-stromal clefts. At the advancing margin of the neoplasm, there are smaller angulated nests that infiltrate the dermis. 12:58 PM [facility] DERMATOPATHOLOGY LABORATORY Disclaimer An external and internal positive and negative controls are appropriate for the histochemical, immunohistochemical and immunofluorescence stain(s) in this case (if any), except where stated explicitly. The performance characteristics of the stain(s) cited in this report were developed and its performance characteristic determined by the Dermatopathology Laboratory at [facility], directed by Dr. Mariam Lopez. These tests need not be, and therefore are not, approved by the [place] Food and Drug Administration. The tests are used for clinical purposes. Billing Codes Specimen Charges Stain Charges 32247 1 12:58 PM [facility] DERMATOPATHOLOGY LABORATORY Embedded Images 12:58 PM [facility] DERMATOPATHOLOGY LABORATORY Pathology/Cytolo gy TISSUE SPECIMEN FROM SKIN / Unknown 10/02/2023 3:33 AM SAFETY LEADER 10/03/2023 12:46 PM SAFETY LEADER us Sarmad Guadarrama MD LAB - PATHOLOGY/CYTOLOGY WESLY SCHWARTZ Final Result DERMATOPATHOLOGY LABORATORY [facility] - Department of Dermatology [address], [address] [phone] documented in this encounter Visit Diagnoses Diagnosis Neoplasm of uncertain behavior of skin documented in this encounter
== END 2025-04-15 07:53 | disposition home or self-care (01) ==
LOC: ANHSURGERY 07:55
PROVIDERS: PCP Family Medicine; Visit Provider Orthopaedic Surgery
DX: M17.11 Unilateral primary osteoarthritis, right knee (principal); Z01.812 Encounter for preprocedural laboratory examination
CPT/HCPCS: 36415; 86850; 86900; 86901

== ENCOUNTER 2025-04-28 01:56 | Day surgery (SDC) | payer MEDICARE, SELFPAY ==
[2025-04-15 08:08] VITALS: BMI 39.6
[2025-04-15 08:09] VITALS: BP 140/83; PULSE 70; RESP 16; TEMP 36.7; O2SAT 99
--- NOTE | 2025-04-15 08:28 | PC.NURSE ---
Addendum entered by Ivy Crowley RN 04/15/25 08:50: PATIENT STATES THAT HE HAS PAPERWORK FROM DR ROD'S OFFICE AT HOME, WILL CONFIRM ASPIRIN AND ELIQUIS HOLD WITH DOCTOR'S OFFICE IF HE HAS ANY QUESTIONS. Original Note: Report to the Outpatient Waiting Room, entrance under the green pavilion located off [facility], at time __8:30AM____ on date ___04/28/25___. Planned Procedure Time: ____10:30AM___.? Time changes happen often and if your time is changed the preop area will call you the afternoon before. - You and your visitor will be asked to self-screen and do not enter if you have any COVID symptoms. Please call surgeon if you need to reschedule. - A mask is optional within the hospital at this time. Patients may have clear liquids (water, carbonated beverages, clear teas, apple juice) until 3 hours prior to surgery (7:30AM) with a maximum of 20 ounces. - No food from midnight until time of surgery and no smoking, or chewing tobacco (or any form of nicotine). No chewing gum, candy or mints. Take only the following medications with a SIP of water on the morning of surgery: ___AMLODIPINE, METOPROLOL DO NOT STOP ANY OF YOUR OTHER PRESCRIPTION MEDICATIONS PRIOR TO SURGERY EXCEPT THE FOLLOWING Hold all vitamins and supplements for 3 days per anesthesiologist.- LAST DOSE 04/24/25 Medications to discontinue per physician ___HOLD ASPIRIN AND ELIQUIS PER DR ROD Date to take last dose Please no make-up, nail vietnamese, hairspray, perfume, deodorant, or body powder the day of surgery.? No jewelry (including any body piercings) or valuables the day of surgery, leave them at home.? Please take a shower or bath the night before, or the morning of, surgery with an antibacterial soap.? Wear comfortable, loose fitting clothing.? - Jewelry must be removed prior to entering the operating room.? Rings and piercings that are not removed may be cut off. - The hospital will not accept responsibility for valuables.? - Please leave all valuables, including medications, at home the day of surgery. If you are going home after surgery, a licensed garbage truck driver must drive you home.? - NO public transportation without another adult if you receive anesthesia. - We recommend that an adult stay with you for 24 hours following discharge. - We also recommend that you do not drive, make important decision, drink alcoholic beverages, or take any drugs that were not prescribed by your health care provider for at least 24 hours after your discharge time. Follow any additional instructions given to you from your surgeon. Telephone instructions given to ____PATIENT and asked if any additional questions and then verbalized understanding. Patient advised to call surgeon office or pre surgery nurse liaison [phone] if any additional questions.
[2025-04-28] VITALS (15 sets, daily range): BP systolic 116–131; BP diastolic 59–76; PULSE 61–88; RESP 12–20; TEMP 36.2–37.6; O2SAT 92–100; BMI 39.6
--- NOTE | ~2025-04-28 | XR_ITS ---
EXAMINATION: [id number] DATE: 04/28/2025 13:30 INDICATION: Postoperative evaluation following right total knee arthroplasty. TECHNIQUE: Anteroposterior and lateral views of the right knee were obtained. COMPARISON: 04/19/2025 FINDINGS: Interval placement of a right total knee arthroplasty without patellar resurfacing which appears well seated and in near anatomic alignment. No fractures identified. Expected postoperative subcutaneous and intra-articular gas. IMPRESSION: 1. Right total knee arthroplasty, negative for postoperative purposes. Reviewed, dictated and finalized at location A.
--- OUTSIDE RECORDS SUMMARY | 2025-04-28 02:13 | XMS_ITS | Clinical Summary ---
Author Organization [facility] Address [address] [place] [address] Care Team Providers Care Link Trainer Maintenance Worker Name Role Phone Alexander Gaytan MD Primary [...] on file Legal Sex Male 9:15 PM PAPER CUTTER OPERATOR Gender Identity Male 09/19/2022 4:07 AM PAPER CUTTER OPERATOR Sexual Orientation Straight 09/19/2022 4: 07 AM PAPER CUTTER OPERATOR Obstetrics History Last Filed Vital Signs Vital Sign Reading Time Taken Comments Blood Pressure 158/88 11/07/2022 8:44 AM PAPER CUTTER OPERATOR Pulse 97 11/07/2022 8:44 AM PAPER CUTTER OPERATOR Temperature 36.7 C (98.1 F) 11/07/2022 8:44 AM PAPER CUTTER OPERATOR Respiratory Rate 18 11/07/2022 8:44 AM PAPER CUTTER OPERATOR Oxygen Saturation 95% 11/07/2022 8:44 AM PAPER CUTTER OPERATOR Inhaled Oxygen Concentration - - Weight 137.4 kg (303 lb) 11/06/2022 6:44 PM PAPER CUTTER OPERATOR Height 180.3 cm (5' 11) 11/06/2022 6:44 PM PAPER CUTTER OPERATOR Body Mass Index 42.26 11/06/2022 6:44 PM PAPER CUTTER OPERATOR Plan of Treatment Health Maintenance Due Date [...] Tdap) 09/01/203406/2024 Medical Devices Implanted Type Area Front Maker Device Identifier Shelf Expiration Date Model / Serial / Lot [employer] Simplex P Radiopaque Full Dose Cement Bone Sterile 6191-1-010 - Sn/A - [id number] Implanted:Qty: 1 on 11/06/2022 by Tommy Cody MD at [facility] Bone Cement Right: Shoulder [employer] 03/22/2025 6191-1-010 / N/A / [id number] [employer] [place] 3 Peg Monoblock Shoulder 5 Component Glenoid Sterile [id number] - Sn/A - [id number] Implanted:Qty: 1 on 11/06/2022 by Tommy Cody MD at [facility] Right: Shoulder [employer] [id number] 11/21/2027 [id number] / N/A / [id number] [employer] Humeral Lamont Shoulder Sidus [id number] 0 [id number] - Sn/A - [id number] Implanted:Qty: 1 on 11/06/2022 by Tommy Cody MD at [facility] Right: Shoulder [employer] [id number] 02/08/2032 [id number] / N/A / [id number] [employer] Sidus Od52 Mm H19 Mm Stem Free Shoulder Head Humeral Sterile Latex Free [id number] - [id number] Implanted:Qty: 1 on 11/06/2022 by Tommy Cody MD at [facility] Right: Shoulder [employer] [id number] 11/21/2027 [id number] / / [id number] Insurance T [facility]IC[facility] Advance Directives For more information, please contact: [phone] * Full Code (Latest Code Status on File) Date Activated Date Inactivated Comments 11/06/2022 6:52 PM 11/07/2022 6:18 PM Care Teams Link Trainer Maintenance Worker Relationship Specialty Start Date End Date Alexander Gaytan MD PCP - General 05/09/22
--- OUTSIDE RECORDS SUMMARY | 2025-04-28 02:13 | XMS_ITS | Encounter Summary ---
Author Organization [facility] Address [address] [facility] [place] [address] Care Team Providers Care Aircraft Body Repairer Name Role Phone Unavailable Primary Care Provider Unavailabl e Encounter Details Date Type Department Care Team (Late st Contact Info) Description 01/01/2024 Lab Requisition [facility] - DermPath Lab [address] [place] [phone] Corinna Rutledge MD [address] [place] [address] [place] [phone] Basal cell carcinoma of skin of right [...] AM CDT) Case Report Dermatopathology Report Case: [id number] Authorizing Provider: Corinna Rutledge MD Collected: 01/01/2024 03:33 AM Ordering Location: [facility] - Received: 01/02/2024 02:27 PM [...] of a non-oriented ellipse of skin measuring 42m52o8 mm. The margin is inked green. The [...] characteristic determined by the Dermatopathology Laboratory at [facility], directed by Dr. Mariam Lopez. These tests need not be, and therefore are not, approved by the [place] Food and Drug Administration. The tests are used for clinical purposes. Billing Codes Specimen Charges Stain Charges 51769 74137 66896 65000 1 1 1 1 41971 1 4 12:16 PM CDT DERMATOPATHOLOGY LABORATORY [...] PATHOLOGY/CYTOLOGY ORDERAB LES Final Result DERMATOPATHOLOGY LABORATORY [facility] - Department of Dermatology [facility] Medicine [address] [place] [address] [phone] documented in this encounter Visit Diagnoses Diagnosis Basal cell carcinoma of skin of right upper limb, including shoulder Basal cell carcinoma of skin of upper limb, including shoulder Neoplasm of uncertain behavior of skin documented in this encounter
--- OUTSIDE RECORDS SUMMARY | 2025-04-28 02:13 | XMS_ITS | Clinical Summary ---
Author Organization [facility] Address [address], [facility] [address] [place] [address] Phone Care Team Providers Care Senior Clinical Research Associate Name Role Phone Provider, Unknown Primary Care Provider Unavaila Zach Wilson MD Unavailable [phone] Allergies No known active allergies Medications losartan-hydroc [...] (monoclonal gammopathy of unknown significa nce) 01/04/2022 Immunizations Immunization Administration Dates Next Due Influenza [...] Sex Assigned at Male 08/18/2024 2:51 PM PULL THROUGH HOOKER Legal Sex Male 9:06 AM PULL THROUGH HOOKER Gender Identity Male 08/18/2024 2:51 PM PULL THROUGH HOOKER Sexual Orientation Straight 08/18/2024 2: 51 PM PULL THROUGH HOOKER Last Filed Vital Signs Vital Sign Reading Time Taken Comments Blood Pressure 150/96 11/05/2024 9:30 AM PULL THROUGH HOOKER Pulse 59 11/05/2024 9:30 AM PULL THROUGH HOOKER Temperature 36.7 C (98 F) 11/05/2024 9:30 AM PULL THROUGH HOOKER Respiratory Rate 18 11/05/2024 9:30 AM PULL THROUGH HOOKER Oxygen Saturation 99% 11/05/2024 9:30 AM PULL THROUGH HOOKER Inhaled Oxygen Concentration - - Weight 138.1 kg (304 lb 8 oz) 11/05/2024 9:30 AM PULL THROUGH HOOKER Height 180.3 cm (5' 11) 11/05/2024 9:30 AM PULL THROUGH HOOKER Body Mass Index 42.47 11/05/2024 9:30 AM PULL THROUGH HOOKER Plan of Treatment Upcoming Encounters Date Type Department Care Team (Late st Contact Info) Description 11/04/2025 9:30 AM PULL THROUGH HOOKER Office Visit [facility] [address] [phone] Zach Edward MD [address] [place] [address] Health Maintenance Due Date Last Done Comments [...] PSA 4.22(H) 0.00 - 4.00 ng/mL [facility] Comment: Johny Paramagnetic Particle Chemiluminescent Immunoassay Method Blood 07/26/2022 8:48 AM CDT Narrative [facility] 07/26/2022 2:05 PM CDT Release to patient->Immediate us Kris Gerber PAC CHEMISTRY ORDERABLES Final Result [facility] [employer] [place] [address], from Last 3 Months or Most Recently Relevant to Health Maintenance Insurance MEDICARE C [employer]ETNA Care Teams Senior Clinical Research Associate Relationship Specialty Start Date End Date Provider, Unknown UNKNOWN PCP - General 11/27/21 Zach Edward MD [address] [place] [address] Consulting Physician Oncology 11/27/21
--- OUTSIDE RECORDS SUMMARY | 2025-04-28 02:13 | XMS_ITS | Encounter Summary ---
Author Organization [facility] Address [address] [place] [address] Care Team Providers Care Grain Receiver Name Role Phone Unavailable Primary Care Provider Unavailabl e Encounter Details Date Type Department Care Team (Late st Contact Info) Description 10/02/2023 Lab Requisition [facility] - DermPath Lab [address] [place] [phone] Sarmad Guadarrama MD [facility] DERMATOLOGY [address] [place] [phone] Neoplasm of uncertain behavior of skin [...] Diagnosis Comments DERMATOPATHOLOGY Routine 10/02/2023 3:33 AM BARREL MARKER Neoplasm of uncertain behavior of skin documented in this encounter Results * DERMATOPATHOLOGY (10/02/2023 3:33 AM BARREL MARKER) Case Report Dermatopathology Report Case: [id number] Authorizing Provider: Sarmad Guadarrama MD Collected: 10/02/2023 03:33 AM Ordering Location: [facility] DermPath Lab Received: 10/03/2023 12:46 PM Pathologist: Tiesha Soler MD Specimen: Skin, right forearm 12:58 PM BARREL MARKER DERMATOPATHOLOGY LABORATORY Final Diagnosis Specimen A. SKIN, right forearm: BASAL CELL CARCINOMA, INFILTRATIVE PATTERN (C44.612) 12:58 PM [facility] DERMATOPATHOLOGY LABORATORY at [address] BARREL MARKER Clinical History Basal Cell Carcinoma 12:58 PM [facility] DERMATOPATHOLOGY LABORATORY Gross Description Specimen A: Received is one formalin filled container labeled with the patient's name and designated right forearm. The specimen consists of a shave biopsy measuring 8x6x1 mm. Jar 0. 12:58 PM [facility] DERMATOPATHOLOGY LABORATORY Microscopic Description Specimen A. SKIN, right forearm: Within the dermis there are nodular aggregates of basaloid cells associated with fibromyxoid stroma and epithelial-stromal clefts. At the advancing margin of the neoplasm, there are smaller angulated nests that infiltrate the dermis. 12:58 PM [facility] DERMATOPATHOLOGY LABORATORY Disclaimer An external and internal positive and negative controls are appropriate for the histochemical, immunohistochemical and immunofluorescence stain(s) in this case (if any), except where stated explicitly. The performance characteristics of the stain(s) cited in this report were developed and its performance characteristic determined by the Dermatopathology Laboratory at [facility], directed by Dr. Mariam Lopez. These tests need not be, and therefore are not, approved by the [place] Food and Drug Administration. The tests are used for clinical purposes. Billing Codes Specimen Charges Stain Charges 14703 1 12:58 PM [facility] DERMATOPATHOLOGY LABORATORY Embedded Images 12:58 PM [facility] DERMATOPATHOLOGY LABORATORY Pathology/Cytolo gy TISSUE SPECIMEN FROM SKIN / Unknown 10/02/2023 3:33 AM BARREL MARKER 10/03/2023 12:46 PM BARREL MARKER us Sarmad Guadarrama MD LAB - PATHOLOGY/CYTOLOGY WESLY SCHWARTZ Final Result DERMATOPATHOLOGY LABORATORY [facility] - Department of Dermatology [address] [phone] documented in this encounter Visit Diagnoses Diagnosis Neoplasm of uncertain behavior of skin documented in this encounter
--- OUTSIDE RECORDS SUMMARY | 2025-04-28 02:13 | XMS_ITS | Referral Summary ---
Author Organization [facility] Address [address] [place] [address] Care Team Providers Care Lead Front End Developer Name Role Phone Alexander Gaytan MD Primary [...] on file Legal Sex Male 9:15 PM CUSTOMER ASSISTANT Gender Identity Male 09/19/2022 4:07 AM CUSTOMER ASSISTANT Sexual Orientation Straight 09/19/2022 4: 07 AM CUSTOMER ASSISTANT Last Filed Vital Signs Vital Sign Reading Time Taken Comments Blood Pressure 158/88 11/07/2022 8:44 AM CUSTOMER ASSISTANT Pulse 97 11/07/2022 8:44 AM CUSTOMER ASSISTANT Temperature 36.7 C (98.1 F) 11/07/2022 8:44 AM CUSTOMER ASSISTANT Respiratory Rate 18 11/07/2022 8:44 AM CUSTOMER ASSISTANT Oxygen Saturation 95% 11/07/2022 8:44 AM CUSTOMER ASSISTANT Inhaled Oxygen Concentration - - Weight 137.4 kg (303 lb) 11/06/2022 6:44 PM CUSTOMER ASSISTANT Height 180.3 cm (5' 11) 11/06/2022 6:44 PM CUSTOMER ASSISTANT Body Mass Index 42.26 11/06/2022 6:44 PM CUSTOMER ASSISTANT Plan of Treatment Not on file Medical Devices Implanted Type Area Tank Washer Device Identifier Shelf Expiration Date Model / Serial / Lot [employer] Simplex P Radiopaque Full Dose Cement Bone Sterile 6191-1-010 - Sn/A - [id number] Implanted:Qty: 1 on 11/06/2022 by Tommy Cody MD at [facility] Bone Cement Right: Shoulder [employer] 03/22/2025 6191-1-010 / N/A / [id number] [employer] [place] 3 Peg Monoblock Shoulder 5 Component Glenoid Sterile [id number] - Sn/A - [id number] Implanted:Qty: 1 on 11/06/2022 by Tommy Cody MD at [facility] Right: Shoulder [employer] [id number] 11/21/2027 [id number] / N/A / [id number] [employer] Humeral Dingle Shoulder Sidus [id number] - Sn/A - [id number] Implanted:Qty: 1 on 11/06/2022 by Tommy Cody MD at [facility] Right: Shoulder [employer] [id number] 02/08/2032 [id number] / N/A / [id number] [employer] Sidus Od52 Mm H19 Mm Stem Free Shoulder Head Humeral Sterile Latex Free [id number] - [id number] Implanted:Qty: 1 on 11/06/2022 by Tommy Cody MD at [facility] Right: Shoulder [employer] [id number] 11/21/2027 [id number] / / [id number] Insurance T MEDICARE T MEDICARE [facility] Advance Directives For more information, please contact: [phone] * Full Code (Latest Code Status on File) Date Activated Date Inactivated Comments 11/06/2022 6:52 PM 11/07/2022 6:18 PM Care Teams Lead Front End Developer Relationship Specialty Start Date End Date Alexander Gaytan MD PCP - General 05/09/22
--- OUTSIDE RECORDS SUMMARY | 2025-04-28 02:13 | XMS_ITS | Clinical Summary ---
Author Organization [facility] Address [address] [place] [address] Care Team Providers Care Brush Stainer Name Role Phone Unavailable Primary Care Provider Unavailabl e Source Comments [facility],non-owned Affiliates and Associated Physician Practices is amultiple site organization consisting of ambulatory clinics and hospital sitesin [place], [place], [place] and [place]. This disclosure is being madepursuant to the Care Everywhere program and may not contain all information available regarding this patient. Last updated 18.[facility] Social History Tobacco Use Types Packs/Day Years [...]
--- OUTSIDE RECORDS SUMMARY | 2025-04-28 02:13 | XMS_ITS | Clinical Summary ---
Author Organization [facility] Address [address] [place] [address] Care Team Providers Care Clipper Machine Name Role Phone Cecilia Jenkins MD Primary Care Provider +1- [phone] Allergies No known active allergies Medications aspirin [...] 03/20/2022 Assessment & Plan (11/29/2022 1:30 PM RESPITE PROVIDER): Continue anticoagulation. He will be on anticoagulation [...] 07/10/2021 Assessment & Plan (11/29/2022 1:29 PM RESPITE PROVIDER): His blood pressure is elevated in the [...] Description 02/16/2025 11:00 AM CDT Office Visit [facility] [address] Danny Hussein MD Pollmann, Sydney M, APRN [...] CDT Gender Identity Male 10/09/2021 3:39 PM RESPITE PROVIDER Sexual Orientation Straight 10/09/2021 3: 39 PM RESPITE PROVIDER Last Filed Vital Signs Vital Sign Reading Time Taken Comments Blood Pressure 110/66 02/16/2025 10:57 AM CDT Pulse 64 02/16/2025 10:57 AM CDT Temperature 35.7 C (96.3 F) 11/26/2024 11:36 AM RESPITE PROVIDER Respiratory Rate 24 04/20/2024 12:30 PM CDT [...] CDT Office Visit [facility] [place] [address] [place], [place] [id number] Danny Hussein MD [facility]. [facility] [address] [place], [place] [id number] Health Maintenance Due Date Last Done Comments [...] Vaccine: 50+ Years Completed 10/23/2023 PHQ-2 (Physician [place]) Completed 11/26/2024 Meningococcal B Vaccine Aged Out [...] remain independent in ADLs upon discharge from [facility] Adenike Saleem RN Procedures Procedure Name Priority Date/Time Associated Diagnosis Comments ELECTROCARDIOGRAM (NON MIDMARK ACQUIRED) Routine 02/16/2025 11:07 AM CDT Atrial fibrillation, unspecified type ([facility]) from Last 3 Months Results * ELECTROCARDIOGRAM (02/16/2025 11:07 AM CDT) 02/16/2025 11:0 7 AM CDT Narrative [facility] - 02/17/2025 4:58 PM CDT [facility] Test Date: 2025-02-16 Pat Name: NADINE TANNER Department: 112 Room: Gender: Male Furniture Rental Consultant: : 1960 Requested By: DANNY HUSSEIN Order Number: [id number] Reading MD: Lloyd Morel Measurements Intervals [place] Rate: 63 P: 85 ND: 184 QRS: -66 QRSD: 144 T: 24 QT: 403 QTc: 413 Interpretive Statements SINUS RHYTHM WITH OCCASIONAL SUPRAVENTRICULAR PREMATURE COMPLEXES RIGHT BUNDLE BRANCH BLOCK LEFT ANTERIOR FASCICULAR BLOCK Since prior tracing, PACs now present Procedure Note Lloyd Morel MD - 02/17/2025 [facility] Test Date: 2025-02-16 Pat Name: NADINE DUARTEANDREY Department: 112 Room: Gender: Male Furniture Rental Consultant: : 1960 Requested By: DANNY HUSSEIN Order Number: [id number] Reading MD: Lloyd Morel Measurements Intervals [place] Rate: 63 P: 85 ND: 184 QRS: -66 QRSD: 144 T: 24 [...] 3:45 PM 03/22/2022 4:28 PM Care Teams Clipper Machine Relationship Specialty Start Date End Date Cecilia Jenkins MD [address] [facility] [address] [place] [address] [phone] (Work) PCP - General FAMILY PRACTICE 04/23/22
--- OUTSIDE RECORDS SUMMARY | 2025-04-28 02:13 | XMS_ITS | Encounter Summary ---
Author Organization [facility] Address [address] [place] [id number] Care Team Providers Care Dry Cleaner Helper Name Role Phone Cecilia Jenkins MD Primary Care Provider +1- [phone] Encounter Details Date Type Department Care Team (Late st Contact Info) Description 05/07/2022 Hospital Orders Only [facility] Manager Client [address] [facility] [address] Pranay Garrido MD [facility]. 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 [facility] [address] [place] [address] documented as of this encounter Goals Goal Patient Goal Type Associated Problems Recent Progress Patient-Stated? Author Patient will return to prior living situation and remain independent in ADLs upon discharge from hospital [facility] Adenike Saleem RN documented as of this encounter Visit Diagnoses Not on filedocumented in this encounter Care Teams Dry Cleaner Helper Relationship Specialty Start Date End Date Cecilia Jenkins MD [address] [facility] [address] [place] [address] PCP - General FAMILY PRACTICE 04/23/22 documented as of this encounter
--- OUTSIDE RECORDS SUMMARY | 2025-04-28 02:13 | XMS_ITS | Encounter Summary ---
Author Organization [facility] Address [address] [facility] [place] [address] Care Team Providers Care Promotional Marketing Analyst Name Role Phone Unavailable Primary Care Provider Unavailabl e Encounter Details Date Type Department Care Team (Late st Contact Info) Description 04/01/2023 Lab Requisition [facility] DermPath Lab [address] [place] [id number] Ashley Pierre PA-C [address] [place] [address] Neoplasm of uncertain behavior of [...] AM CDT) Case Report Dermatopathology Report Case: [id number] Authorizing Provider: Ashley Pierre PA-C Collected: 04/01/2023 12:00 AM Ordering Location: [facility] Lab Received: 04/02/2023 12:31 PM Pathologist: [...] by the Dermatopathology Laboratory at [facility], directed by Dr. Mariam Lopez. These tests need not be, and therefore are not, approved by the [place] Food and Drug Administration. The tests are used for clinical purposes. Billing Codes Specimen Charges Stain Charges 38737 1 3 10:15 AM CDT DERMATOPATHOLOGY LABORATORY Embedded Images 3 10:15 AM CDT DERMATOPATHOLOGY LABORATORY Pathology/Cytolog y TISSUE SPECIMEN FROM SKIN / Unknown 04/01/2023 04/02/2023 12:31 PM CDT Ashley Pierre PA-C LAB - PATHOLOGY/CYTOLOGY WESLY SCHWARTZ Final Result DERMATOPATHOLOGY LABORATORY [facility] - Department of Dermatology [address], [address] [phone] documented in this encounter Visit Diagnoses Diagnosis Neoplasm of uncertain behavior of skin documented in this encounter
--- NOTE | 2025-04-28 07:20 | WPDHPUPDATE1 ---
History and Physical Update Update Date/Time: 04/28/25 07:20 History and Physical has been reviewed, including an updated exam of the patient. There are NO changes in the patient's condition. Risks, benefits, and alternatives have been discussed and questions answered. Patient agrees to proceed with procedure.
[2025-04-28] MEDS: ACETAMINOPHEN 500 MG TABLET 1000 MG PO (07:30)
[2025-04-28] MEDS: LACTATED RINGERS 1,000 ML 30 ML IV CONT ×2 (09:05→13:05)
[2025-04-28] MEDS: TRANEXAMIC ACID 1,000MG/ISO100 1,000 MG/100 ML BAG 200 MG IVPB (09:09)
[2025-04-28] MEDS: ceFAZolin 3 GM/D5W 100 ML 100 ML IVPB (10:25)
[2025-04-28] MEDS: ceFAZolin 2 GM in SODIUM CHLORIDE 0.9% IV 50 ML 100 ML IVPB (10:25)
--- NOTE | 2025-04-28 10:25 | P.PNAN_ITS ---
Anes - Initial Pre Proc Eval Procedure: Operation Date: 04/28/25 10:30 Proposed Procedures p Right Total Knee Arthroplasty - Samm Lynn MD Date/Time: 04/28/25 10:25 Surgeon: Samm Lynn MD Pre Op Diagnosis: Rt Knee DJD Patient Data Age: 64 Gender: M Height: 1.78 m Weight: 125.4 kg Last Vital Signs Temp 36.3 C L 04/28/25 08:23 Pulse 67 04/28/25 08:23 Resp 16 04/28/25 08:23 BP 131/73 04/28/25 08:23 Pulse Ox 100 04/28/25 08:23 O2 Del Method Room Air 04/28/25 08:23 Allergies Allergy/AdvReac Type Severity Reaction Status Date / Time No Known Allergies Allergy Verified 04/28/25 08:33 Home Medications ?Medication ?Instructions ?Recorded ?Confirmed ?Type cholecalciferol (vitamin D3) 100 4,000 unit PO DAILY 09/08/19 04/19/25 History mcg (4,000 unit) capsule (Vitamin D3) multivitamin with minerals-folic 0.4 mg PO DAILY 09/08/19 04/19/25 History acid 0.4 mg tablet (Adult One Daily Multivitamin) amlodipine 5 mg tablet 5 mg PO DAILY 10/08/24 04/28/25 History apixaban 5 mg tablet (Eliquis) 5 mg PO BID 10/08/24 04/28/25 History atorvastatin 80 mg tablet 80 mg PO DAILY 10/08/24 04/19/25 History dapagliflozin propanediol 10 mg 10 mg PO DAILY 10/08/24 04/19/25 History tablet (Farxiga) finasteride 5 mg tablet 5 mg PO DAILY 10/08/24 04/19/25 History fluorouracil 5 % topical solution 1 applic topical BID PRN rash 10/08/24 04/19/25 History ketoconazole 2 % shampoo 1 applic topical 2XW PRN skin 10/08/24 04/19/25 History irritation metoprolol tartrate 50 mg tablet 50 mg PO Q12H 10/08/24 04/28/25 History acetaminophen 500 mg capsule 1,000 mg PO Q6H PRN pain 02/24/25 04/19/25 History aspirin 81 mg tablet,delayed 81 mg PO DAILY 02/24/25 04/28/25 History release (Adult Low Dose Aspirin) losartan 100 1 tablet PO QAM 02/24/25 04/19/25 History mg-hydrochlorothiazide 12.5 mg tablet vitamin B complex 1 cap PO DAILY 02/24/25 04/19/25 History chlorhexidine gluconate 4 % 1 applic topical ONCE #237 mL 04/14/25 04/19/25 Rx topical liquid (Hibiclens) sulfamethoxazole 800 1 tablet PO Q12H Cellulitis #20 04/19/25 Rx mg-trimethoprim 160 mg tablet tabs (Bactrim DS) Patient hx anesthesia problems: none Family hx anesthesia problems: none Results Review: All pre-operative results and documents have been reviewed as part of the pre- operative evaluation. PMFSH Past Medical History Medical History Poor eating habits Other fatigue BMI greater than 40 Pulmonary embolism Right knee DJD Left knee DJD Morbid obesity Hypertension Surgical History Surgical History S/P total knee arthroplasty LT TKA 03/03/25- Dr. Lynn History of shoulder replacement Family History Family History Unknown Arthritis Cancer Hypertension Hyperlipemia, mixed Social History Social History Social History: caffeine use Smoking status: Never smoker Alcohol intake: never Drinks per week: 1 Substance use: never Substance use type: does not use Do You Feel Safe in your Home?: Yes Lack of Transportation: No Lack of Food: Never True Current Housing: I Have Housing Concerned About Future Housing: No Difficulty Paying Gas/Electric Bills: No Difficulty Paying for Meds: No Currently Unemployed: No Education: Master's Degree or Higher Difficulty w/ Childcare or Family Care: No Living arrangements: with family Additional living arrangements comments: Occupation/Education: retired Gender identity (if verbalized by the patient): Male Spiritual care concerns: No Anes - Eval Final PreProcedure Day of Procedure 04/28/25 10:25 Patient weight: morbidly obese Heart: regular rate and rhythm Lungs: decreased breath sounds Airway: Mallampati scale class II Neurological: alert and oriented Last oral intake: >/= 8 hours ASA classification: III Emergent: no Anesthetic plan: proceed Anesthesia type and monitoring: general LMA and standard monitoring Results Review: All pre-operative results and documents have been reviewed as part of the pre- operative evaluation. Informed Consent: The patient's anesthetic plan and its attendant risks and benefits were discussed with the patient/family/POA. Questions were solicited and answers provided to the satisfaction of the patient/family/POA.
[2025-04-28] MEDS: SODIUM CHLORIDE 0.9% IV 37.7 ML, MORPHINE SULFATE INJ (*CRX) 2 MG, ROPivacaine HCL 1% 2... INFILTRATE (11:14)
[2025-04-28] MEDS: TRANEXAMIC ACID 1,000 MG/10 ML AMPUL 1000 MG IV PUSH (12:11)
--- NOTE | 2025-04-28 12:46 | W.PM.PROC2 ---
Procedure Note - Detailed Date of Procedure 04/28/25 Pre-op Diagnosis Rt Knee DJD Post-op Diagnosis Same Procedure Performed RIGHT TKA Surgeon Samm Lynn MD Anesthesia General Description of Procedure THE RIGHT KNEE WAS PREPPED AND DRAPED IN THE STERILE FASHION. THERE WAS A 25 DEGREE FLEXION CONTRACTURE. A MIDLINE SKIN INCISION WAS MADE. A MEDIAL PARAPATELLAR ARTHROTOMY WAS MADE. THE PATELLA WAS EVERTED. THERE WAS TRICOMPARTMENT DJD. AN INTRAMEDULLARY ROBIN WAS PLACED IN THE FEMUR. A DISTAL FEMORAL CUT WAS MADE IN 5 DEGREES OF VALGUS REMOVING APPROXIMATELY 11 MM OF BONE FROM THE DISTAL FEMUR. THE FEMUR WAS SIZED TO 67.5. A 67.5 FEMORAL CUTTING BLOCK WAS PLACED IN 3 DEGREES OF EXTERNAL ROTATION AND IN ALIGNMENT WITH FRANK'S LINE AND THE TRANSEPICONDYLAR AXIS. ANTERIOR POSTERIOR AND CHAMFER CUTS WERE MADE. THE CUTS WERE EXCELLENT. NEXT AN INTRAMEDULLARY CUTTING GUIDE WAS PLACED IN THE TIBIA. A TRANS TIBIAL CUT WAS MADE ALONG THE LONG AXIS OF THE TIBIA. APPROXIMATELY 10 MM OF BONE WAS REMOVED FROM THE HIGH SIDE OF THE TIBIA. THE TIBIA WAS THEN PLANED TO A SMOOTH SURFACE. POSTERIOR FEMORAL OSTEOPHYTES WERE REMOVED FROM THE FEMORAL CONDYLES. AN 83 TIBIAL TRIAL WAS PLACED IN ALIGNMENT WITH THE 1/3 MEDIAL ASPECT OF THE TIBIAL TUBERCLE. THEN A 67.5 FEMORAL TRIAL COMPONENT WAS PLACED. BOTH HAD EXCELLENT FITS. EVENTUALLY A 12 MM POLYETHYLENE TRIAL COMPONENT WAS PLACED. THE KNEE WAS TAKEN THROUGH A RANGE OF MOTION. THE KNEE CAME OUT TO FULL EXTENSION. THERE WAS NO ABNORMAL TILT TO THE PATELLA. THERE WAS GOOD A/P AND VARUS/VALGUS STABILITY. THERE WAS NO EXCESSIVE ROLL BACK WITH FLEXION. THE TRIAL COMPONENTS WERE REMOVED. THEN A 67.5 FEMORAL COMPONENT AND 83 TIBIAL COMPONENT WITH A 12 POLYETHYLENE COMPONENT WERE CEMENTED INTO PLACE. ONCE THE CEMENT WAS HARD THE KNEE WAS TAKEN THROUGH A ROM AGAIN AND FOUND TO BE STABLE WITH NO PATELLA TILT NO EXCESSIVE ROLL BACK WITH FLEXION AND GOOD STABILITY WITH COMPLETE AND FULL EXTENSION. THE KNEE WAS IRRIGATED WITH STERILE BETADINE AND WATER FOR ABOUT 3 MINUTES. THE BLEEDERS WERE CAUTERIZED. THE ARTHROTOMY WAS REPAIRED WITH NUMBER 1 VICRYL. THE SUB CUTANEOUS LAYER WITH 2-0 VICRYL AND THE SKIN WITH FABRIZIO. THE WOUND WAS WASHED AND A STERILE DRESSING WAS APPLIED. PATIENT WAS EXTUBATED. Estimated Blood Loss -150.0 Pathology None sent Complications No immediate complications Condition Stable Disposition PACU
--- NOTE | 2025-04-28 13:26 | WPDANESPNB ---
Anes - Peripheral Nerve Block Date/Time: 04/28/25 13:26 I have discussed with the patient/family/POA the placement of a peripheral nerve block for post-operative pain management, including associated risks, benefits, complications, and side effects. Alternative methods of post-operative analgesia were detailed. Questions were solicited and answers provided to the satisfaction of the patient/family/POA. Time-Out: A pre-procedural Time-Out was completed immediately before starting the procedure and confirmed: Patient Identification, Site, Procedure, Patient Position and the Availability of Requisite Equipment. Clinical Indications: Acute post-operative pain management requested by the operative surgeon. Nerve Block Insertion Note Anes-nerve block: adductor canal right Patient position: supine Skin prep: chlorhexidine Needle: 22 gauge, stimulating, insulated echogenic needle. Needle length: 80 mm Technique: ultrasound Technique comment: done in pacu Injectate: bupivacaine 0.5% with epi 5 mcg/ml (30ml no epi) Observations: tolerated well Complications: none Procedure start time:: 1313 Procedure end time:: 1320
[2025-04-28] MEDS: KETOROLAC 15 MG/ML VIAL (*BKC) IV PUSH ×3 (15:03→22:57)
[2025-04-28] MEDS: SODIUM CHLORIDE 0.9% IV 1,000 ML 125 ML IV CONT (15:04)
--- NOTE | 2025-04-28 15:50 | ADMGEN ---
This patient, Luiz Kimble, was admitted to [facility] Surg Room 327-01. Patient/family oriented to hospital policies and general routines including ID bracelet, bed and alarms, visiting hours, pain management, procedures, bathroom and other care routines, personal items, smoking policy, room service/diet, and visiting hours. Information on how to activate the Rapid Response Team has been discussed. Patient/Family are encouraged to report perceived risks to care and to ask questions if they do not understand what they are told or what they should do.
[2025-04-28] MEDS: SENNA/DOCUSATE SODIUM TABLET 2 TAB PO (17:35)
[2025-04-28] MEDS: ceFAZolin 2 GM/D5W 50 ML 2 GM/50 ML BAG IVPB (17:36)
[2025-04-28] MEDS: APIXABAN 5 MG TABLET PO (20:23)
[2025-04-28] MEDS: METOPROLOL TARTRATE 50 MG TAB PO (20:23)
[2025-04-28] MEDS: FAMOTIDINE 20 MG TABLET PO (20:23)
[2025-04-28] MEDS: oxyCODONE/ACETAMINOPHEN (*CRX) 10-325 MG TABLET 1 TAB PO (22:52)
[2025-04-29] MEDS: ceFAZolin 2 GM/D5W 50 ML 2 GM/50 ML BAG IVPB ×2 (01:30→10:43)
[2025-04-29 03:57] VITALS: BP 130/66; PULSE 70; RESP 16; TEMP 36.7; O2SAT 98
[2025-04-29] MEDS: KETOROLAC 15 MG/ML VIAL (*BKC) IV PUSH ×2 (05:43→13:07)
[2025-04-29 06:20] LABS: Hematocrit 32.9 % (42.0-52.0); Hemoglobin 10.2 g/dL (14.0-18.0); Immature Granulocyte Percent A 0.6 % (0-0.5); Lymphocytes Absolute Auto 1.43 K/mm3 (0.9-3.2); Mean Corpuscular HGB Conc 31.0 g/dl (32-36); Mean Corpuscular Hemoglobin 27.9 pg (26-34); Mean Corpuscular Volume 89.9 fl (80-100); Nucleated Red Blood Cells Absolute Auto 0.000 K/mm3 (0.0-0.012); Nucleated Red Blood Cells Perc 0.0 % (0.0-0.2); Platelet Count Result 213 k/mm3 (150-375); Red Blood Count 3.66 M/mm3 (4.6-6.20); White Blood Count 8.5 K/mm3 (4.5-10.0)
[2025-04-29] MEDS: oxyCODONE/ACETAMINOPHEN (*CRX) 5-325 MG TABLET 1 TABLET PO ×2 (06:37→13:09)
[2025-04-29 06:42] LABS: Anion Gap 3 mmol/L (4-12); Blood Urea Nitrogen 28 mg/dL (9-20); Calcium 8.3 mg/dL (8.4-10.2); Carbon Dioxide 27 mmol/L (22-30); Chloride 106 mmol/L (98-107); Estimated CRCL calculation 85 ml/min; Estimated Glomerular Filt Rate > 60; Glucose 115 mg/dL (65-110); Potassium 4.0 mmol/L (3.4-5.0); Sodium 136 mmol/L (137-145)
[2025-04-29 07:57] VITALS: BP 128/73; PULSE 69; RESP 14; TEMP 36.1; O2SAT 98
[2025-04-29 08:08] VITALS: PULSE 74
[2025-04-29] MEDS: FAMOTIDINE 20 MG TABLET PO (08:08)
[2025-04-29] MEDS: METOPROLOL TARTRATE 50 MG TAB PO (08:08)
[2025-04-29] MEDS: ASPIRIN 81 MG ENTERIC TABLET PO (08:08)
[2025-04-29] MEDS: LOSARTAN POTASSIUM 100 MG TABLET PO (08:08)
[2025-04-29] MEDS: FINASTERIDE 5 MG TABLET PO (08:08)
[2025-04-29] MEDS: APIXABAN 5 MG TABLET PO (08:08)
[2025-04-29] MEDS: EMPAGLIFLOZIN 10 MG TABLET PO (08:09)
--- NOTE | 2025-04-29 09:32 | P.PNAN_ITS ---
Anes - Prog Note Post-Op Date/Time: 04/29/25 09:32 Cardiovascular status: normal Respiratory status: normal Airway patency: baseline Mental status: baseline Post-Op hydration status: normal Vital Signs: Last Vital Signs Temp 36.1 C L 04/29/25 07:57 Pulse 74 04/29/25 08:08 Resp 14 04/29/25 07:57 BP 128/73 04/29/25 07:57 Pulse Ox 98 04/29/25 07:57 O2 Del Method Room Air 04/29/25 08:28 O2 Flow Rate 2 04/28/25 15:56 Pain Score (VAS): 2 I/O: Intake & Output 04/28/25 04/29/25 04/29/25 23:59 07:59 15:59 Intake Total 290 290 Balance 290 290 Laboratory Tests 04/29/25 06:02 04/29/25 06:02 04/29/25 06:02 WBC 8.5 RBC 3.66 L Hgb 10.2 L Hct 32.9 L MCV 89.9 MCH 27.9 MCHC 31.0 L RDW 14.3 Plt Count 213 MPV 9.1 Immature Gran % (Auto) 0.6 H Neut % (Auto) 68.9 Lymph % (Auto) 16.9 L [place] % (Auto) 9.4 H Eos % (Auto) 3.7 Baso % (Auto) 0.5 Lymph # (Auto) 1.43 [place] # (Auto) 0.8 H Eos # (Auto) 0.3 Baso # (Auto) 0.0 Abs Immat Gran (auto) 0.05 H Absolute Neuts (auto) 5.8 Absolute Nucleated RBC 0.000 Nucleated RBC % 0.0 Sodium 136 L Potassium 4.0 Chloride 106 Carbon Dioxide 27 Anion Gap 3 L BUN 28 H Creatinine 1.00 Estim Creat Clear Calc 85 Estimated GFR > 60 Glucose 115 H Calcium 8.3 L Post-procedural complaints: none Patient Feedback: Patient satisfied with anesthetic care.
--- NOTE | 2025-04-29 10:22 | PM.PNORT ---
Progress Note: A&P Assessment and Plan (1) S/P total knee arthroplasty: Qualifiers: Laterality: left Qualified Code(s): Z96.652 - Presence of left artificial knee joint Code(s): Z96.659 - Presence of unspecified artificial knee joint Status: Acute Assessment and Plan: POD #1 : Right TKA Continue PT/OT. WBAT. Walker. HIGH FALL RISK. Continue pain control. Ice Knee. Protect skin. DVT prophylaxis with Aspirin. SCDs. Incentive Spirometry Use reviewed. Monitor Dressing. Change prior to discharge. Bowel Regimen. Dispo: Home with Home Health pending progress with PT/OT Plan Reviewed history, exam, radiographs and current labs with attending MD and covering surgeon, Dr. Lynn, who agrees with current plan as indicated above. No further recommendations from Dr. Lynn at this time. Subjective Subjective Date/Time Seen: 04/29/25 10:22 Post Op day: 1 Interval history: POD #1: Right TKA Patient doing well. Pain well controlled. No new concerns. Hopeful for d/c home today. Review of Systems Review of Systems: All systems reviewed & are unremarkable except as noted in HPI and below Constitutional: Constitutional: Denies fever(s) and Denies headache(s) ENT: Denies headache(s) Cardiovascular: Cardiovascular: Denies chest pain, Denies diaphoresis, Denies palpitations and Denies dyspnea Respiratory: Respiratory: Denies dyspnea Gastrointestinal: Gastrointestinal: Denies abdominal pain, Denies constipation, Denies nausea and Denies vomiting Genitourinary: Genitourinary: Denies dysuria and Reports nocturia Musculoskeletal: Musculoskeletal: Reports arthralgias (Right Knee ) and Reports joint swelling (Right Knee ) Neurologic: Denies headache(s) Endocrine: Endocrine: Denies palpitations Exam Const: General: comfortable and no acute distress Resp: Effort & Inspection: normal respiratory effort Cardio: Rate: regular rate Rhythm: regular rhythm GI: GI Palp: Yes Soft to palpation, No Tenderness to palpation present (GI) and No Guarding due to palpation present (GI) Skin: General skin exam: wounds noted Wounds: wounds noted Other: Incision c/d/i. No surrounding redness/warmth. No hematoma. Mild ecchymosis. No wound dehiscence Neuro: Cognition (Neuro): normal cognition Other: NV intact aside from block. Moves toes. Sensation intact to light touch. +ankle dorsiflexion/plantarflexion. Extrem: Right lower extremity: normal to inspection, knee Details: tenderness (diffuse, mild ) Location: of the patella, swelling (diffuse, consistent with surgical intervention ), abnormal ROM Details: pain with active ROM during, pain with passive ROM during and with range as follows (limited due to recent surgical intervention ); able to extend lower leg actively and ecchymosis (mild ), lower leg (Negative Julian's Sign ) Details: normal to inspection; no erythema and no tenderness, ankle (+ankle dorsiflexion/plantarflexion ) Details: normal to inspection, no edema and normal ROM; no tenderness, no swelling and no ecchymosis and foot Details: normal capillary refill, normal to inspection, vascular exam Details: dorsalis pedis pulse present and motor-sensory exam Details: light-touch normal; no tenderness Psych: Mental Status: mental status grossly normal Objective Data Vital Signs Vital Signs: Vital Signs - 24 hr 04/28/25 13:05 04/28/25 13:20 04/28/25 13:35 Temperature 37.3 C Pulse Rate 88 71 70 Respiratory Rate 12 15 14 Blood Pressure 117/69 117/60 122/68 Pulse Oximetry 96 97 92 Oxygen Delivery Simple Face Mask Simple Face Mask Room Air Oxygen Flow Rate 10 10 04/28/25 13:50 04/28/25 14:05 04/28/25 14:35 Temperature 36.2 C L Pulse Rate 71 70 65 Respiratory Rate 15 12 16 Blood Pressure 128/71 129/69 116/59 L Pulse Oximetry 92 94 95 Oxygen Delivery Nasal Cannula Nasal Cannula Oxygen Flow Rate 2 2 04/28/25 14:50 04/28/25 15:20 04/28/25 15:56 Temperature 36.3 C L 36.3 C L Pulse Rate 62 61 Respiratory Rate 16 16 Blood Pressure 122/68 129/70 Pulse Oximetry 95 97 94 Oxygen Delivery Nasal Cannula Oxygen Flow Rate 2 04/28/25 16:20 04/28/25 19:45 04/28/25 19:57 Temperature 36.4 C L 37.6 C H Pulse Rate 68 83 78 Respiratory Rate 16 16 16 Blood Pressure 128/68 129/76 Pulse Oximetry 99 97 97 Oxygen Delivery Room Air Oxygen Flow Rate 04/28/25 20:23 04/28/25 23:57 04/29/25 03:57 Temperature 37.1 C 36.7 C Pulse Rate 83 65 70 Respiratory Rate 20 16 Blood Pressure 125/69 130/66 Pulse Oximetry 95 98 Oxygen Delivery Oxygen Flow Rate 04/29/25 07:52 04/29/25 07:57 04/29/25 08:08 Temperature 36.1 C L Pulse Rate 69 74 Respiratory Rate 14 Blood Pressure 128/73 Pulse Oximetry 98 Oxygen Delivery Room Air Oxygen Flow Rate 04/29/25 08:28 Temperature Pulse Rate Respiratory Rate Blood Pressure Pulse Oximetry Oxygen Delivery Room Air Oxygen Flow Rate Intake/Output Intake/Output: Intake & Output 04/26/25 04/27/25 04/28/25 04/29/25 23:59 23:59 23:59 23:59 Intake Total 590 290 Balance 590 290 Meds/Results Medications: Active Medications Generic Name Dose Route Start Last Admin Trade Name Freq PRN Reason Stop Dose Admin Amlodipine Besylate 5 mg 04/29/25 09:00 04/29/25 08:09 Amlodipine Besylate 5 Mg Tablet PO 5 mg DAILY ELLIE Administration Apixaban 5 mg 04/28/25 21:00 04/29/25 08:08 Apixaban 5 Mg Tablet PO 5 mg Q12HR ELLIE Administration Aspirin 81 mg 04/29/25 09:00 04/29/25 08:08 Aspirin 81 Mg Enteric Tablet PO 81 mg DAILY ELLIE Administration Atorvastatin Calcium 80 mg 04/29/25 09:00 Atorvastatin 40 Mg Tablet PO DAILY ELLIE Diazepam 5 mg 04/28/25 14:12 Diazepam (*Crx) 5 Mg Tablet PO Q8H PRN Spasms Diphenhydramine HCl 25 mg 04/28/25 14:12 Diphenhydramine Hcl Inj 50 Mg/Ml Vial IV PUSH Q6H PRN Itching Empagliflozin 10 mg 04/29/25 09:00 04/29/25 08:09 Empagliflozin 10 Mg Tablet PO 10 mg DAILY ELLIE Administration Famotidine 20 mg 04/28/25 21:00 04/29/25 08:08 Famotidine 20 Mg Tablet PO 20 mg Q12HR ELLIE Administration Finasteride 5 mg 04/29/25 09:00 04/29/25 08:08 Finasteride 5 Mg Tablet PO 5 mg DAILY ELLIE Administration Hydrochlorothiazide 12.5 mg 04/29/25 09:00 04/29/25 08:08 Hydrochlorothiazide 12.5 Mg Capsule PO 12.5 mg QAM ELLIE Administration Hydromorphone HCl 1 mg 04/28/25 14:12 Hydromorphone Hcl Inj (*Crx) 1 Mg/Ml Syr IV PUSH Q2H PRN Breakthrough Pain Rated 7-10 or NPO Hydromorphone HCl 0.5 mg 04/28/25 14:12 Hydromorphone Hcl Inj (*Crx) 1 Mg/Ml Syr IV PUSH Q2H PRN Breakthrough Pain Rated 4-6 or NPO Cefazolin Sodium 2 gm in 50 mls @ 100 mls/hr 04/28/25 18:00 04/29/25 02:00 Ancef 2 Gm/D5w 50 Ml IVPB 04/29/25 10:29 Infused Q8H ELLIE Infusion Ibuprofen 800 mg in 200 mls @ 400 mls/hr 04/28/25 14:12 Caldolor 800 Mg/200 Ml IVPB Q6H PRN Breakthrough Pain Rated 1-3 or NPO Ketorolac Tromethamine 15 mg 04/28/25 14:12 04/29/25 05:43 Ketorolac 15 Mg/Ml Vial (*Bkc) IV PUSH 04/29/25 12:01 15 mg Q6HR ELLIE Administration Losartan Potassium 100 mg 04/29/25 09:00 04/29/25 08:08 Losartan Potassium 100 Mg Tablet PO 100 mg DAILY ELLIE Administration Metoprolol Tartrate 50 mg 04/28/25 21:00 04/29/25 08:08 Metoprolol Tartrate 50 Mg Tab PO 50 mg Q12H ELLIE Administration Naloxone HCl 0.1 mg 04/28/25 14:12 Naloxone Hcl 0.4 Mg/Ml Vial IV PUSH Q2M PRN Opiate Reversal Ondansetron HCl 4 mg 04/28/25 14:12 Ondansetron Inj 4 Mg/2 Ml Vial IV PUSH Q4H PRN Nausea And Vomiting Oxycodone/Acetaminophen 1 tablet 04/28/25 14:12 04/29/25 06:37 Oxycodone/Acetaminophen (*Crx) 5-325 Mg Tablet PO 1 tablet Q4H PRN Administration Pain Rated 4-6 Oxycodone/Acetaminophen 1 tab 04/28/25 14:12 04/28/25 22:52 Oxycodone/Acetaminophen (*Crx) 10-325 Mg Tablet PO 1 tab Q6H PRN Administration Pain Rated 7-10 Polyethylene Glycol 17 gm 04/29/25 09:00 04/29/25 08:09 Polyethylene Glycol 3350 17 Gm Powd.Pack PO Not Given QAM [facility] Senna/Docusate Sodium 2 tab 04/28/25 17:00 04/29/25 08:09 Senna/Docusate Sodium Tablet PO Not Given BID [facility] Radiology Results: ITS Impressions Knee X-Ray 04/28/25 14:05 IMPRESSION: 1. Right total knee arthroplasty, negative for postoperative purposes. Labs Labs: Laboratory Results - last 24 hr 04/29/25 06:02 WBC 8.5 RBC 3.66 L Hgb 10.2 L Hct 32.9 L MCV 89.9 MCH 27.9 MCHC 31.0 L RDW 14.3 Plt Count 213 MPV 9.1 Immature Gran % (Auto) 0.6 H Neut % (Auto) 68.9 Lymph % (Auto) 16.9 L [place] % (Auto) 9.4 H Eos % (Auto) 3.7 Baso % (Auto) 0.5 Lymph # (Auto) 1.43 [place] # (Auto) 0.8 H Eos # (Auto) 0.3 Baso # (Auto) 0.0 Abs Immat Gran (auto) 0.05 H Absolute Neuts (auto) 5.8 Absolute Nucleated RBC 0.000 Nucleated RBC % 0.0 Sodium 136 L Potassium 4.0 Chloride 106 Carbon Dioxide 27 Anion Gap 3 L BUN 28 H Creatinine 1.00 Estim Creat Clear Calc 85 Estimated GFR > 60 Glucose 115 H Calcium 8.3 L Quality VTE Prophylaxis VTE prophylaxis: pharmacologic ordered
[2025-04-29 11:57] VITALS: BP 137/62; PULSE 63; RESP 16; TEMP 36.2; O2SAT 100
--- NOTE | 2025-04-29 14:18 | P.DS_ITS ---
DS: Admitting Diagnosis Discharge Date 04/29/2025 Admitting Diagnosis Right TKA DS: Discharge Diagnosis Discharge Diagnosis (1) S/P total knee arthroplasty: Qualifiers: Laterality: right Qualified Code(s): Z96.651 - Presence of right artificial knee joint Code(s): Z96.659 - Presence of unspecified artificial knee joint Status: Acute Assessment and Plan: POD #1 : Right TKA Continue PT/OT. WBAT. Walker. HIGH FALL RISK. Continue pain control. Ice Knee. Protect skin. DVT prophylaxis with Eliquis/Aspirin SCDs. Incentive Spirometry Use reviewed. Monitor Dressing. Change prior to discharge. Bowel Regimen. Dispo: Home with Home Health pending progress with PT/OT Plan Reviewed history, exam, radiographs and current labs with attending MD and covering surgeon, Dr. Lynn, who agrees with current plan as indicated above. No further recommendations from Dr. Lynn at this time. DS: Summary Hospital Course Reason for hospitalization: Right TKA Hospital Course: 64 year old male admitted s/p Right TKA for postoperative medical management, pain control and mobilization with PT/OT. Patient progressed well with PT/OT. Pain and vitals remained stable throughout. The patient has been cleared to be discharged home with home health at this time. All discharge care instructions reviewed at depth. New medications reviewed. Follow up planned for 3 weeks in the outpatient orthopedic clinic with Dr. Lynn. Dr. Lynn in agreement with safe discharge at this time. Status at Discharge Functional status at discharge: uses cane/walker Overall status at discharge: patient is progressing back to baseline Time Spent with Patient Time attestation: Total time spent providing and/or coordinating discharge services: Exam Const: General: comfortable and no acute distress Resp: Effort & Inspection: normal respiratory effort Cardio: Rate: regular rate Rhythm: regular rhythm GI: GI Palp: Yes Soft to palpation, No Tenderness to palpation present (GI) and No Guarding due to palpation present (GI) Skin: General skin exam: wounds noted Wounds: wounds noted Other: Incision c/d/i. No surrounding redness/warmth. No hematoma. Mild ecchymosis. No wound dehiscence Neuro: Cognition (Neuro): normal cognition Other: NV intact aside from block. Moves toes. Sensation intact to light touch. +ankle dorsiflexion/plantarflexion. Extrem: Right lower extremity: normal to inspection, knee Details: tenderness (diffuse, mild ) Location: of the patella, swelling (diffuse, consistent with surgical intervention ), abnormal ROM Details: pain with active ROM during, pain with passive ROM during and with range as follows (limited due to recent surgical intervention ); able to extend lower leg actively and ecchymosis (mild ), lower leg (Negative Julian's Sign ) Details: normal to inspection; no erythema and no tenderness, ankle (+ankle dorsiflexion/plantarflexion ) Details: normal to inspection, no edema and normal ROM; no tenderness, no swelling and no ecchymosis and foot Details: normal capillary refill, normal to inspection, vasc ular exam Details: dorsalis pedis pulse present and motor-sensory exam Details: light-touch normal; no tenderness Psych: Mental Status: mental status grossly normal DS: Data Data Completed and Pending Labs on day of discharge: Labs from last 24 hours 04/29/25 06:02 WBC 8.5 RBC 3.66 L Hgb 10.2 L Hct 32.9 L MCV 89.9 MCH 27.9 MCHC 31.0 L RDW 14.3 Plt Count 213 MPV 9.1 Immature Gran % (Auto) 0.6 H Neut % (Auto) 68.9 Lymph % (Auto) 16.9 L [place] % (Auto) 9.4 H Eos % (Auto) 3.7 Baso % (Auto) 0.5 Lymph # (Auto) 1.43 [place] # (Auto) 0.8 H Eos # (Auto) 0.3 Baso # (Auto) 0.0 Abs Immat Gran (auto) 0.05 H Absolute Neuts (auto) 5.8 Absolute Nucleated RBC 0.000 Nucleated RBC % 0.0 Sodium 136 L Potassium 4.0 Chloride 106 Carbon Dioxide 27 Anion Gap 3 L BUN 28 H Creatinine 1.00 Estim Creat Clear Calc 85 Estimated GFR > 60 Glucose 115 H Calcium 8.3 L Discharge Plan Discharge Patient Disposition: Home with Home Health Service Discharge Instructions: Post Op Total Knee Replacement Instructions Dr. Samm Lynn [phone] * Your dressing will be changed prior to your discharge. You will be sent home with one additional dressing to be changed on post op day 7 by the home health RN. Your fariba will be removed on the 14th day after surgery and steri- strips will be placed. Please practice good hand hygiene and do not touch your incision in order to prevent infection. * You may shower with your dressing but do not submerge in a bath tub. * Do not drive or operate machinery until you are released by Dr. Lynn. * Do not walk without a walker for any reason until you are released by Dr. Lynn. * Continue to use your ice machine. Please use a towel or pillow case to protect your skin before applying your ice machine. * Do NOT place a pillow under your knee. You may use a pillow from the calf down if needed. This will prevent a flexion contracture postoperatively. * CPM: You may begin use of your CPM machine at home if you have been given one pre-operatively. DO NOT USE WHILE YOU ARE SLEEPING. * ROMTech: If you were given a ROMTech Portable Connect System preoperatively, you are to begin use on the day you arrive home postoperatively. Our goal is for you to use the machine 5 times per day. The sessions are very short in the beginning and will progress as you progress. We are able to monitor your progress from afar as well as your pain and other reported symptoms. If you have difficulties with the machine, please call . NOTE: Please attempt to use the machine even when in pain as this will waxing machine operator helper your therapy with very gentle motion. * Your first post op appointment was sent to you via mail preoperatively. If you have any questions or are unable to make your appointment, please contact our office for scheduling questions. * Your medications have been sent to your pharmacy. You have been sent home with pain medication. Please garbage pick up worker an over the counter stool softener to prevent constipation due to narcotic use. Please keep this in mind during your postoperative recovery. If you are not experiencing regular bowel movements, please contact our office for further instruction. * Please contact our office with any questions/concerns regarding your knee at [phone]. Patient Instructions: Antibiotic Form, Apixaban (By mouth), Safe Use of Anticoagulants (DC) Patient Language: Kenyan Stand Alone Forms: General Discharge Information Follow-up/Referrals: Samm Lynn MD [Physician] - Keep Reg. Scheduled Appt. Discharge Medications: New oxycodone-acetaminophen 5-325 mg Tablet 1 tablet PO Q4-6H PRN (Reason: pain) Qty: 30 0RF Continued atorvastatin 80 mg tablet 80 mg PO DAILY finasteride 5 mg tablet 5 mg PO DAILY dapagliflozin propanediol [Farxiga] 10 mg tablet 10 mg PO DAILY Patient Comments: QAM metoprolol tartrate 50 mg tablet 50 mg PO Q12H Eliquis 5 mg tablet 5 mg PO BID amlodipine 5 mg tablet 5 mg PO DAILY Patient Comments: QAM ketoconazole 2 % shampoo 1 applic topical 2XW PRN (Reason: skin irritation) fluorouracil 5 % solution 1 applic topical BID PRN (Reason: rash) sulfamethoxazole-trimethoprim [Bactrim DS] 800-160 mg tablet 1 tablet PO Q12H Qty: 20 0RF multivit with min-folic acid [Adult One Daily Multivitamin] 0.4 mg Tablet 0.4 mg PO DAILY Vitamin D3 4,000 unit Capsule 4,000 unit PO DAILY aspirin [Adult Low Dose Aspirin] 81 mg tablet,delayed release (DR/EC) 81 mg PO DAILY losartan-hydrochlorothiazide 100-12.5 mg tablet 1 tablet PO QAM vitamin B complex Capsule 1 cap PO DAILY acetaminophen 500 mg capsule 1,000 mg PO Q6H PRN (Reason: pain) Discontinued chlorhexidine gluconate [Hibiclens] 4 % liquid 1 applic topical ONCE Qty: 237 0RF Rx Instructions: Cleanse operative extremity, in shower, every day for 1 week prior to surgical procedure.
== END 2025-04-29 15:15 | disposition home health service (06) ==
LOC: ANHSURGERY 08:11 → ANH3MEDSUR 14:29
PROVIDERS: PCP Family Medicine; Visit Provider Orthopaedic Surgery
PROC: (CPT 27447; principal; 2025-04-28 10:30)
DX: M17.11 Unilateral primary osteoarthritis, right knee (principal); M25.761 Osteophyte, right knee; G89.18 Other acute postprocedural pain; I10 Essential (primary) hypertension; E66.01 Morbid (severe) obesity due to excess calories; Z68.39 Body mass index [BMI] 39.0-39.9, adult; Z79.01 Long term (current) use of anticoagulants; Z79.84 Long term (current) use of oral hypoglycemic drugs; Z79.82 Long term (current) use of aspirin; Z98.890 Other specified postprocedural states; Z96.652 Presence of left artificial knee joint; Z86.711 Personal history of pulmonary embolism; Z80.9 Family history of malignant neoplasm, unspecified
CPT/HCPCS: 64447; 27447; 36415; 73560; 80048; 85025; 97110; 97116; 97161; 97165; 97530; J0690; A9270; C1713; C1776; J0166; J1885; J2250; J2270; J2704; J2795; J7030; J7120

== ENCOUNTER 2025-06-03 09:47 | Emergency (ER) | payer MEDICARE, SELFPAY ==
--- NOTE | ~2025-06-03 | CT_ITS ---
EXAMINATION: CT lumbar spine wo con COMPARISON: None HISTORY: lower back pain, sudden onset TECHNIQUE: Axial images were obtained through the spine without IV contrast. Coronal, sagittal reconstruction images were obtained from the axial views. CT scan performed using dose optimization techniques including the following automated exposure control; adjustment of mA and/or kV; use of iterative reconstruction technique. Automatic exposure control was used to reduce radiation dose. Permanent radiation dose record is archived to PACS. FINDINGS: Grade 1 retrolisthesis of L1 on L2, L2 on L3 and L3 on L4 with grade 1 anterolisthesis of L4 on L5, no fracture is identified. Moderate loss of disc height throughout most marked at L4-5 with moderate to severe canal and foraminal stenosis, outpatient MRI is recommended. Soft tissues there is a complex appearing lesion within the midpole the right kidney measuring 2 x 2 cm incompletely evaluated, outpatient ultrasound is recommended. Impression: No acute fracture. Incidental findings above Reviewed, dictated and finalized at location A. Impression: No acute fracture. Incidental findings above
[2025-06-03 09:57] VITALS: BP 137/83; PULSE 63; RESP 11; O2SAT 100
--- OUTSIDE RECORDS SUMMARY | 2025-06-03 10:36 | XMS_ITS | Clinical Summary ---
Author Organization [facility] Address [address] [place] [address] Care Team Providers Care Women'S Activities Adviser Name Role Phone Alexander Gaytan MD Primary [...] on file Legal Sex Male 9:15 PM OPERATING ROOM ORDERLY Gender Identity Male 09/19/2022 4:07 AM OPERATING ROOM ORDERLY Sexual Orientation Straight 09/19/2022 4: 07 AM OPERATING ROOM ORDERLY Obstetrics History Last Filed Vital Signs Vital Sign Reading Time Taken Comments Blood Pressure 158/88 11/07/2022 8:44 AM OPERATING ROOM ORDERLY Pulse 97 11/07/2022 8:44 AM OPERATING ROOM ORDERLY Temperature 36.7 C (98.1 F) 11/07/2022 8:44 AM OPERATING ROOM ORDERLY Respiratory Rate 18 11/07/2022 8:44 AM OPERATING ROOM ORDERLY Oxygen Saturation 95% 11/07/2022 8:44 AM OPERATING ROOM ORDERLY Inhaled Oxygen Concentration - - Weight 137.4 kg (303 lb) 11/06/2022 6:44 PM OPERATING ROOM ORDERLY Height 180.3 cm (5' 11) 11/06/2022 6:44 PM OPERATING ROOM ORDERLY Body Mass Index 42.26 11/06/2022 6:44 PM OPERATING ROOM ORDERLY Plan of Treatment Health Maintenance Due Date Last Done Comments Colon Cancer Screening-Colonoscopy 1960 Depression Screening 1960 Hepatitis C Screening 1960 Prostate Cancer Screening-PSA 1958 Hepatitis B Screening 1976 Pneumococcal vaccine 65+ (1 of 1 - PCV) 2008 Well Visit 65+ 2023 Fall Risk Assessment 11/07/2023 11/07/2022 Zoster Vaccine (2 of 2) 10/28/2024 09/02/2024 Covid-19 Vaccine ( season) 2025 07/25/2021, 12/21/2020, 11/20/2020 Influenza Vaccine (#1) 2025 07/25/2021, 2013 DTaP/Tdap/Td Vaccine (2 - Td or Tdap) 09/01/203406/2024 Medical Devices Implanted Type Area Belt Line Feeder Device Identifier Shelf Expiration Date Model / Serial / Lot [employer] [place] [employer] Simplex P Radiopaque Full Dose Cement Bone Sterile 6191-1-010 - Sn/A - [id number] Implanted:Qty: 1 on 11/06/2022 by Tommy Cody MD at [facility] Bone Cement Right: Shoulder [employer] 03/22/2025 6191-1-010 / N/A / [id number] [employer] [place] 3 Peg Monoblock Shoulder 5 Component Glenoid Sterile [id number] - Sn/A - [id number] Implanted:Qty: 1 on 11/06/2022 by Tommy Cody MD at [facility] Right: Shoulder [employer] [id number] 11/21/2027 [id number] / N/A / [id number] [employer] Humeral [place] Shoulder Sidus [id number] 0 [id number] - Sn/A - [id number] Implanted:Qty: 1 on 11/06/2022 by Tommy Cody MD at [facility] Right: Shoulder [employer] [id number] 02/08/2032 [id number] / N/A / [id number] [employer] Sidus Od52 Mm H19 Mm Stem Free Shoulder Head Humeral Sterile Latex Free [id number] - [id number] Implanted:Qty: 1 on 11/06/2022 by Tommy Cody MD at [facility] Right: Shoulder [employer] [id number] 11/21/2027 [id number] / / [id number] Insurance [facility] Advance Directives For more information, please contact: [phone] * Full Code (Latest Code Status on File) Date Activated Date Inactivated Comments 11/06/2022 6:52 PM 11/07/2022 6:18 PM Care Teams Women'S Activities Adviser Relationship Specialty Start Date End Date Alexander Gaytan MD PCP - General 05/09/22
--- OUTSIDE RECORDS SUMMARY | 2025-06-03 10:36 | XMS_ITS | Clinical Summary ---
Author Organization [facility] Address [address], [facility] [address] [place] [address] Phone Care Team Providers Care Slotter Operator Name Role Phone Provider, Unknown Primary Care Provider Unavaila Zach Wilson MD Unavailable [phone] Allergies No known active allergies Medications losartan-hydroc [...] Sex Assigned at Male 08/18/2024 2:51 PM SUPERVISOR PAPER MACHINE Legal Sex Male 9:06 AM SUPERVISOR PAPER MACHINE Gender Identity Male 08/18/2024 2:51 PM SUPERVISOR PAPER MACHINE Sexual Orientation Straight 08/18/2024 2: 51 PM SUPERVISOR PAPER MACHINE Last Filed Vital Signs Vital Sign Reading Time Taken Comments Blood Pressure 150/96 11/05/2024 9:30 AM SUPERVISOR PAPER MACHINE Pulse 59 11/05/2024 9:30 AM SUPERVISOR PAPER MACHINE Temperature 36.7 C (98 F) 11/05/2024 9:30 AM SUPERVISOR PAPER MACHINE Respiratory Rate 18 11/05/2024 9:30 AM SUPERVISOR PAPER MACHINE Oxygen Saturation 99% 11/05/2024 9:30 AM SUPERVISOR PAPER MACHINE Inhaled Oxygen Concentration - - Weight 138.1 kg (304 lb 8 oz) 11/05/2024 9:30 AM SUPERVISOR PAPER MACHINE Height 180.3 cm (5' 11) 11/05/2024 9:30 AM SUPERVISOR PAPER MACHINE Body Mass Index 42.47 11/05/2024 9:30 AM SUPERVISOR PAPER MACHINE Plan of Treatment Upcoming Encounters Date Type Department Care Team (Late st Contact Info) Description 11/04/2025 9:30 AM SUPERVISOR PAPER MACHINE Office Visit [facility] [address] [address] Zach Edward MD [address] [place] [address] Health Maintenance Due Date Last Done Comments Hepatitis C Virus (HCV) Screening 1958 Cologuard 2003 Colonoscopy 2003 Colorectal Cancer Screening 2003 Immunochemical Fecal Occult Blood 2003 Respiratory Syncytial Virus (RSV) Immunization (Adult) (1 - Risk 60-74 years 1-dose series) 2018 Influenza Immunization (#1) 05/24/202505/24, 07/16/2023, 07/13/2022, Additional history exists SARS-COV-2 Immunization (7 - Pfizer risk season) 2025 06/07/2024, 07/17/2023, 07/13/2022, Additional history exists PSA [...] PSA 4.22(H) 0.00 - 4.00 ng/mL CANCER HONING MACHINE TRY OUT SETTER [facility] Comment: Johny Paramagnetic Particle Chemiluminescent Immunoassay Method Blood 07/26/2022 8:48 AM CDT Narrative [facility] 07/26/2022 2:05 PM CDT Release to patient->Immediate us Kris Gerber PAC CHEMISTRY ORDERABLES Final Result CANCER HONING MACHINE TRY OUT SETTER OF [facility] [address] [place] [address], from Last 3 Months or Most Recently Relevant to Health Maintenance Insurance MEDICARE C [employer] Care Teams Slotter Operator Relationship Specialty Start Date End Date Provider, Unknown UNKNOWN PCP - General 11/27/21 Zach Edward MD [address] [place] [address] Consulting Physician Oncology 11/27/21
--- NOTE | 2025-06-03 10:39 | ED.BACK ---
HPI - Back Pain/Injury General Chief Complaint: Back Pain/Injury Stated Complaint: lower back pain Time Seen by Provider: 06/03/25 09:59 History of Present Illness HPI Narrative: Patient is a 65-year-old who presents to the ER with bilateral lower back pain. He reports his pain started this morning. 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 He reports this morning he started experiencing significant sharp which is mildly relieved by ice. Patient denies any numbness/tingling in his legs, saddle anesthesia or loss of continence. He reports he had a left knee replacement in February and right knee replacement in April. Patient endorses a history of a PE, AFib, and is on blood thinners. He reports he did fall off a stool approximately 3-4 days ago. Related Data Home Medications ?Medication ?Instructions ?Recorded ?Confirmed ?Last Taken ?Type cholecalciferol (vitamin D3) 100 4,000 unit PO DAILY 09/08/19 05/17/25 09/13/19 06:00 History mcg (4,000 unit) capsule (Vitamin D3) multivitamin with minerals-folic 0.4 mg PO DAILY 09/08/19 05/17/25 09/13/19 06:00 History acid 0.4 mg tablet (Adult One Daily Multivitamin) amlodipine 5 mg tablet 5 mg PO DAILY 10/08/24 05/17/25 04/28/25 History apixaban 5 mg tablet (Eliquis) 5 mg PO BID 10/08/24 05/17/25 04/20/25 History atorvastatin 80 mg tablet 80 mg PO DAILY 10/08/24 05/17/25 Unknown History dapagliflozin propanediol 10 mg 10 mg PO DAILY 10/08/24 05/17/25 Unknown History tablet (Farxiga) finasteride 5 mg tablet 5 mg PO DAILY 10/08/24 05/17/25 Unknown History fluorouracil 5 % topical solution 1 applic topical BID PRN rash 10/08/24 05/17/25 Unknown History ketoconazole 2 % shampoo 1 applic topical 2XW PRN skin 10/08/24 05/17/25 Unknown History irritation metoprolol tartrate 50 mg tablet 50 mg PO Q12H 10/08/24 05/17/25 04/28/25 History acetaminophen 500 mg capsule 1,000 mg PO Q6H PRN pain 02/24/25 05/17/25 Unknown History aspirin 81 mg tablet,delayed 81 mg PO DAILY 02/24/25 05/17/25 04/20/25 History release (Adult Low Dose Aspirin) losartan 100 1 tablet PO QAM 02/24/25 05/17/25 Unknown History mg-hydrochlorothiazide 12.5 mg tablet vitamin B complex 1 cap PO DAILY 02/24/25 05/17/25 Unknown History Allergies Allergy/AdvReac Type Severity Reaction Status Date / Time No Known Allergies Allergy Verified 06/03/25 10:07 Review of Systems Review of Systems: All systems reviewed & are unremarkable except as noted in HPI and below PMFSH Past Medical History Medical History Poor eating habits Other fatigue BMI greater than 40 Pulmonary embolism Right knee DJD Left knee DJD Morbid obesity Hypertension Surgical History Surgical History S/P total knee arthroplasty LT TKA 03/03/25- Dr. Lynn RT TKA 04/28/2025- Dr. Lynn History of shoulder replacement Family History Family History Unknown Arthritis Cancer Hypertension Hyperlipemia, mixed Social History Social History Social History: caffeine use Smoking status: Never smoker Alcohol intake: never Drinks per week: 1 Substance use: never Substance use type: does not use Do You Feel Safe in your Home?: Yes Lack of Transportation: No Lack of Food: Never True Current Housing: I Have Housing Concerned About Future Housing: No Difficulty Paying Gas/Electric Bills: No Difficulty Paying for Meds: No Currently Unemployed: No Education: Master's Degree or Higher Difficulty w/ Childcare or Family Care: No Living arrangements: with family Additional living arrangements comments: Occupation/Education: retired Gender identity (if verbalized by the patient): Male Spiritual care concerns: No Exam Narrative: GENERAL: Well appearing, obese, non-toxic, in no acute distress. HEAD: Normocephalic, atraumatic. NECK: Supple. No adenopathy, no masses. RESPIRATORY: Airway patent, respirations nonlabored. Clear to auscultation bilaterally, no rales, rhonchi, wheezing. CARDIOVASCULAR: Regular rate and rhythm without murmurs, rubs, or gallops. Peripheral pulses 2+ and equal bilaterally. ABDOMINAL: Soft, nontender, nondistended, no hepatosplenomegaly. Normoactive BS. MUSCULOSKELETAL: Moves all extremities. Strength/ROM intact without gross deformities. Negative straight leg test bilaterally. SKIN: Warm, dry, normal color. No rashes. Positive swelling/edema bilateral knee, incisions dry and intact, no redness NEURO: A&O X3. Speech clear. Cranial nerves II-XII intact. No ataxic movements. PSYCHIATRIC: Appropriate mood and affect. Normal interaction. Course Vital Signs Vital signs: Vital Signs Pulse Rate 63 06/03/25 09:57 Respiratory Rate 11 L 06/03/25 09:57 Blood Pressure 137/83 06/03/25 09:57 Pulse Oximetry 100 06/03/25 09:57 Oxygen Delivery Room Air 06/03/25 09:57 Pulse Rate 63 06/03/25 09:57 Respiratory Rate 11 L 06/03/25 09:57 Blood Pressure 137/83 06/03/25 09:57 Pulse Oximetry 100 06/03/25 09:57 Oxygen Delivery Room Air 06/03/25 09:57 MDM - Back Pain/Injury MDM Narrative Medical decision making narrative: Patient is a 65-year-old who presents to the ER with bilateral lower back pain. He reports his pain started this morning. 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 He reports this morning he started experiencing significant sharp which is mildly relieved by ice. Patient denies any numbness/tingling in his legs, saddle anesthesia or loss of continence. He reports he had a left knee replacement in February and right knee replacement in April. Patient endorses a history of a PE, AFib, and is on blood thinners. He reports he did fall off a stool approximately 3-4 days ago. Labs Ordered: UA Imaging Ordered: CT lumbar spine Medications Ordered: Lidocaine patch, prednisone 40 mg p.o. Results: Patient's CT scan indicates Grade 1 retrolisthesis of L1 on L2, L2 on L3 and L3 on L4 with grade 1 anterolisthesis of L4 on L5, no fracture is identified. Moderate loss of disc height throughout most marked at L4-5 with moderate to severe canal and foraminal stenosis, outpatient MRI is recommended. Soft tissues there is a complex appearing lesion within the midpole the right kidney measuring 2 x 2 cm incompletely evaluated, outpatient ultrasound is recommended. Diagnosis: Lumbar radiculopathy, degenerative disc disorder Consults: Neurosurgery (outpatient) Patient Education/Shared MDM: Results of lab work and imaging shared with patient. He endorses mild improvement of symptoms following medication administration. Patient strongly advised to follow-up with his PCP for further kidney workup, and Neurosurgery for further back workup. He will be discharged home with a prescription for muscle relaxants, steroids, and lidocaine patches. Strict return precautions provided. Patient verbalized understanding and is in agreement with plan. Vital signs stable at time of discharge. All questions answered. Differential Diagnosis Differential diagnosis: Likely lumbar radiculopathy, sciatica, strain of lumbar region and discitis Lab Data Attestation: I reviewed the patient's lab results. Labs: Lab Results 06/03/25 Range/Units 11:37 Urine Color Dark yellow (Yellow) Urine Appearance Clear (Clear) Urine pH 6.5 (5.0-9.0) Ur Specific [place] 1.032 (1.001-1.035) Urine Protein 2+ H (Negative) mg/dL Urine Glucose (UA) 3+ H (Negative) mg/dL Urine Ketones Negative (Negative) mg/dL Ur Blood (Man) Negative (Negative) Urine Nitrate Negative (Negative) Urine Bilirubin Negative (Negative) Urine Urobilinogen 1.0 (<2.0) mg/dL Leukocyte Esterase Rfl Negative (Negative) ANDRIY/UL Urine RBC 0-2 (0-2) /hpf Urine WBC 0-5 (0-3) /hpf Ur Squamous Epith Cells None seen (Few) /hpf Urine Bacteria None seen /hpf Urine Casts 0-2 Imaging Data Attestation: I personally reviewed and interpreted this imaging study as follows: Radiologist's impression: Impressions Lumbar Spine CT 06/03/25 11:15 Impression: No acute fracture. Incidental findings above Discharge Plan Discharge Clinical Impression: Lumbar radiculopathy, Degenerative disc disease, Lesion of right kake kidney Patient Disposition: Home Condition: Stable Instructions: Antibiotic Form, Back Pain in Older Children and Adolescents (ED) Additional Instructions: Please return to the ER with any worsening symptoms. Follow-up with primary care provider and Neurosurgery as soon as possible. Take all medications as prescribed, including regularly scheduled medications. You may take steroids, muscle relaxants, Tylenol and lidocaine patches for pain control. Patient Language: Cymro Prescriptions: New lidocaine 5 % adhesive patch,medicated 2 patch topical DAILY Qty: 30 0RF Rx Instructions: leave on most painful area for up to 12 hrs cyclobenzaprine 10 mg tablet 10 mg PO TID PRN (Reason: muscle spasm) Qty: 30 0RF prednisone 50 mg tablet 50 mg PO DAILY Qty: 5 0RF No Action atorvastatin 80 mg tablet 80 mg PO DAILY finasteride 5 mg tablet 5 mg PO DAILY dapagliflozin propanediol [Farxiga] 10 mg tablet 10 mg PO DAILY Patient Comments: QAM metoprolol tartrate 50 mg tablet 50 mg PO Q12H Eliquis 5 mg tablet 5 mg PO BID amlodipine 5 mg tablet 5 mg PO DAILY Patient Comments: QAM ketoconazole 2 % shampoo 1 applic topical 2XW PRN (Reason: skin irritation) fluorouracil 5 % solution 1 applic topical BID PRN (Reason: rash) sulfamethoxazole-trimethoprim [Bactrim DS] 800-160 mg tablet 1 tablet PO Q12H Qty: 20 0RF multivit with min-folic acid [Adult One Daily Multivitamin] 0.4 mg Tablet 0.4 mg PO DAILY Vitamin D3 4,000 unit Capsule 4,000 unit PO DAILY aspirin [Adult Low Dose Aspirin] 81 mg tablet,delayed release (DR/EC) 81 mg PO DAILY losartan-hydrochlorothiazide 100-12.5 mg tablet 1 tablet PO QAM vitamin B complex Capsule 1 cap PO DAILY acetaminophen 500 mg capsule 1,000 mg PO Q6H PRN (Reason: pain) oxycodone-acetaminophen 5-325 mg tablet 1 tablet PO Q8H PRN (Reason: pain) Qty: 30 0RF Follow-up/Referrals: Catrachita Urbina MD [Physician, Neurosurgery] Referral Note: neurosurgery Gregory,Cecilia Blackwood MD [Primary Care Provider] Time of Disposition: 12:49
[2025-06-03] MEDS: LIDOCAINE 5% PATCH 1 PATCH TRANSDERM (10:44)
[2025-06-03 11:48] LABS: Add Urine Microscopic? YES; Appearance Urine Clear (Clear); Glucose Urine UA 3+ mg/dL (Negative); Leukocyte Esterase Ur Negative LEU/UL (Negative); Nitrate Urine Negative (Negative); Non Pathogenic Casts 0-2; Specific Grav Ur 1.032 (1.001-1.035)
--- NOTE | 2025-06-03 13:14 | PC.NURSE ---
upon educating the patient to discharge, patient was concerned that he was only getting steroids for 5 days and is concerned about what he's going to do once those are gone and the pain comes back. discussed with the patient the importance of calling neurosurgery today after discharge to set up a follow up appointment. patient requesting to see Aishwarya before being discharged because he's concerned we didn't get to the bottom of the pain
[2025-06-03 14:00] VITALS: BP 131/66; PULSE 87; RESP 18; O2SAT 97
== END 2025-06-03 14:02 | disposition home or self-care (01) ==
PROVIDERS: Emergency Provider Registered Nurse; PCP Family Medicine
DX: M54.16 Radiculopathy, lumbar region (principal); M51.369 Other intervertebral disc degeneration, lumbar region without mention of lumbar back pain or lower extremity pain; N28.9 Disorder of kidney and ureter, unspecified; I48.91 Unspecified atrial fibrillation; I10 Essential (primary) hypertension; Z79.01 Long term (current) use of anticoagulants
CPT/HCPCS: 72131; 81001; 99284; A9270; J7512